=== PATIENT | female | born 1975 | race African-American/Black ===

== ENCOUNTER 2021-05-21 11:00 | Observation (INO) | payer MEDICARE ==
[~2021-05-21] VITALS: Ht 167.6 cm; Wt 88.6 kg
[~2021-05-21 11:00] MED LIST: ASPI-886 PO; ATOR40TA59 PO; CARV25TA2 PO; CLOP75TA PO; DIVA500T2 PO; LISI-130 PO; LISI10TA16 PO; LISI20TA18 PO; METF500T16 PO; NAPR-514 PO; RISP2TAB33 PO; ZIPR40CA2 PO
[2021-05-21] MEDS ORDERED: IV NORMAL SALINE 1000ML BAG 1,000 ML IV SCH (11:15)
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
[2021-05-21] MEDS ORDERED: ASPIRIN 325 MG TABLET PO ONE (11:30)
[2021-05-21] MEDS ORDERED: cloNIDine HCL 0.1 MG TABLET PO ONE (11:30)
[2021-05-21 11:44] LABS: CALCIUM 8.8 mg/dL (8.5-10.1); CREATININE 0.9 mg/dL (0.6-1.0); GFR 81.9; POTASSIUM 4.2 mmol/L (3.5-5.1)
[2021-05-21 11:50] LABS: ALBUMIN/GLOBULIN RATIO 0.8 (1.0-1.7); MAGNESIUM 1.9 mg/dL (1.8-2.4); TOTAL BILIRUBIN 0.3 mg/dL (0.2-1.0); TOTAL PROTEIN 6.6 g/dL (6.4-8.2)
--- NOTE | 2021-05-21 12:03 | RAD ---
EXAM: Chest, single view. HISTORY: Hypertension. COMPARISON: 09/10/2020 FINDINGS: A frontal view of the chest is obtained. There is no infiltrate, pleural fusion or pneumoth orax. The heart is normal in size. IMPRESSION: No acute pulmonary finding. Electronically signed by: Shivani Mina MD (05/21/2021 12:00 PM) [id number]
[2021-05-21 12:25] LABS: BASO # 0.1 x10^3/uL (0.0-0.2); BASO % 1 % (0-3); EOS # 0.1 x10^3/uL (0.0-0.7); EOS % 1 % (0-3); HEMATOCRIT 37.9 % (36.0-47.0); HEMOGLOBIN 12.3 g/dL (12.0-15.5); LYMPH # 2.8 x10^3/uL (1.0-4.8); LYMPH % 27 % (24-48); MEAN CORPUSCULAR HEMOGLOBIN 28 pg (25-35); MEAN CORPUSCULAR HGB CONC 33 g/dL (31-37); MEAN CORPUSCULAR VOLUME 87 fL (79-100); MONO # 0.9 x10^3/uL (0.0-1.1); MONO % 8 % (0-9); NEUT # 6.7 x10^3/uL (1.8-7.7); NEUT % 64 % (31-73); PLATELET COUNT 309 x10^3/uL (140-400); RED BLOOD COUNT 4.37 x10^6/uL (3.50-5.40); RED CELL DISTRIBUTION WIDTH 15.4 % (11.5-14.5); WHITE BLOOD COUNT 10.5 x10^3/uL (4.0-11.0)
--- NOTE | 2021-05-21 12:51 | RAD ---
EXAM: Head CT without contrast. HISTORY: Altered mental status. TECHNIQUE: Computed tomographic images of the head were obtained without contrast. *One or more of the following individualized dose reduction techniques were utilized for this examina tion: 1. Automated exposure control. 2. Adjustment of the mA and/or kV according to patient size. 3. Use of iterative reconstruction technique. COMPARISON: 09/13/2020. FINDINGS: There is no acute or subacute extra-axial or intraparenchymal hemorrhage. There is no mass effect or midline shift. There is no hydrocephalus. The key-white matter differentiation pattern is intact. The visualized portions of the orbits, paranasal sinuses and mastoid air cells are unremarkable. No s uspicious calvarial lesion is seen. IMPRESSION: No acute intracranial finding. Note is made that MRI is more sensitive for acute infarcti on. Electronically signed by: Shivani Mina MD (05/21/2021 12:49 PM) [id number]
[2021-05-21 13:12] LABS: BILIRUBIN,URINE NEGATIVE (NEG); CLARITY,URINE CLEAR; COLOR,URINE YELLOW; NITRITE,URINE NEGATIVE (NEG); PROTEIN,URINE 100 mg/dL (NEG-TRACE)
[2021-05-21 13:15] LABS: BARBITURATES NEG (NEG); BENZODIAZEPINES NEG (NEG); CANNABINOIDS POS (NEG); COCAINE NEG (NEG); METHADONE NEG (NEG); OPIATES NEG (NEG); PHENCYCLIDINE POS (NEG)
[2021-05-21] MEDS ORDERED: NITROGLYCERIN SUBLINGUAL 0.4 MG BOTTLE OF 25. SL PRN (13:15)
[2021-05-21 13:16] LABS: AMPHETAMINE/METHAMPHETAMINE NEG (NEG)
[2021-05-21 13:28] LABS: BACTERIA,URINE 0 /HPF (0-FEW); RBC,URINE 0 /HPF (0-2); WBC,URINE 0 /HPF (0-4)
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
--- NOTE | 2021-05-21 14:01 | EKG ---
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
[2021-05-21 14:17] LABS: PROTHROMBIN TIME PATIENT 13.3 SEC (11.7-14.0)
[2021-05-21] MEDS ORDERED: DOCUSATE SODIUM 100 MG CAPSULE. PO PRN (14:45)
[2021-05-21] MEDS ORDERED: ONDANSETRON PF 4 MG/2 ML VIAL. IVP PRN (14:45)
[2021-05-21] MEDS ORDERED: PROCHLORPERAZINE 10 MG/2 ML VIAL. IV PRN (14:45)
[2021-05-21] MEDS ORDERED: DEXTROSE 50% 25 GM / 50ML DISP.SYRIN. IV PRN (14:45)
[2021-05-21 17:15] VITALS: BP 191/114
[2021-05-21] MEDS: ACETAMINOPHEN 325 MG TABLET. PO PRN ×2 (17:44→21:39)
[2021-05-21] MEDS: IV NORMAL SALINE 1000ML BAG 1,000 ML IV SCH (17:47)
[2021-05-21] MEDS: INSULIN LISPRO 300 UNITS/3 ML VIAL. SQ SCH (17:47)
[2021-05-21 19:54] VITALS: BP 168/97
[2021-05-21] MEDS ORDERED: NICOTINE 7MG PATCH. TD PRN (20:30)
[2021-05-21] MEDS: ENOXAPARIN 40 MG/0.4 ML SYRINGE. SQ SCH (21:39)
[2021-05-21 23:39] VITALS: BP 146/82
[2021-05-22] MEDS: IV NORMAL SALINE 1000ML BAG 1,000 ML IV SCH ×3 (00:45→20:45)
[2021-05-22 03:11] VITALS: BP 156/87
[2021-05-22 04:36] LABS: BASO % 1 % (0-3); EOS # 0.1 x10^3/uL (0.0-0.7); EOS % 2 % (0-3); HEMATOCRIT 38.4 % (36.0-47.0); HEMOGLOBIN 12.7 g/dL (12.0-15.5); LYMPH # 2.8 x10^3/uL (1.0-4.8); LYMPH % 33 % (24-48); MEAN CORPUSCULAR HEMOGLOBIN 29 pg (25-35); MEAN CORPUSCULAR HGB CONC 33 g/dL (31-37); MEAN CORPUSCULAR VOLUME 87 fL (79-100); MONO # 0.6 x10^3/uL (0.0-1.1); MONO % 7 % (0-9); NEUT % 59 % (31-73); PLATELET COUNT 276 x10^3/uL (140-400); RED BLOOD COUNT 4.42 x10^6/uL (3.50-5.40); RED CELL DISTRIBUTION WIDTH 15.4 % (11.5-14.5); WHITE BLOOD COUNT 8.6 x10^3/uL (4.0-11.0)
[2021-05-22 04:51] LABS: CREATININE 0.7 mg/dL (0.6-1.0); GFR 109.5; MAGNESIUM 1.7 mg/dL (1.8-2.4); PHOSPHORUS 3.2 mg/dL (2.6-4.7); POTASSIUM 3.6 mmol/L (3.5-5.1)
[2021-05-22 07:00] VITALS: BP 153/102
[2021-05-22] MEDS: INSULIN LISPRO 300 UNITS/3 ML VIAL. SQ SCH ×3 (08:06→17:52)
[2021-05-22 11:12] VITALS: BP 184/117
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
[2021-05-22] MEDS: DIVALPROEX DELAYED RELEASE 500 MG TABLET.DR. PO SCH ×2 (13:00→21:00)
[2021-05-22] MEDS: CARVEDILOL 12.5 MG TABLET. PO SCH ×2 (13:38→17:49)
[2021-05-22] MEDS: CLOPIDOGREL BISULFATE 75 MG TABLET PO SCH (13:38)
[2021-05-22] MEDS: metFORMIN 500 MG TABLET PO SCH ×2 (13:38→17:49)
[2021-05-22] MEDS: ASPIRIN ENTERIC COATED 81 MG TABLET.DR. PO SCH (13:38)
[2021-05-22] MEDS: LISINOPRIL 20 MG TABLET PO SCH (13:39)
[2021-05-22] MEDS: HALOPERIDOL 2 MG TABLET. PO SCH (13:39)
[2021-05-22] MEDS: FLUTICASONE 50MCG/NASAL SPRAY 16GM BOTTLE. NS SCH (13:40)
[2021-05-22] MEDS: ALBUTEROL SULFATE 2.5 MG/3 ML NEBU. NEB SCH ×3 (14:23→21:13)
[2021-05-22 15:20] VITALS: BP 167/101
[2021-05-22] MEDS ORDERED: diphenhydrAMINE HCL 25 MG CAPSULE PO PRN (19:30)
[2021-05-22 19:33] VITALS: BP 189/108
[2021-05-22] MEDS ORDERED: ATORVASTATIN CALCIUM 40 MG TABLET. PO SCH (21:00)
[2021-05-22] MEDS ORDERED: risperiDONE 1 MG TABLET. PO SCH (21:00)
[2021-05-22] MEDS ORDERED: RISPERIDONE PO SCH (21:00)
[2021-05-22] MEDS: ENOXAPARIN 40 MG/0.4 ML SYRINGE. SQ SCH (21:06)
[2021-05-22 22:47] VITALS: BP 144/92
[2021-05-23 03:02] VITALS: BP 119/64
[2021-05-23] MEDS: IV NORMAL SALINE 1000ML BAG 1,000 ML IV SCH (06:05)
[2021-05-23] MEDS: ALBUTEROL SULFATE 2.5 MG/3 ML NEBU. NEB SCH ×2 (06:07→12:19)
[2021-05-23 07:22] LABS: BASO # 0.1 x10^3/uL (0.0-0.2); BASO % 1 % (0-3); EOS # 0.1 x10^3/uL (0.0-0.7); EOS % 1 % (0-3); HEMATOCRIT 42.5 % (36.0-47.0); HEMOGLOBIN 13.7 g/dL (12.0-15.5); LYMPH # 2.4 x10^3/uL (1.0-4.8); LYMPH % 23 % (24-48); MEAN CORPUSCULAR HEMOGLOBIN 28 pg (25-35); MEAN CORPUSCULAR HGB CONC 32 g/dL (31-37); MEAN CORPUSCULAR VOLUME 87 fL (79-100); MONO # 0.6 x10^3/uL (0.0-1.1); MONO % 6 % (0-9); NEUT # 7.3 x10^3/uL (1.8-7.7); NEUT % 70 % (31-73); PLATELET COUNT 255 x10^3/uL (140-400); RED BLOOD COUNT 4.85 x10^6/uL (3.50-5.40); WHITE BLOOD COUNT 10.5 x10^3/uL (4.0-11.0)
[2021-05-23 07:38] LABS: CALCIUM 8.7 mg/dL (8.5-10.1); CREATININE 0.7 mg/dL (0.6-1.0); GFR 109.5; MAGNESIUM 1.8 mg/dL (1.8-2.4); POTASSIUM 4.1 mmol/L (3.5-5.1)
[2021-05-23 08:00] VITALS: BP 141/78
[2021-05-23] MEDS: ASPIRIN ENTERIC COATED 81 MG TABLET.DR. PO SCH (08:43)
[2021-05-23] MEDS: CLOPIDOGREL BISULFATE 75 MG TABLET PO SCH (08:43)
[2021-05-23] MEDS: CARVEDILOL 12.5 MG TABLET. PO SCH (08:44)
[2021-05-23] MEDS: HALOPERIDOL 2 MG TABLET. PO SCH (08:44)
[2021-05-23] MEDS: LISINOPRIL 20 MG TABLET PO SCH (08:44)
[2021-05-23] MEDS: metFORMIN 500 MG TABLET PO SCH (08:44)
[2021-05-23] MEDS: FLUTICASONE 50MCG/NASAL SPRAY 16GM BOTTLE. NS SCH (08:45)
[2021-05-23] MEDS: INSULIN LISPRO 300 UNITS/3 ML VIAL. SQ SCH ×2 (08:49→12:09)
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
[2021-05-23] MEDS ORDERED: METF500T16 PO ×2 (10:20→10:23)
[2021-05-23] MEDS ORDERED: CLOP75TA PO ×2 (10:20→10:23)
[2021-05-23] MEDS ORDERED: ASPI-886 PO ×2 (10:20→10:23)
[2021-05-23] MEDS ORDERED: DIVA500T2 PO ×2 (10:20→10:23)
[2021-05-23] MEDS ORDERED: RISP2TAB33 PO ×2 (10:20→10:23)
[2021-05-23] MEDS ORDERED: LISI-130 PO ×2 (10:20→10:23)
[2021-05-23] MEDS ORDERED: ATOR40TA59 PO ×2 (10:20→10:23)
[2021-05-23] MEDS ORDERED: CARV25TA2 PO ×2 (10:20→10:23)
[2021-05-23] MEDS ORDERED: HALO2TAB PO ×2 (10:20→10:23)
[2021-05-23] MEDS ORDERED: EMPA10TA PO (10:23)
--- NOTE | 2021-05-23 10:29 | NUR ---
SS following for discharge planning. SS reviewed pt chart and discussed with pt RN. Pt is currently on room air. Pt positive for PCP and Marijuana. PAT team referral made for assessment and recommendations. Pt reporting that she is currently homeless but works and receives disability. Delvin from PAT team met with pt. Pt has open case with [facility] and has treatment team. Pt also has homeless program through [facility]. Pt reporting that she will stay in a hotel at discharge. Probable discharge today. SS will continue to follow for discharge planning.
[2021-05-23] MEDS ORDERED: MAGNESIUM SULFATE 1GM 100 ML IV ONE (10:30)
[2021-05-23 11:00] VITALS: BP 166/101
[2021-05-23] MEDS: MAGNESIUM OXIDE 400 MG TABLET PO SCH ×2 (12:40→12:42)
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
--- NOTE | 2021-05-23 15:42 | NUR ---
Discharge: Teaching verbal and written. Patient verbalized understanding. IV removed without complications, catheter tip in-tact. 2 prescriptions send to pharmacy by Dr. Moreno. Called for cab but them patient said she didnt want to wait and her friend was going to pick her up. Patient ambulated off of unit independently accompanied by nurse and patients friend.
--- NOTE | 2021-06-01 14:26 | NUR ---
Late entry - NaCl infusion started on 05/21/21 at 1747 stopped on 05/22/21 at 0044. NaCl infusion started on 05/22/21 at 0045 stopped on 05/22/21 at 1045.
== END 2021-05-23 14:56 | disposition home or self-care (01) ==
LOC: ER 11:00 → INTOOBSV 13:10 → ED HOLD 13:10 → 6 SOUTH 17:10
PROVIDERS: ADMIT Internal Medicine; ATTEND Internal Medicine
DX: G92 Toxic encephalopathy (principal); I24.8 Other forms of acute ischemic heart disease; E44.0 Moderate protein-calorie malnutrition; R11.2 Nausea with vomiting, unspecified; E11.65 Type 2 diabetes mellitus with hyperglycemia; F17.200 Nicotine dependence, unspecified, uncomplicated; R41.82 Altered mental status, unspecified; R77.8 Other specified abnormalities of plasma proteins; F19.10 Other psychoactive substance abuse, uncomplicated; I10 Essential (primary) hypertension; R79.89 Other specified abnormal findings of blood chemistry; I25.10 Atherosclerotic heart disease of native coronary artery without angina pectoris; F20.9 Schizophrenia, unspecified; M06.9 Rheumatoid arthritis, unspecified; F31.9 Bipolar disorder, unspecified; F16.90 Hallucinogen use, unspecified, uncomplicated; E78.5 Hyperlipidemia, unspecified; Z95.5 Presence of coronary angioplasty implant and graft; Z91.14 Patient's other noncompliance with medication regimen; Z59.0 Homelessness; Z91.19 Patient's noncompliance with other medical treatment and regimen
CPT/HCPCS: 36415; 70450; 71045; 80048; 80053; 80307; 81001; 82010; 82962; 83690; 83735; 83880; 84100; 84484; 85025; 85379; 85610; 85730; 93005; 94640; 96360; 96361; 96372; 99285; 99406; G0378; G0480; J1650; J1815; J7030; J7613; Q0163; G0379

== ENCOUNTER 2021-06-14 17:57 | Emergency (ER) | payer MEDICARE ==
[~2021-06-14] VITALS: Ht 162.6 cm; Wt 98.0 kg
[~2021-06-14 17:57] MED LIST changes: +EMPA10TA PO; +HALO2TAB PO
[2021-06-14] MEDS ORDERED: AMOXICILLIN/K CLAV 875/125MG TABLET. PO ONE (23:45)
[2021-06-14] MEDS ORDERED: RABIES IMMUNE GLOBULIN PF 300 UNIT/ML 5ML VIAL VAX IM ONE (23:45)
[2021-06-14] MEDS ORDERED: BACITRACIN TOPICAL OINT PACKET. TP ONE (23:45)
[2021-06-14] MEDS ORDERED: DIPH,PERTUSS(ACELL),TET VAC/PF 0.5 ML SYRINGE. VAX IM ONE (23:45)
[2021-06-14] MEDS ORDERED: LISINOPRIL 10 MG TABLET PO ONE (23:45)
[2021-06-15] MEDS ORDERED: RABIES VIRUS VACC PF 2.5 UNIT / 1 ML VIAL. VAX IM ONE
[2021-06-15] MEDS ORDERED: AMOX1TAB61 PO (00:42)
--- NOTE | 2021-06-15 00:43 | PHYS DOC ---
Past Medical History Past Medical History: Diabetes-Type II, Hypertension Past Surgical History: No Surgical History Smoking Status: Current Every Day Smoker Alcohol Use: Heavy Drug Use: None, Marijuana General Adult EDM: Chief Complaint: ANIMAL BITE HPI: HPI: Patient is a 46 year old female who presents to the emergency department complaining of being bit on the left lower leg by a stray dog at 530 this morning. Patient states she has never seen the dog before, states it came on and better and ran off. Patient is worried she might get rabies. Patient vannessa es numbness or tingling to the animal bite site or distal to the animal bite site wound. Patient states her last tetanus immunization was greater than 5 years ago. Patient states that she is supposed to take medication for high blood pressure but chooses not to. Patient denies any other physical complaints or physical concerns. Review of Systems: Review of Systems: 14 body systems of review of systems have been reviewed. See HPI for pertinent positives and negative responses, otherwise all other systems are negative, nonpertinent or noncontributory. Constitutional: Negative except as outlined in HPI above. Skin: Negative except as outlined in HPI above. Eyes: Negative except as outlined in HPI above. HENT: Negative except as outlined in HPI above. Respiratory: Negative except as outlined in HPI above. Cardiovascular: Negative except as outlined in HPI above. GI: Negative except as outlined in HPI above. : Negative except as outlined in HPI above. Musculoskeletal: Negative except as outlined in HPI above. Integument: Negative except as outlined in HPI above. Neurologic: Negative except as outlined in HPI above. Endocrine: Negative except as outlined in HPI above. Lymphatic: Negative except as outlined in HPI above. Psychiatric: Negative except as outlined in HPI above. Heart Score: C/O Chest Pain: No Risk Factors: Risk Factors: DM, Current or recent (<one month) smoker, HTN, HLP, family history of CAD, obesity. Risk Scores: Score 0 - 3: 2.5% MACE over next 6 weeks - Discharge Home Score 4 - 6: 20.3% MACE over next 6 weeks - Admit for Clinical Observation Score 7 - 10: 72.7% MACE over next 6 weeks - Early Invasive Strategies Current Medications: Current Medications Medications (Trade) Dose Ordered Sig/Johanna Start Time Stop Time Status Last Admin Dose Admin Amoxicillin/ Clavulanate Potassium (Augmentin 875/ 125mg) 1 tab 1X ONCE 06/14/21 23:45 06/14/21 23:50 DC 06/14/21 23:58 1 TAB Bacitracin (Bacitracin Zinc Oint Pkt) 1 pkt 1X ONCE 06/14/21 23:45 06/14/21 23:50 DC 06/15/21 00:03 1 PKT Diphtheria/ Tetanus/Acell Pertussis (ADACEL TDap SYRINGE) 0.5 ml ONCE ONCE 06/14/21 23:45 06/14/21 23:50 DC 06/15/21 00:04 0.5 ML Lisinopril (Prinivil) 40 mg 1X ONCE 06/14/21 23:45 06/14/21 23:50 DC 06/14/21 23:59 40 MG Rabies Immune Globulin (HyperRAB 300 UNIT/ML 5ML VIAL) 6.5 ml ONCE ONCE 06/14/21 23:45 06/15/21 00:01 DC 06/15/21 00:18 6.5 ML Rabies Vaccine Human Diploid Cell (Imovax Rabies 2.5 Unit / ml) 1 ml ONCE ONCE 06/15/21 00:00 06/15/21 00:01 DC 06/15/21 00:13 1 ML Allergies: Allergies: Allergies Coded Allergies Type Severity Reaction Last Updated Verified No Known Drug Allergies 03/22/14 No Physical Exam: PE: Constitutional: Well developed, well nourished, no acute distress, non-toxic appearance. 46-year-old female in no apparent distress. HENT: Normocephalic, atraumatic. Eyes: Conjunctiva normal, no discharge. Neck: Normal range of motion, no stridor. Cardiovascular: No cyanosis appreciated, distal cap refill less than 2 seconds. Lungs & Thorax: Patient is in no respiratory distress, no audible adventitious lung sounds appreciated. Abdomen: Nontender, no abnormalities noted. Skin: Warm, dry, no erythema, no rash. See extremity note for focused skin examination Back: No tenderness, no deformities. Extremities: No tenderness, no cyanosis, no clubbing, ROM intact, no edema. Patient has two 11 mm superficial skin abrasions to the left lower lateral leg just proximal to the ankle. No infectious process appreciated, no bleeding noted. The abrasions do not extend full-thickness skin, no purulent drainage, 2+ dorsalis pedis/posterior tibial pulses. Distal cap refills less than 2 seconds, no edema, no swelling appreciated. No loss of sensation. Neurologic: Alert and oriented X 3, normal motor function, normal sensory function, no focal deficits noted. Psychologic: Affect normal, judgement normal, mood normal. Current Patient Data: Vital Signs: Vital Signs Date Time Temp Pulse Resp B/P (MAP) Pulse Ox O2 Delivery O2 Flow Rate FiO2 06/14/21 23:59 80 170/104 06/14/21 23:30 20 94 Room Air 06/14/21 20:15 98.8 98.8 EKG: EKG: [] Radiology/Procedures: Radiology/Procedures: [] Course & Med Decision Making: Course & Med Decision Making Pertinent Labs and Imaging studies reviewed. (See chart for details) 46-year-old female, vital signs reviewed, presents to the emergency department with chief complaint of being bit by dog at 530 this morning. Physical examination consistent with abrasion from scratch, no bite sincere or bite pattern appreciated, most likely scratch from dog paw if in fact an animal did cause of the skin wound. Patient also presents with hypertension, states that she is supposed to take 40 mg of lisinopril daily however chooses not to. Discussed with patient will cleanse wound, contact animal control, will give 40 mg dose of lisinopril in the ED today for hypertensive blood pressure on presentation, will start on Augmentin in the ED today, will bring tetanus immunization up-to-date with Adacel Tdap patient is amendable to this planning. Patient states she does not want any labs drawn today Contacted security related to animal bite who will contact Donta GREWAL to contact animal control. Related to stray dog, however low probability of rabies, related to patient's story that animal was stray and happened at 530 this morning it is unlikely that the animal will be found by animal control for rabies observation, will treat prophylactically today, patient is amenable to this planning. Patient's rabies vaccine to be given on day 0 which is today, day 3, 7, and 14. Immunoglobulin was given by me by infiltrating wound site with feasible amount with approximately 3 cc remaining given to the left gluteal site deep IM. Discussed with patient planning to come back on day 3, 7, and day 14 which is Sunday, June 18, SundayJune 22, and June 29. Patient is to come to the emergency department for rabies vaccine on the aforementioned days. Patient is amenable to this planning. Will start patient on 875 Augmentin twice daily x7 days. Discussed with the patient all findings and diagnostic testing as well as the need to follow-up with their primary care provider for further evaluation and treatment or return to the ED if any new or worsening symptoms. Strict return precautions were also discussed at length, the patient voiced understanding and agreement with the discharge planning. The patient was nontoxic in appearance, in no apparent distress, and hemodynamically stable at the time of disposition. Dragon Disclaimer: DadShed Disclaimer: This electronic medical record was generated, in whole or in part, using a voice recognition dictation system. Departure Departure Impression: Primary Impression: Animal bite Additional Impressions: Need for prophylactic vaccination against rabies Need for DTaP vaccine Poorly-controlled hypertension Disposition: HOME / SELF CARE / HOMELESS Condition: GOOD Referrals: GINO LA MD (PCP) Patient Instructions: Animal Bite, Rabies, Rabies Immune Globulin, human RIG solution for injection, Rabies Vaccine suspension for injection, VIS, Rabies - CDC Additional Instructions: You were seen today in the emergency department for a dog bite to your left leg. Because of the unlikelihood the dog can be found and observe for rabies, you were treated today for a rabies infection. This was to prevent any rabies infection from starting. Your first dose seen today was started in the ER. You will need to come back to the emergency department for additional 1 time rabies vaccine dosing on days 3, 7, and 14 which equates to returning to the emergency department on Sunday, June 182020, June 222020, and June 29, 2021. You were given a dose of your first antibiotic here in the emergency department, please fill the prescription tomorrow and take as directed for the next 7 days. Please continue to take your high blood pressure medication at home as directed by your primary care physician. Please return to the emergency department for worsening symptoms or other concerns. Thank you for visiting our Emergency Department. It was a pleasure taking care of you today in the emergency department and we appreciate you trusting us with your care. If any additional problems come up don't hesitate to return to visit us. Please follow up with your primary care provider so they can plan additional care if needed and know about the problem that you had. If symptoms worsen come back to the Emergency Department. Any concerning symptoms that start such as chest pain, shortness of air, weakness or numbness on one side of the body, running high fevers or any other concerning symptoms return to the ER. Please cleanse the dog bite wound area daily with soap and water and apply antibiotic ointment and bandage until healed. Your tetanus immunization was brought up-to-date in the emergency room today with a medication called Adacel/Tdap please update your immunization records accordingly. EMERGENCY DEPARTMENT GENERAL DISCHARGE INSTRUCTIONS Thank you for coming to [facility] (ED) today and trusting us with you care. We trust that you had a positive experience in our Emergency Department. If you wish to speak to the department management, you may call the Director at [phone]. YOUR FOLLOW UP INSTRUCTIONS ARE FOLLOWS: 1. Do you have a private Doctor? If you do not have a private doctor, please ask for a resource list of physicians or clinics that may be able to assist you with follow up care. 2. The Emergency Physicain has interpreted your x-rays. The X-Ray specialist will also review them. If there is a change in the findings, you will be notified in 48 hours when at all possible. 3. A lab test or culture has been done, your results will be reviewed and you will be notified if you need a change in treatment. ADDITIONAL INSTRUCTIONS AND INFORMATION: 1. Your care today has been supervised by a physician who is specially trained in emergency care. Many problems require more than one evaluation for a complete diagnosis and treatment. We recommend that you schedule your follow up appointment as recommended to ensure complete treatment of you illness or injury. If you are unable to obtain follow up care and continue to have a problem, or if your condition worsens, we recommend that you return to the ED. 2. We are not able to safely determine your condition over the phone nor are we able to give sound medical advice over the phone. For these safety reasons, if you call for medical advice we will ask you to come to the ED for further evaluation. 3. If you have any questions regarding these discharge instructions please call the ED at [phone]. SAFETY INFORMATION: In the interest of safety, wellness, and injury prevention; we encourage you to wear your sealbelt, if you smoke; quite smoking, and we encourage family to use a protective helmet for bicycling and other sporting events that present an increased risk for head injury. IF YOUR SYMPTOMS WORSEN OR NEW SYMPTOMS DEVELOP, OR YOU HAVE CONCERNS ABOUT YOUR CONDITION; OR IF YOUR CONDITION WORSENS WHILE YOU ARE WAITING FOR YOUR FOLLOW UP APPOINTMENT; EITHER CONTACT YOUR PRIMARY CARE DOCTOR, THE PHYSICIAN WHOSE NAME AND NUMBER YOU WERE GIVEN, OR RETURN TO THE ED IMMEDIATELY. Scripts Amoxicillin/Potassium Clav (AUGMENTIN 875-125 TABLET) 1 Each Tablet 1 TAB PO BID for animal bite for 7 Days, #14 TAB 0 Refills Prov: OSVALDO HOUGH APRN 06/15/21 OSVALDO HOUGH APRN Jun 15, 2021 00:43
[2021-06-15 00:53] VITALS: BP 179/111
== END 2021-06-15 01:00 | disposition home or self-care (01) ==
LOC: ER 17:57
DX: S81.852A Open bite, left lower leg, initial encounter (principal); E11.9 Type 2 diabetes mellitus without complications; I10 Essential (primary) hypertension; F17.200 Nicotine dependence, unspecified, uncomplicated; F10.20 Alcohol dependence, uncomplicated; Y90.9 Presence of alcohol in blood, level not specified; W54.0XXA Bitten by dog, initial encounter; Y93.89 Activity, other specified; Y92.89 Other specified places as the place of occurrence of the external cause; Y99.8 Other external cause status
CPT/HCPCS: 90375; 90471; 90675; 90715; 96372; 99284-25; 99285-25

== ENCOUNTER 2021-09-21 05:41 | Observation (INO) | payer MEDICARE ==
[~2021-09-21] VITALS: Ht 165.1 cm; Wt 86.2 kg
[~2021-09-21 05:41] MED LIST changes: +AMOX1TAB61 PO
[2021-09-21] MEDS ORDERED: IV NORMAL SALINE 1000ML BAG 1,000 ML IV ONE ×2 (06:15→12:30)
[2021-09-21 06:31] LABS: BASO % 0 % (0-3); EOS % 0 % (0-3); HEMATOCRIT 45.4 % (36.0-47.0); HEMOGLOBIN 14.7 g/dL (12.0-15.5); LYMPH # 1.5 x10^3/uL (1.0-4.8); LYMPH % 10 % (24-48); MEAN CORPUSCULAR HEMOGLOBIN 28 pg (25-35); MEAN CORPUSCULAR HGB CONC 32 g/dL (31-37); MEAN CORPUSCULAR VOLUME 87 fL (79-100); MONO # 0.9 x10^3/uL (0.0-1.1); MONO % 6 % (0-9); NEUT # 12.4 x10^3/uL (1.8-7.7); NEUT % 84 % (31-73); PLATELET COUNT 286 x10^3/uL (140-400); RED BLOOD COUNT 5.21 x10^6/uL (3.50-5.40); RED CELL DISTRIBUTION WIDTH 14.4 % (11.5-14.5); WHITE BLOOD COUNT 14.8 x10^3/uL (4.0-11.0)
[2021-09-21 06:31] LABS: INFLUENZA A PATIENT NEGATIVE (NEGATIVE); INFLUENZA B PATIENT NEGATIVE (NEGATIVE)
--- NOTE | 2021-09-21 06:31 | RAD ---
EXAM: XR CHEST 1V 09/21/2021 5:56 AM CLINICAL INDICATION: Shortness of breath COMPARISON: Chest radiograph 05/21/2021 TECHNIQUE: AP upright view the chest FINDINGS: The heart is normal in size. There is a rounded masslike opacity in the right infrahilar r egion. There are new bandlike right perihilar opacities and mild left retrocardiac opacities. No pleu ral effusion or pneumothorax. No acute osseous abnormality. IMPRESSION: 1. New rounded masslike opacity in the right infrahilar region. Recommend CT chest to further evaluat e. 2. Additional mild right perihilar and left retrocardiac opacities. Electronically signed by: Lilian Gamble MD (09/21/2021 6:29 AM) [facility]
[2021-09-21 06:32] LABS: CALCIUM 8.9 mg/dL (8.5-10.1); CREATININE 1.2 mg/dL (0.6-1.0); GFR 58.8; POTASSIUM 4.2 mmol/L (3.5-5.1)
[2021-09-21 06:36] LABS: TOTAL BILIRUBIN 0.8 mg/dL (0.2-1.0); TOTAL PROTEIN 7.7 g/dL (6.4-8.2)
[2021-09-21 06:44] LABS: ALBUMIN 2.2 g/dL (3.4-5.0); ALBUMIN/GLOBULIN RATIO 0.4 (1.0-1.7)
[2021-09-21] MEDS ORDERED: IOHEXOL 350 MG/ML 100 ML VIAL. IV ONE (06:45)
[2021-09-21] MEDS ORDERED: CONTRAST GIVEN. MC PRN (06:45)
--- NOTE | 2021-09-21 06:49 | EKG ---
[facility] [address] [place] [address] Test Date: 2021-09-21 Test Time: 05:50:23 Pat Name: BELKYS VAUGHN Department: Room: Gender: F Emergency Veterinarian: : 1975 Requested By: ANA BETTS Order Number: [id number] Reading MD: Oral Schuler MD Measurements Intervals [place] Rate: 123 P: 96 MD: 120 QRS: 11 QRSD: 80 T: 66 QT: 312 QTc: 452 Interpretive Statements SINUS TACHYCARDIA NON-SPECIFIC ST/T CHANGES Electronically Signed On 09-26-2021 11:46:32 WATER SUPERVISOR by Oral Schuler MD
--- NOTE | 2021-09-21 06:50 | PHYS DOC ---
Past Medical History Past Medical History: Diabetes-Type II, Hypertension Additional Past Medical Histor: DRUG ABUSE Past Surgical History: No Surgical History Smoking Status: Current Every Day Smoker Alcohol Use: None Drug Use: Marijuana, Phencyclidine General Adult EDM: Chief Complaint: SHORTNESS OF BREATH HPI: HPI: 46-year-old female with history of asthma, diabetes, coronary artery disease presents to the ED with chest pain. Chest pain started 2 days ago while she was running to catch the bus. This is the first time patient has experienced this type of chest pain. Patient reports chest pain is 10 out of 10 in severity. Patient reports difficulty taking a deep breath. Laying down flat makes the pain feel better. Sitting up straight makes the chest pain worse. Chest pain does not radiate to the jaw or arm. Chest pain is primarily in the middle of her chest. Patient reports diarrhea, headache, and fevers. Patient denies nausea or vomiting. Patient states no recent known Covid exposures. Patient received the [employer] Covid vaccine 1 month ago. Review of Systems: Review of Systems: Constitutional: Denies fever or chills Eyes: Denies redness or eye pain HENT: Denies nasal congestion or sore throat Respiratory: Denies cough or shortness of breath Cardiovascular: Denies chest pain or palpitations GI: Denies abdominal pain, nausea, or vomiting : Denies dysuria or hematuria Musculoskeletal: Denies back pain or joint pain Integument: Denies rash or skin lesions Neurologic: Denies headache, focal weakness or sensory changes Complete systems were reviewed and found to be within normal limits, except as documented in this note. Heart Score: C/O Chest Pain: Yes HEART Score for Chest Pain: HEART Score for Chest Pain Response (Comments) Value History Moderately Suspicious 1 ECG Normal 0 Age >45 - < 65 1 Risk Factors >3 Risk Factors or Hx CAD 2 Troponin >3 x Normal Limit 2 Total 6 Risk Factors: Risk Factors: DM, Current or recent (<one month) smoker, HTN, HLP, family history of CAD, obesity. Risk Scores: Score 0 - 3: 2.5% MACE over next 6 weeks - Discharge Home Score 4 - 6: 20.3% MACE over next 6 weeks - Admit for Clinical Observation Score 7 - 10: 72.7% MACE over next 6 weeks - Early Invasive Strategies Current Medications: Current Medications Medications (Trade) Dose Ordered Sig/Johanna Start Time Stop Time Status Last Admin Dose Admin Info (CONTRAST GIVEN -- Rx MONITORING) 1 each PRN DAILY PRN 09/21/21 06:45 09/23/21 06:44 Iohexol (Omnipaque 350 Mg/ml) 75 ml 1X ONCE 09/21/21 06:45 09/21/21 06:46 Sodium Chloride 1,000 ml @ 1,000 mls/hr 1X ONCE 09/21/21 06:15 09/21/21 07:14 Allergies: Allergies: Allergies Coded Allergies Type Severity Reaction Last Updated Verified No Known Drug Allergies 03/22/14 No Physical Exam: PE: Constitutional: Well developed, well nourished, no acute distress, non-toxic appearance HENT: Normocephalic, atraumatic Eyes: PERRL, EOMI, conjunctiva normal, no discharge Neck: Normal range of motion, no tenderness, supple Lungs & Thorax: No respiratory distress, equal chest rise and fall Abdomen: Soft, no tenderness Skin: Warm, dry, no erythema, no rash Back: No tenderness, no CVA tenderness Extremities: No tenderness, ROM intact, no edema Neurologic: Alert and oriented X 3, normal motor function, normal sensory funct ion, no focal deficits noted Psychologic: Affect normal, judgment normal Current Patient Data: Labs: Laboratory Tests Test 09/21/21 05:54 09/21/21 05:57 09/21/21 05:58 SARS-CoV-2 Antigen (Rapid) Negative (NEGATIVE) Influenza Type A Antigen Negative (NEGATIVE) Influenza Type B Antigen Negative (NEGATIVE) White Blood Count 14.8 x10^3/uL (4.0-11.0) H Red Blood Count 5.21 x10^6/uL (3.50-5.40) Hemoglobin 14.7 g/dL (12.0-15.5) Hematocrit 45.4 % (36.0-47.0) Mean Corpuscular Volume 87 fL (79-100) Mean Corpuscular Hemoglobin 28 pg (25-35) Mean Corpuscular Hemoglobin Concent 32 g/dL (31-37) Red Cell Distribution Width 14.4 % (11.5-14.5) Platelet Count 286 x10^3/uL (140-400) Neutrophils (%) (Auto) 84 % (31-73) H Lymphocytes (%) (Auto) 10 % (24-48) L Monocytes (%) (Auto) 6 % (0-9) Eosinophils (%) (Auto) 0 % (0-3) Basophils (%) (Auto) 0 % (0-3) Neutrophils # (Auto) 12.4 x10^3/uL (1.8-7.7) H Lymphocytes # (Auto) 1.5 x10^3/uL (1.0-4.8) Monocytes # (Auto) 0.9 x10^3/uL (0.0-1.1) Eosinophils # (Auto) 0.0 x10^3/uL (0.0-0.7) Basophils # (Auto) 0.0 x10^3/uL (0.0-0.2) Sodium Level 129 mmol/L (136-145) L Potassium Level 4.2 mmol/L (3.5-5.1) Chloride Level 94 mmol/L (98-107) L Carbon Dioxide Level 23 mmol/L (21-32) Anion Gap 12 (6-14) Blood Urea Nitrogen 19 mg/dL (7-20) Creatinine 1.2 mg/dL (0.6-1.0) H Estimated GFR (Cockcroft-Gault) 58.8 BUN/Creatinine Ratio 16 (6-20) Glucose Level 390 mg/dL (70-99) H Calcium Level 8.9 mg/dL (8.5-10.1) Magnesium Level 1.7 mg/dL (1.8-2.4) L Total Bilirubin Pending Aspartate Amino Transferase (AST) Pending Alanine Aminotransferase (ALT) Pending Alkaline Phosphatase Pending Total Protein Pending Albumin Pending Albumin/Globulin Ratio Pending Laboratory Tests 09/21/21 05:58 Laboratory Tests 09/21/21 05:58 Vital Signs: Vital Signs Date Time Temp Pulse Resp B/P (MAP) Pulse Ox O2 Delivery O2 Flow Rate FiO2 09/21/21 06:06 98.1 124 20 122/73 (89) 92 Room Air 98.1 EKG: EKG: @0550 Sinus tachycardia at 123bpm, NO ST elevation, prominent p waves in II-III and aVF, nonspecific t wave inversion I and aVL, QRS 80ms, QT/QTc 312/452, compared to prior EKG per [facility] from 09/10/20- t wave inversion no noted in I, otherwise without significant change Radiology/Procedures: Radiology/Procedures: PROCEDURE: CHEST AP ONLY EXAM: XR CHEST 1V 09/21/2021 5:56 AM CLINICAL INDICATION: Shortness of breath COMPARISON: Chest radiograph 05/21/2021 TECHNIQUE: AP upright view the chest FINDINGS: The heart is normal in size. There is a rounded masslike opacity in the right infrahilar region. There are new bandlike right perihilar opacities and mild left retrocardiac opacities. No pleural effusion or pneumothorax. No acute osseous abnormality. IMPRESSION: 1. New rounded masslike opacity in the right infrahilar region. Recommend CT chest to further evaluate. 2. Additional mild right perihilar and left retrocardiac opacities. Electronically signed by: Lilian Gamble MD (09/21/2021 6:29 AM) [facility] PROCEDURE: CT ANGIO CHEST W ABD PEL W/ CT chest abdomen pelvis with contrast dated 09/21/2021. COMPARISON: 04/11/2015. CLINICAL INDICATION: Chest pain and hypoxia. History of trauma. TECHNIQUE: Contiguous axial imaging the chest performed following the bolus administration of 75 cc Omnipaque 350. Study was performed as dedicated CTA with thin cut coronal and sagittal MIPS reconstruction. In addition, imaging through the abdomen pelvis acquired in the venous phase. One or more of the following individualized dose reduction techniques were utilized for this examination: 1. Automated exposure control 2. Adjustment of the mA and/or kV according to patient size 3. Use of iterative reconstruction technique. FINDINGS: Contrast bolus is adequate. No evidence of central, lobar or segmental pulmonary embolus. Subsegmental branches are not well evaluated. Thoracic aorta is normal in caliber. No intimal flap or periaortic fluid collection. Heart size within normal limits. No pericardial effusion. Coronary artery calcifications. There are mildly enlarged bilateral hilar, left paratracheal and subcarinal lymph nodes measuring up to 1.2 cm short axis. There is also some increased density in the anterior superior mediastinum. Central airways are patent. There is consolidation of the left lower lobe with air bronchograms. There are also patchy areas of consolidation in the anterior right upper lobe and right perihilar region extending into the right middle lobe. Prominent reticular nodular tree-in-bud opacities throughout both lungs. No pleural effusion. No pneumothorax. Images of the abdomen show homogeneous attenuation of the liver and spleen. Pancreas, adrenal glands, kidneys unremarkable. No hydronephrosis. The gallbladder is collapsed. Unopacified GI tract normal in caliber and contour. No bowel wall thickening. No inflammatory stranding in the mesentery. Appendix normal in caliber. No ascites or lymphadenopathy. Images of pelvis show nondistended urinary bladder. The uterus is unremarkable. There is a 4.3 cm left ovarian cyst. 1.7 cm right ovarian cyst versus dominant follicle. No free fluid. No pelvic adenopathy. Bone windows show no acute finding. IMPRESSION: 1. No acute abnormality of chest abdomen pelvis. No evidence of central, lobar or segmental pulmonary embolus. 2. Patchy consolidation of the left lower lobe, right upper lobe and right middle lobe, consistent with pneumonia. There are also superimposed diffuse reticular nodular tree-in-bud opacities which could be related to underlying atypical infection. Follow-up imaging recommended to ensure resolution. 3. Mediastinal and bilateral hilar lymphadenopathy, likely reactive. 4. No acute abnormality of abdomen or pelvis. 5. Bilateral ovarian cysts versus dominant follicles. Electronically signed by: Rick Bob MD (09/21/2021 7:24 AM) [facility] [place] Course & Med Decision Making: Course & Med Decision Making 46-year-old female with history of asthma, diabetes, coronary artery disease presents to the ED with chest pain. Patient reports with signs and symptoms concerning for myocardial infarction, pulmonary embolism, COVID-19. Laboratory: Initial troponin value elevated at 180. ProBNP 4127. EKG @0550 sinus tachycardia at 123bpm, NO ST elevation, prominent p waves in II-III and aVF, nonspecific t wave inversion I and aVL, QRS 80ms, QT/QTc 312/452, compared to prior EKG per [facility] from 09/10/20- t wave inversion no noted in I, otherwise without significant change. Pertinent Labs and Imaging studies reviewed. (See chart for details) Imaging: Chest AP Xray results as follows: 1. New rounded masslike opacity in the right infrahilar region. Recommend CT chest to further evaluate. 2. Additional mild right perihilar and left retrocardiac opacities. CT angio chest results as follows: 1. No acute abnormality of chest abdomen pelvis. No evidence of central, lobar or segmental pulmonary embolus. 2. Patchy consolidation of the left lower lobe, right upper lobe and right middle lobe, consistent with pneumonia. There are also superimposed diffuse reticular nodular tree-in-bud opacities which could be related to underlying a typical infection. Follow-up imaging recommended to ensure resolution. 3. Mediastinal and bilateral hilar lymphadenopathy, likely reactive. 4. No acute abnormality of abdomen or pelvis. 5. Bilateral ovarian cysts versus dominant follicles. Medications: Given in ED - Heparin sodium/dextrose - Contrast given for CT scan Due to elevated troponin, presence of pneumonia and presentation of symptoms, patient requires admission for further evaluation and treatment. Shared decision making utilized. Pt agrees to hospital admission and understands why she needs further evaluation. Discussed wit (hospitalist) who is in agreement with admission. Discussed findings and plan with patient, who acknowledges understanding and agreement. Patient requiring admission for further evaluation and treatment. Discussed with Dr. Eddy (hospitalist) who is in agreement with admission. Discussed findings and plan with patient, who acknowledges understanding and agreement. COVID-19 CRITERIA: The patient was evaluated during the global COVID-19 pandemic, and that diagnosis was suspected/considered upon their initial presentation. Their evaluation, treatment and testing was consistent with current guidelines for patients who present with complaints or symptoms that may be related to COVID-19. Dragon Disclaimer: Dragon Disclaimer: This electronic medical record was generated, in whole or in part, using a voice recognition dictation system. Departure Departure Impression: Primary Impression: Severe sepsis Additional Impressions: NSTEMI (non-ST elevated myocardial infarction) PCP abuse Pneumonia due to COVID-19 virus Disposition: 09 ADMITTED INPATIENT Admitting Physician: DAE (Surjit) Condition: GUARDED Referrals: GINO LA MD (PCP) COVID-19 Assessment: COVID-19 Patient Risks: Age 65 or older: No Sign of co-morbidity: Yes Exp to person + for COVID: No Exp to PUI: No Travel from affected area: No Lower respiratory symptoms: Yes Fever: Yes Other: Yes PPE Use: Full PPE with N95 mask or PAPR: Yes Date and Time of Reassessment Date: Sep 21, 2021 Time: 11:00 Fluid Challenge Is the fluid challenge complet: No IBW Target Volume Used: No BMI > 30: No Vital Signs Vital Signs: Vital Signs Date Time Temp Pulse Resp B/P (MAP) Pulse Ox O2 Delivery O2 Flow Rate FiO2 09/21/21 10:53 115 28 100/58 (72) 96 Room Air 09/21/21 06:06 98.1 98.1 Temperature Source: Oral Respirations Respiratory Effort: Normal, Non-Labored Respiratory Pattern: Normal Cardiovascular Pulse Rhythm: Irregular (Tachycardia) Heart: S1 and S2 normal Lung Sounds Breath Sounds: Clear Capillary Refil Capillary Refill: Rt Hand < 3 seconds Peripheral Pulse Pulse Location: Radial Pulse Strength: Normal (2+) Pulse Assessment Method: Palpation Integumentary Skin: Warm, Dry, No Rashes Skin Moisture: Dry Skin Turgor: Normal Skin Color: warm, dry Fingernail Color: WNL Critical Care Time Critical care time was 30 minutes which includes time at bedside, spent in discussion of patient's care with specialists and/or family members, with interpretation of laboratory and/or radiological studies and is exclusive of procedures. RICK SÁNCHEZ DO Sep 21, 2021 06:50
--- NOTE | 2021-09-21 07:26 | RAD ---
CT chest abdomen pelvis with contrast dated 09/21/2021. COMPARISON: 04/11/2015. CLINICAL INDICATION: Chest pain and hypoxia. History of trauma. TECHNIQUE: Contiguous axial imaging the chest performed following the bolus administration of 75 cc Omnipaque 35 0. Study was performed as dedicated CTA with thin cut coronal and sagittal MIPS reconstruction. In ad dition, imaging through the abdomen pelvis acquired in the venous phase. One or more of the following individualized dose reduction techniques were utilized for this examinat ion: 1. Automated exposure control 2. Adjustment of the mA and/or kV according to patient size 3. Use of iterative reconstruction technique. FINDINGS: Contrast bolus is adequate. No evidence of central, lobar or segmental pulmonary embolus. Subsegmenta l branches are not well evaluated. Thoracic aorta is normal in caliber. No intimal flap or periaortic fluid collection. Heart size within normal limits. No pericardial effusion. Coronary artery calcific ations. There are mildly enlarged bilateral hilar, left paratracheal and subcarinal lymph nodes measu ring up to 1.2 cm short axis. There is also some increased density in the anterior superior mediastin um. Central airways are patent. There is consolidation of the left lower lobe with air bronchograms. Ther e are also patchy areas of consolidation in the anterior right upper lobe and right perihilar region extending into the right middle lobe. Prominent reticular nodular tree-in-bud opacities throughout micaela th lungs. No pleural effusion. No pneumothorax. Images of the abdomen show homogeneous attenuation of the liver and spleen. Pancreas, adrenal glands, kidneys unremarkable. No hydronephrosis. The gallbladder is collapsed. Unopacified GI tract normal in caliber and contour. No bowel wall thickening. No inflammatory strandi ng in the mesentery. Appendix normal in caliber. No ascites or lymphadenopathy. Images of pelvis show nondistended urinary bladder. The uterus is unremarkable. There is a 4.3 cm lef t ovarian cyst. 1.7 cm right ovarian cyst versus dominant follicle. No free fluid. No pelvic adenopat hy. Bone windows show no acute finding. IMPRESSION: 1. No acute abnormality of chest abdomen pelvis. No evidence of central, lobar or segmental pulmonary embolus. 2. Patchy consolidation of the left lower lobe, right upper lobe and right middle lobe, consistent wi th pneumonia. There are also superimposed diffuse reticular nodular tree-in-bud opacities which could be related to underlying atypical infection. Follow-up imaging recommended to ensure resolution. 3. Mediastinal and bilateral hilar lymphadenopathy, likely reactive. 4. No acute abnormality of abdomen or pelvis. 5. Bilateral ovarian cysts versus dominant follicles. Electronically signed by: Rick Bob MD (09/21/2021 7:24 AM) [facility]
[2021-09-21] MEDS ORDERED: HEPARIN for IV BOLUS 10,000 UNIT/10 ML VIAL. IV ONE (07:30)
[2021-09-21] MEDS ORDERED: ASPIRIN ENTERIC COATED 325 MG TABLET.DR. PO ONE (07:30)
[2021-09-21] MEDS: HEPARIN 25,000UTS/250ML PREMIX 250 ML IV PRN (07:50)
[2021-09-21 08:10] LABS: % BANDS 22 % (0-9); % LYMPHS 15 % (24-48); % MONOS 2 % (0-10); % SEGS 61 % (35-66); PLT ESTIMATE ADEQUATE (ADEQUATE)
[2021-09-21 09:54] LABS: BILIRUBIN,URINE NEGATIVE (NEG); CLARITY,URINE CLEAR; COLOR,URINE YELLOW; NITRITE,URINE NEGATIVE (NEG); PROTEIN,URINE 100 mg/dL (NEG-TRACE); UROBILINOGEN,URINE 0.2 mg/dL (0.2 mg/dL)
[2021-09-21] MEDS ORDERED: AZITHRMYCN 500MG IVPB FOR OMNI 250 ML IV ONE (10:00)
[2021-09-21] MEDS ORDERED: cefTRIAXone IV Push 1 GM VIAL. IVP ONE (10:00)
[2021-09-21 10:01] LABS: BARBITURATES NEG (NEG); BENZODIAZEPINES NEG (NEG); CANNABINOIDS POS (NEG); COCAINE NEG (NEG); METHADONE NEG (NEG); OPIATES NEG (NEG); PHENCYCLIDINE POS (NEG)
[2021-09-21 10:02] LABS: AMPHETAMINE/METHAMPHETAMINE NEG (NEG)
[2021-09-21 10:23] LABS: BACTERIA,URINE 0 /HPF (0-FEW); RBC,URINE 0 /HPF (0-2)
[2021-09-21 10:48] LABS: PROTHROMBIN TIME PATIENT 14.7 SEC (11.7-14.0)
[2021-09-21] MEDS ORDERED: ONDANSETRON PF 4 MG/2 ML VIAL. IVP PRN (11:30)
[2021-09-21] MEDS ORDERED: IV NORMAL SALINE 1000ML BAG 1,000 ML IV SCH (11:30)
[2021-09-21] MEDS ORDERED: DEXTROSE 50% 25 GM / 50ML DISP.SYRIN. IV PRN ×2 (11:30→16:45)
[2021-09-21] MEDS ORDERED: MAGNESIUM SULFATE 2GM 50 ML IV ONE ×2 (11:30→16:30)
[2021-09-21] MEDS ORDERED: ACETAMINOPHEN 325 MG TABLET. PO PRN (11:30)
[2021-09-21] MEDS: INSULIN LISPRO 300 UNITS/3 ML VIAL. SQ SCH ×3 (12:00→21:31)
[2021-09-21] MEDS ORDERED: IV NORMAL SALINE 500ML BAG 500 ML IV ONE (12:30)
--- NOTE | 2021-09-21 17:12 | PDOC1 ---
History and Physical Date of Admission Date of Admission DATE: 09/21/21 TIME: 17:06 Source Source: Chart review, Patient History of Present Illness History of Present Illness \Ms. Pagan is a 46-year-old female with history of asthma, diabetes, coronary artery disease admit with cough with new sputum and chest pain. Chest pain started 2 days ago while she was running to catch the bus. She has been coughing in [facility] and has multiple splotches of sputum in the emesis basin, with light park color, very minor blood streak. Patient reported chest pain at 10 out of 10 in severity, btter now, pain meds have been given, with pleuritic pain. Sitting up straight makes the chest pain worse. Chest pain does not radiate to the jaw or arm. Chest pain is primarily in the middle of her chest. Patient reports diarrhea, headache, and fevers. Patient denies nausea or vomiting. Patient states no recent known Covid exposures. Patient received the [employer] Covid vaccine 1 month ago. Past Medical History Cardiovascular: CAD, HTN Pulmonary: No pertinent hx CENTRAL NERVOUS SYSTEM: Other GI: No pertinent hx Heme/Onc: No pertinent hx Psych: Anxiety, Bipolar Musculoskeletal: Osteoarthritis Rheumatologic: Rheumatoid arthritis Infectious disease: No pertinent hx Renal/: No pertinent hx Endocrine: Diabetes Past Surgical History Past Surgical History: Tubal Ligation Social History Smoke: <1 pack per day ALCOHOL: none Drugs: Marijuana Current Problem List Problem List Problems Medical Problems: (1) NSTEMI (non-ST elevated myocardial infarction) Status: Acute (2) PCP abuse Status: Acute (3) Pneumonia due to COVID-19 virus Status: Acute (4) Severe sepsis Status: Acute Current Medications Current Medications Current Medications Sodium Chloride 1,000 ml @ 1,000 mls/hr 1X ONCE IV Last administered on 09/21/21at 06:15; Start 09/21/21 at 06:15; Stop 09/21/21 at 07:14; Status DC Iohexol (Omnipaque 350 Mg/ml) 75 ml 1X ONCE IV Last administered on 09/21/21at 07:00; Start 09/21/21 at 06:45; Stop 09/21/21 at 06:46; Status DC Info (CONTRAST GIVEN -- Rx MONITORING) 1 each PRN DAILY PRN MC SEE COMMENTS; Start 09/21/21 at 06:45; Stop 09/23/21 at 06:44 Aspirin (Ecotrin) 325 mg 1X ONCE PO Last administered on 09/21/21at 07:48; Start 09/21/21 at 07:30; Stop 09/21/21 at 07:38; Status DC Heparin Sodium (Porcine) (Heparin Sodium) 4,000 unit 1X ONCE IV Last administered on 09/21/21at 07:49; Start 09/21/21 at 07:30; Stop 09/21/21 at 07:38; Status DC Heparin Sodium/ Dextrose 250 ml @ 9.72 mls/hr CONT PRN IV PER PROTOCOL Last administered on 09/21/21at 07:50; Start 09/21/21 at 07:30 Ceftriaxone Sodium (Rocephin) 1 gm 1X ONCE IVP Last administered on 09/21/21at 10:32; Start 09/21/21 at 10:00; Stop 09/21/21 at 10:02; Status DC Azithromycin 250 ml @ 250 mls/hr 1X ONCE IV Last administered on 09/21/21at 10:32; Start 09/21/21 at 10:00; Stop 09/21/21 at 10:59; Status DC Magnesium Sulfate 50 ml @ 25 mls/hr 1X ONCE IV Last administered on 09/21/21at 15:44; Start 09/21/21 at 11:30; Stop 09/21/21 at 13:29; Status DC Ondansetron HCl (Zofran) 4 mg PRN Q8HRS PRN IVP NAUSEA/VOMITING; Start 09/21/21 at 11:30; Stop 09/22/21 at 11:29 Sodium Chloride 1,000 ml @ 100 mls/hr Q10H IV ; Start 09/21/21 at 11:30; Stop 09/21/21 at 21:29 Acetaminophen (Tylenol) 650 mg PRN Q4HRS PRN PO FEVER > 100.3'F; Start 09/21/21 at 11:30; Stop 09/22/21 at 11:29 Insulin Human Lispro (HumaLOG) 0-5 UNITS TIDWMEALS SQ ; Start 09/21/21 at 12:00 Dextrose (Dextrose 50%-Water Syringe) 12.5 gm PRN Q15MIN PRN IV SEE COMMENTS; Start 09/21/21 at 11:30 Sodium Chloride 1,000 ml @ 1,000 mls/hr 1X ONCE IV Last administered on 09/21/21at 15:44; Start 09/21/21 at 12:30; Stop 09/21/21 at 13:29; Status DC Sodium Chloride 500 ml @ 500 mls/hr 1X ONCE IV ; Start 09/21/21 at 12:30; Stop 09/21/21 at 13:29; Status DC Magnesium Sulfate 50 ml @ 25 mls/hr 1X ONCE IV ; Start 09/21/21 at 16:30; Stop 09/21/21 at 18:29 Azithromycin (Zithromax) 250 mg DAILY PO ; Start 09/22/21 at 09:00 Insulin Human Lispro (HumaLOG) 0-9 UNITS QIDACHS SQ ; Start 09/21/21 at 21:00 Dextrose (Dextrose 50%-Water Syringe) 12.5 gm PRN Q15MIN PRN IV SEE COMMENTS; Start 09/21/21 at 16:45 Active Scripts Active Augmentin 875-125 Tablet (Amoxicillin/Potassium Clav) 1 Each Tablet 1 Tab PO BID 7 Days Jardiance (Empagliflozin) 10 Mg Tablet 10 Mg PO DAILY 30 Days Haloperidol 2 Mg Tablet 2 Mg PO DAILY 30 Days Aspirin Ec (Aspirin) 81 Mg Tablet.dr 81 Mg PO DAILYWBKFT 30 Days Carvedilol 25 Mg Tablet 25 Mg PO BIDWMEALS 30 Days Clopidogrel (Clopidogrel Bisulfate) 75 Mg Tablet 75 Mg PO DAILY 30 Days Atorvastatin Calcium 40 Mg Tablet 1 Tab PO QHS 90 Days Lisinopril 40 Mg Tablet 40 Mg PO DAILY 30 Days Risperdal (Risperidone) 2 Mg Tablet 1 Tab PO QHS 30 Days Metformin Hcl 500 Mg Tablet 500 Mg PO BIDWMEALS 30 Days Allergies Allergies: Coded Allergies: No Known Drug Allergies (Unverified , 03/22/14) ROS General: YES: Fatigue, Malaise; No: Chills, Night Sweats, Appetite, Other PSYCHOLOGICAL ROS: YES: Sleep disturbances; No: Anxiety, Behavioral Disorder, Concentration difficultie, Decreased libido, Depression, Disorientation, Hallucinations, Hostility, Irritablity, Memory difficulties, Mood Swings, Obsessive thoughts, Physical abuse, Sexual abuse, Suicidal ideation, Other Eyes: No Blurry vision, No Decreased vision, No Double vision, No Dry eyes, No Excessive tearing, No Eye Pain, No Itchy Eyes, No Loss of vision, No Photophobia, No Scotomata, No Uses contacts, No Uses glasses, No Other HEENT: YES: Heacaches; No: Visual Changes, Hearing change, Nasal congestion, Nasal discharge, Oral lesions, Sinus pain, Sore Throat, Epistaxis, Sneezing, Snoring, Tinnitus, Vertigo, Vocal changes, Other Respiratory: YES: Cough, SOB with excertion, Sputum Changes; No: Hemoptysis, Orthopnea, Pleuritic Pain, Shortness of breath, Stridor, Tachypnea, Wheezing, Other Cardiovascular: No Chest Pain, No Palpitations, No Orthopnea, No Paroxysmal Noc. Dyspnea, No Edema, No Lt Headedness, No Other Genitourinary: No Dysuria, No Frequency, No Incontinence, No Hematuria, No Retention, No Discharge, No Urgency, No Pain, No Flank Pain, No Other, No , No , No , No , No , No , No Musculoskeletal: No Gait Disturbance, No Joint Pain, No Joint Stiffness, No Joint Swelling, No Muscle Pain, No Muscular Weakness, No Pain In:, No Swelling In:, No Other Neurological: No Behavorial Changes, No Bowel/Bladder ControlChng, No Confusion, No Dizziness, No Gait Disturbance, No Headaches, No Impaired Coord/ balance, No Memory Loss, No Numbness/Tingling, No Seizures, No Speech Problems, No Tremors, No Visual Changes, No Weakness, No Other Skin: Yes Dry Skin; No Eczema, No Hair Changes, No Lumps, No Mole Changes, No Mottling, No Nail Changes, No Pruritus, No Rash, No Skin Lesion Changes, No Other, No Acne Physical Exam General: Alert, Oriented X3, mild distress HEENT: Atraumatic, PERRLA, EOMI Lungs: Other (rales, rhonchi) Heart: RRR Abdomen: Normal bowel sounds, Soft Rectal Exam: not examined Extremities: No clubbing, No edema Skin: No breakdown, No significant lesion Neuro: Normal speech, Sensation intact Psych/Mental Status: Mood NL Vitals Vitals Vital Signs Date Time Temp Pulse Resp B/P (MAP) Pulse Ox O2 Delivery O2 Flow Rate FiO2 09/21/21 15:15 102 16 125/82 (96) 97 Room Air 09/21/21 06:06 98.1 98.1 Labs Labs Laboratory Tests Test 09/21/21 05:54 09/21/21 05:56 09/21/21 05:57 09/21/21 05:58 SARS-CoV-2 Antigen (Rapid) Negative (NEGATIVE) SARS-CoV-2 RNA (DENA) Negative (Negative) Influenza Type A Antigen Negative (NEGATIVE) Influenza Type B Antigen Negative (NEGATIVE) White Blood Count 14.8 x10^3/uL (4.0-11.0) Red Blood Count 5.21 x10^6/uL (3.50-5.40) Hemoglobin 14.7 g/dL (12.0-15.5) Hematocrit 45.4 % (36.0-47.0) Mean Corpuscular Volume 87 fL (79-100) Mean Corpuscular Hemoglobin 28 pg (25-35) Mean Corpuscular Hemoglobin Concent 32 g/dL (31-37) Red Cell Distribution Width 14.4 % (11.5-14.5) Platelet Count 286 x10^3/uL (140-400) Neutrophils (%) (Auto) 84 % (31-73) Lymphocytes (%) (Auto) 10 % (24-48) Monocytes (%) (Auto) 6 % (0-9) Eosinophils (%) (Auto) 0 % (0-3) Basophils (%) (Auto) 0 % (0-3) Neutrophils # (Auto) 12.4 x10^3/uL (1.8-7.7) Lymphocytes # (Auto) 1.5 x10^3/uL (1.0-4.8) Monocytes # (Auto) 0.9 x10^3/uL (0.0-1.1) Eosinophils # (Auto) 0.0 x10^3/uL (0.0-0.7) Basophils # (Auto) 0.0 x10^3/uL (0.0-0.2) Segmented Neutrophils % 61 % (35-66) Band Neutrophils % 22 % (0-9) Lymphocytes % 15 % (24-48) Monocytes % 2 % (0-10) Platelet Estimate Adequate (ADEQUATE) Sodium Level 129 mmol/L (136-145) Potassium Level 4.2 mmol/L (3.5-5.1) Chloride Level 94 mmol/L (98-107) Carbon Dioxide Level 23 mmol/L (21-32) Anion Gap 12 (6-14) Blood Urea Nitrogen 19 mg/dL (7-20) Creatinine 1.2 mg/dL (0.6-1.0) Estimated GFR (Cockcroft-Gault) 58.8 BUN/Creatinine Ratio 16 (6-20) Glucose Level 390 mg/dL (70-99) Lactic Acid Level 3.3 mmol/L (0.4-2.0) Calcium Level 8.9 mg/dL (8.5-10.1) Magnesium Level 1.7 mg/dL (1.8-2.4) Total Bilirubin 0.8 mg/dL (0.2-1.0) Aspartate Amino Transf (AST/SGOT) 14 U/L (15-37) Alanine Aminotransferase (ALT/SGPT) 18 U/L (14-59) Alkaline Phosphatase 105 U/L (46-116) Troponin I High Sensitivity 180 ng/L (4-50) MN-Ieg-M-Type Natriuretic Peptide 4127 pg/mL (0-124) Total Protein 7.7 g/dL (6.4-8.2) Albumin 2.2 g/dL (3.4-5.0) Albumin/Globulin Ratio 0.4 (1.0-1.7) Test 09/21/21 09:37 09/21/21 09:41 09/21/21 10:25 09/21/21 11:55 Urine Collection Type Unknown Urine Color Yellow Urine Clarity Clear Urine pH 6.0 (<5.0-8.0) Urine Specific [place] >=1.030 (1.000-1.030) Urine Protein 100 mg/dL (NEG-TRACE) Urine Glucose (UA) >=1000 mg/dL (NEG) Urine Ketones (Stick) 15 mg/dL (NEG) Urine Blood Negative (NEG) Urine Nitrite Negative (NEG) Urine Bilirubin Negative (NEG) Urine Urobilinogen Dipstick 0.2 mg/dL (0.2 mg/dL) Urine Leukocyte Esterase Negative (NEG) Urine RBC 0 /HPF (0-2) Urine WBC 5-10 /HPF (0-4) Urine Squamous Epithelial Cells Few /LPF Urine Bacteria 0 /HPF (0-FEW) Urine Opiates Screen Neg (NEG) Urine Methadone Screen Neg (NEG) Urine Barbiturates Neg (NEG) Urine Phencyclidine Screen Pos (NEG) Urine Amphetamine/Methamphetamine Neg (NEG) Urine Benzodiazepines Screen Neg (NEG) Urine Cocaine Screen Neg (NEG) Urine Cannabinoids Screen Pos (NEG) Urine Ethyl Alcohol Neg (NEG) Bedside Urine HCG, Qualitative Hcg negative (Negative) Prothrombin Time 14.7 SEC (11.7-14.0) Prothromb Time International Ratio 1.2 (0.8-1.1) Activated Partial Thromboplast Time 61 SEC (24-38) Troponin I High Sensitivity 142 ng/L (4-50) Test 09/21/21 14:15 Troponin I High Sensitivity 150 ng/L (4-50) Laboratory Tests Test 09/21/21 05:54 09/21/21 05:56 09/21/21 05:57 09/21/21 05:58 SARS-CoV-2 Antigen (Rapid) Negative (NEGATIVE) SARS-CoV-2 RNA (DENA) Negative (Negative) Influenza Type A Antigen Negative (NEGATIVE) Influenza Type B Antigen Negative (NEGATIVE) White Blood Count 14.8 x10^3/uL (4.0-11.0) Red Blood Count 5.21 x10^6/uL (3.50-5.40) Hemoglobin 14.7 g/dL (12.0-15.5) Hematocrit 45.4 % (36.0-47.0) Mean Corpuscular Volume 87 fL (79-100) Mean Corpuscular Hemoglobin 28 pg (25-35) Mean Corpuscular Hemoglobin Concent 32 g/dL (31-37) Red Cell Distribution Width 14.4 % (11.5-14.5) Platelet Count 286 x10^3/uL (140-400) Neutrophils (%) (Auto) 84 % (31-73) Lymphocytes (%) (Auto) 10 % (24-48) Monocytes (%) (Auto) 6 % (0-9) Eosinophils (%) (Auto) 0 % (0-3) Basophils (%) (Auto) 0 % (0-3) Neutrophils # (Auto) 12.4 x10^3/uL (1.8-7.7) Lymphocytes # (Auto) 1.5 x10^3/uL (1.0-4.8) Monocytes # (Auto) 0.9 x10^3/uL (0.0-1.1) Eosinophils # (Auto) 0.0 x10^3/uL (0.0-0.7) Basophils # (Auto) 0.0 x10^3/uL (0.0-0.2) Segmented Neutrophils % 61 % (35-66) Band Neutrophils % 22 % (0-9) Lymphocytes % 15 % (24-48) Monocytes % 2 % (0-10) Platelet Estimate Adequate (ADEQUATE) Sodium Level 129 mmol/L (136-145) Potassium Level 4.2 mmol/L (3.5-5.1) Chloride Level 94 mmol/L (98-107) Carbon Dioxide Level 23 mmol/L (21-32) Anion Gap 12 (6-14) Blood Urea Nitrogen 19 mg/dL (7-20) Creatinine 1.2 mg/dL (0.6-1.0) Estimated GFR (Cockcroft-Gault) 58.8 BUN/Creatinine Ratio 16 (6-20) Glucose Level 390 mg/dL (70-99) Lactic Acid Level 3.3 mmol/L (0.4-2.0) Calcium Level 8.9 mg/dL (8.5-10.1) Magnesium Level 1.7 mg/dL (1.8-2.4) Total Bilirubin 0.8 mg/dL (0.2-1.0) Aspartate Amino Transf (AST/SGOT) 14 U/L (15-37) Alanine Aminotransferase (ALT/SGPT) 18 U/L (14-59) Alkaline Phosphatase 105 U/L (46-116) Troponin I High Sensitivity 180 ng/L (4-50) ZS-Vko-M-Type Natriuretic Peptide 4127 pg/mL (0-124) Total Protein 7.7 g/dL (6.4-8.2) Albumin 2.2 g/dL (3.4-5.0) Albumin/Globulin Ratio 0.4 (1.0-1.7) Test 09/21/21 09:37 09/21/21 09:41 09/21/21 10:25 09/21/21 11:55 Urine Collection Type Unknown Urine Color Yellow Urine Clarity Clear Urine pH 6.0 (<5.0-8.0) Urine Specific [place] >=1.030 (1.000-1.030) Urine Protein 100 mg/dL (NEG-TRACE) Urine Glucose (UA) >=1000 mg/dL (NEG) Urine Ketones (Stick) 15 mg/dL (NEG) Urine Blood Negative (NEG) Urine Nitrite Negative (NEG) Urine Bilirubin Negative (NEG) Urine Urobilinogen Dipstick 0.2 mg/dL (0.2 mg/dL) Urine Leukocyte Esterase Negative (NEG) Urine RBC 0 /HPF (0-2) Urine WBC 5-10 /HPF (0-4) Urine Squamous Epithelial Cells Few /LPF Urine Bacteria 0 /HPF (0-FEW) Urine Opiates Screen Neg (NEG) Urine Methadone Screen Neg (NEG) Urine Barbiturates Neg (NEG) Urine Phencyclidine Screen Pos (NEG) Urine Amphetamine/Methamphetamine Neg (NEG) Urine Benzodiazepines Screen Neg (NEG) Urine Cocaine Screen Neg (NEG) Urine Cannabinoids Screen Pos (NEG) Urine Ethyl Alcohol Neg (NEG) Bedside Urine HCG, Qualitative Hcg negative (Negative) Prothrombin Time 14.7 SEC (11.7-14.0) Prothromb Time International Ratio 1.2 (0.8-1.1) Activated Partial Thromboplast Time 61 SEC (24-38) Troponin I High Sensitivity 142 ng/L (4-50) Test 09/21/21 14:15 Troponin I High Sensitivity 150 ng/L (4-50) VTE Prophylaxis Ordered VTE Prophylaxis Devices: Yes VTE Pharmacological Prophylaxi: Yes Assessment/Plan Assessment/Plan chest pain, angina, r/o ACS SIRS, sepsis pneumonia, rocephin and azithro given hyponatremia, IV fluid, dry DM2, poor control, hyperglycemia, hyperosm asthma, nebs, tobacco use disorder PCP, THC use admit Justifications for Admission Other Justification Altered mental status and elevated troponins BISHNU SANDERS MD Sep 21, 2021 17:12
--- NOTE | 2021-09-21 17:26 | NUR ---
IP: Attempted to contact pt concerning covid test. Phone number provided is not in service.
[2021-09-21] MEDS: cefTRIAXone IV Push 1 GM VIAL. IVP SCH (17:36)
[2021-09-21 19:17] VITALS: BP 135/84
[2021-09-21] MEDS ORDERED: NITR0.4T22 SL (20:05)
[2021-09-21] MEDS ORDERED: ALBU2.5V8 INH (20:05)
[2021-09-21] MEDS ORDERED: FLUT9.9S NS (20:05)
[2021-09-21] MEDS ORDERED: CLON0.1T PO (20:05)
[2021-09-21] MEDS ORDERED: CARV12.511 PO (20:05)
[2021-09-21] MEDS ORDERED: ATOR20TA58 PO (20:05)
[2021-09-21] MEDS ORDERED: ALBUTEROL SULFATE 2.5 MG/3 ML NEBU. INH PRN (20:45)
[2021-09-21] MEDS ORDERED: NITROGLYCERIN SUBLINGUAL 0.4 MG BOTTLE OF 25. SL PRN (20:45)
[2021-09-21] MEDS: IPRATRPIUM/ALBUTEROL 0.5/2.5MG 3 ML NEBU. NEB SCH (20:59)
[2021-09-21] MEDS ORDERED: INSULIN GLARGINE SYRINGE. SQ SCH (21:00)
[2021-09-21] MEDS: risperiDONE 1 MG TABLET. PO SCH (21:30)
[2021-09-21] MEDS: ATORVASTATIN CALCIUM 20 MG TABLET PO SCH (21:30)
[2021-09-21] MEDS: INSULIN GLARGINE SYRINGE. SQ SCH (21:32)
[2021-09-21 22:08] VITALS: BP 152/88
[2021-09-22 03:00] VITALS: BP 102/62
[2021-09-22] MEDS: HEPARIN 25,000UTS/250ML PREMIX 250 ML IV PRN (06:11)
[2021-09-22 06:25] LABS: BASO % 0 % (0-3); EOS % 1 % (0-3); HEMATOCRIT 39.5 % (36.0-47.0); HEMOGLOBIN 12.6 g/dL (12.0-15.5); LYMPH # 2.2 x10^3/uL (1.0-4.8); LYMPH % 22 % (24-48); MEAN CORPUSCULAR HEMOGLOBIN 28 pg (25-35); MEAN CORPUSCULAR HGB CONC 32 g/dL (31-37); MEAN CORPUSCULAR VOLUME 87 fL (79-100); MONO # 0.7 x10^3/uL (0.0-1.1); MONO % 6 % (0-9); NEUT # 7.3 x10^3/uL (1.8-7.7); NEUT % 71 % (31-73); PLATELET COUNT 246 x10^3/uL (140-400); RED BLOOD COUNT 4.52 x10^6/uL (3.50-5.40); RED CELL DISTRIBUTION WIDTH 14.2 % (11.5-14.5); WHITE BLOOD COUNT 10.3 x10^3/uL (4.0-11.0)
[2021-09-22 06:38] LABS: ALBUMIN 1.8 g/dL (3.4-5.0); ALBUMIN/GLOBULIN RATIO 0.4 (1.0-1.7); CREATININE 0.8 mg/dL (0.6-1.0); GFR 93.9; POTASSIUM 3.7 mmol/L (3.5-5.1); TOTAL BILIRUBIN 0.4 mg/dL (0.2-1.0); TOTAL PROTEIN 6.4 g/dL (6.4-8.2)
[2021-09-22 07:00] VITALS: BP 118/74
[2021-09-22] MEDS: IPRATRPIUM/ALBUTEROL 0.5/2.5MG 3 ML NEBU. NEB SCH ×4 (07:26→19:48)
[2021-09-22] MEDS: INSULIN LISPRO 300 UNITS/3 ML VIAL. SQ SCH ×10 (08:00→21:34)
--- NOTE | 2021-09-22 08:24 | PDOC ---
PULMONARY PROGRESS NOTES DATE: 09/22/21 TIME: 08:24 Vitals Vital Signs Date Time Temp Pulse Resp B/P (MAP) Pulse Ox O2 Delivery O2 Flow Rate FiO2 09/22/21 07:26 99 Room Air 09/22/21 03:00 98.2 82 17 102/62 (75) 98.2 Lungs: Clear Skin: Warm, Dry, No Rashes Labs Laboratory Tests Test 09/21/21 05:54 09/21/21 05:56 09/21/21 05:57 09/21/21 05:58 SARS-CoV-2 Antigen (Rapid) Negative (NEGATIVE) SARS-CoV-2 RNA (DENA) Negative (Negative) Influenza Type A Antigen Negative (NEGATIVE) Influenza Type B Antigen Negative (NEGATIVE) White Blood Count 14.8 x10^3/uL (4.0-11.0) Red Blood Count 5.21 x10^6/uL (3.50-5.40) Hemoglobin 14.7 g/dL (12.0-15.5) Hematocrit 45.4 % (36.0-47.0) Mean Corpuscular Volume 87 fL (79-100) Mean Corpuscular Hemoglobin 28 pg (25-35) Mean Corpuscular Hemoglobin Concent 32 g/dL (31-37) Red Cell Distribution Width 14.4 % (11.5-14.5) Platelet Count 286 x10^3/uL (140-400) Neutrophils (%) (Auto) 84 % (31-73) Lymphocytes (%) (Auto) 10 % (24-48) Monocytes (%) (Auto) 6 % (0-9) Eosinophils (%) (Auto) 0 % (0-3) Basophils (%) (Auto) 0 % (0-3) Neutrophils # (Auto) 12.4 x10^3/uL (1.8-7.7) Lymphocytes # (Auto) 1.5 x10^3/uL (1.0-4.8) Monocytes # (Auto) 0.9 x10^3/uL (0.0-1.1) Eosinophils # (Auto) 0.0 x10^3/uL (0.0-0.7) Basophils # (Auto) 0.0 x10^3/uL (0.0-0.2) Segmented Neutrophils % 61 % (35-66) Band Neutrophils % 22 % (0-9) Lymphocytes % 15 % (24-48) Monocytes % 2 % (0-10) Platelet Estimate Adequate (ADEQUATE) Sodium Level 129 mmol/L (136-145) Potassium Level 4.2 mmol/L (3.5-5.1) Chloride Level 94 mmol/L (98-107) Carbon Dioxide Level 23 mmol/L (21-32) Anion Gap 12 (6-14) Blood Urea Nitrogen 19 mg/dL (7-20) Creatinine 1.2 mg/dL (0.6-1.0) Estimated GFR (Cockcroft-Gault) 58.8 BUN/Creatinine Ratio 16 (6-20) Glucose Level 390 mg/dL (70-99) Lactic Acid Level 3.3 mmol/L (0.4-2.0) Calcium Level 8.9 mg/dL (8.5-10.1) Magnesium Level 1.7 mg/dL (1.8-2.4) Total Bilirubin 0.8 mg/dL (0.2-1.0) Aspartate Amino Transf (AST/SGOT) 14 U/L (15-37) Alanine Aminotransferase (ALT/SGPT) 18 U/L (14-59) Alkaline Phosphatase 105 U/L (46-116) Troponin I High Sensitivity 180 ng/L (4-50) GF-Nun-U-Type Natriuretic Peptide 4127 pg/mL (0-124) Total Protein 7.7 g/dL (6.4-8.2) Albumin 2.2 g/dL (3.4-5.0) Albumin/Globulin Ratio 0.4 (1.0-1.7) Test 09/21/21 09:37 09/21/21 09:41 09/21/21 10:25 09/21/21 11:55 Urine Collection Type Unknown Urine Color Yellow Urine Clarity Clear Urine pH 6.0 (<5.0-8.0) Urine Specific [place] >=1.030 (1.000-1.030) Urine Protein 100 mg/dL (NEG-TRACE) Urine Glucose (UA) >=1000 mg/dL (NEG) Urine Ketones (Stick) 15 mg/dL (NEG) Urine Blood Negative (NEG) Urine Nitrite Negative (NEG) Urine Bilirubin Negative (NEG) Urine Urobilinogen Dipstick 0.2 mg/dL (0.2 mg/dL) Urine Leukocyte Esterase Negative (NEG) Urine RBC 0 /HPF (0-2) Urine WBC 5-10 /HPF (0-4) Urine Squamous Epithelial Cells Few /LPF Urine Bacteria 0 /HPF (0-FEW) Urine Opiates Screen Neg (NEG) Urine Methadone Screen Neg (NEG) Urine Barbiturates Neg (NEG) Urine Phencyclidine Screen Pos (NEG) Urine Amphetamine/Methamphetamine Neg (NEG) Urine Benzodiazepines Screen Neg (NEG) Urine Cocaine Screen Neg (NEG) Urine Cannabinoids Screen Pos (NEG) Urine Ethyl Alcohol Neg (NEG) Bedside Urine HCG, Qualitative Hcg negative (Negative) Prothrombin Time 14.7 SEC (11.7-14.0) Prothromb Time International Ratio 1.2 (0.8-1.1) Activated Partial Thromboplast Time 61 SEC (24-38) Troponin I High Sensitivity 142 ng/L (4-50) Test 09/21/21 14:15 09/21/21 16:55 09/21/21 19:58 09/21/21 20:41 Troponin I High Sensitivity 150 ng/L (4-50) Heparin Anti-Xa Act, Unfractionated < 0.10 IU/mL (0.30-0.70) Lactic Acid Level 1.3 mmol/L (0.4-2.0) Glucose (Fingerstick) 291 mg/dL (70-99) Test 09/21/21 22:45 09/22/21 04:45 09/22/21 07:47 Heparin Anti-Xa Act, Unfractionated < 0.10 IU/mL (0.30-0.70) < 0.10 IU/mL (0.30-0.70) White Blood Count 10.3 x10^3/uL (4.0-11.0) Red Blood Count 4.52 x10^6/uL (3.50-5.40) Hemoglobin 12.6 g/dL (12.0-15.5) Hematocrit 39.5 % (36.0-47.0) Mean Corpuscular Volume 87 fL (79-100) Mean Corpuscular Hemoglobin 28 pg (25-35) Mean Corpuscular Hemoglobin Concent 32 g/dL (31-37) Red Cell Distribution Width 14.2 % (11.5-14.5) Platelet Count 246 x10^3/uL (140-400) Neutrophils (%) (Auto) 71 % (31-73) Lymphocytes (%) (Auto) 22 % (24-48) Monocytes (%) (Auto) 6 % (0-9) Eosinophils (%) (Auto) 1 % (0-3) Basophils (%) (Auto) 0 % (0-3) Neutrophils # (Auto) 7.3 x10^3/uL (1.8-7.7) Lymphocytes # (Auto) 2.2 x10^3/uL (1.0-4.8) Monocytes # (Auto) 0.7 x10^3/uL (0.0-1.1) Eosinophils # (Auto) 0.0 x10^3/uL (0.0-0.7) Basophils # (Auto) 0.0 x10^3/uL (0.0-0.2) Sodium Level 134 mmol/L (136-145) Potassium Level 3.7 mmol/L (3.5-5.1) Chloride Level 101 mmol/L (98-107) Carbon Dioxide Level 26 mmol/L (21-32) Anion Gap 7 (6-14) Blood Urea Nitrogen 10 mg/dL (7-20) Creatinine 0.8 mg/dL (0.6-1.0) Estimated GFR (Cockcroft-Gault) 93.9 BUN/Creatinine Ratio 13 (6-20) Glucose Level 195 mg/dL (70-99) Calcium Level 8.0 mg/dL (8.5-10.1) Total Bilirubin 0.4 mg/dL (0.2-1.0) Aspartate Amino Transf (AST/SGOT) 15 U/L (15-37) Alanine Aminotransferase (ALT/SGPT) 16 U/L (14-59) Alkaline Phosphatase 86 U/L (46-116) Total Protein 6.4 g/dL (6.4-8.2) Albumin 1.8 g/dL (3.4-5.0) Albumin/Globulin Ratio 0.4 (1.0-1.7) Glucose (Fingerstick) 248 mg/dL (70-99) Laboratory Tests Test 09/21/21 09:37 09/21/21 09:41 09/21/21 10:25 09/21/21 11:55 Urine Collection Type Unknown Urine Color Yellow Urine Clarity Clear Urine pH 6.0 (<5.0-8.0) Urine Specific [place] >=1.030 (1.000-1.030) Urine Protein 100 mg/dL (NEG-TRACE) Urine Glucose (UA) >=1000 mg/dL (NEG) Urine Ketones (Stick) 15 mg/dL (NEG) Urine Blood Negative (NEG) Urine Nitrite Negative (NEG) Urine Bilirubin Negative (NEG) Urine Urobilinogen Dipstick 0.2 mg/dL (0.2 mg/dL) Urine Leukocyte Esterase Negative (NEG) Urine RBC 0 /HPF (0-2) Urine WBC 5-10 /HPF (0-4) Urine Squamous Epithelial Cells Few /LPF Urine Bacteria 0 /HPF (0-FEW) Urine Opiates Screen Neg (NEG) Urine Methadone Screen Neg (NEG) Urine Barbiturates Neg (NEG) Urine Phencyclidine Screen Pos (NEG) Urine Amphetamine/Methamphetamine Neg (NEG) Urine Benzodiazepines Screen Neg (NEG) Urine Cocaine Screen Neg (NEG) Urine Cannabinoids Screen Pos (NEG) Urine Ethyl Alcohol Neg (NEG) Bedside Urine HCG, Qualitative Hcg negative (Negative) Prothrombin Time 14.7 SEC (11.7-14.0) Prothromb Time International Ratio 1.2 (0.8-1.1) Activated Partial Thromboplast Time 61 SEC (24-38) Troponin I High Sensitivity 142 ng/L (4-50) Test 09/21/21 14:15 09/21/21 16:55 09/21/21 19:58 09/21/21 20:41 Troponin I High Sensitivity 150 ng/L (4-50) Heparin Anti-Xa Act, Unfractionated < 0.10 IU/mL (0.30-0.70) Lactic Acid Level 1.3 mmol/L (0.4-2.0) Glucose (Fingerstick) 291 mg/dL (70-99) Test 09/21/21 22:45 09/22/21 04:45 09/22/21 07:47 Heparin Anti-Xa Act, Unfractionated < 0.10 IU/mL (0.30-0.70) < 0.10 IU/mL (0.30-0.70) White Blood Count 10.3 x10^3/uL (4.0-11.0) Red Blood Count 4.52 x10^6/uL (3.50-5.40) Hemoglobin 12.6 g/dL (12.0-15.5) Hematocrit 39.5 % (36.0-47.0) Mean Corpuscular Volume 87 fL (79-100) Mean Corpuscular Hemoglobin 28 pg (25-35) Mean Corpuscular Hemoglobin Concent 32 g/dL (31-37) Red Cell Distribution Width 14.2 % (11.5-14.5) Platelet Count 246 x10^3/uL (140-400) Neutrophils (%) (Auto) 71 % (31-73) Lymphocytes (%) (Auto) 22 % (24-48) Monocytes (%) (Auto) 6 % (0-9) Eosinophils (%) (Auto) 1 % (0-3) Basophils (%) (Auto) 0 % (0-3) Neutrophils # (Auto) 7.3 x10^3/uL (1.8-7.7) Lymphocytes # (Auto) 2.2 x10^3/uL (1.0-4.8) Monocytes # (Auto) 0.7 x10^3/uL (0.0-1.1) Eosinophils # (Auto) 0.0 x10^3/uL (0.0-0.7) Basophils # (Auto) 0.0 x10^3/uL (0.0-0.2) Sodium Level 134 mmol/L (136-145) Potassium Level 3.7 mmol/L (3.5-5.1) Chloride Level 101 mmol/L (98-107) Carbon Dioxide Level 26 mmol/L (21-32) Anion Gap 7 (6-14) Blood Urea Nitrogen 10 mg/dL (7-20) Creatinine 0.8 mg/dL (0.6-1.0) Estimated GFR (Cockcroft-Gault) 93.9 BUN/Creatinine Ratio 13 (6-20) Glucose Level 195 mg/dL (70-99) Calcium Level 8.0 mg/dL (8.5-10.1) Total Bilirubin 0.4 mg/dL (0.2-1.0) Aspartate Amino Transf (AST/SGOT) 15 U/L (15-37) Alanine Aminotransferase (ALT/SGPT) 16 U/L (14-59) Alkaline Phosphatase 86 U/L (46-116) Total Protein 6.4 g/dL (6.4-8.2) Albumin 1.8 g/dL (3.4-5.0) Albumin/Globulin Ratio 0.4 (1.0-1.7) Glucose (Fingerstick) 248 mg/dL (70-99) Medications Active Scripts Medications Dose Route/Sig Max Daily Dose Days Date Category Proair Hfa Inhaler (Albuterol Sulfate) 8.5 Gm Hfa.aer.ad 1 Puff INH PRN Q6HRS PRN 09/21/21 Reported NITROGLYCERIN SubLingual (Nitroglycerin) 0.4 Mg Tab.subl 0.4 Mg SL PRN Q5MIN PRN 09/21/21 Reported Flonase Allergy Relief (Fluticasone Propionate) 9.9 Ml [place].susp 2 Sprays NS DAILY 09/21/21 Reported Clonidine Hcl 0.1 Mg Tablet 0.1 Mg PO DAILY 09/21/21 Reported Atorvastatin Calcium 20 Mg Tablet 20 Mg PO HS 09/21/21 Reported Carvedilol (Carvedilol) 12.5 Mg Tablet 12.5 Mg PO BIDWMEALS 09/21/21 Reported Haloperidol 2 Mg Tablet 2 Mg PO DAILY 30 05/23/21 Rx Aspirin Ec (Aspirin) 81 Mg Tablet.dr 81 Mg PO DAILYWBKFT 05/23/21 Rx Clopidogrel (Clopidogrel Bisulfate) 75 Mg Tablet 75 Mg PO DAILY 05/23/21 Rx Lisinopril 40 Mg Tablet 40 Mg PO DAILY 30 05/23/21 Rx Risperdal (Risperidone) 2 Mg Tablet 1 Tab PO QHS 05/23/21 Rx Metformin Hcl 500 Mg Tablet 500 Mg PO BIDWMEALS 05/23/21 Rx Impression . Full consult dictated Treat pneumonia Follow cardiology input Repeat CT chest in 2/3 months TERRNACE ESTRELLA MD Sep 22, 2021 08:24
[2021-09-22] MEDS: cefTRIAXone IV Push 1 GM VIAL. IVP SCH (08:58)
[2021-09-22] MEDS ORDERED: AZITHROMYCIN 250 MG TABLET. PO SCH (09:00)
[2021-09-22] MEDS: FLUTICASONE 50MCG/NASAL SPRAY 16GM BOTTLE. NS SCH (09:01)
[2021-09-22] MEDS: CLOPIDOGREL BISULFATE 75 MG TABLET PO SCH (09:02)
[2021-09-22] MEDS: CARVEDILOL 12.5 MG TABLET. PO SCH ×2 (09:02→17:00)
[2021-09-22] MEDS: LISINOPRIL 20 MG TABLET PO SCH (09:02)
[2021-09-22 09:03] LABS: CHOLESTEROL/HDL RATIO 8.2
[2021-09-22] MEDS: HALOPERIDOL 2 MG TABLET. PO SCH (09:03)
[2021-09-22] MEDS: cloNIDine HCL 0.1 MG TABLET PO SCH (09:03)
[2021-09-22] MEDS: ASPIRIN ENTERIC COATED 81 MG TABLET.DR. PO SCH (09:03)
--- NOTE | 2021-09-22 10:05 | PDOC2 ---
[facility]ANNY [facility]ID [facility] [employer] 09/22/21 1005: CARDIAC CONSULT DATE OF CONSULT Date of Consult DATE: 09/22/21 TIME: 09:48 REASON FOR CONSULT Reason for Consult: NSTEMI REFERRING PHYSICIAN Referring Physician: Shantal SOURCE Source: Chart review, Patient HISTORY OF PRESENT ILLNESS HISTORY OF PRESENT ILLNESS This is a pleasant 46 yo female admitted for complains of SOA. Denies chest pain for me but has been coughing and has been having yellow sputum. SOA increased in the last 2 days. No known exposure to covid-19 but has been vaccinated with [employer]. Denies any falls or injury. No naausea or vomiting. She is due to follow up with her [facility] relief pharmacist. PAST MEDICAL HISTORY Past Medical History Cardiovascular: CAD, HTN, HLP Pulmonary: No pertinent hx CENTRAL NERVOUS SYSTEM: Other GI: No pertinent hx Heme/Onc: No pertinent hx Psych: Anxiety, Bipolar Musculoskeletal: Osteoarthritis Rheumatologic: Rheumatoid arthritis Infectious disease: No pertinent hx Renal/: No pertinent hx Endocrine: Diabetes PAST SURGICAL HISTORY Past Surgical History: , Tubal Ligation FAMILY HISTORY Family History noncontributory to CV SOCIAL HISTORY Smoke: <1 pack per day ALCOHOL: none Drugs: Marijuana, Other (PCP) Lives: with Family CURRENT MEDICATIONS CURRENT MEDICATIONS Current Medications Medications (Trade) Dose Ordered Sig/Johanna Route PRN Reason Start Time Stop Time Status Last Admin Dose Admin Ceftriaxone Sodium (Rocephin) 1 gm 1X ONCE IVP 09/21/21 10:00 09/21/21 10:02 DC 09/21/21 10:32 Azithromycin 250 ml @ 250 mls/hr 1X ONCE IV 09/21/21 10:00 09/21/21 10:59 DC 09/21/21 10:32 Magnesium Sulfate 50 ml @ 25 mls/hr 1X ONCE IV 09/21/21 11:30 09/21/21 13:29 DC 09/21/21 15:44 Sodium Chloride 1,000 ml @ 100 mls/hr Q10H IV 09/21/21 11:30 09/21/21 21:29 DC 09/21/21 11:30 Sodium Chloride 1,000 ml @ 1,000 mls/hr 1X ONCE IV 09/21/21 12:30 09/21/21 13:29 DC 09/21/21 15:44 Sodium Chloride 500 ml @ 500 mls/hr 1X ONCE IV 09/21/21 12:30 09/21/21 13:29 DC 09/21/21 12:30 Azithromycin (Zithromax) 250 mg DAILY PO 09/22/21 09:00 09/22/21 09:03 Insulin Human Lispro (HumaLOG) 0-9 UNITS QIDACHS SQ 09/21/21 21:00 09/22/21 08:54 Ceftriaxone Sodium (Rocephin) 1 gm DAILY IVP 09/21/21 18:00 09/22/21 08:58 Albuterol/ Ipratropium (Duoneb) 3 ml RTQID NEB 09/21/21 20:00 09/22/21 07:26 Insulin Human Lispro (HumaLOG) 10 units TIDWMEALS SQ 09/22/21 08:00 09/22/21 08:57 Insulin Glargine (Lantus Syringe) 15 unit QHS SQ 09/21/21 21:00 09/21/21 21:32 Aspirin (Ecotrin) 81 mg DAILYWBKFT PO 09/22/21 08:00 09/22/21 09:03 Atorvastatin Calcium (Lipitor) 20 mg HS PO 09/21/21 21:00 09/21/21 21:30 Carvedilol (Coreg) 12.5 mg BIDWMEALS PO 09/22/21 08:00 09/22/21 09:02 Clonidine HCl (Catapres) 0.1 mg DAILY PO 09/22/21 09:00 09/22/21 09:03 Clopidogrel Bisulfate (Plavix) 75 mg DAILY PO 09/22/21 09:00 09/22/21 09:02 Haloperidol (Haldol) 2 mg DAILY PO 09/22/21 09:00 09/22/21 09:03 Lisinopril (Prinivil) 40 mg DAILY PO 09/22/21 09:00 09/22/21 09:02 Fluticasone Propionate (Flonase) 2 spray DAILY NS 09/22/21 09:00 09/22/21 09:01 Risperidone (RisperDAL) 2 mg QHS PO 09/21/21 21:00 09/21/21 21:30 ALLERGIES ALLERGIES: Coded Allergies: No Known Drug Allergies (Unverified , 03/22/14) ROS Review of System 14 point ROS evaluated with pertinent positives noted per HPI PHYSICAL EXAM General: Alert, Oriented X3, Cooperative, No acute distress HEENT: Atraumatic, Mucous membr. moist/pink Lungs: Other (basilar crackles) Heart: Regular rate (SR/ST), Normal S1, Normal S2, No murmurs Abdomen: Soft, No tenderness Extremities: No cyanosis, No edema Skin: No breakdown, No significant lesion Neuro: Normal speech, Sensation intact Psych/Mental Status: Mental status NL, Mood NL MUSCULOSKELETAL: Full range of motion without pain VITALS/I&O VITALS/I&O: Vital Signs Date Time Temp Pulse Resp B/P (MAP) Pulse Ox O2 Delivery O2 Flow Rate FiO2 09/22/21 09:03 91 118/74 09/22/21 07:26 99 Room Air 09/22/21 07:00 97.9 20 97.9 I & O 09/21/21 09/21/21 09/22/21 15:00 23:00 07:00 Intake Total 400 ml Balance 400 ml LABS Lab: Laboratory Tests Test 09/21/21 10:25 09/21/21 11:55 09/21/21 14:15 09/21/21 16:55 Prothrombin Time 14.7 SEC (11.7-14.0) H Prothrombin Time INR 1.2 (0.8-1.1) H Activated Partial Thromboplast Time 61 SEC (24-38) H Troponin I High Sensitivity 142 ng/L (4-50) H 150 ng/L (4-50) H Heparin Anti-Xa Act, Unfractionated < 0.10 IU/mL (0.30-0.70) L Test 09/21/21 19:58 09/21/21 20:41 09/21/21 22:45 09/22/21 04:45 Lactic Acid Level 1.3 mmol/L (0.4-2.0) Glucose (Fingerstick) 291 mg/dL (70-99) H Heparin Anti-Xa Act, Unfractionated < 0.10 IU/mL (0.30-0.70) L < 0.10 IU/mL (0.30-0.70) L White Blood Count 10.3 x10^3/uL (4.0-11.0) Red Blood Count 4.52 x10^6/uL (3.50-5.40) Hemoglobin 12.6 g/dL (12.0-15.5) Hematocrit 39.5 % (36.0-47.0) Mean Corpuscular Volume 87 fL (79-100) Mean Corpuscular Hemoglobin 28 pg (25-35) Mean Corpuscular Hemoglobin Concent 32 g/dL (31-37) Red Cell Distribution Width 14.2 % (11.5-14.5) Platelet Count 246 x10^3/uL (140-400) Neutrophils (%) (Auto) 71 % (31-73) Lymphocytes (%) (Auto) 22 % (24-48) L Monocytes (%) (Auto) 6 % (0-9) Eosinophils (%) (Auto) 1 % (0-3) Basophils (%) (Auto) 0 % (0-3) Neutrophils # (Auto) 7.3 x10^3/uL (1.8-7.7) Lymphocytes # (Auto) 2.2 x10^3/uL (1.0-4.8) Monocytes # (Auto) 0.7 x10^3/uL (0.0-1.1) Eosinophils # (Auto) 0.0 x10^3/uL (0.0-0.7) Basophils # (Auto) 0.0 x10^3/uL (0.0-0.2) Sodium Level 134 mmol/L (136-145) L Potassium Level 3.7 mmol/L (3.5-5.1) Chloride Level 101 mmol/L (98-107) Carbon Dioxide Level 26 mmol/L (21-32) Anion Gap 7 (6-14) Blood Urea Nitrogen 10 mg/dL (7-20) Creatinine 0.8 mg/dL (0.6-1.0) Estimated GFR (Cockcroft-Gault) 93.9 BUN/Creatinine Ratio 13 (6-20) Glucose Level 195 mg/dL (70-99) H Calcium Level 8.0 mg/dL (8.5-10.1) L Total Bilirubin 0.4 mg/dL (0.2-1.0) Aspartate Amino Transferase (AST) 15 U/L (15-37) Alanine Aminotransferase (ALT) 16 U/L (14-59) Alkaline Phosphatase 86 U/L (46-116) Total Protein 6.4 g/dL (6.4-8.2) Albumin 1.8 g/dL (3.4-5.0) L Albumin/Globulin Ratio 0.4 (1.0-1.7) L Triglycerides Level 195 mg/dL (0-150) H Cholesterol Level 140 mg/dL (0-200) LDL Cholesterol, Calculated 84 mg/dL (0-100) VLDL Cholesterol, Calculated 39 mg/dL (0-40) Non-HDL Cholesterol Calculated 123 mg/dL (0-129) HDL Cholesterol 17 mg/dL (40-60) L Cholesterol/HDL Ratio 8.2 Test 09/22/21 07:47 Glucose (Fingerstick) 248 mg/dL (70-99) H Laboratory Tests 09/22/21 04:45 Laboratory Tests 09/22/21 04:45 ASSESSMENT/PLAN ASSESSMENT/PLAN 1. Community acquired pneumonia 2. NSTEMI: Type 2 with chronic troponin elevation 3. CAD: PCI/stents [facility] at [facility] in October 2019. Clinically stable 4. HTN: controlled 5. HLP 6. DM2 7. Substance abuse: +for PCP and Marijuana. Due to check in for detox on 10/05 8. Tobaccoism Recommendations 1. Antibiotics per PCP 2. Continue plavix and secondary prevention measures. 3. Will obtain TTE 4. Follow up with [facility] cardiology and recommend outpt MPI 5. Abstinence to recreational drugs JOANA JUAN MD 09/22/212039: CARDIAC CONSULT ASSESSMENT/PLAN ASSESSMENT/PLAN Patient seen and examined. Agree with BEAUTY PARLOR CLEANER's assessment and plan. NSTEMI probably type 2/demand ischemia CAD clinically stable overall Check 2D echo for further evaluation Continue current treatment for pneumonia Consider ischemic evaluation as outpatient Thank you for your consultation YOVANNY REID APRN Sep 22, 2021 10:05 JOANA JUAN MD Sep 22, 2021 20:40
--- NOTE | 2021-09-22 10:22 | NUR ---
SS following for discharge planning. SS reviewed pt chart and discussed with pt RN. Pt is from home and is currently on room air. COVID19 negative. Pulmonology and Cardiology consulted. Pt positive for PCP and THC. Pt stating some concerns with her housing and safety. [facility] team referral made for assessment and recommendations. Pt has had open services with the [facility] and [email or web address]. Pt is on disability. SS will continue to follow for discharge planning. Addendum: 09/22/21 at 1235 by CATHY KAUFMAN SS Delvin from [facility] team met with pt and confirmed services through the [facility] and [employer] [facility]. Pt has med appointment scheduled and [facility] on 09/26/2021. Resources provided. Physician notified.
--- NOTE | 2021-09-22 10:39 | EKG ---
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
[2021-09-22 11:00] VITALS: BP 121/72
[2021-09-22] MEDS: HEPARIN for SUB-Q USE 5,000 UNIT/ML VIAL. SQ SCH ×2 (14:00→21:37)
[2021-09-22 15:00] VITALS: BP 109/62
[2021-09-22 19:28] VITALS: BP 99/57
[2021-09-22] MEDS: ATORVASTATIN CALCIUM 20 MG TABLET PO SCH (21:31)
[2021-09-22] MEDS: risperiDONE 1 MG TABLET. PO SCH (21:31)
[2021-09-22] MEDS: LACTOBACILLUS RHAMNOSUS GG 1 CAPSULE. PO SCH (21:31)
[2021-09-22] MEDS: INSULIN GLARGINE SYRINGE. SQ SCH (21:32)
--- NOTE | 2021-09-22 21:54 | CONS ---
DATE OF CONSULTATION: 09/22/2021 REASON FOR CONSULTATION: The patient is seen in pulmonary consultation at the request of Dr. Eddy for increasing shortness of air. HISTORY OF PRESENT ILLNESS: The patient is a 46-year-old -[place] Citizen female with a history of asthma as a teenager. She had asthma, was utilizing nebulized treatments. She then started smoking. She continues to smoke on and off and in addition, she smokes marijuana. She presented with shortness of breath for approximately 1 week's duration along with some chest discomfort. She is currently being seen by Cardiology. She is scheduled to undergo an ultrasound, echocardiogram. She has a cough productive of yellow sputum, normally uses MDIs at home, but ran out. She denies any fever, chills, night sweats. She has been vaccinated for COVID-19. She tested negative for COVID-19. She had a CT chest, which revealed some evidence of tree-in-bud formation and some ill-defined infiltrates. She had patchy consolidation on the left lower lobe, right upper lobe and right middle lobe. She has some mediastinal adenopathy. PAST MEDICAL HISTORY: Remarkable for COPD with an asthma component. She had asthma as a teenager, coronary artery disease, previous ND, hypertension, bipolar disorder, osteoarthritis, rheumatoid arthritis, diabetes. PAST SURGICAL HISTORY: Tubal ligation. ALLERGIES: No known drug allergies. CURRENT MEDICATIONS: List was reviewed. Home medication list was reviewed. SOCIAL HISTORY: She smokes marijuana, tobacco. FAMILY HISTORY: Noncontributory. No family history of early lung disorders. REVIEW OF SYSTEMS: CONSTITUTIONAL: No fever or chills. EYES: No change in visual acuity. HENT: No nasal congestion or sore throat. PULMONARY: As indicated above. CARDIOVASCULAR: As indicated above. GASTROINTESTINAL: No nausea, vomiting, diarrhea. GENITOURINARY: No dysuria or frequency. MUSCULOSKELETAL: No localized muscle aches or joint pains. SKIN: No new skin rashes. NEUROLOGIC: No headaches, diplopia or blurred vision. PHYSICAL EXAMINATION: VITAL SIGNS: Stable. O2 saturation was greater than 92%, currently on room air. Since admission, she has been afebrile. EYES: The sclerae were nonicteric. NECK: Jugular venous distention was not elevated. No lymphadenopathy. CHEST: Full expansion. LUNGS: Adequate flow with no wheezes. CARDIOVASCULAR: Regular rate and rhythm with S1, S2, no S3. ABDOMEN: Soft. EXTREMITIES: No clubbing, cyanosis or edema. NEUROLOGIC: The patient was awake, alert, following commands. A detailed neuro exam was not performed. LABORATORY DATA: SARS-CoV-2 testing was negative. Toxicology screen was positive for cannabinoid. UA was negative. Electrolytes were noted. BUN and creatinine were normal. Albumin was quite low. Procalcitonin was high. White count was high. IMPRESSION: 1. Abnormal CT chest, compatible with pneumonia. 2. Gram-negative, possibly gram-positive pneumonia. 3. Non-ST segment elevation myocardial infarction. 4. Coronary artery disease with previous percutaneous coronary intervention and stent [facility]. 5. Hypertension. 6. Hyperlipidemia. 7. Type 2 diabetes. 8. Substance abuse. 9. Chronic obstructive pulmonary disease exacerbation. 10. Tobacco dependent. PLAN: 1. Continue antibiotics. 2. Follow Cardiology input. 3. Repeat CT chest in 2 months. The patient is instructed on the importance of discontinued tobacco and drugs. I do appreciate the privilege in sharing in the patient's care. MILA/DAILY/BERT DR: Ml TID: [id number]
[2021-09-22 22:12] VITALS: BP 108/62
--- NOTE | 2021-09-22 22:42 | PDOC ---
[employer] PROGRESS NOTE Date of Service DOS: DATE: 09/22/21 TIME: 22:40 Chief Complaint Chief Complaint chest pain History of Present Illness History of Present Illness \Ms. Pagan is a 46-year-old female with history of asthma, diabetes, coronary artery disease admit with cough with new sputum and chest pain. Chest pain started 2 days ago while she was running to catch the bus. She has been co ughing in [facility] ER and has multiple splotches of sputum in the emesis basin, with light park color, very minor blood streak. Patient reported chest pain at 10 out of 10 in severity, btter now, pain meds have been given, with pleuritic pain. Sitting up straight makes the chest pain worse. Chest pain does not radiate to the jaw or arm. Chest pain is primarily in the middle of her chest. Patient reports diarrhea, headache, and fevers. Patient denies nausea or vomiting. Patient states no recent known Covid exposures. Patient received the [employer] Covid vaccine 1 month ago. 09/22 Patient evaluated examined at bedside. Resting in bed. Lethargic. Checking echo today if okay suspect can likely discharge tomorrow. Continue antibiotics. Palm cards following Vitals/I&O Vitals/I&O: Vital Signs Date Time Temp Pulse Resp B/P (MAP) Pulse Ox O2 Delivery O2 Flow Rate FiO2 09/22/21 22:12 98.0 78 20 108/62 (77) 96 Room Air 98.0 I & O 09/21/21 09/21/21 09/22/21 15:00 23:00 07:00 Intake Total 400 ml Balance 400 ml Physical Exam General: Alert, Oriented X3, Cooperative, No acute distress Heart: Regular rate (SR/ST), Normal S1, Normal S2, No murmurs Lungs: Clear Abdomen: Soft, No tenderness Extremities: No cyanosis, No edema Skin: No breakdown, No significant lesion Labs Labs: Laboratory Tests Test 09/21/21 22:45 09/22/21 04:45 09/22/21 07:47 09/22/21 11:47 Heparin Anti-Xa Act, Unfractionated < 0.10 IU/mL (0.30-0.70) < 0.10 IU/mL (0.30-0.70) White Blood Count 10.3 x10^3/uL (4.0-11.0) Red Blood Count 4.52 x10^6/uL (3.50-5.40) Hemoglobin 12.6 g/dL (12.0-15.5) Hematocrit 39.5 % (36.0-47.0) Mean Corpuscular Volume 87 fL (79-100) Mean Corpuscular Hemoglobin 28 pg (25-35) Mean Corpuscular Hemoglobin Concent 32 g/dL (31-37) Red Cell Distribution Width 14.2 % (11.5-14.5) Platelet Count 246 x10^3/uL (140-400) Neutrophils (%) (Auto) 71 % (31-73) Lymphocytes (%) (Auto) 22 % (24-48) Monocytes (%) (Auto) 6 % (0-9) Eosinophils (%) (Auto) 1 % (0-3) Basophils (%) (Auto) 0 % (0-3) Neutrophils # (Auto) 7.3 x10^3/uL (1.8-7.7) Lymphocytes # (Auto) 2.2 x10^3/uL (1.0-4.8) Monocytes # (Auto) 0.7 x10^3/uL (0.0-1.1) Eosinophils # (Auto) 0.0 x10^3/uL (0.0-0.7) Basophils # (Auto) 0.0 x10^3/uL (0.0-0.2) Sodium Level 134 mmol/L (136-145) Potassium Level 3.7 mmol/L (3.5-5.1) Chloride Level 101 mmol/L (98-107) Carbon Dioxide Level 26 mmol/L (21-32) Anion Gap 7 (6-14) Blood Urea Nitrogen 10 mg/dL (7-20) Creatinine 0.8 mg/dL (0.6-1.0) Estimated GFR (Cockcroft-Gault) 93.9 BUN/Creatinine Ratio 13 (6-20) Glucose Level 195 mg/dL (70-99) Calcium Level 8.0 mg/dL (8.5-10.1) Total Bilirubin 0.4 mg/dL (0.2-1.0) Aspartate Amino Transf (AST/SGOT) 15 U/L (15-37) Alanine Aminotransferase (ALT/SGPT) 16 U/L (14-59) Alkaline Phosphatase 86 U/L (46-116) Total Protein 6.4 g/dL (6.4-8.2) Albumin 1.8 g/dL (3.4-5.0) Albumin/Globulin Ratio 0.4 (1.0-1.7) Triglycerides Level 195 mg/dL (0-150) Cholesterol Level 140 mg/dL (0-200) LDL Cholesterol, Calculated 84 mg/dL (0-100) VLDL Cholesterol, Calculated 39 mg/dL (0-40) Non-HDL Cholesterol Calculated 123 mg/dL (0-129) HDL Cholesterol 17 mg/dL (40-60) Cholesterol/HDL Ratio 8.2 Procalcitonin 15.71 ng/mL (0.00-0.10) Glucose (Fingerstick) 248 mg/dL (70-99) 199 mg/dL (70-99) Test 09/22/21 17:01 09/22/21 20:49 Glucose (Fingerstick) 207 mg/dL (70-99) 311 mg/dL (70-99) Assessment and Plan Assessmemt and Plan Problems Medical Problems: (1) NSTEMI (non-ST elevated myocardial infarction) Status: Acute (2) PCP abuse Status: Acute (3) Pneumonia due to COVID-19 virus Status: Acute (4) Severe sepsis Status: Acute Comment Review of Relevant I have reviewed the following items sincere (where applicable) has been applied. Medications: Current Medications Medications (Trade) Dose Ordered Sig/Johanna Route PRN Reason Start Time Stop Time Status Last Admin Dose Admin Azithromycin (Zithromax) 250 mg DAILY PO 09/22/21 09:00 09/22/21 13:58 DC 09/22/21 09:03 Insulin Human Lispro (HumaLOG) 10 units TIDWMEALS SQ 09/22/21 08:00 09/22/21 17:00 Aspirin (Ecotrin) 81 mg DAILYWBKFT PO 09/22/21 08:00 09/22/21 09:03 Carvedilol (Coreg) 12.5 mg BIDWMEALS PO 09/22/21 08:00 09/22/21 17:00 Clonidine HCl (Catapres) 0.1 mg DAILY PO 09/22/21 09:00 09/22/21 09:03 Clopidogrel Bisulfate (Plavix) 75 mg DAILY PO 09/22/21 09:00 09/22/21 09:02 Haloperidol (Haldol) 2 mg DAILY PO 09/22/21 09:00 09/22/21 09:03 Lisinopril (Prinivil) 40 mg DAILY PO 09/22/21 09:00 09/22/21 09:02 Fluticasone Propionate (Flonase) 2 spray DAILY NS 09/22/21 09:00 09/22/21 09:01 Lactobacillus Rhamnosus (Culturelle) 1 cap BID PO 09/22/21 21:00 09/22/21 21:31 Heparin Sodium (Porcine) (Heparin Sodium) 5,000 unit Q8HRS SQ 09/22/21 14:00 09/22/21 21:37 Justifications for Admission Other Justification Altered mental status and elevated troponins KEELEY VELA MD Sep 22, 2021 22:42
[2021-09-23 02:31] VITALS: BP 121/59
[2021-09-23] MEDS: HEPARIN for SUB-Q USE 5,000 UNIT/ML VIAL. SQ SCH (05:52)
[2021-09-23 07:00] VITALS: BP 153/89
[2021-09-23] MEDS: INSULIN LISPRO 300 UNITS/3 ML VIAL. SQ SCH ×5 (07:18→11:54)
[2021-09-23] MEDS: IPRATRPIUM/ALBUTEROL 0.5/2.5MG 3 ML NEBU. NEB SCH ×2 (07:52→11:49)
[2021-09-23] MEDS: CARVEDILOL 12.5 MG TABLET. PO SCH (08:24)
[2021-09-23] MEDS: FLUTICASONE 50MCG/NASAL SPRAY 16GM BOTTLE. NS SCH (08:24)
[2021-09-23] MEDS: LACTOBACILLUS RHAMNOSUS GG 1 CAPSULE. PO SCH (08:24)
[2021-09-23] MEDS: cloNIDine HCL 0.1 MG TABLET PO SCH (08:25)
[2021-09-23] MEDS: HALOPERIDOL 2 MG TABLET. PO SCH (08:25)
[2021-09-23] MEDS: CLOPIDOGREL BISULFATE 75 MG TABLET PO SCH (08:25)
[2021-09-23] MEDS: LISINOPRIL 20 MG TABLET PO SCH (08:26)
[2021-09-23] MEDS: ASPIRIN ENTERIC COATED 81 MG TABLET.DR. PO SCH (08:26)
--- NOTE | 2021-09-23 08:56 | PDOC ---
PULMONARY PROGRESS NOTES DATE: 09/23/21 TIME: 08:56 Vitals Vital Signs Date Time Temp Pulse Resp B/P (MAP) Pulse Ox O2 Delivery O2 Flow Rate FiO2 09/23/21 08:26 82 153/89 09/23/21 07:53 97 Room Air 09/23/21 07:00 96.3 20 96.3 Lungs: Clear Skin: Warm, Dry, No Rashes Labs Laboratory Tests Test 09/21/21 09:37 09/21/21 09:41 09/21/21 10:25 09/21/21 11:55 Urine Collection Type Unknown Urine Color Yellow Urine Clarity Clear Urine pH 6.0 (<5.0-8.0) Urine Specific Kathleen >=1.030 (1.000-1.030) Urine Protein 100 mg/dL (NEG-TRACE) Urine Glucose (UA) >=1000 mg/dL (NEG) Urine Ketones (Stick) 15 mg/dL (NEG) Urine Blood Negative (NEG) Urine Nitrite Negative (NEG) Urine Bilirubin Negative (NEG) Urine Urobilinogen Dipstick 0.2 mg/dL (0.2 mg/dL) Urine Leukocyte Esterase Negative (NEG) Urine RBC 0 /HPF (0-2) Urine WBC 5-10 /HPF (0-4) Urine Squamous Epithelial Cells Few /LPF Urine Bacteria 0 /HPF (0-FEW) Urine Opiates Screen Neg (NEG) Urine Methadone Screen Neg (NEG) Urine Barbiturates Neg (NEG) Urine Phencyclidine Screen Pos (NEG) Urine Amphetamine/Methamphetamine Neg (NEG) Urine Benzodiazepines Screen Neg (NEG) Urine Cocaine Screen Neg (NEG) Urine Cannabinoids Screen Pos (NEG) Urine Ethyl Alcohol Neg (NEG) Bedside Urine HCG, Qualitative Hcg negative (Negative) Prothrombin Time 14.7 SEC (11.7-14.0) Prothromb Time International Ratio 1.2 (0.8-1.1) Activated Partial Thromboplast Time 61 SEC (24-38) Troponin I High Sensitivity 142 ng/L (4-50) Test 09/21/21 14:15 09/21/21 16:55 09/21/21 19:58 09/21/21 20:41 Troponin I High Sensitivity 150 ng/L (4-50) Heparin Anti-Xa Act, Unfractionated < 0.10 IU/mL (0.30-0.70) Lactic Acid Level 1.3 mmol/L (0.4-2.0) Glucose (Fingerstick) 291 mg/dL (70-99) Test 09/21/21 22:45 09/22/21 04:45 09/22/21 07:47 09/22/21 11:47 Heparin Anti-Xa Act, Unfractionated < 0.10 IU/mL (0.30-0.70) < 0.10 IU/mL (0.30-0.70) White Blood Count 10.3 x10^3/uL (4.0-11.0) Red Blood Count 4.52 x10^6/uL (3.50-5.40) Hemoglobin 12.6 g/dL (12.0-15.5) Hematocrit 39.5 % (36.0-47.0) Mean Corpuscular Volume 87 fL (79-100) Mean Corpuscular Hemoglobin 28 pg (25-35) Mean Corpuscular Hemoglobin Concent 32 g/dL (31-37) Red Cell Distribution Width 14.2 % (11.5-14.5) Platelet Count 246 x10^3/uL (140-400) Neutrophils (%) (Auto) 71 % (31-73) Lymphocytes (%) (Auto) 22 % (24-48) Monocytes (%) (Auto) 6 % (0-9) Eosinophils (%) (Auto) 1 % (0-3) Basophils (%) (Auto) 0 % (0-3) Neutrophils # (Auto) 7.3 x10^3/uL (1.8-7.7) Lymphocytes # (Auto) 2.2 x10^3/uL (1.0-4.8) Monocytes # (Auto) 0.7 x10^3/uL (0.0-1.1) Eosinophils # (Auto) 0.0 x10^3/uL (0.0-0.7) Basophils # (Auto) 0.0 x10^3/uL (0.0-0.2) Sodium Level 134 mmol/L (136-145) Potassium Level 3.7 mmol/L (3.5-5.1) Chloride Level 101 mmol/L (98-107) Carbon Dioxide Level 26 mmol/L (21-32) Anion Gap 7 (6-14) Blood Urea Nitrogen 10 mg/dL (7-20) Creatinine 0.8 mg/dL (0.6-1.0) Estimated GFR (Cockcroft-Gault) 93.9 BUN/Creatinine Ratio 13 (6-20) Glucose Level 195 mg/dL (70-99) Calcium Level 8.0 mg/dL (8.5-10.1) Total Bilirubin 0.4 mg/dL (0.2-1.0) Aspartate Amino Transf (AST/SGOT) 15 U/L (15-37) Alanine Aminotransferase (ALT/SGPT) 16 U/L (14-59) Alkaline Phosphatase 86 U/L (46-116) Total Protein 6.4 g/dL (6.4-8.2) Albumin 1.8 g/dL (3.4-5.0) Albumin/Globulin Ratio 0.4 (1.0-1.7) Triglycerides Level 195 mg/dL (0-150) Cholesterol Level 140 mg/dL (0-200) LDL Cholesterol, Calculated 84 mg/dL (0-100) VLDL Cholesterol, Calculated 39 mg/dL (0-40) Non-HDL Cholesterol Calculated 123 mg/dL (0-129) HDL Cholesterol 17 mg/dL (40-60) Cholesterol/HDL Ratio 8.2 Procalcitonin 15.71 ng/mL (0.00-0.10) Glucose (Fingerstick) 248 mg/dL (70-99) 199 mg/dL (70-99) Test 09/22/21 17:01 09/22/21 20:49 09/23/21 07:38 Glucose (Fingerstick) 207 mg/dL (70-99) 311 mg/dL (70-99) 276 mg/dL (70-99) Laboratory Tests Test 09/22/21 11:47 09/22/21 17:01 09/22/21 20:49 09/23/21 07:38 Glucose (Fingerstick) 199 mg/dL (70-99) 207 mg/dL (70-99) 311 mg/dL (70-99) 276 mg/dL (70-99) Medications Active Scripts Medications Dose Route/Sig Max Daily Dose Days Date Category Proair Hfa Inhaler (Albuterol Sulfate) 8.5 Gm Hfa.aer.ad 1 Puff INH PRN Q6HRS PRN 09/21/21 Reported NITROGLYCERIN SubLingual (Nitroglycerin) 0.4 Mg Tab.subl 0.4 Mg SL PRN Q5MIN PRN 09/21/21 Reported Flonase Allergy Relief (Fluticasone Propionate) 9.9 Ml [place] Patent.susp 2 Sprays NS DAILY 09/21/21 Reported Clonidine Hcl 0.1 Mg Tablet 0.1 Mg PO DAILY 09/21/21 Reported Atorvastatin Calcium 20 Mg Tablet 20 Mg PO HS 09/21/21 Reported Carvedilol (Carvedilol) 12.5 Mg Tablet 12.5 Mg PO BIDWMEALS 09/21/21 Reported Haloperidol 2 Mg Tablet 2 Mg PO DAILY 30 05/23/21 Rx Aspirin Ec (Aspirin) 81 Mg Tablet.dr 81 Mg PO DAILYWBKFT 05/23/21 Rx Clopidogrel (Clopidogrel Bisulfate) 75 Mg Tablet 75 Mg PO DAILY 30 05/23/21 Rx Lisinopril 40 Mg Tablet 40 Mg PO DAILY 30 05/23/21 Rx Risperdal (Risperidone) 2 Mg Tablet 1 Tab PO QHS 30 05/23/21 Rx Metformin Hcl 500 Mg Tablet 500 Mg PO BIDWMEALS 30 05/23/21 Rx Impression . Full consult dictated Treat pneumonia Follow cardiology input Repeat CT chest in 2/3 months Plan . Patient not seen, discharge home prior to my visit Discussed with RN Patient is to follow-up with me in the office TERRANCE ESTRELLA MD Sep 23, 2021 08:56
[2021-09-23] MEDS ORDERED: AMOXICILLIN/K CLAV 875/125MG TABLET. PO SCH (09:15)
[2021-09-23] MEDS ORDERED: AMOX1TAB11 PO (09:19)
[2021-09-23 10:18] VITALS: BP 135/80
--- NOTE | 2021-09-23 10:29 | NUR ---
SS following up with discharge planning. SS reviewed pt chart and discussed with pt RN. Pt is currently on room air. COVID19 negative. Discharge order on the chart for home with self care.
[2021-09-23] MEDS ORDERED: ALBU2.5V14 NEB (11:16)
[2021-09-23] MEDS ORDERED: NEBU-145 MC (11:18)
--- NOTE | 2021-09-23 11:21 | PDOC3 ---
[facility]-Dis[facility] Summary Date of Admission: Date of Admission: Sep 21, 2021 Date of Discharge: Date of Discharge: Sep 23, 2021 Admission Diagnosis: Problems: (1) Shortness of breath (2) Substance abuse Discharge Diagnosis: Discharge Diagnosis: CAP Consults: Consults: [facility] Hospital Course: Hospital Course: \Ms. Pagan is a 46-year-old female with history of asthma, diabetes, coronary artery disease admit with cough with new sputum and chest pain. Chest pain started 2 days ago while she was running to catch the bus. She has been coughing in [facility] ER and has multiple splotches of sputum in the emesis basin, with light park color, very minor blood streak. Patient reported chest pain at 10 out of 10 in severity, btter now, pain meds have been given, with pleuritic pain. Sitting up straight makes the chest pain worse. Chest pain does not radiate to the jaw or arm. Chest pain is primarily in the middle of her chest. Patient reports diarrhea, headache, and fevers. Patient denies nausea or vomiting. Patient states no recent known Covid exposures. Patient received the [employer] Covid vaccine 1 month ago. 09/22 Patient evaluated examined at bedside. Resting in bed. Lethargic. Checking echo today if okay suspect can likely discharge tomorrow. Continue antibiotics. Palm cards following 09/23 Patient evaluate examined at bedside. Resting in bed doing well. Eager for discharge. Sinhala antibiotics p.o. Augmentin complete outpatient. Pulmonary and cardiology following. Greater than 30 minutes on this discharge. Disposition: Disposition/Orders: D/C to Home Activity: Activity: Resume previous activity Diet: Diet: Cardiac Medications: Home Meds Active Scripts Nebulizer and Compressor (Compressor Nebulizer System) 1 Each Each, EACH MC 1- 2XD PRN for COUGH, #1 2 Refills Use with albuterol nebulizer solution. Prov:KEELEY VELA MD 09/23/21 Albuterol Sulfate (ALBUTEROL SULFATE CONC NEB SOLN) 2.5 Mg/0.5 Ml Vial.neb, 1 VIAL NEB PRN Q4-6HRS PRN for SHORTNESS OF BREATH for 30 Days, #60 VIAL 1 Refill Prov:KEELEY VELA MD 09/23/21 Amoxicillin/Potassium Clav (AMOX TR-K CLV 875-125 MG TAB) 1 Each Tablet, 1 TAB PO BID for pneumonia for 7 Days, #14 TAB Prov:KEELEY VELA MD 09/23/21 Haloperidol (HALOPERIDOL) 2 Mg Tablet, 2 MG PO DAILY for Mood disorder for 30 Days, #30 TAB 2 Refills Prov:KEELEY GREWAL MD 05/23/21 Aspirin (ASPIRIN EC) 81 Mg Tablet.dr, 81 MG PO DAILYWBKFT for antiplatelet for 30 Days, #30 TAB.SR 11 Refills Prov:KEELEY GREWAL MD 05/23/21 Clopidogrel Bisulfate (CLOPIDOGREL) 75 Mg Tablet, 75 MG PO DAILY for TO PREVENT BLOOD CLOTS for 30 Days, #30 TAB 5 Refills Prov:KEELEY GREWAL MD 05/23/21 Lisinopril (LISINOPRIL) 40 Mg Tablet, 40 MG PO DAILY for FOR HYPERTENSION for 30 Days, #30 TAB 2 Refills Prov:KEELEY GREWAL MD 05/23/21 Risperidone (RISPERDAL) 2 Mg Tablet, 1 TAB PO QHS for Mood Disorder for 30 Days, #30 TAB 2 Refills Prov:KEELEY GREWAL MD 05/23/21 Metformin Hcl (METFORMIN HCL) 500 Mg Tablet, 500 MG PO BIDWMEALS for DM2 for 30 Days, #60 TAB 2 Refills Prov:KEELEY GREWAL MD 05/23/21 Reported Medications Albuterol Sulfate (PROAIR HFA INHALER) 8.5 Gm Hfa.aer.ad, 1 PUFF INH PRN Q6HRS PRN for SHORTNESS OF BREATH, EACH 0 Refills 09/21/21 Nitroglycerin (NITROGLYCERIN SubLingual) 0.4 Mg Tab.subl, 0.4 MG SL PRN Q5MIN PRN for CHEST PAIN, ML 09/21/21 Fluticasone Propionate (Flonase Allergy Relief) 9.9 Ml [place].susp, 2 SPRAYS NS DAILY for ALLERGIES, ML 09/21/21 Clonidine Hcl (CLONIDINE HCL) 0.1 Mg Tablet, 0.1 MG PO DAILY for HTN, TAB 09/21/21 Atorvastatin Calcium (ATORVASTATIN CALCIUM) 20 Mg Tablet, 20 MG PO HS for FOR CHOLESTEROL, #30 TAB 0 Refills 09/21/21 Carvedilol (CARVEDILOL ) 12.5 Mg Tablet, 12.5 MG PO BIDWMEALS for CARDIAC, TAB 09/21/21 Scheduled Amoxicillin/Potassium Clav (Amox Tr-K Clv 875-125 Mg Tab), 1 TAB PO BID Aspirin (Aspirin Ec), 81 MG PO DAILYWBKFT Atorvastatin Calcium (Atorvastatin Calcium), 20 MG PO HS, (Reported) Carvedilol (Carvedilol ), 12.5 MG PO BIDWMEALS, (Reported) Clonidine Hcl (Clonidine Hcl), 0.1 MG PO DAILY, (Reported) Clopidogrel Bisulfate (Clopidogrel), 75 MG PO DAILY Fluticasone Propionate (Flonase Allergy Relief), 2 SPRAYS NS DAILY, (Reported) Haloperidol (Haloperidol), 2 MG PO DAILY Lisinopril (Lisinopril), 40 MG PO DAILY Metformin Hcl (Metformin Hcl), 500 MG PO BIDWMEALS Risperidone (Risperdal), 1 TAB PO QHS Scheduled PRN Albuterol Sulfate (Proair Hfa Inhaler), 1 PUFF INH PRN Q6HRS PRN for SHORTNESS OF BREATH, (Reported) Albuterol Sulfate (Albuterol Sulfate Conc Neb Soln), 1 VIAL NEB PRN Q4-6HRS PRN for SHORTNESS OF BREATH Nitroglycerin (NITROGLYCERIN SubLingual), 0.4 MG SL PRN Q5MIN PRN for CHEST PAIN, (Reported) Durable Medical Equipment Nebulizer and Compressor (Compressor Nebulizer System), EACH MC 1-2XD PRN for CO UGH, (DME) Justicifation of Admission Dx: Justifications for Admission: Justification of Admission Dx: Yes Hypertension: Cresendo Worsening of Sym KEELEY VELA MD Sep 23, 2021 11:21
--- NOTE | 2021-09-23 12:29 | PDOC ---
CARDIO Progress Notes Date and Time Date of Service 09/23/2021 Time of Evaluation 1215 Subjective Subjective: No Chest Pain, No shortness of breath, No Palpitations Vitals Vitals Vital Signs Date Time Temp Pulse Resp B/P (MAP) Pulse Ox O2 Delivery O2 Flow Rate FiO2 09/23/21 11:49 96 Room Air 09/23/21 10:18 98.9 84 16 135/80 (98) 98.9 Weight Weight [ ] Input and Output Intake and Output Intake and Output 09/23/21 07:00 Intake Total 1360 ml Balance 1360 ml Intake Oral 1360 ml # Voids 2 Laboratory Labs Laboratory Tests Test 09/22/21 17:01 09/22/21 20:49 09/23/21 07:38 09/23/21 11:41 Glucose (Fingerstick) 207 mg/dL (70-99) 311 mg/dL (70-99) 276 mg/dL (70-99) 235 mg/dL (70-99) Microbiology Micro Microbiology 09/21/21 Blood Culture - Preliminary, Resulted 09/21/21 Urine Culture - Final, Complete Physical Exam HEENT: Neck Supple W Full Motion Chest: Symmetric LUNGS: Other (diminished baes) Heart: RRR (SR) Abdomen: Soft N/T Extremities: No Calf Tenderness Neurology: alert, oriented, follow commands Assessment Assessment 1. Community acquired pneumonia 2. NSTEMI: Type 2 with chronic troponin elevation 3. CAD: PCI/stents placement at [facility] in October 2019. Clinically stable 4. HTN: controlled 5. HLP 6. DM2 7. Substance abuse: +for PCP and Marijuana. Due to check in for detox on 10/05 8. Tobaccoism Recommendations 1. Antibiotics per PCP 2. Continue plavix and secondary prevention measures. 3. Follow up with [facility] cardiology and recommend outpt MPI and outpt TTE 4. Abstinence to recreational drugs Justicifation of Admission Dx: Justifications for Admission: Justification of Admission Dx: Yes Hypertension: Cresendo Worsening of Sym YOVANNY REID TRAVEL AGENCY MANAGER Sep 23, 2021 12:29
[2021-10-06] MEDS ORDERED: AMOX1TAB61 PO (12:51)
== END 2021-09-23 14:05 | disposition home or self-care (01) ==
LOC: ER 05:41 → INTOOBSV 10:58 → ED HOLD 10:58 → 6 SOUTH 18:28
PROVIDERS: ADMIT Internal Medicine; ATTEND Internal Medicine
DX: R07.89 Other chest pain (principal); Z20.822 Contact with and (suspected) exposure to COVID-19; R65.20 Severe sepsis without septic shock; A41.89 Other specified sepsis; I25.119 Atherosclerotic heart disease of native coronary artery with unspecified angina pectoris; E87.1 Hypo-osmolality and hyponatremia; E11.65 Type 2 diabetes mellitus with hyperglycemia; J45.909 Unspecified asthma, uncomplicated; R41.82 Altered mental status, unspecified; R77.8 Other specified abnormalities of plasma proteins; F16.10 Hallucinogen abuse, uncomplicated; F17.210 Nicotine dependence, cigarettes, uncomplicated; E78.5 Hyperlipidemia, unspecified; F12.90 Cannabis use, unspecified, uncomplicated; F31.9 Bipolar disorder, unspecified; I10 Essential (primary) hypertension; I21.A1 Myocardial infarction type 2; I25.2 Old myocardial infarction; J12.82 Pneumonia due to coronavirus disease 2019; J44.0 Chronic obstructive pulmonary disease with (acute) lower respiratory infection; J44.1 Chronic obstructive pulmonary disease with (acute) exacerbation; M06.9 Rheumatoid arthritis, unspecified; Z98.61 Coronary angioplasty status; Z79.899 Other long term (current) drug therapy; Z98.890 Other specified postprocedural states
CPT/HCPCS: 36415; 71045; 71275; 74177; 80053; 80061; 80307; 81001; 81025; 82962; 83605; 83735; 83880; 84145; 84484; 85007; 85025; 85520; 85610; 85730; 87040; 87077; 87086; 87186; 87205; 87426; 87804; 93005; 94640; 94760; 96361; 96365; 96366; 96367; 96368; 96372; 96375; 96376; 99291; G0378; J0456; J0696; J1644; J1815; J3475; J7030; J7040; Q9967; U0003; U0005; G0379

== ENCOUNTER 2021-10-04 16:14 | Observation (INO) | payer MEDICARE ==
[~2021-10-04] VITALS: Ht 165.1 cm; Wt 79.3 kg
[~2021-10-04 16:14] MED LIST changes: +ALBU2.5V14 NEB; +ALBU2.5V8 INH; +AMOX1TAB11 PO; +ATOR20TA58 PO; +CARV12.511 PO; +CLON0.1T PO; +FLUT9.9S NS; +NEBU-145 MC; +NITR0.4T22 SL
[2021-10-04] MEDS ORDERED: ASPIRIN CHEWABLE 81 MG TABLET. PO ONE (18:15)
--- NOTE | 2021-10-04 18:17 | PHYS DOC ---
Past Medical History Past Medical History: Diabetes-Type II, Hypertension Additional Past Medical Histor: DRUG ABUSE Past Surgical History: No Surgical History Smoking Status: Current Every Day Smoker Alcohol Use: None Drug Use: Marijuana, Phencyclidine General Adult EDM: Chief Complaint: HYPERTENSION HPI: HPI: Patient is a 46-year-old female who presents to the emergency department today for hypertension. Patient reports that she went to a mental health appointment and they checked her blood pressure and they told her it was high so they sent her to the emergency department. Patient reports that she takes clonidine and carvedilol and lisinopril and she took all of her medications as directed today. Patient reports midsternal chest pain that started 2 weeks ago and is intermittent. Worse with deep inspiration and palpation. She is also reporting a productive cough and intermittent shortness of breath. She states that she was just seen in this emergency department and diagnosed with pneumonia. Patient denies any dizziness currently or nausea or vomiting. Review of Systems: Review of Systems: Respiratory: See HPI Cardiovascular: See HPI GI: See HPI Neurologic: See HPI Heart Score: C/O Chest Pain: Yes HEART Score for Chest Pain: HEART Score for Chest Pain Response (Comments) Value History Slighlty/Non-Suspicious 0 ECG Nonspecific Repolarizatio 1 Age < 45 0 Risk Factors >3 Risk Factors or Hx CAD 2 Troponin >1-<3x Normal Limit 1 Total 4 Risk Factors: Risk Factors: DM, Current or recent (<one month) smoker, HTN, HLP, family history of CAD, obesity. Risk Scores: Score 0 - 3: 2.5% MACE over next 6 weeks - Discharge Home Score 4 - 6: 20.3% MACE over next 6 weeks - Admit for Clinical Observation Score 7 - 10: 72.7% MACE over next 6 weeks - Early Invasive Strategies Allergies: Allergies: Allergies Coded Allergies Type Severity Reaction Last Updated Verified cod liver oil Adverse Reaction Unknown "STREP THROAT" 10/04/21 Yes Physical Exam: PE: Constitutional: Well developed, well nourished, no acute distress, non-toxic appearance. [] HENT: Normocephalic, atraumatic, bilateral external ears normal, oropharynx moist, no oral exudates, nose normal. [] Eyes: PERRL, EOMI, conjunctiva normal, no discharge. [] Neck: Normal range of motion, no tenderness, supple, no stridor. [] Cardiovascular:Heart rate regular rhythm, no murmur [] Lungs & Thorax: Bilateral breath sounds clear to auscultation, midsternal chest pain with palpation of chest[] Abdomen: Bowel sounds normal, soft, no tenderness, no masses, no pulsatile masses. [] Skin: Warm, dry, no erythema, no rash. [] Back: Normal range of motion Extremities: No tenderness, no cyanosis, no clubbing, ROM intact, no edema. [] Neurologic: Alert and oriented X 3, normal motor function, normal sensory function, no focal deficits noted. [] Psychologic: Affect normal, judgement normal, mood normal. [] Current Patient Data: Labs: Laboratory Tests Test 10/04/21 18:08 POC Urine HCG, Qualitative Hcg negative (Negative) Laboratory Tests Test 10/04/21 18:08 10/04/21 18:25 Bedside Urine HCG, Qualitative Hcg negative White Blood Count 9.3 x10^3/uL Red Blood Count 3.85 x10^6/uL Hemoglobin 11.0 g/dL Hematocrit 33.4 % Mean Corpuscular Volume 87 fL Mean Corpuscular Hemoglobin 29 pg Mean Corpuscular Hemoglobin Concent 33 g/dL Red Cell Distribution Width 14.0 % Platelet Count 558 x10^3/uL Neutrophils (%) (Auto) 64 % Lymphocytes (%) (Auto) 28 % Monocytes (%) (Auto) 6 % Eosinophils (%) (Auto) 1 % Basophils (%) (Auto) 1 % Neutrophils # (Auto) 6.0 x10^3/uL Lymphocytes # (Auto) 2.6 x10^3/uL Monocytes # (Auto) 0.6 x10^3/uL Eosinophils # (Auto) 0.1 x10^3/uL Basophils # (Auto) 0.1 x10^3/uL Sodium Level 133 mmol/L Potassium Level 4.5 mmol/L Chloride Level 98 mmol/L Carbon Dioxide Level 28 mmol/L Anion Gap 7 Blood Urea Nitrogen 8 mg/dL Creatinine 0.7 mg/dL Estimated GFR (Cockcroft-Gault) 109.5 BUN/Creatinine Ratio 11 Glucose Level 384 mg/dL Calcium Level 8.6 mg/dL Total Bilirubin 0.2 mg/dL Aspartate Amino Transf (AST/SGOT) 8 U/L Alanine Aminotransferase (ALT/SGPT) 13 U/L Alkaline Phosphatase 118 U/L Troponin I High Sensitivity 200 ng/L Total Protein 7.1 g/dL Albumin 2.3 g/dL Albumin/Globulin Ratio 0.5 Current Medications Medications (Trade) Dose Ordered Sig/Johanna Route PRN Reason Start Time Stop Time Status Last Admin Dose Admin Aspirin (Aspirin Chewable) 324 mg 1X ONCE PO 10/04/21 18:15 10/04/21 18:17 DC 10/04/21 18:54 Nitroglycerin (Nitrostat) 0.4 mg PRN Q5MIN PRN SL CHEST PAIN 10/04/21 19:15 EKG: EKG: EKG performed by ER staff at 1855 shows sinus rhythm with a rate of 85, QTC of 467, Q waves in lead III and aVF, no STEMI read by Dr. Boyer at 1857 [] Radiology/Procedures: Radiology/Procedures: []PROCEDURE: PORTABLE CHEST 1V EXAM: AP View of the chest DATE: 10/04/2021 7:18 PM INDICATION: Chest pain COMPARISON: 09/21/2021 FINDINGS: Heart is mildly enlarged. Bilateral parenchymal opacities are slightly less conspicuous. No pleural effusion or pneumothorax. IMPRESSION: Bilateral parenchymal opacities are slightly less conspicuous. Imaging follow-up to resolution is recommended. Electronically signed by: Erasto Chance MD (10/04/2021 7:21 PM) [facility] DICTATED and SIGNED BY: ERASTO CHANCE MD DATE: 10/04/21 [id number] Course & Med Decision Making: Course & Med Decision Making Pertinent Labs and Imaging studies reviewed. (See chart for details) [] Patient presents to the emergency department today for hypertension. She states that they checked her blood pressure at her mental health appointment and it was elevated so they sent her to the ER. Patient is reporting intermittent midsternal chest pain that started 2 weeks ago. She states that she was recently seen in this emergency department diagnosed with pneumonia and c ontinues to have a productive cough and shortness of breath. She states that she took all of her blood pressure medication as directed today. Her blood pressure in the ER today is 157/89. Work-up in the ER consisted of blood work, EKG and chest x-ray. There are some nonspecific changes in patient's EKG, no STEMI. Her troponin was elevated at 200. Patient's heart score is four. Patient CBC is unremarkable. D-dimer is pending at this time. Chest x-ray shows bilateral parenchymal opacities which are improved from previous imaging, patient treated with antibiotic. Patient was treated with aspirin and nitro. As needed pain medication ordered as well. Discussed patient's case with Dr. Dominique the orthotics prosthetics assistant to [facility] and he advised to start patient on heparin protocol and he will consult on patient. I discussed these findings with Dr. Johnston who agreed to admit the patient under his services for chest pain and elevated troponin. ER bridge orders placed. 1931 Sandhya Disclaimer: Sandhya Disclaimer: This electronic medical record was generated, in whole or in part, using a voice recognition dictation system. Departure Departure Impression: Primary Impression: Chest pain Qualified Codes: R07.1 - Chest pain on breathing Additional Impression: Elevated troponin Disposition: ADMITTED INPATIENT Admitting Physician: DAE Condition: STABLE Referrals: GINO LA MD (PCP) ESA MORRIS TANK FURNACE OPERATOR Oct 04, 2021 18:17
[2021-10-04 18:49] LABS: BASO # 0.1 x10^3/uL (0.0-0.2); BASO % 1 % (0-3); EOS # 0.1 x10^3/uL (0.0-0.7); EOS % 1 % (0-3); HEMATOCRIT 33.4 % (36.0-47.0); LYMPH # 2.6 x10^3/uL (1.0-4.8); LYMPH % 28 % (24-48); MEAN CORPUSCULAR HEMOGLOBIN 29 pg (25-35); MEAN CORPUSCULAR HGB CONC 33 g/dL (31-37); MEAN CORPUSCULAR VOLUME 87 fL (79-100); MONO # 0.6 x10^3/uL (0.0-1.1); MONO % 6 % (0-9); NEUT % 64 % (31-73); PLATELET COUNT 558 x10^3/uL (140-400); RED BLOOD COUNT 3.85 x10^6/uL (3.50-5.40); WHITE BLOOD COUNT 9.3 x10^3/uL (4.0-11.0)
[2021-10-04 18:58] LABS: CALCIUM 8.6 mg/dL (8.5-10.1); CREATININE 0.7 mg/dL (0.6-1.0); GFR 109.5; POTASSIUM 4.5 mmol/L (3.5-5.1)
[2021-10-04 19:04] LABS: ALBUMIN 2.3 g/dL (3.4-5.0); ALBUMIN/GLOBULIN RATIO 0.5 (1.0-1.7); TOTAL BILIRUBIN 0.2 mg/dL (0.2-1.0); TOTAL PROTEIN 7.1 g/dL (6.4-8.2)
--- NOTE | 2021-10-04 19:07 | EKG ---
[facility] [address] [place] [address] Test Date: 2021-10-04 Test Time: 18:55:07 Pat Name: BELKYS VAUGHN Department: Room: Gender: F Correspondence Transcriber: 0 : 1975 Requested By: ESA MORRIS Order Number: [id number] Reading MD: Lukas Araiza Measurements Intervals [place] Rate: 85 P: 53 TN: 154 QRS: -6 QRSD: 84 T: 69 QT: 388 QTc: 467 Interpretive Statements SINUS RHYTHM ANTERIOR ST CHANGES POSSIBLE ISCHEMIA INFERIOR Q WAVE Electronically Signed On 10-07-2021 16:26:56 WAREHOUSE SELECTOR by Luksa Araiza
[2021-10-04] MEDS ORDERED: NITROGLYCERIN SUBLINGUAL 0.4 MG BOTTLE OF 25. SL PRN (19:15)
--- NOTE | 2021-10-04 19:24 | RAD ---
EXAM: AP View of the chest DATE: 10/04/2021 7:18 PM INDICATION: Chest pain COMPARISON: 09/21/2021 FINDINGS: Heart is mildly enlarged. Bilateral parenchymal opacities are slightly less conspicuous. No pleural effusion or pneumothorax. IMPRESSION: Bilateral parenchymal opacities are slightly less conspicuous. Imaging follow-up to resolution is rec ommended. Electronically signed by: Erasto Plascencia MD (10/04/2021 7:21 PM) MANUELA
[2021-10-04] MEDS ORDERED: MORPHINE SULFATE 2 MG/ML INJ. IVP PRN (19:45)
[2021-10-04] MEDS: IV NORMAL SALINE 1000ML BAG 1,000 ML IV SCH (20:00)
[2021-10-04] MEDS ORDERED: cefTRIAXone IV Push 1 GM VIAL. IVP ONE (20:00)
[2021-10-04] MEDS ORDERED: AZITHRMYCN 500MG IVPB FOR OMNI 250 ML IV ONE (20:00)
[2021-10-04] MEDS ORDERED: HEPARIN for IV BOLUS 10,000 UNIT/10 ML VIAL. IV ONE (20:00)
[2021-10-04] MEDS ORDERED: HEPARIN for IV BOLUS 10,000 UNIT/10 ML VIAL. IV PRN (20:00)
[2021-10-04] MEDS ORDERED: HEPARIN 25,000UTS/250ML PREMIX 250 ML IV PRN (20:00)
--- NOTE | 2021-10-04 20:35 | HP ---
DATE OF SERVICE: 10/04/2021 ADMIT DATE: 10/04/2021 CHIEF COMPLAINT: Elevated blood pressure, shortness of breath and cough. HISTORY OF PRESENT ILLNESS: The patient is a pleasant 46-year-old female who went to a psychiatric appointment today, but her blood pressure was too high. They told to go to the ER. When she got here, we noticed her troponin is also high at 200. Her blood pressure is a little high at 157/89. We are going to admit the patient. We consulted Cardiology. They would like us her on a heparin drip. She complains of shortness of breath and cough. PAST MEDICAL HISTORY: Diabetes, hypertension, drug abuse, depression, anxiety, tobacco abuse, marijuana use. PCP use. ALLERGIES: COD LIVER OIL. FAMILY HISTORY: Hypertension. SOCIAL HISTORY: She drink smokes and takes drugs. MEDICATIONS: Reviewed, please refer to the MRAD. REVIEW OF SYSTEMS: GENERAL: No history of weight change, weakness or fevers. SKIN: No bruising, hair changes or rashes. EYES: No blurred, double or loss of vision. NOSE AND THROAT: No history of nosebleeds, hoarseness or sore throat. CARDIAC: She complains of chest pain. LUNGS: Denies cough, hemoptysis, wheezing or shortness of breath. GASTROINTESTINAL: Denies changes in appetite, nausea, vomiting, diarrhea or constipation. GENITOURINARY: No history of frequency, urgency, hesitancy or nocturia. NEUROLOGIC: Denies history of numbness, tingling, tremor or weakness. PSYCHIATRIC: No history of panic, anxiety or depression. ENDOCRINE: No history of heat or cold intolerance, polyuria or polydipsia. EXTREMITIES: Denies muscle weakness, joint pain, pain on walking or stiffness. PHYSICAL EXAMINATION: VITALS: Within normal limits and are stable. GENERAL: No apparent distress. Alert and oriented. HEENT: Normal cephalic atraumatic, external auditory canals are patent EYES: Extraocular muscles are intact, pupils are equally round and reactive to light and accommodation MUSCULOSKELETAL: Well developed, well nourished, good range of motion ENDOCRINE: No thyromegaly was palpated LYMPHATICS: No cervical chain or axillary nodes were noted HEMATOPOIETIC: No bruising NECK: Supple, no JVD, no thyromegaly was noted. LUNGS: Clear to auscultation in all lung inman without rhonchi or wheezing. HEART: RRR, S1, S2 present. Peripheral pulses intact, no obvious murmurs were noted. ABDOMEN: Soft, nontender. Positive bowel sounds no organomegaly, normal bowel sounds. EXTREMITIES: Without any cyanosis, clubbing, or edema. Pedal pulses intact, Homans sign is negative. NEUROLOGIC: Normal speech, normal tone. A and O x3, moves all extremities, no obvious focal deficits. PSYCHIATRIC: Normal affect, normal mood. Stable. SKIN: No ulcerations or rashes, good skin turgor, no jaundice. VASCULAR: Good capillary refill, neurovascular bundle appears to be intact. LABORATORY DATA: White count 9, hemoglobin 11. Sodium is 133, glucose 384. Troponin 200. ASSESSMENT AND PLAN: Chest pain, hypertension, hyponatremia, elevated troponin and pneumonia. The patient has been admitted. We started a heparin drip. We have consulted Cardiology. Cardiac monitoring, serial enzymes, serial EKGs, home meds. Deep vein thrombosis prophylaxis. IV antibiotics, oxygen, breathing treatments. Full code. TASHA/ANDRE/TWILA DR: Karime TID: [id number]
[2021-10-04 21:10] VITALS: BP 159/89
[2021-10-04] MEDS ORDERED: HYDR25TA PO (22:12)
[2021-10-04] MEDS ORDERED: ACET500T68 PO (22:12)
[2021-10-04 22:40] VITALS: BP 153/94
[2021-10-05 02:04] LABS: BASO # 0.1 x10^3/uL (0.0-0.2); BASO % 1 % (0-3); EOS # 0.1 x10^3/uL (0.0-0.7); EOS % 1 % (0-3); HEMATOCRIT 39.1 % (36.0-47.0); HEMOGLOBIN 12.8 g/dL (12.0-15.5); LYMPH # 3.1 x10^3/uL (1.0-4.8); LYMPH % 34 % (24-48); MEAN CORPUSCULAR HEMOGLOBIN 28 pg (25-35); MEAN CORPUSCULAR HGB CONC 33 g/dL (31-37); MEAN CORPUSCULAR VOLUME 86 fL (79-100); MONO # 0.6 x10^3/uL (0.0-1.1); MONO % 7 % (0-9); NEUT # 5.3 x10^3/uL (1.8-7.7); NEUT % 58 % (31-73); PLATELET COUNT 609 x10^3/uL (140-400); RED BLOOD COUNT 4.52 x10^6/uL (3.50-5.40); RED CELL DISTRIBUTION WIDTH 14.1 % (11.5-14.5); WHITE BLOOD COUNT 9.2 x10^3/uL (4.0-11.0)
[2021-10-05 02:38] LABS: ALBUMIN 2.3 g/dL (3.4-5.0); ALBUMIN/GLOBULIN RATIO 0.4 (1.0-1.7); CALCIUM 8.8 mg/dL (8.5-10.1); CREATININE 0.7 mg/dL (0.6-1.0); GFR 109.5; TOTAL BILIRUBIN 0.2 mg/dL (0.2-1.0); TOTAL PROTEIN 8.1 g/dL (6.4-8.2)
[2021-10-05 02:40] VITALS: BP 172/96
[2021-10-05] MEDS: IV NORMAL SALINE 1000ML BAG 1,000 ML IV SCH ×2 (06:00→16:00)
[2021-10-05 07:00] VITALS: BP 165/94
--- NOTE | 2021-10-05 07:19 | PDOC ---
[facility] PROGRESS NOTE Date of Service DOS: DATE: 10/05/21 TIME: 07:17 Chief Complaint Chief Complaint Chest pain Hypertension Elevated troponin Hyponatremia Pneumonia History of the following: Diabetes, hypertension, drug abuse, depression, anxiety, tobacco abuse, marijuana use. PCP use. History of Present Illness History of Present Illness 10/05/2021 Patient seen and examined She is resting with no apparent distress Has a heparin drip pain Discussed with RN Chart reviewed Vitals/I&O Vitals/I&O: Vital Signs Date Time Temp Pulse Resp B/P (MAP) Pulse Ox O2 Delivery O2 Flow Rate FiO2 10/05/21 02:40 97.9 80 18 172/96 (121) 98 Room Air 97.9 I & O 10/04/21 10/04/21 10/05/21 15:00 23:00 07:00 Intake Total 0 ml 200 ml Output Total 700 ml Balance 0 ml -500 ml Physical Exam General: No acute distress Heart: Regular rate Lungs: Clear Abdomen: Normal bowel sounds Extremities: No clubbing Skin: No rashes Labs Labs: Laboratory Tests Test 10/04/21 18:08 10/04/21 18:25 10/04/21 21:15 10/05/21 01:52 Bedside Urine HCG, Qualitative Hcg negative (Negative) White Blood Count 9.3 x10^3/uL (4.0-11.0) 9.2 x10^3/uL (4.0-11.0) Red Blood Count 3.85 x10^6/uL (3.50-5.40) 4.52 x10^6/uL (3.50-5.40) Hemoglobin 11.0 g/dL (12.0-15.5) 12.8 g/dL (12.0-15.5) Hematocrit 33.4 % (36.0-47.0) 39.1 % (36.0-47.0) Mean Corpuscular Volume 87 fL (79-100) 86 fL (79-100) Mean Corpuscular Hemoglobin 29 pg (25-35) 28 pg (25-35) Mean Corpuscular Hemoglobin Concent 33 g/dL (31-37) 33 g/dL (31-37) Red Cell Distribution Width 14.0 % (11.5-14.5) 14.1 % (11.5-14.5) Platelet Count 558 x10^3/uL (140-400) 609 x10^3/uL (140-400) Neutrophils (%) (Auto) 64 % (31-73) 58 % (31-73) Lymphocytes (%) (Auto) 28 % (24-48) 34 % (24-48) Monocytes (%) (Auto) 6 % (0-9) 7 % (0-9) Eosinophils (%) (Auto) 1 % (0-3) 1 % (0-3) Basophils (%) (Auto) 1 % (0-3) 1 % (0-3) Neutrophils # (Auto) 6.0 x10^3/uL (1.8-7.7) 5.3 x10^3/uL (1.8-7.7) Lymphocytes # (Auto) 2.6 x10^3/uL (1.0-4.8) 3.1 x10^3/uL (1.0-4.8) Monocytes # (Auto) 0.6 x10^3/uL (0.0-1.1) 0.6 x10^3/uL (0.0-1.1) Eosinophils # (Auto) 0.1 x10^3/uL (0.0-0.7) 0.1 x10^3/uL (0.0-0.7) Basophils # (Auto) 0.1 x10^3/uL (0.0-0.2) 0.1 x10^3/uL (0.0-0.2) Sodium Level 133 mmol/L (136-145) 139 mmol/L (136-145) Potassium Level 4.5 mmol/L (3.5-5.1) 4.0 mmol/L (3.5-5.1) Chloride Level 98 mmol/L (98-107) 102 mmol/L (98-107) Carbon Dioxide Level 28 mmol/L (21-32) 30 mmol/L (21-32) Anion Gap 7 (6-14) 7 (6-14) Blood Urea Nitrogen 8 mg/dL (7-20) 6 mg/dL (7-20) Creatinine 0.7 mg/dL (0.6-1.0) 0.7 mg/dL (0.6-1.0) Estimated GFR (Cockcroft-Gault) 109.5 109.5 BUN/Creatinine Ratio 11 (6-20) 9 (6-20) Glucose Level 384 mg/dL (70-99) 170 mg/dL (70-99) Calcium Level 8.6 mg/dL (8.5-10.1) 8.8 mg/dL (8.5-10.1) Total Bilirubin 0.2 mg/dL (0.2-1.0) 0.2 mg/dL (0.2-1.0) Aspartate Amino Transf (AST/SGOT) 8 U/L (15-37) 15 U/L (15-37) Alanine Aminotransferase (ALT/SGPT) 13 U/L (14-59) 16 U/L (14-59) Alkaline Phosphatase 118 U/L (46-116) 115 U/L (46-116) Troponin I High Sensitivity 200 ng/L (4-50) 221 ng/L (4-50) 217 ng/L (4-50) Total Protein 7.1 g/dL (6.4-8.2) 8.1 g/dL (6.4-8.2) Albumin 2.3 g/dL (3.4-5.0) 2.3 g/dL (3.4-5.0) Albumin/Globulin Ratio 0.5 (1.0-1.7) 0.4 (1.0-1.7) D-Dimer (Pearl) 3.26 ug/mlFEU (0.00-0.50) Heparin Anti-Xa Act, Unfractionated 0.27 IU/mL (0.30-0.70) Assessment and Plan Assessmemt and Plan Problems Medical Problems: (1) Chest pain Status: Acute (2) Elevated troponin Status: Acute Chest pain Hypertension Elevated troponin Hyponatremia Pneumonia History of the following: Diabetes, hypertension, drug abuse, depression, anxiety, tobacco abuse, marijuana use. PCP use. Plan Continue heparin drip Cardiac monitoring Serial enzymes Serial EKGs Cardiology is consulted Home meds DVT prophylaxis Full code Antibiotics Oxygen Beta agonist Comment Review of Relevant I have reviewed the following items sincere (where applicable) has been applied. Medications: Current Medications Medications (Trade) Dose Ordered Sig/Johanna Route PRN Reason Start Time Stop Time Status Last Admin Dose Admin Aspirin (Aspirin Chewable) 324 mg 1X ONCE PO 10/04/21 18:15 10/04/21 18:17 DC 10/04/21 18:54 Heparin Sodium (Porcine) (Heparin Sodium) 4,000 unit 1X ONCE IV 10/04/21 20:00 10/04/21 20:01 DC 10/04/21 20:33 Heparin Sodium/ Dextrose 250 ml @ 9.192 mls/ hr CONT PRN IV PER PROTOCOL 10/04/21 20:00 10/04/21 20:36 Sodium Chloride 1,000 ml @ 100 mls/hr Q10H IV 10/04/21 20:00 10/05/21 19:59 10/04/21 20:00 Ceftriaxone Sodium (Rocephin) 1 gm 1X ONCE IVP 10/04/21 20:00 10/04/21 20:01 DC 10/04/21 20:24 Azithromycin 250 ml @ 250 mls/hr 1X ONCE IV 10/04/21 20:00 10/04/21 20:59 DC 10/05/21 00:52 Justifications for Admission Other Justification Altered mental status and elevated troponins TRINO HAIRSTON III DO Oct 05, 2021 07:19
[2021-10-05] MEDS ORDERED: ANTI-COAG MONITOR BY PHARMACY. MC PRN (08:00)
--- NOTE | 2021-10-05 09:22 | PDOC2 ---
EMEKA GREEN APRN 10/05/21 0922: CARDIAC CONSULT DATE OF CONSULT Date of Consult DATE: 10/05/21 TIME: 08:45 REASON FOR CONSULT Reason for Consult: NSTEMI, CP REFERRING PHYSICIAN Referring Physician: Preeti Roa APRN SOURCE Source: Chart review, Patient HISTORY OF PRESENT ILLNESS HISTORY OF PRESENT ILLNESS This is a 46 yo female who presented secondary to hypertension. Patient reports she was at doctors appointment yesterday and had her blood pressure check routinely. Was noted to be significantly elevated and patient was referred to the ED for further evaluation and treatment. Patient reports intermittent central/left chest pain. Worse with coughing, deep breathing. Patient was recently diagnosed with PNA. Has had cough productive of yellow sputum since. Persistent coughing has lead to chest pain. PAST MEDICAL HISTORY Past Medical History Cardiovascular: CAD, HTN, HLP Pulmonary: No pertinent hx CENTRAL NERVOUS SYSTEM: Other GI: No pertinent hx Heme/Onc: No pertinent hx Psych: Anxiety, Bipolar Musculoskeletal: Osteoarthritis Rheumatologic: Rheumatoid arthritis Infectious disease: No pertinent hx Renal/: No pertinent hx Endocrine: Diabetes PAST SURGICAL HISTORY Past Surgical History , Tubal Ligation FAMILY HISTORY Family History: Hypertension SOCIAL HISTORY Social History Smoke: <1 pack per day ALCOHOL: none Drugs: Marijuana, Other (PCP + 09/21/21) Lives: with Family CURRENT MEDICATIONS CURRENT MEDICATIONS Current Medications Medications (Trade) Dose Ordered Sig/Johanna Route PRN Reason Start Time Stop Time Status Last Admin Dose Admin Aspirin (Aspirin Chewable) 324 mg 1X ONCE PO 10/04/21 18:15 10/04/21 18:17 DC 10/04/21 18:54 Heparin Sodium (Porcine) (Heparin Sodium) 4,000 unit 1X ONCE IV 10/04/21 20:00 10/04/21 20:01 DC 10/04/21 20:33 Heparin Sodium/ Dextrose 250 ml @ 9.192 mls/ hr CONT PRN IV PER PROTOCOL 10/04/21 20:00 10/04/21 20:36 Sodium Chloride 1,000 ml @ 100 mls/hr Q10H IV 10/04/21 20:00 10/05/21 19:59 10/04/21 20:00 Ceftriaxone Sodium (Rocephin) 1 gm 1X ONCE IVP 10/04/21 20:00 10/04/21 20:01 DC 10/04/21 20:24 Azithromycin 250 ml @ 250 mls/hr 1X ONCE IV 10/04/21 20:00 10/04/21 20:59 DC 10/05/21 00:52 Info (Anti-Coagulation Monitoring By Pharmacy) 1 each PRN DAILY PRN MC PER PROTOCOL 10/05/21 08:00 10/05/21 07:47 ALLERGIES ALLERGIES: Coded Allergies: cod liver oil (Verified Adverse Reaction, Unknown, "STREP THROAT", 10/04/21) ROS Review of System 14 point ROS conducted with pertinent positives noted above in hPI PHYSICAL EXAM PHYSICAL EXAM General: Alert, Oriented X3, Cooperative, No acute distress HEENT: Atraumatic, Mucous membr. moist/pink Lungs: Other (coarse) Heart: Regular rate (SR), Normal S1, Normal S2, No murmurs Abdomen: Soft, No tenderness Extremities: No cyanosis, No edema Skin: No breakdown, No significant lesion Neuro: Normal speech, Sensation intact Psych/Mental Status: Mental status NL, Mood NL MUSCULOSKELETAL: Full range of motion without pain VITALS/I&O VITALS/I&O: Vital Signs Date Time Temp Pulse Resp B/P (MAP) Pulse Ox O2 Delivery O2 Flow Rate FiO2 10/05/21 02:40 97.9 80 18 172/96 (121) 98 Room Air 97.9 I & O 10/04/21 10/04/21 10/05/21 15:00 23:00 07:00 Intake Total 0 ml 200 ml Output Total 700 ml Balance 0 ml -500 ml LABS Lab: Laboratory Tests Test 10/04/21 18:08 10/04/21 18:25 10/04/21 21:15 10/05/21 01:52 POC Urine HCG, Qualitative Hcg negative (Negative) White Blood Count 9.3 x10^3/uL (4.0-11.0) 9.2 x10^3/uL (4.0-11.0) Red Blood Count 3.85 x10^6/uL (3.50-5.40) 4.52 x10^6/uL (3.50-5.40) Hemoglobin 11.0 g/dL (12.0-15.5) L 12.8 g/dL (12.0-15.5) Hematocrit 33.4 % (36.0-47.0) L 39.1 % (36.0-47.0) Mean Corpuscular Volume 87 fL (79-100) 86 fL (79-100) Mean Corpuscular Hemoglobin 29 pg (25-35) 28 pg (25-35) Mean Corpuscular Hemoglobin Concent 33 g/dL (31-37) 33 g/dL (31-37) Red Cell Distribution Width 14.0 % (11.5-14.5) 14.1 % (11.5-14.5) Platelet Count 558 x10^3/uL (140-400) H 609 x10^3/uL (140-400) H Neutrophils (%) (Auto) 64 % (31-73) 58 % (31-73) Lymphocytes (%) (Auto) 28 % (24-48) 34 % (24-48) Monocytes (%) (Auto) 6 % (0-9) 7 % (0-9) Eosinophils (%) (Auto) 1 % (0-3) 1 % (0-3) Basophils (%) (Auto) 1 % (0-3) 1 % (0-3) Neutrophils # (Auto) 6.0 x10^3/uL (1.8-7.7) 5.3 x10^3/uL (1.8-7.7) Lymphocytes # (Auto) 2.6 x10^3/uL (1.0-4.8) 3.1 x10^3/uL (1.0-4.8) Monocytes # (Auto) 0.6 x10^3/uL (0.0-1.1) 0.6 x10^3/uL (0.0-1.1) Eosinophils # (Auto) 0.1 x10^3/uL (0.0-0.7) 0.1 x10^3/uL (0.0-0.7) Basophils # (Auto) 0.1 x10^3/uL (0.0-0.2) 0.1 x10^3/uL (0.0-0.2) Sodium Level 133 mmol/L (136-145) L 139 mmol/L (136-145) Potassium Level 4.5 mmol/L (3.5-5.1) 4.0 mmol/L (3.5-5.1) Chloride Level 98 mmol/L (98-107) 102 mmol/L (98-107) Carbon Dioxide Level 28 mmol/L (21-32) 30 mmol/L (21-32) Anion Gap 7 (6-14) 7 (6-14) Blood Urea Nitrogen 8 mg/dL (7-20) 6 mg/dL (7-20) L Creatinine 0.7 mg/dL (0.6-1.0) 0.7 mg/dL (0.6-1.0) Estimated GFR (Cockcroft-Gault) 109.5 109.5 BUN/Creatinine Ratio 11 (6-20) 9 (6-20) Glucose Level 384 mg/dL (70-99) H 170 mg/dL (70-99) H Calcium Level 8.6 mg/dL (8.5-10.1) 8.8 mg/dL (8.5-10.1) Total Bilirubin 0.2 mg/dL (0.2-1.0) 0.2 mg/dL (0.2-1.0) Aspartate Amino Transferase (AST) 8 U/L (15-37) L 15 U/L (15-37) Alanine Aminotransferase (ALT) 13 U/L (14-59) L 16 U/L (14-59) Alkaline Phosphatase 118 U/L (46-116) H 115 U/L (46-116) Troponin I High Sensitivity 200 ng/L (4-50) H 221 ng/L (4-50) H 217 ng/L (4-50) H Total Protein 7.1 g/dL (6.4-8.2) 8.1 g/dL (6.4-8.2) Albumin 2.3 g/dL (3.4-5.0) L 2.3 g/dL (3.4-5.0) L Albumin/Globulin Ratio 0.5 (1.0-1.7) L 0.4 (1.0-1.7) L D-Dimer (Pearl) 3.26 ug/mlFEU (0.00-0.50) H Heparin Anti-Xa Act, Unfractionated 0.27 IU/mL (0.30-0.70) L Test 10/05/21 08:03 Glucose (Fingerstick) 193 mg/dL (70-99) H Laboratory Tests 10/04/21 18:25 10/05/21 01:52 Laboratory Tests 10/04/21 18:25 10/05/21 01:52 ECHOCARDIOGRAM ECHOCARDIOGRAM <Conclusion> The left ventricle is normal size. The left ventricular systolic function is normal and the ejection fraction is within normal range. The Ejection Fraction is 55-60%. There is normal LV segmental wall motion. There is mild concentric left ventricular hypertrophy. Doppler and Color Flow revealed no significant aortic regurgitation. There is no significant aortic valvular stenosis. Doppler and Color-flow revealed trace mitral regurgitation. Doppler and Color Flow revealed trace tricuspid regurgitation with an estimated PAP of 26 mmHg. DATE: 09/13/20 [id number] ASSESSMENT/PLAN ASSESSMENT/PLAN 1. Accelerated HTN; remains elevated 2. Chest pain, atypical. Most probably pleuritic secondary to persistent coug veronica 3. Mild troponin elevation; high sensitivity peak 221 with history of chronic troponin elevation. Most probably type II, demand ischemia. 4. CAD: PCI/stents placement at [facility] in October 2019. Clinically stable 5. Hyperlipidemia; statin 6. Diabetes, II 7. Substance abuse: UDS + for PCP and marijuana 09/21/21 8. Tobaccoism 9. Recent HCAP Recommendations Resume home antiHTN therapy. Titrate therapy upon discharge Discontinue heparin gtt Continue Plavix and secondary prevention measures. Outpatient ischemic evaluation as arranged Abstinence from tobacco and recreational drugs. Was scheduled to enter treatment facility this morning. Plan to go upon discharge Follow up with Dr. Rios as scheduled JOANA RIOS MD 10/05/217: CARDIAC CONSULT ASSESSMENT/PLAN ASSESSMENT/PLAN Patient seen and examined. Agree with FARM BUTCHER's assessment and plan. CP with atypical features. Slight trop elevation prob demand ischemia CAD status appears clinically stable - will consider outpatient ischemic evaluation Agree with stopping hep gtt Resume home antihypertensives and titrate for better control Importance of abstinence from substance abuse reemphasized Thank you for your consultation EMEKA GREEN APRN Oct 05, 2021 09:22 JOANA RIOS MD Oct 05, 2021 21:37
[2021-10-05 11:00] VITALS: BP 170/96
--- NOTE | 2021-10-05 11:32 | NUR ---
SS following for discharge planning. SS reviewed pt chart and discussed with pt RN. Pt is from home and is currently on room air. Pt on IV Rocephin. Cardiology consulted. Pt has history of PCP and THC use. Pt has Medicare and disability and active services through the [facility] and [facility]. PAT team referral made for assessment and recommendations. SS will continue to follow for discharge planning. Addendum: 10/05/21 at 1515 by CATHY KAUFMAN SS Pippa from PAT team met with pt and completed safety plan. Additional crisis information was provided for [facility]. Pt planning to go to [facility] for outpatient treatment upon discharge. Pt's RN notified.
[2021-10-05] MEDS: CARVEDILOL 12.5 MG TABLET. PO SCH ×2 (13:01→17:00)
[2021-10-05] MEDS: CLOPIDOGREL BISULFATE 75 MG TABLET PO SCH (13:01)
[2021-10-05] MEDS: ASPIRIN ENTERIC COATED 81 MG TABLET.DR. PO SCH (13:01)
[2021-10-05] MEDS: LISINOPRIL 20 MG TABLET PO SCH (13:02)
[2021-10-05] MEDS: cloNIDine HCL 0.1 MG TABLET PO SCH (13:02)
[2021-10-05 15:00] VITALS: BP 135/78
--- NOTE | 2021-10-05 16:00 | NUR ---
Assumed care of patient from PRESTON Baugh. Agreed with previous nurse assessment. will continue to monitor.
[2021-10-05 19:22] VITALS: BP 127/73
[2021-10-05] MEDS ORDERED: cefTRIAXone IV Push 1 GM VIAL. IVP SCH (20:00)
[2021-10-05] MEDS ORDERED: ATORVASTATIN CALCIUM 20 MG TABLET PO SCH (21:00)
[2021-10-05 22:16] VITALS: BP 126/66
[2021-10-06 02:24] VITALS: BP 144/87
[2021-10-06 06:23] VITALS: BP 132/74
[2021-10-06] MEDS: CARVEDILOL 12.5 MG TABLET. PO SCH (09:33)
[2021-10-06] MEDS: cloNIDine HCL 0.1 MG TABLET PO SCH (09:34)
[2021-10-06] MEDS: ASPIRIN ENTERIC COATED 81 MG TABLET.DR. PO SCH (09:34)
[2021-10-06] MEDS: CLOPIDOGREL BISULFATE 75 MG TABLET PO SCH (09:34)
[2021-10-06] MEDS: LISINOPRIL 20 MG TABLET PO SCH (09:34)
[2021-10-06 10:56] VITALS: BP 126/75
--- NOTE | 2021-10-06 12:00 | PDOC ---
EMEKA GREEN CAR FERRIER 10/06/21 1200: CARDIO Progress Notes Date and Time Date of Service 10/06/21 Time of Evaluation 1200 Subjective Subjective: No Chest Pain, No shortness of breath, No Palpitations Vitals Vitals Vital Signs Date Time Temp Pulse Resp B/P (MAP) Pulse Ox O2 Delivery O2 Flow Rate FiO2 10/06/21 10:56 98.0 76 18 126/75 (92) 98 Room Air 98.0 Weight Weight [ ] Input and Output Intake and Output Intake and Output 10/06/21 07:00 Intake Total 637 ml Output Total 450 ml Balance 187 ml Intake Oral 637 ml Output Urine Total 450 ml # Voids 2 Laboratory Labs Laboratory Tests Test 10/05/21 16:59 10/05/21 20:36 10/06/21 08:15 10/06/21 11:50 Glucose (Fingerstick) 321 mg/dL (70-99) 344 mg/dL (70-99) 270 mg/dL (70-99) 313 mg/dL (70-99) Physical Exam HEENT: Neck Supple W Full Motion Chest: Symmetric LUNGS: Clear to Auscultation Heart: RRR Abdomen: Soft N/T Extremities: No Edema Neurology: alert, oriented, follow commands Assessment Assessment 1. Accelerated HTN; now controlled 2. Chest pain, atypical. Most probably pleuritic secondary to persistent coughing 3. Mild troponin elevation; high sensitivity peak 221 with history of chronic troponin elevation. Most probably type II, demand ischemia. 4. CAD: PCI/stents placement at [facility] in October 2019. Clinically stable 5. Hyperlipidemia; statin 6. Diabetes, II 7. Substance abuse: UDS + for PCP and marijuana 09/21/21 8. Tobaccoism 9. Recent HCAP Recommendations Continue Plavix and secondary prevention measures. Outpatient ischemic evaluation as arranged Abstinence from tobacco and recreational drugs. Plans for treatment upon discharge Follow up with Dr. Rios as scheduled Justicifation of Admission Dx: Justifications for Admission: Justification of Admission Dx: Yes Hypertension: Cresendo Worsening of Sym JOANA RIOS MD 10/07/21 1009: CARDIO Progress Notes Assessment Assessment Patient seen and examined 10/06/2021. Agree with ADJUNCT FACULTY INSTRUCTOR's assessment and plan. CP with atypical features. Slight trop elevation prob demand ischemia CAD status appears clinically stable - will consider outpatient ischemic evaluation Blood pressure better controlled. Importance of abstinence from substance abuse reemphasized EMEKA GREEN APRN Oct 06, 2021 12:00 JOANA RIOS MD Oct 07, 2021 10:09
[2021-10-06] MEDS ORDERED: AMOX1TAB61 PO (12:51)
--- NOTE | 2021-10-06 12:53 | PDOC ---
[employer] PROGRESS NOTE Date of Service DOS: DATE: 10/06/21 TIME: 12:52 Chief Complaint Chief Complaint Chest pain Hypertension Elevated troponin Hyponatremia Pneumonia History of the following: Diabetes, hypertension, drug abuse, depression, anxiety, tobacco abuse, marijuana use. PCP use. History of Present Illness History of Present Illness 10/06/2021 Patient seen and examined She appears to be at baseline We will discharge Follow-up PCP in 1 week Discussed with case management Discussed with RN 10/05/2021 Patient seen and examined She is resting with no apparent distress Has a heparin drip pain Discussed with RN Chart reviewed Vitals/I&O Vitals/I&O: Vital Signs Date Time Temp Pulse Resp B/P (MAP) Pulse Ox O2 Delivery O2 Flow Rate FiO2 10/06/21 10:56 98.0 76 18 126/75 (92) 98 Room Air 98.0 I & O 10/05/21 10/05/21 10/06/21 15:00 23:00 07:00 Intake Total 237 ml 0 ml 400 ml Output Total 150 ml 300 ml Balance 87 ml 0 ml 100 ml Physical Exam General: No acute distress Heart: Regular rate Lungs: Clear Abdomen: Normal bowel sounds Extremities: No clubbing Skin: No rashes Labs Labs: Laboratory Tests Test 10/05/21 16:59 10/05/21 20:36 10/06/21 08:15 10/06/21 11:50 Glucose (Fingerstick) 321 mg/dL (70-99) 344 mg/dL (70-99) 270 mg/dL (70-99) 313 mg/dL (70-99) Assessment and Plan Assessmemt and Plan Problems Medical Problems: (1) Chest pain Status: Acute (2) Elevated troponin Status: Acute Discharge see dictation Comment Review of Relevant I have reviewed the following items sincere (where applicable) has been applied. Medications: Current Medications Medications (Trade) Dose Ordered Sig/Johanna Route PRN Reason Start Time Stop Time Status Last Admin Dose Admin Ceftriaxone Sodium (Rocephin) 1 gm Q24H IVP 10/05/21 20:00 10/05/21 19:49 Atorvastatin Calcium (Lipitor) 20 mg HS PO 10/05/21 21:00 10/05/21 19:49 Justifications for Admission Other Justification Altered mental status and elevated troponins TRINO HAIRSTON III DO Oct 06, 2021 12:53
--- NOTE | 2021-10-06 13:48 | NUR ---
SS following up with discharge planning. SS reviewed pt chart and discussed with pt RN. Pt is currently on room air. Discharge order on the chart for home with self care. Pt provided with Good RX card.
--- NOTE | 2021-10-06 14:24 | DS ---
DATE OF DISCHARGE: 10/06/2021 ADMISSION DIAGNOSES: Chest pain and elevated troponin. DISCHARGE DIAGNOSES: Resolving atypical chest pain, resolving elevated troponin secondary to demand ischemia, psychiatric issues, diabetes, hypertension, drug abuse, depression, anxiety, tobacco abuse, marijuana use, PCP use, resolving hyponatremia, resolving pneumonia. HOSPITAL COURSE: The patient is a pleasant, middle-aged female who has multiple medical issues. She also uses drugs, PCP, marijuana and smokes, presented with chest pain, was noted to have a slight pneumonia. We admitted the patient. We corrected her electrolytes. We consulted Cardiology, they felt like this is most likely demand ischemia, adjusted her medications and basically, the patient has returned to her baseline. Today, I saw and examined her. She is doing well. We plan to discharge. DISPOSITION: Home. ACTIVITY: As tolerated. DIET: Low sodium. DISCHARGE MEDICATIONS: Please see the MRAD. P.r.n. Tylenol, Augmentin 875 p.o. b.i.d. for 1 more week, albuterol, aspirin 81 a day, atorvastatin 20 a day, carvedilol 12.5 b.i.d., clonidine 0.1 daily, Plavix 75 a day, Flonase, Haldol 2 mg daily, hydroxyzine 50 q.6 p.r.n., lisinopril 40 a day, metformin 500 b.i.d., p.r.n. nitro and Risperdal 1 at bedtime. TOTAL TIME: [address]: Karime TID: [id number]
--- NOTE | 2021-10-06 16:04 | NUR ---
Discharge Note: [facility] Discharge instructions and discharge home medications reviewed with Patient and a copy given. All questions have been answered and understanding verbalized. Pt given paper script per request. Dc'd in stable condition via wheelchair to pt mental health counselor. Pt to go to outpatient rehab after DC.
--- NOTE | 2021-10-06 16:41 | CARD ---
MR#: [id number] Date of Study: 10/06/2021 Ordering Physician: EMEKA GREEN, Referring Physician: EMEKA GREEN, Tech: Lashell Dallindsaybeka, [facility] APPROVED REPORT EXAM: Two-dimensional and M-mode echocardiogram with Doppler and color Doppler. Other Information Quality : GoodHR: 67bpm INDICATION Cardiac Disease: CAD Chest Pain Elevated Troponin RISK FACTORS Hypertension Diabetes Smoking 2D DIMENSIONS Left Atrium(2D)3.3 (1.6-4.0cm)IVSd1.1 (0.7-1.1cm) Aortic Root(2D)3.1 (2.0-3.7cm)LVDd4.8 (3.9-5.9cm) LVOT Diameter2.0 (1.8-2.4cm)PWd1.2 (0.7-1.1cm) LVDs3.6 (2.5-4.0cm)FS (%) 24.0 % SV51.3 mlLVEF(%)47.8 (>50%) Aortic Valve AoV Peak Feliciano.112.8cm/sAoV VTI26.4cm AO Peak GR.5.1mmHgLVOT VTI 18.31cm AO Mean GR.3mmHg Mitral Valve MV E Rafcqypc847.7cm/sMV E Peak Gr.5mmHg MV DECEL [id number] A Pcxgsipt293.7cm/s MV E Mean Gr.2mmHgE/A Ratio1.0 TDI Lateral E' P. V6.37cm/sMedial E' P. V5.73cm/s E/Lateral E'16.0E/Medial E'17.7 Tricuspid Valve TR P. Ajxktvhh543hd/sRAP [id number] TR Peak Gr.57cxRbMRKP25liUx Pulmonary Vein S1 Mnxspqpe83.5cm/sS2 Wxayjmon88.51cm/s D2 Ikquzzgv74.5cm/s LEFT VENTRICLE The left ventricle is normal size. There is mild concentric left ventricular hypertrophy. The left ve ntricular systolic function is normal. The Ejection Fraction is 55%. There is normal LV segmental wal l motion. Transmitral Doppler flow pattern is Grade II-pseudonormal filling dynamics. RIGHT VENTRICLE The right ventricle is normal size. There is normal right ventricular wall thickness. The right ventr icular systolic function is normal. ATRIA The left atrium size is normal. The right atrium size is normal. The interatrial septum is intact wit h no evidence for an atrial septal defect or patent foramen ovale as noted on 2-D or Doppler imaging. AORTIC VALVE The aortic valve is normal in structure and function. Doppler and Color Flow revealed no significant aortic regurgitation. There is no significant aortic valvular stenosis. Calculated aortic valve area is 2.18 cm2 with maximum pressure gradient of 6 mmHg and mean pressure gradient of 3 mmHg. MITRAL VALVE The mitral valve is normal in structure and function. There is no evidence of mitral valve prolapse. There is no mitral valve stenosis. Doppler and Color-flow revealed trace mitral regurgitation. TRICUSPID VALVE The tricuspid valve is normal in structure and function. Doppler and Color Flow revealed trace tricus pid regurgitation with an estimated PAP of 29 mmHg. There is no tricuspid valve stenosis. PULMONIC VALVE The pulmonary valve is normal in structure and function. Doppler and Color Flow revealed no pulmonic valvular regurgitation. GREAT VESSELS The aortic root is normal in size. The ascending aorta is normal in size. The IVC is normal in size a nd collapses >50% with inspiration. PERICARDIAL EFFUSION There is no evidence of significant pericardial effusion. Critical Notification Critical Value: No <Conclusion> The left ventricular systolic function is normal. The Ejection Fraction is 55%. There is normal LV segmental wall motion. Trace mitral regurgitation. Trace tricuspid regurgitation with an estimated PAP of 29 mmHg. There is no evidence of significant pericardial effusion. Signed by : Jc Rios, Electronically Approved : 10/06/2021 16:40:34
== END 2021-10-06 15:26 | disposition home or self-care (01) ==
LOC: ER 16:14 → INTOOBSV 20:08 → 6 SOUTH 20:08
PROVIDERS: ADMIT Internal Medicine; ATTEND Internal Medicine
DX: R07.89 Other chest pain (principal); I10 Essential (primary) hypertension; E87.1 Hypo-osmolality and hyponatremia; J18.9 Pneumonia, unspecified organism; I21.4 Non-ST elevation (NSTEMI) myocardial infarction; I25.10 Atherosclerotic heart disease of native coronary artery without angina pectoris; E11.9 Type 2 diabetes mellitus without complications; M19.90 Unspecified osteoarthritis, unspecified site; M06.9 Rheumatoid arthritis, unspecified; E78.5 Hyperlipidemia, unspecified; R77.8 Other specified abnormalities of plasma proteins; F41.9 Anxiety disorder, unspecified; F31.9 Bipolar disorder, unspecified; F16.90 Hallucinogen use, unspecified, uncomplicated; F12.90 Cannabis use, unspecified, uncomplicated; F17.210 Nicotine dependence, cigarettes, uncomplicated; Z79.899 Other long term (current) drug therapy; Z98.890 Other specified postprocedural states; Z90.710 Acquired absence of both cervix and uterus; Z98.51 Tubal ligation status
CPT/HCPCS: 36415; 71045; 80053; 81025; 82962; 84484; 85025; 85027; 85379; 85520; 93005; 93306; 96361; 96365; 96366; 96368; 96375; 96376; 99285; G0378; J0456; J0696; J1644; J7030; 96360; G0379

== ENCOUNTER 2021-11-06 21:32 | Emergency (ER) | payer MEDICARE ==
[~2021-11-06] VITALS: Ht 165.1 cm; Wt 77.2 kg
[~2021-11-06 21:32] MED LIST changes: +ACET500T68 PO; +HYDR25TA PO
[2021-11-06 22:42] LABS: BASO % 1 % (0-3); EOS % 0 % (0-3); HEMATOCRIT 41.5 % (36.0-47.0); HEMOGLOBIN 13.5 g/dL (12.0-15.5); LYMPH # 2.2 x10^3/uL (1.0-4.8); LYMPH % 28 % (24-48); MEAN CORPUSCULAR HEMOGLOBIN 28 pg (25-35); MEAN CORPUSCULAR HGB CONC 33 g/dL (31-37); MEAN CORPUSCULAR VOLUME 87 fL (79-100); MONO # 0.7 x10^3/uL (0.0-1.1); MONO % 8 % (0-9); NEUT # 4.9 x10^3/uL (1.8-7.7); NEUT % 62 % (31-73); PLATELET COUNT 238 x10^3/uL (140-400); RED BLOOD COUNT 4.75 x10^6/uL (3.50-5.40); RED CELL DISTRIBUTION WIDTH 14.3 % (11.5-14.5); WHITE BLOOD COUNT 7.9 x10^3/uL (4.0-11.0)
[2021-11-06 22:52] LABS: CALCIUM 8.3 mg/dL (8.5-10.1); CREATININE 0.8 mg/dL (0.6-1.0); GFR 93.9; POTASSIUM 3.5 mmol/L (3.5-5.1)
[2021-11-06] MEDS ORDERED: IV NORMAL SALINE 1000ML BAG 1,000 ML IV ONE (23:00)
[2021-11-07] MEDS ORDERED: IBUPROFEN 400 MG TABLET. PO ONE (01:00)
[2021-11-07] MEDS ORDERED: ACETAMINOPHEN 500 MG TABLET PO ONE (01:00)
--- NOTE | 2021-11-07 06:56 | PHYS DOC ---
Past Medical History Past Medical History: Diabetes-Type II, Hypertension Additional Past Medical Histor: DRUG ABUSE (THAD MOSQUERA MD) Past Surgical History: , Other Additional Past Surgical Histo: cardiac cath with stents (THAD MOSQUERA MD) Smoking Status: Current Every Day Smoker Alcohol Use: None Drug Use: Marijuana, Phencyclidine (THAD MOSQUERA MD) General Adult EDM: Chief Complaint: DRUG ABUSE HPI: HPI: Patient is a 46 year old female with history of polysubstance abuse who presents with EMS. Per EMS that she initially contacted them requesting help with detox from PCP. Patient denies any need for help with detoxification or even drug or alcohol use General. Patient denies any acute needs except for stating that she does not know why her "body looks the way it does." States that the way her body looks makes her sad. Does complain of being depressed about her body's appearance, but denies any SI/HI. Denies any hallucinations. She denies any substance abuse today, but however seems to be slurring her speech and slow to respond. (THAD MOSQUERA MD) Review of Systems: Review of Systems: See HPI for further history. Otherwise 10 point review of systems was negative. (THAD MOSQUERA MD) Heart Score: C/O Chest Pain: No (THAD MOSQUERA MD) Current Medications: Current Medications Medications (Trade) Dose Ordered Sig/Johanna Start Time Stop Time Status Last Admin Dose Admin Acetaminophen (Tylenol) 1,000 mg 1X ONCE 11/07/21 01:00 11/07/21 01:01 DC 11/07/21 00:42 1,000 MG Ibuprofen (Motrin) 400 mg 1X ONCE 11/07/21 01:00 11/07/21 01:01 DC 11/07/21 00:43 400 MG Sodium Chloride 1,000 ml @ 1,000 mls/hr 1X ONCE 11/06/21 23:00 11/06/21 23:59 DC 11/07/21 00:04 1,000 MLS/HR (THAD MOSQUERA MD) Allergies: Allergies: Allergies Coded Allergies Type Severity Reaction Last Updated Verified cod liver oil Adverse Reaction Intermediate "STREP THROAT" 11/07/21 Yes (THAD MOSQUERA MD) Physical Exam: PE: Constitutional: Well developed, well nourished Neck: Normal range of motion, no tenderness, supple, no stridor. [] Cardiovascular:Heart rate regular rhythm, no murmur [] Lungs & Thorax: Bilateral breath sounds clear to auscultation [] Abdomen: Bowel sounds normal, soft, no tenderness, no masses, no pulsatile masses. [] Extremities: No tenderness, no cyanosis, no clubbing, ROM intact, no edema. [] Neurologic: Alert, slow speech, slightly slurred, but moving all extremities with purpose. Asymmetric. Psychologic: Slow speech pattern, does not seem to comprehend many common phrases or sentences, blankly stares back rather than responding. (THAD MOSQUERA MD) Current Patient Data: Labs: Laboratory Tests Test 11/06/21 22:25 11/07/21 00:46 White Blood Count 7.9 x10^3/uL (4.0-11.0) Red Blood Count 4.75 x10^6/uL (3.50-5.40) Hemoglobin 13.5 g/dL (12.0-15.5) Hematocrit 41.5 % (36.0-47.0) Mean Corpuscular Volume 87 fL (79-100) Mean Corpuscular Hemoglobin 28 pg (25-35) Mean Corpuscular Hemoglobin Concent 33 g/dL (31-37) Red Cell Distribution Width 14.3 % (11.5-14.5) Platelet Count 238 x10^3/uL (140-400) Neutrophils (%) (Auto) 62 % (31-73) Lymphocytes (%) (Auto) 28 % (24-48) Monocytes (%) (Auto) 8 % (0-9) Eosinophils (%) (Auto) 0 % (0-3) Basophils (%) (Auto) 1 % (0-3) Neutrophils # (Auto) 4.9 x10^3/uL (1.8-7.7) Lymphocytes # (Auto) 2.2 x10^3/uL (1.0-4.8) Monocytes # (Auto) 0.7 x10^3/uL (0.0-1.1) Eosinophils # (Auto) 0.0 x10^3/uL (0.0-0.7) Basophils # (Auto) 0.0 x10^3/uL (0.0-0.2) Sodium Level 135 mmol/L (136-145) L Potassium Level 3.5 mmol/L (3.5-5.1) Chloride Level 100 mmol/L (98-107) Carbon Dioxide Level 28 mmol/L (21-32) Anion Gap 7 (6-14) Blood Urea Nitrogen 15 mg/dL (7-20) Creatinine 0.8 mg/dL (0.6-1.0) Estimated GFR (Cockcroft-Gault) 93.9 Glucose Level 324 mg/dL (70-99) H Glucose (Fingerstick) 304 mg/dL (70-99) H Calcium Level 8.3 mg/dL (8.5-10.1) L Ethyl Alcohol Level < 10 mg/dL (0-10) SARS-CoV-2 Antigen (Rapid) Negative (NEGATIVE) Laboratory Tests 11/06/21 22:25 Laboratory Tests 11/06/21 22:25 Vital Signs: Vital Signs Date Time Temp Pulse Resp B/P (MAP) Pulse Ox O2 Delivery O2 Flow Rate FiO2 11/07/21 01:30 72 16 160/96 (117) 100 Room Air 11/06/21 21:32 98.7 98.7 (THAD MOSQUERA MD) EKG: EKG: Sinus rhythm. Rate 96. Normal axis. Normal intervals. Left atrial enlargement. Otherwise normal EKG. [] (THAD MOSQUERA MD) Radiology/Procedures: Radiology/Procedures: [] (THAD MOSQUERA MD) Course & Med Decision Making: Course & Med Decision Making Pertinent Labs and Imaging studies reviewed. (See chart for details) Patient 46-year-old female who initially presented with EMS. EMS reported that she was requesting drug detoxification, patient denies this. She expressed feelings of body dysmorphia, but denied any SI/HI, or psychiatric needs at this time. Patient does appear to be intoxicated, and I have not been able to identify a safe discharge plan. Psychiatric assessment team has been consulted to help with safe discharge planning. Patient is signed out to oncoming attending at shift change. (THAD MOSQUERA MD) Course & Med Decision Making The patient did have PAT team evaluation and despite the PAT team's best efforts, the patient was not cooperative nor responsive to the evaluation. Patient continues to deny any problems with drug use and abuse. She has become more responsive since her time in the emergency department and is no longer slurring her words. I do not believe she is under the influence of any illicit substances currently. She is continuously reaffirmed that she is not suicidal nor she homicidal. Attempts were made to secure transportation home for the patient and the patient eloped without discharge paperwork or having secured a ride. At her elopement she was able to walk with a normal gait however she did not acknowledge myself or any other personnel in the emergency department. She left without incident. (PALMA RASHID DO) Dragon Disclaimer: Dragon Disclaimer: This electronic medical record was generated, in whole or in part, using a voice recognition dictation system. (THAD MOSQUERA MD) Departure Departure Impression: Primary Impression: Substance abuse Referrals: UNKNOWN PCP NAME (PCP) THAD MOSQUERA MD Nov 07, 2021 06:56 PALMA RASHID DO Nov 07, 2021 09:34
[2021-11-07 07:29] VITALS: BP 178/109
--- NOTE | 2021-11-07 10:19 | EKG ---
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
== END 2021-11-07 09:27 | disposition left against medical advice (07) ==
LOC: ER 21:32
DX: U07.1 COVID-19 (principal); F19.10 Other psychoactive substance abuse, uncomplicated; E11.9 Type 2 diabetes mellitus without complications; I10 Essential (primary) hypertension; F17.200 Nicotine dependence, unspecified, uncomplicated; F16.10 Hallucinogen abuse, uncomplicated; F12.10 Cannabis abuse, uncomplicated; Z88.8 Allergy status to other drugs, medicaments and biological substances
CPT/HCPCS: 36415; 80048; 82962; 85025; 87426; 93005; 96360; 99283; G0480; J7030; U0003; U0005

== ENCOUNTER 2021-11-24 18:36 | Inpatient (IN) | payer MEDICARE ==
[~2021-11-24] VITALS: Ht 165.1 cm; Wt 76.1 kg
--- NOTE | 2021-11-24 19:59 | PHYS DOC ---
Past Medical History Past Medical History: Diabetes-Type II, Hypertension Additional Past Medical Histor: DRUG ABUSE (KRISH BOWMAN APRN) Past Surgical History: , Other Additional Past Surgical Histo: cardiac cath with stents (KRISH BOWMAN APRN) Smoking Status: Current Every Day Smoker Alcohol Use: Occasionally Drug Use: Cocaine, Marijuana, Phencyclidine Social History Narrative: "WHATEVER I USE THEM ALL THE TIME" REFUSES TO SAW WHEN LAST USE (KRISH BOWMAN APRN) General Adult EDM: Chief Complaint: COLD EXPOSURE HPI: HPI: Patient is a 46-year-old female that presents today with multiple complaints. When I first went in to talk with the patient patient was found to be eating candy, she then answered and said that she is here for high blood sugar, she said that she checked it yesterday and it was 239, she states she takes Metformin on a regular basis and is managed by a community clinic, she also states that she has chest pain, irregular heartbeat, and shortness of air. Patient states the symptoms been going on for 2 days. Patient does have a history of polysubstance abuse and does admit to taking marijuana and cocaine recently. Patient states she does smoke. Patient denies cough or fever or chills. When asked about her last normal menstrual period she told the nurse that she her menstrual period started yesterday and then asked if she could be she said yes she is . (KRISH BOWMAN APRN) Review of Systems: Review of Systems: Constitutional: Denies fever or chills. [] Eyes: Denies change in visual acuity. [] HENT: Denies nasal congestion or sore throat. [] Respiratory: Shortness of air denies cough Cardiovascular: chest pain palpitations denies edema. [] GI: Denies abdominal pain, nausea, vomiting, bloody stools or diarrhea. [] : Denies dysuria. [] Musculoskeletal: Denies back pain or joint pain. [] Integument: Denies rash. [] Neurologic: Denies headache, focal weakness or sensory changes. [] Endocrine: High blood sugars denies polyuria or polydipsia. [] Lymphatic: Denies swollen glands. [] Psychiatric: Denies depression or anxiety. [] (KRISH BOWMAN APRN) Heart Score: C/O Chest Pain: N/A Risk Factors: Risk Factors: DM, Current or recent (<one month) smoker, HTN, HLP, family history of CAD, obesity. Risk Scores: Score 0 - 3: 2.5% MACE over next 6 weeks - Discharge Home Score 4 - 6: 20.3% MACE over next 6 weeks - Admit for Clinical Observation Score 7 - 10: 72.7% MACE over next 6 weeks - Early Invasive Strategies (KRISH BOWMAN APRN) Current Medications: Home medications per patient report Metformin 500 mg Carvedilol (KRISH BOWMAN APRN) Allergies: Allergies: Allergies Coded Allergies Type Severity Reaction Last Updated Verified cod liver oil Adverse Reaction Intermediate "STREP THROAT" 11/07/21 Yes (KRISH BOWMAN APRN) Physical Exam: PE: Constitutional: Well developed, well nourished, no acute distress, non-toxic appearance. [] HENT: Normocephalic, atraumatic, bilateral external ears normal, oropharynx moist, no oral exudates, nose normal. [] Eyes: PERRLA, EOMI, conjunctiva normal, no discharge. [] Neck: Normal range of motion, no tenderness, supple, no stridor. [] Cardiovascular:Heart rate regular rhythm, no murmur [] Lungs & Thorax: Bilateral breath sounds clear to auscultation [] Abdomen: Bowel sounds normal, soft, no tenderness, no masses, no pulsatile masses. [] Skin: Warm, dry, no erythema, no rash. [] Back: No tenderness, no CVA tenderness. [] Extremities: No tenderness, no cyanosis, no clubbing, ROM intact, no edema. [] Neurologic: Alert and oriented X 3, normal motor function, normal sensory function, no focal deficits noted. [] Psychologic: Affect normal, judgement normal, mood normal. [] (KRISH BOWMAN APRN) Current Patient Data: Labs: Laboratory Tests Test 11/24/21 20:22 11/24/21 21:00 White Blood Count 8.9 x10^3/uL Red Blood Count 4.28 x10^6/uL Hemoglobin 12.5 g/dL Hematocrit 38.4 % Mean Corpuscular Volume 90 fL Mean Corpuscular Hemoglobin 29 pg Mean Corpuscular Hemoglobin Concent 33 g/dL Red Cell Distribution Width 15.3 % Platelet Count 310 x10^3/uL Neutrophils (%) (Auto) 72 % Lymphocytes (%) (Auto) 21 % Monocytes (%) (Auto) 5 % Eosinophils (%) (Auto) 2 % Basophils (%) (Auto) 0 % Neutrophils # (Auto) 6.4 x10^3/uL Lymphocytes # (Auto) 1.9 x10^3/uL Monocytes # (Auto) 0.5 x10^3/uL Eosinophils # (Auto) 0.1 x10^3/uL Basophils # (Auto) 0.0 x10^3/uL Sodium Level 139 mmol/L Potassium Level 4.0 mmol/L Chloride Level 104 mmol/L Carbon Dioxide Level 27 mmol/L Anion Gap 8 Blood Urea Nitrogen 11 mg/dL Creatinine 0.9 mg/dL Estimated GFR (Cockcroft-Gault) 81.9 BUN/Creatinine Ratio 12 Glucose Level 450 mg/dL Calcium Level 8.3 mg/dL Total Bilirubin 0.2 mg/dL Aspartate Amino Transf (AST/SGOT) 7 U/L Alanine Aminotransferase (ALT/SGPT) 22 U/L Alkaline Phosphatase 166 U/L Troponin I High Sensitivity 461 ng/L Total Protein 6.9 g/dL Albumin 2.9 g/dL Albumin/Globulin Ratio 0.7 Serum Test, Qualitative Negative Urine Collection Type Unknown Urine Color Yellow Urine Clarity Clear Urine pH 6.5 Urine Specific [place] 1.025 Urine Protein 30 mg/dL Urine Glucose (UA) >=1000 mg/dL Urine Ketones (Stick) Negative mg/dL Urine Blood Small Urine Nitrite Negative Urine Bilirubin Negative Urine Urobilinogen Dipstick 0.2 mg/dL Urine Leukocyte Esterase Negative Urine RBC Occ /HPF Urine WBC 5-10 /HPF Urine Squamous Epithelial Cells Mod /LPF Urine Bacteria 0 /HPF Urine Opiates Screen Neg Urine Methadone Screen Neg Urine Barbiturates Neg Urine Phencyclidine Screen Pos Urine Amphetamine/Methamphetamine Neg Urine Benzodiazepines Screen Neg Urine Cocaine Screen Neg Urine Cannabinoids Screen Pos Urine Ethyl Alcohol Neg Current Medications Medications (Trade) Dose Ordered Sig/Johanna Route PRN Reason Start Time Stop Time Status Last Admin Dose Admin Sodium Chloride 1,000 ml @ 999 mls/hr 1X ONCE IV 11/24/21 21:15 11/24/21 22:15 11/24/21 21:25 Insulin Human Regular (HumuLIN R VIAL) 10 unit 1X ONCE IV 11/24/21 21:15 11/24/21 21:16 DC 11/24/21 21:28 Aspirin (Aspirin Chewable) 324 mg 1X ONCE PO 11/24/21 21:15 11/24/21 21:16 DC 11/24/21 21:24 Nitroglycerin (Nitrostat) 0.4 mg PRN Q5MIN PRN SL CHEST PAIN 11/24/21 21:15 Acetaminophen (Tylenol) 650 mg PRN Q6HRS PRN PO MILD PAIN / TEMP > 100.3'F 11/24/21 21:15 Ondansetron HCl (Zofran) 4 mg PRN Q4HRS PRN IVP NAUSEA/VOMITING 11/24/21 21:15 Olanzapine (ZyPREXA ZYDIS) 5 mg PRN BID PRN PO ANXIETY / AGITATION 11/24/21 21:15 Insulin Glargine (Lantus Syringe) 10 unit QHS SQ 11/24/21 21:30 Dextrose (Dextrose 50%-Water Syringe) 12.5 gm PRN Q15MIN PRN IV SEE COMMENTS 11/24/21 21:15 Dextrose (Iv Dextrose 5%) 250 ml PRN Q15MIN PRN IV SEE COMMENTS 11/24/21 21:15 Vital Signs: Vital Signs Date Time Temp Pulse Resp B/P (MAP) Pulse Ox O2 Delivery O2 Flow Rate FiO2 11/24/21 21:49 82 16 188/92 (124) 100 Room Air 11/24/21 20:49 82 16 189/101 (130) 100 Room Air 11/24/21 19:03 97.9 86 16 184/114 (137) 99 Room Air 97.9 Vital Signs Date Time Temp Pulse Resp B/P (MAP) Pulse Ox O2 Delivery O2 Flow Rate FiO2 11/24/21 19:03 97.9 86 16 184/114 (137) 99 Room Air 97.9 (KRISH BOWMAN HAND STRAIGHTENER) EKG: EKG: EKG done at [address] Aguayo at 2014 no STEMI shows sinus rhythm with no ectopy at a rate of 83 with a [place] interval of 150 ms with a QTC of 476 ms [] (KRISH BOWMAN HAND STRAIGHTENER) Radiology/Procedures: Radiology/Procedures: [REASON: chest pain PROCEDURE: CHEST AP ONLY AP chest x-ray HISTORY: Chest pain. FINDINGS: Borderline cardiomegaly that is stable. Tortuous aortic arch stable. No pneumothorax. No pleural effusions. No pulmonary opacities. Bones are unremarkable. IMPRESSION: No acute process. Electronically signed by: Adams Tracy MD (11/24/2021 8:19 PM) [facility] (KRISH BOWMAN APRN) Course & Med Decision Making: Course & Med Decision Making Pertinent Labs and Imaging studies reviewed. (See chart for details) 2044 was notified that patient's troponin was elevated, did talk with patient regarding elevated troponin and blood sugar, recommend that patient be admitted for further evaluation of elevated troponin. I did speak to patient regarding this and she is agreeable to admitting, will page Dr. Grewal (KRISH BOWMAN APRN) Course & Med Decision Making I was the Attending physician on the above date of service of this patient. This patient was evaluated, examined, treated, and dispositioned from the emergency department by the mid-level practitioner. Although I was working at the time , no assistance was requested. Electronically signed, Elsie Nuñez DO (ELSIE NUÑEZ DO) Sandhya Disclaimer: Sandhya Disclaimer: This electronic medical record was generated, in whole or in part, using a voice recognition dictation system. (KRISH BOWMAN APRN) Departure Departure Impression: Primary Impression: Chest pain Qualified Codes: R07.9 - Chest pain, unspecified Additional Impressions: Elevated troponin Elevated glucose Disposition: ADMITTED INPATIENT Admitting Physician: DAE (KRISH BOWMAN APRN) Condition: STABLE Referrals: UNKNOWN PCP NAME (PCP) Scripts Metformin Hcl (METFORMIN HCL) 1,000 Mg Tablet 1000 MG PO BIDWMEALS for DM2 for 30 Days, #60 TAB 5 Refills Prov: KELEEY GREWAL MD 11/27/21 Atorvastatin Calcium (ATORVASTATIN CALCIUM) 20 Mg Tablet 20 MG PO HS for FOR CHOLESTEROL for 30 Days, #30 TAB 5 Refills Prov: KEELEY GREWAL MD 11/27/21 Carvedilol (CARVEDILOL ) 12.5 Mg Tablet 12.5 MG PO BIDWMEALS for CARDIAC for 30 Days, #60 TAB 5 Refills Prov: KEELEY GREWAL MD 11/27/21 Haloperidol (HALOPERIDOL) 2 Mg Tablet 2 MG PO DAILY for Mood disorder for 30 Days, #30 TAB 5 Refills Prov: KEELEY GREWAL MD 11/27/21 Clopidogrel Bisulfate (CLOPIDOGREL) 75 Mg Tablet 75 MG PO DAILY for TO PREVENT BLOOD CLOTS for 30 Days, #30 TAB 5 Refills Prov: KEELEY GREWAL MD 11/27/21 Lisinopril (LISINOPRIL) 40 Mg Tablet 40 MG PO DAILY for FOR HYPERTENSION for 30 Days, #30 TAB 5 Refills Prov: KEELEY GREAWL MD 11/27/21 KRISH BOWMAN APRN Nov 24, 2021 19:59 ELSIE NUÑEZ DO Nov 29, 2021 07:31
--- NOTE | 2021-11-24 20:21 | RAD ---
AP chest x-ray HISTORY: Chest pain. FINDINGS: Borderline cardiomegaly that is stable. Tortuous aortic arch stable. No pneumothorax. No pl eural effusions. No pulmonary opacities. Bones are unremarkable. IMPRESSION: No acute process. Electronically signed by: Adams Tracy MD (11/24/2021 8:19 PM) [facility]
[2021-11-24 20:27] LABS: BASO % 0 % (0-3); EOS # 0.1 x10^3/uL (0.0-0.7); EOS % 2 % (0-3); HEMATOCRIT 38.4 % (36.0-47.0); HEMOGLOBIN 12.5 g/dL (12.0-15.5); LYMPH # 1.9 x10^3/uL (1.0-4.8); LYMPH % 21 % (24-48); MEAN CORPUSCULAR HEMOGLOBIN 29 pg (25-35); MEAN CORPUSCULAR HGB CONC 33 g/dL (31-37); MEAN CORPUSCULAR VOLUME 90 fL (79-100); MONO # 0.5 x10^3/uL (0.0-1.1); MONO % 5 % (0-9); NEUT # 6.4 x10^3/uL (1.8-7.7); NEUT % 72 % (31-73); PLATELET COUNT 310 x10^3/uL (140-400); RED BLOOD COUNT 4.28 x10^6/uL (3.50-5.40); RED CELL DISTRIBUTION WIDTH 15.3 % (11.5-14.5); WHITE BLOOD COUNT 8.9 x10^3/uL (4.0-11.0)
[2021-11-24 20:36] LABS: CALCIUM 8.3 mg/dL (8.5-10.1); CREATININE 0.9 mg/dL (0.6-1.0); GFR 81.9
[2021-11-24 20:38] LABS: PREG TEST PT QUAL NEGATIVE (NEG)
[2021-11-24 20:42] LABS: ALBUMIN 2.9 g/dL (3.4-5.0); ALBUMIN/GLOBULIN RATIO 0.7 (1.0-1.7); TOTAL BILIRUBIN 0.2 mg/dL (0.2-1.0); TOTAL PROTEIN 6.9 g/dL (6.4-8.2)
[2021-11-24 21:10] LABS: BILIRUBIN,URINE NEGATIVE (NEG); CLARITY,URINE CLEAR; COLOR,URINE YELLOW; NITRITE,URINE NEGATIVE (NEG); PH,URINE 6.5 (<5.0-8.0); PROTEIN,URINE 30 mg/dL (NEG-TRACE); UROBILINOGEN,URINE 0.2 mg/dL (0.2 mg/dL)
[2021-11-24] MEDS ORDERED: ONDANSETRON PF 4 MG/2 ML VIAL. IVP PRN (21:15)
[2021-11-24] MEDS ORDERED: DEXTROSE 50% 25 GM / 50ML DISP.SYRIN. IV PRN (21:15)
[2021-11-24] MEDS ORDERED: IV DEXTROSE 5% 250 ML BAG. IV PRN (21:15)
[2021-11-24] MEDS ORDERED: IV NORMAL SALINE 1000ML BAG 1,000 ML IV ONE (21:15)
[2021-11-24] MEDS ORDERED: ACETAMINOPHEN 325 MG TABLET. PO PRN (21:15)
[2021-11-24] MEDS ORDERED: ASPIRIN CHEWABLE 81 MG TABLET. PO ONE (21:15)
[2021-11-24] MEDS ORDERED: INSULIN REGULAR 100 UNIT/ML 3ML VIAL. IV ONE (21:15)
[2021-11-24] MEDS ORDERED: NITROGLYCERIN SUBLINGUAL 0.4 MG BOTTLE OF 25. SL PRN (21:15)
[2021-11-24 21:16] LABS: AMPHETAMINE/METHAMPHETAMINE NEG (NEG); BARBITURATES NEG (NEG); BENZODIAZEPINES NEG (NEG); CANNABINOIDS POS (NEG); COCAINE NEG (NEG); METHADONE NEG (NEG); OPIATES NEG (NEG); PHENCYCLIDINE POS (NEG)
[2021-11-24 21:18] LABS: BACTERIA,URINE 0 /HPF (0-FEW)
[2021-11-24 21:19] LABS: RBC,URINE OCC /HPF (0-2)
[2021-11-24] MEDS ORDERED: INSULIN GLARGINE SYRINGE. SQ SCH (21:30)
[2021-11-24 22:54] VITALS: BP 168/101
[2021-11-25 03:03] VITALS: BP 147/82
[2021-11-25 07:55] VITALS: BP 154/94
[2021-11-25] MEDS ORDERED: hydrOXYzine 25 MG TABLET PO PRN (08:00)
[2021-11-25] MEDS ORDERED: NITROGLYCERIN SUBLINGUAL 0.4 MG BOTTLE OF 25. SL PRN (08:00)
[2021-11-25] MEDS ORDERED: ALBUTEROL SULFATE 2.5 MG/3 ML NEBU. INH PRN (08:00)
--- NOTE | 2021-11-25 08:13 | PDOC1 ---
History and Physical Date of Admission Date of Admission DATE: 11/25/21 TIME: 07:47 Identification/Chief Complaint Chief Complaint Multiple complaints, cold exposure, chest pain Source Source: Patient History of Present Illness History of Present Illness Ms Pagan is a 46-year-old female w/ PMHx DM2, HTN, CAD with prior stenting, smoker, polysubstance use disorder who presents to ED c/o cold exposure. She has chest pain, irregular heartbeat, and shortness of breath for the past several days prior to arrival. She insisted to ED staff that she was . DIfficult to redirect. Hallucinating Labs with negative serum HCG, WBC 8.9, Hb 12.5, platelets 310, NA 139, K4, BUN 11, CR 0.9, glucose 450, calcium 8.3, bilirubin 0.2, AST 7, ALT 22, alk phos 166, albumin 2.9, urine drug screen positive for phencyclidine and cannabinoids, urinalysis with large glucosuria. EKG sinus rhythm rate of 83 bpm, normal axis and intervals T flattening in the lateral leads and Q waves in inferior leads indicating possible prior inferior infarct. No acute ST segment elevations. QTc 476 Chest radiograph with cardiomegaly otherwise no acute findings Past Medical History Cardiovascular: CAD, HTN Pulmonary: No pertinent hx CENTRAL NERVOUS SYSTEM: Other GI: No pertinent hx Heme/Onc: No pertinent hx Psych: Anxiety, Bipolar Musculoskeletal: Osteoarthritis Rheumatologic: Rheumatoid arthritis Infectious disease: No pertinent hx Renal/: No pertinent hx Endocrine: Diabetes Past Surgical History Past Surgical History: , Tubal Ligation Family History Family History: Hypertension Social History Smoke: 1 pack per day ALCOHOL: none Drugs: Cocaine, Marijuana, Other (PCP) Current Problem List Problem List Problems Medical Problems: (1) Chest pain Status: Acute (2) Elevated glucose Status: Acute (3) Elevated troponin Status: Acute Current Medications Current Medications Current Medications Sodium Chloride 1,000 ml @ 999 mls/hr 1X ONCE IV Last administered on 11/24/21at 21:25; Start 11/24/21 at 21:15; Stop 11/24/21 at 22:15; Status DC Insulin Human Regular (HumuLIN R VIAL) 10 unit 1X ONCE IV Last administered on 11/24/21at 21:28; Start 11/24/21 at 21:15; Stop 11/24/21 at 21:16; Status DC Aspirin (Aspirin Chewable) 324 mg 1X ONCE PO Last administered on 11/24/21at 21:24; Start 11/24/21 at 21:15; Stop 11/24/21 at 21:16; Status DC Nitroglycerin (Nitrostat) 0.4 mg PRN Q5MIN PRN SL CHEST PAIN; Start 11/24/21 at 21:15 Acetaminophen (Tylenol) 650 mg PRN Q6HRS PRN PO MILD PAIN / TEMP > 100.3'F; Start 11/24/21 at 21:15 Ondansetron HCl (Zofran) 4 mg PRN Q4HRS PRN IVP NAUSEA/VOMITING; Start 11/24/21 at 21:15 Olanzapine (ZyPREXA ZYDIS) 5 mg PRN BID PRN PO ANXIETY / AGITATION; Start 11/24/21 at 21:15 Insulin Glargine (Lantus Syringe) 10 unit QHS SQ ; Start 11/24/21 at 21:30 Dextrose (Dextrose 50%-Water Syringe) 12.5 gm PRN Q15MIN PRN IV SEE COMMENTS; Start 11/24/21 at 21:15 Dextrose (Iv Dextrose 5%) 250 ml PRN Q15MIN PRN IV SEE COMMENTS; Start 11/24/21 at 21:15 Active Scripts Active Compressor Nebulizer System (Nebulizer and Compressor) 1 Each Each Each MC 1-2XD PRN Use with albuterol nebulizer solution. Albuterol Sulfate Conc Neb Soln (Albuterol Sulfate) 2.5 Mg/0.5 Ml Vial.neb 1 Vial NEB PRN Q4-6HRS PRN 30 Days Haloperidol 2 Mg Tablet 2 Mg PO DAILY 30 Days Aspirin Ec (Aspirin) 81 Mg Tablet.dr 81 Mg PO DAILYWBKFT 30 Days Clopidogrel (Clopidogrel Bisulfate) 75 Mg Tablet 75 Mg PO DAILY 30 Days Lisinopril 40 Mg Tablet 40 Mg PO DAILY 30 Days Risperdal (Risperidone) 2 Mg Tablet 1 Tab PO QHS 30 Days Metformin Hcl 500 Mg Tablet 500 Mg PO BIDWMEALS 30 Days Reported Acetaminophen 500 Mg Tablet 500 Mg PO PRN Q6HRS PRN Hydroxyzine Hcl 25 Mg Tablet 50 Mg PO PRN DAILY PRN Proair Hfa Inhaler (Albuterol Sulfate) 8.5 Gm Hfa.aer.ad 1 Puff INH PRN Q6HRS PRN NITROGLYCERIN SubLingual (Nitroglycerin) 0.4 Mg Tab.subl 0.4 Mg SL PRN Q5MIN PRN Flonase Allergy Relief (Fluticasone Propionate) 9.9 Ml [place].susp 2 Sprays NS DAILY Clonidine Hcl 0.1 Mg Tablet 0.1 Mg PO DAILY Atorvastatin Calcium 20 Mg Tablet 20 Mg PO HS Carvedilol (Carvedilol) 12.5 Mg Tablet 12.5 Mg PO BIDWMEALS Allergies Allergies: Coded Allergies: cod liver oil (Verified Adverse Reaction, Intermediate, "STREP THROAT", 11/07/21) ROS General: YES: Fatigue, Malaise; No: Chills, Night Sweats, Appetite, Other PSYCHOLOGICAL ROS: YES: Behavioral Disorder, Concentration difficultie, Depression, Disorientation, Hallucinations, Irritablity, Memory difficulties, Mood Swings, Obsessive thoughts, Sleep disturbances; No: Anxiety, Decreased libido, Hostility, Physical abuse, Sexual abuse, S uicidal ideation, Other Eyes: No Blurry vision, No Decreased vision, No Double vision, No Dry eyes, No Excessive tearing, No Eye Pain, No Itchy Eyes, No Loss of vision, No Photophobia, No Scotomata, No Uses contacts, No Uses glasses, No Other HEENT: No: Heacaches, Visual Changes, Hearing change, Nasal congestion, Nasal discharge, Oral lesions, Sinus pain, Sore Throat, Epistaxis, Sneezing, Snoring, Tinnitus, Vertigo, Vocal changes, Other ALLERGY AND IMMUNOLOGY: No: Hives, Insect Bite Sensitivity, Itchy/Watery Eyes, Nasal Congestion, Post Nasal Drip, Seasonal Allergies, Other Hematological and Lymphatic: No: Bleeding Problems, Blood Clots, Blood Transfusions, Brusing, Night Sweats, Pallor, Swollen Lymph Nodes, Other ENDOCRINE: No: Breast Changes, Galactorrhea, Hair Pattern Changes, Hot Flashes, Malaise/lethargy, Mood Swings, Palpitations, Polydipsia/polyuria, Skin Changes, Temperature Intolerance, Unexpected Weight Changes, Other Breast: No New/Changing Breast Lumps, No Nipple changes, No Nipple discharge, No Other Respiratory: No: Cough, Hemoptysis, Orthopnea, Pleuritic Pain, Shortness of breath, SOB with excertion, Sputum Changes, Stridor, Tachypnea, Wheezing, Other Cardiovascular: yes Chest Pain; No Palpitations, No Orthopnea, No Paroxysmal Noc. Dyspnea, No Edema, No Lt Headedness, No Other Gastrointestinal: No Nausea, No Vomiting, No Abdominal Pain, No Diarrhea, No Constipation, No Melena, No Hematochezia, No Other Genitourinary: No Dysuria, No Frequency, No Incontinence, No Hematuria, No Retention, No Discharge, No Urgency, No Pain, No Flank Pain, No Other, No , No , No , No , No , No , No Musculoskeletal: No Gait Disturbance, No Joint Pain, No Joint Stiffness, No Joint Swelling, No Muscle Pain, No Muscular Weakness, No Pain In:, No Swelling In:, No Other Neurological: No Behavorial Changes, No Bowel/Bladder ControlChng, No Confusion, No Dizziness, No Gait Disturbance, No Headaches, No Impaired Coord/balance, No Memory Loss, No Numbness/Tingling, No Seizures, No Speech Problems, No Tremors, No Visual Changes, No Weakness, No Other Skin: No Dry Skin, No Eczema, No Hair Changes, No Lumps, No Mole Changes, No Mottling, No Nail Changes, No Pruritus, No Rash, No Skin Lesion Changes, No Other, No Acne Physical Exam General: Alert, Cooperative, mild distress HEENT: Atraumatic, PERRLA, EOMI, Mucous membr. moist/pink Lungs: Clear to auscultation, Normal air movement Heart: S1S2, RRR, no thrills, no rubs, no gallops, no murmurs Abdomen: Normal bowel sounds, Soft, No tenderness, No hepatosplenomegaly, No masses Rectal Exam: not examined Extremities: No clubbing, No cyanosis, No edema, Normal pulses, No tenderness/swelling Skin: No rashes, No breakdown, No significant lesion Neuro: Normal gait, Normal speech, Strength at 5/5 X4 ext, Normal tone, Sensation intact, Cranial nerves 3-12 NL, Reflexes 2+ Psych/Mental Status: Mental status NL, Mood NL Vitals Vitals Vital Signs Date Time Temp Pulse Resp B/P (MAP) Pulse Ox O2 Delivery O2 Flow Rate FiO2 11/25/21 03:03 98.3 80 19 147/82 (103) 100 Room Air 98.3 Labs Labs Laboratory Tests Test 11/24/21 20:22 11/24/21 21:00 11/24/21 22:11 11/24/21 22:46 White Blood Count 8.9 x10^3/uL (4.0-11.0) Red Blood Count 4.28 x10^6/uL (3.50-5.40) Hemoglobin 12.5 g/dL (12.0-15.5) Hematocrit 38.4 % (36.0-47.0) Mean Corpuscular Volume 90 fL (79-100) Mean Corpuscular Hemoglobin 29 pg (25-35) Mean Corpuscular Hemoglobin Concent 33 g/dL (31-37) Red Cell Distribution Width 15.3 % (11.5-14.5) Platelet Count 310 x10^3/uL (140-400) Neutrophils (%) (Auto) 72 % (31-73) Lymphocytes (%) (Auto) 21 % (24-48) Monocytes (%) (Auto) 5 % (0-9) Eosinophils (%) (Auto) 2 % (0-3) Basophils (%) (Auto) 0 % (0-3) Neutrophils # (Auto) 6.4 x10^3/uL (1.8-7.7) Lymphocytes # (Auto) 1.9 x10^3/uL (1.0-4.8) Monocytes # (Auto) 0.5 x10^3/uL (0.0-1.1) Eosinophils # (Auto) 0.1 x10^3/uL (0.0-0.7) Basophils # (Auto) 0.0 x10^3/uL (0.0-0.2) Sodium Level 139 mmol/L (136-145) Potassium Level 4.0 mmol/L (3.5-5.1) Chloride Level 104 mmol/L (98-107) Carbon Dioxide Level 27 mmol/L (21-32) Anion Gap 8 (6-14) Blood Urea Nitrogen 11 mg/dL (7-20) Creatinine 0.9 mg/dL (0.6-1.0) Estimated GFR (Cockcroft-Gault) 81.9 BUN/Creatinine Ratio 12 (6-20) Glucose Level 450 mg/dL (70-99) Calcium Level 8.3 mg/dL (8.5-10.1) Total Bilirubin 0.2 mg/dL (0.2-1.0) Aspartate Amino Transf (AST/SGOT) 7 U/L (15-37) Alanine Aminotransferase (ALT/SGPT) 22 U/L (14-59) Alkaline Phosphatase 166 U/L (46-116) Creatine Kinase 175 U/L (26-192) Troponin I High Sensitivity 461 ng/L (4-50) Total Protein 6.9 g/dL (6.4-8.2) Albumin 2.9 g/dL (3.4-5.0) Albumin/Globulin Ratio 0.7 (1.0-1.7) Serum Test, Qualitative Negative (NEG) Urine Collection Type Unknown Urine Color Yellow Urine Clarity Clear Urine pH 6.5 (<5.0-8.0) Urine Specific [place] 1.025 (1.000-1.030) Urine Protein 30 mg/dL (NEG-TRACE) Urine Glucose (UA) >=1000 mg/dL (NEG) Urine Ketones (Stick) Negative mg/dL (NEG) Urine Blood Small (NEG) Urine Nitrite Negative (NEG) Urine Bilirubin Negative (NEG) Urine Urobilinogen Dipstick 0.2 mg/dL (0.2 mg/dL) Urine Leukocyte Esterase Negative (NEG) Urine RBC Occ /HPF (0-2) Urine WBC 5-10 /HPF (0-4) Urine Squamous Epithelial Cells Mod /LPF Urine Bacteria 0 /HPF (0-FEW) Urine Opiates Screen Neg (NEG) Urine Methadone Screen Neg (NEG) Urine Barbiturates Neg (NEG) Urine Phencyclidine Screen Pos (NEG) Urine Amphetamine/Methamphetamine Neg (NEG) Urine Benzodiazepines Screen Neg (NEG) Urine Cocaine Screen Neg (NEG) Urine Cannabinoids Screen Pos (NEG) Urine Ethyl Alcohol Neg (NEG) Glucose (Fingerstick) 179 mg/dL (70-99) 81 mg/dL (70-99) Test 11/25/21 05:15 Troponin I High Sensitivity 809 ng/L (4-50) Laboratory Tests Test 11/24/21 20:22 11/24/21 21:00 11/24/21 22:11 11/24/21 22:46 White Blood Count 8.9 x10^3/uL (4.0-11.0) Red Blood Count 4.28 x10^6/uL (3.50-5.40) Hemoglobin 12.5 g/dL (12.0-15.5) Hematocrit 38.4 % (36.0-47.0) Mean Corpuscular Volume 90 fL (79-100) Mean Corpuscular Hemoglobin 29 pg (25-35) Mean Corpuscular Hemoglobin Concent 33 g/dL (31-37) Red Cell Distribution Width 15.3 % (11.5-14.5) Platelet Count 310 x10^3/uL (140-400) Neutrophils (%) (Auto) 72 % (31-73) Lymphocytes (%) (Auto) 21 % (24-48) Monocytes (%) (Auto) 5 % (0-9) Eosinophils (%) (Auto) 2 % (0-3) Basophils (%) (Auto) 0 % (0-3) Neutrophils # (Auto) 6.4 x10^3/uL (1.8-7.7) Lymphocytes # (Auto) 1.9 x10^3/uL (1.0-4.8) Monocytes # (Auto) 0.5 x10^3/uL (0.0-1.1) Eosinophils # (Auto) 0.1 x10^3/uL (0.0-0.7) Basophils # (Auto) 0.0 x10^3/uL (0.0-0.2) Sodium Level 139 mmol/L (136-145) Potassium Level 4.0 mmol/L (3.5-5.1) Chloride Level 104 mmol/L (98-107) Carbon Dioxide Level 27 mmol/L (21-32) Anion Gap 8 (6-14) Blood Urea Nitrogen 11 mg/dL (7-20) Creatinine 0.9 mg/dL (0.6-1.0) Estimated GFR (Cockcroft-Gault) 81.9 BUN/Creatinine Ratio 12 (6-20) Glucose Level 450 mg/dL (70-99) Calcium Level 8.3 mg/dL (8.5-10.1) Total Bilirubin 0.2 mg/dL (0.2-1.0) Aspartate Amino Transf (AST/SGOT) 7 U/L (15-37) Alanine Aminotransferase (ALT/SGPT) 22 U/L (14-59) Alkaline Phosphatase 166 U/L (46-116) Creatine Kinase 175 U/L (26-192) Troponin I High Sensitivity 461 ng/L (4-50) Total Protein 6.9 g/dL (6.4-8.2) Albumin 2.9 g/dL (3.4-5.0) Albumin/Globulin Ratio 0.7 (1.0-1.7) Serum Test, Qualitative Negative (NEG) Urine Collection Type Unknown Urine Color Yellow Urine Clarity Clear Urine pH 6.5 (<5.0-8.0) Urine Specific [place] 1.025 (1.000-1.030) Urine Protein 30 mg/dL (NEG-TRACE) Urine Glucose (UA) >=1000 mg/dL (NEG) Urine Ketones (Stick) Negative mg/dL (NEG) Urine Blood Small (NEG) Urine Nitrite Negative (NEG) Urine Bilirubin Negative (NEG) Urine Urobilinogen Dipstick 0.2 mg/dL (0.2 mg/dL) Urine Leukocyte Esterase Negative (NEG) Urine RBC Occ /HPF (0-2) Urine WBC 5-10 /HPF (0-4) Urine Squamous Epithelial Cells Mod /LPF Urine Bacteria 0 /HPF (0-FEW) Urine Opiates Screen Neg (NEG) Urine Methadone Screen Neg (NEG) Urine Barbiturates Neg (NEG) Urine Phencyclidine Screen Pos (NEG) Urine Amphetamine/Methamphetamine Neg (NEG) Urine Benzodiazepines Screen Neg (NEG) Urine Cocaine Screen Neg (NEG) Urine Cannabinoids Screen Pos (NEG) Urine Ethyl Alcohol Neg (NEG) Glucose (Fingerstick) 179 mg/dL (70-99) 81 mg/dL (70-99) Test 11/25/21 05:15 Troponin I High Sensitivity 809 ng/L (4-50) Images Images Chest radiograph: Borderline cardiomegaly that is stable. Tortuous aortic arch stable. No pneumothorax. No pleural effusions. No pulmonary opacities. Bones are unremarkable. IMPRESSION: No acute process. VTE Prophylaxis Ordered VTE Prophylaxis Devices: No VTE Pharmacological Prophylaxi: Yes Assessment/Plan Assessment/Plan A/P: Chest pain - with elevated trop is NSTEMI. Has chronically elevated troponin. possibly demand mediate due to phencyclidine intoxication Cold exposure - has peripheral circulation. avoid overwarming Hypertensive urgency - prn labetalol, hydralazine. 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 prior cocaine use as well ?Bipolar disorder - on risperidal, haloperidol with reasonably good effect. Follows at the [facility] H/o CAD s/p PCI/stents placement at [facility] in October 2019, stable H/o recent Covid-19 - recovered, was diagnosed on 11/07/2021 Diabetes type 2 - hold metformin for possibly angiography. Sliding scale plus lantus HLD - goal LDL < 80mg/dL given CAD history Tobacco use disorder - counseled on cessation Anxiety with Depression - on antipsychotics, not on any SSRI or SNRI or SNDRI FEN - ADA cardiac diet PPX - lovenox FULL CODE DIspo - inpatient for NSTEMI Justifications for Admission Other Justification Altered mental status and elevated troponins KEELEY GREWAL MD Nov 25, 2021 08:13
[2021-11-25] MEDS: FLUTICASONE 50MCG/NASAL SPRAY 16GM BOTTLE. NS SCH (09:00)
[2021-11-25] MEDS: ASPIRIN ENTERIC COATED 81 MG TABLET.DR. PO SCH (09:00)
[2021-11-25] MEDS: LISINOPRIL 20 MG TABLET PO SCH (09:00)
[2021-11-25] MEDS: CARVEDILOL 12.5 MG TABLET. PO SCH ×2 (09:00→18:24)
[2021-11-25] MEDS: CLOPIDOGREL BISULFATE 75 MG TABLET PO SCH (09:00)
[2021-11-25] MEDS: HALOPERIDOL 2 MG TABLET. PO SCH (09:01)
--- NOTE | 2021-11-25 09:09 | EKG ---
[facility] [address] [place] [address] Test Date: 2021-11-24 Test Time: 20:11:43 Pat Name: BELKYS VAUGHN Department: Room: [facility] Gender: F Animal Stunner: : 1975 Requested By: KRISH BOWMAN Order Number: [id number] Reading MD: Lukas Araiza Measurements Intervals [place] Rate: 83 P: 59 ID: [id number] QRS: 14 QRSD: 80 T: 87 QT: 400 QTc: 476 Interpretive Statements SINUS RHYTHM LEFT ATRIAL ABNORMALITY NON SPECIFIC ST-T WAVE CHANGES Electronically Signed On 11-25-2021 14:51:53 GELATIN DYNAMITE PACKING OPERATOR by Lukas Araiza
--- NOTE | 2021-11-25 11:15 | PDOC2 ---
YOVANNY REID HEAD BUYER TOBACCO 11/25/21 1115: CARDIAC CONSULT DATE OF CONSULT Date of Consult DATE: 11/25/21 TIME: 10:44 REASON FOR CONSULT Reason for Consult: Chest pain, chronic troponin elevation REFERRING PHYSICIAN Referring Physician: Josh SOURCE Source: Chart review, Patient HISTORY OF PRESENT ILLNESS HISTORY OF PRESENT ILLNESS This is a 46 yo female admitted for complains of BG being high. Reports that she has not been taking her medications for a while now. She is depressed and does not care anymore. No suicidal ideation. Denies chest pain but this is reproducible to left sternal region with palpation. No SOA or palpitations. She continues to use recreational drugs and used PCP yesterday. She not been compliant with her treatment and failed to follow up in our office. PAST MEDICAL HISTORY Past Medical History Cardiovascular: CAD, HTN, HLP Pulmonary: Pneumonia CENTRAL NERVOUS SYSTEM: Other GI: No pertinent hx Heme/Onc: No pertinent hx Psych: Anxiety, Bipolar Musculoskeletal: Osteoarthritis Rheumatologic: Rheumatoid arthritis Infectious disease: No pertinent hx Renal/: No pertinent hx Endocrine: Diabetes PAST SURGICAL HISTORY Past Surgical History , Tubal Ligation, PCI FAMILY HISTORY Family History: Hypertension SOCIAL HISTORY Smoke: <1 pack per day ALCOHOL: none Drugs: Cocaine, Marijuana, Other (PCP) Lives: with Family CURRENT MEDICATIONS CURRENT MEDICATIONS Current Medications Medications (Trade) Dose Ordered Sig/Johanna Route PRN Reason Start Time Stop Time Status Last Admin Dose Admin Sodium Chloride 1,000 ml @ 999 mls/hr 1X ONCE IV 11/24/21 21:15 11/24/21 22:15 DC 11/24/21 21:25 Insulin Human Regular (HumuLIN R VIAL) 10 unit 1X ONCE IV 11/24/21 21:15 11/24/21 21:16 DC 11/24/21 21:28 Aspirin (Aspirin Chewable) 324 mg 1X ONCE PO 11/24/21 21:15 11/24/21 21:16 DC 11/24/21 21:24 Aspirin (Ecotrin) 81 mg DAILYWBKFT PO 11/25/21 08:00 11/25/21 09:00 Carvedilol (Coreg) 12.5 mg BIDWMEALS PO 11/25/21 08:00 11/25/21 09:00 Clopidogrel Bisulfate (Plavix) 75 mg DAILY PO 11/25/21 09:00 11/25/21 09:00 Haloperidol (Haldol) 2 mg DAILY PO 11/25/21 09:00 11/25/21 09:01 Lisinopril (Prinivil) 40 mg DAILY PO 11/25/21 09:00 11/25/21 09:00 ALLERGIES ALLERGIES: Coded Allergies: cod liver oil (Verified Adverse Reaction, Intermediate, "STREP THROAT", 11/07/21) ROS Review of System 14 point ROS evaluated with pertinent positives noted per HPI PHYSICAL EXAM General: Alert, Oriented X3, Cooperative, No acute distress HEENT: Atraumatic, Mucous membr. moist/pink Lungs: Clear to auscultation, Normal air movement Heart: Regular rate (SR), Normal S1, Normal S2, No murmurs Abdomen: Soft, No tenderness Extremities: No cyanosis, No edema Skin: No breakdown, No significant lesion Neuro: Normal speech, Sensation intact Psych/Mental Status: Other (depressed, flat affect) MUSCULOSKELETAL: Osteoarthritic changes both hands VITALS/I&O VITALS/I&O: Vital Signs Date Time Temp Pulse Resp B/P (MAP) Pulse Ox O2 Delivery O2 Flow Rate FiO2 11/25/21 09:00 79 154/94 11/25/21 07:55 98.5 20 99 Room Air 98.5 I & O 11/24/21 11/24/21 11/25/21 15:00 23:00 07:00 Intake Total 1260 ml Balance 1260 ml LABS Lab: Laboratory Tests Test 11/24/21 20:22 11/24/21 21:00 11/24/21 22:11 11/24/21 22:46 White Blood Count 8.9 x10^3/uL (4.0-11.0) Red Blood Count 4.28 x10^6/uL (3.50-5.40) Hemoglobin 12.5 g/dL (12.0-15.5) Hematocrit 38.4 % (36.0-47.0) Mean Corpuscular Volume 90 fL (79-100) Mean Corpuscular Hemoglobin 29 pg (25-35) Mean Corpuscular Hemoglobin Concent 33 g/dL (31-37) Red Cell Distribution Width 15.3 % (11.5-14.5) H Platelet Count 310 x10^3/uL (140-400) Neutrophils (%) (Auto) 72 % (31-73) Lymphocytes (%) (Auto) 21 % (24-48) L Monocytes (%) (Auto) 5 % (0-9) Eosinophils (%) (Auto) 2 % (0-3) Basophils (%) (Auto) 0 % (0-3) Neutrophils # (Auto) 6.4 x10^3/uL (1.8-7.7) Lymphocytes # (Auto) 1.9 x10^3/uL (1.0-4.8) Monocytes # (Auto) 0.5 x10^3/uL (0.0-1.1) Eosinophils # (Auto) 0.1 x10^3/uL (0.0-0.7) Basophils # (Auto) 0.0 x10^3/uL (0.0-0.2) Sodium Level 139 mmol/L (136-145) Potassium Level 4.0 mmol/L (3.5-5.1) Chloride Level 104 mmol/L (98-107) Carbon Dioxide Level 27 mmol/L (21-32) Anion Gap 8 (6-14) Blood Urea Nitrogen 11 mg/dL (7-20) Creatinine 0.9 mg/dL (0.6-1.0) Estimated GFR (Cockcroft-Gault) 81.9 BUN/Creatinine Ratio 12 (6-20) Glucose Level 450 mg/dL (70-99) H Calcium Level 8.3 mg/dL (8.5-10.1) L Total Bilirubin 0.2 mg/dL (0.2-1.0) Aspartate Amino Transferase (AST) 7 U/L (15-37) L Alanine Aminotransferase (ALT) 22 U/L (14-59) Alkaline Phosphatase 166 U/L (46-116) H Creatine Kinase 175 U/L (26-192) Troponin I High Sensitivity 461 ng/L (4-50) H Total Protein 6.9 g/dL (6.4-8.2) Albumin 2.9 g/dL (3.4-5.0) L Albumin/Globulin Ratio 0.7 (1.0-1.7) L Serum Test, Qualitative Negative (NEG) Urine Collection Type Unknown Urine Color Yellow Urine Clarity Clear Urine pH 6.5 (<5.0-8.0) Urine Specific [place] 1.025 (1.000-1.030) Urine Protein 30 mg/dL (NEG-TRACE) Urine Glucose (UA) >=1000 mg/dL (NEG) Urine Ketones (Stick) Negative mg/dL (NEG) Urine Blood Small (NEG) Urine Nitrite Negative (NEG) Urine Bilirubin Negative (NEG) Urine Urobilinogen Dipstick 0.2 mg/dL (0.2 mg/dL) Urine Leukocyte Esterase Negative (NEG) Urine RBC Occ /HPF (0-2) Urine WBC 5-10 /HPF (0-4) Urine Squamous Epithelial Cells Mod /LPF Urine Bacteria 0 /HPF (0-FEW) Urine Opiates Screen Neg (NEG) Urine Methadone Screen Neg (NEG) Urine Barbiturates Neg (NEG) Urine Phencyclidine Screen Pos (NEG) Urine Amphetamine/Methamphetamine Neg (NEG) Urine Benzodiazepines Screen Neg (NEG) Urine Cocaine Screen Neg (NEG) Urine Cannabinoids Screen Pos (NEG) Urine Ethyl Alcohol Neg (NEG) Glucose (Fingerstick) 179 mg/dL (70-99) H 81 mg/dL (70-99) Test 11/25/21 05:15 11/25/21 08:15 11/25/21 08:45 Troponin I High Sensitivity 809 ng/L (4-50) H 1085 ng/L (4-50) H Glucose (Fingerstick) 233 mg/dL (70-99) H Laboratory Tests 11/24/21 20:22 Laboratory Tests 11/24/21 20:22 ECHOCARDIOGRAM ECHOCARDIOGRAM <Conclusion> The left ventricular systolic function is normal. The Ejection Fraction is 55%. There is normal LV segmental wall motion. Trace mitral regurgitation. Trace tricuspid regurgitation with an estimated PAP of 29 mmHg. There is no evidence of significant pericardial effusion. DATE: 10/06/21 [id number] ASSESSMENT/PLAN ASSESSMENT/PLAN 1. NSTEMI: no acute EKG changes peaked troponin 1085 HS with associated polysubstance abuse and uncontrolled HTN. suspect demand mediated 2. HTN urgency 3. Polysubstance abuse: UDS+ for marijuana and PCP. Reports prior cocaine use as well 4. Covid-19: 11/07/2021 5. CAD: PCI/stents placement at [facility] in October 2019, stable 6. Diabetes, II 7. HLP 8. Tobaccoism 9. Atypical CP: reproducible with palpation 10. Depression: no suicidal ideation. defer to PCP Recommendations Restart ASA and plavix. secondary prevention measures. Significnat for treatment noncompliance. She has failed to show up in our office and outpt MPI. Discuss follow up and abstinence from tobacco and recreational drugs. Continue to optimize if pt is willing to be compliant JOANA JUAN MD 11/25/211815: CARDIAC CONSULT ASSESSMENT/PLAN ASSESSMENT/PLAN Patient seen and examined. Agree with MIRROR FINISHING MACHINE OPERATOR's assessment and plan. CP atypical, reproducible and most prob musculoskeletal NSTEMI most prob demand ischemia CAD clinically stable Resume anti-hypertensives and titrate for better control Importance of compliance with meds and abstinence from substance abuse reemphasized Thank you for your consultation YOVANNY REID APRN Nov 25, 2021 11:15 JOANA JUAN MD Nov 25, 2021 18:16
[2021-11-25 11:17] VITALS: BP 138/87
[2021-11-25] MEDS ORDERED: IV DEXTROSE 5% 250 ML BAG. IV PRN (11:45)
[2021-11-25] MEDS ORDERED: DEXTROSE 50% 25 GM / 50ML DISP.SYRIN. IV PRN (11:45)
[2021-11-25] MEDS: INSULIN LISPRO 300 UNITS/3 ML VIAL. SQ SCH ×2 (12:12→18:27)
--- NOTE | 2021-11-25 13:47 | EKG ---
[facility] [address] [place] [address] Test Date: 2021-11-25 Test Time: 13:39:05 Pat Name: BELKYS VAUGHN Department: Room: [facility] Gender: F Peanut Butter Maker: DUARTE : 1975 Requested By: YOVANNY REID Order Number: [id number] Reading MD: Lukas Araiza Measurements Intervals [place] Rate: 71 P: 59 [place]: 156 QRS: 24 QRSD: 86 T: 84 QT: 374 QTc: 407 Interpretive Statements SINUS RHYTHM LEFT ATRIAL ABNORMALITY QRS(T) CONTOUR ABNORMALITY CONSISTENT WITH POSSIBLE OLD INFERIOR INFARCT ANTEROSEPTAL NONSPECIFIC ST WAVE CHANGES Electronically Signed On 11-25-2021 14:41:15 SENIOR SOFTWARE QUALITY ANALYST by Lukas Araiza
--- NOTE | 2021-11-25 14:19 | NUR ---
SS following for discharge planning. SS reviewed pt chart and discussed with pt RN. Pt is from home and is currently on room air. Cardiology consulted. Pt positive for PCP and THC. COVID19 positive. Pt has Medicare and disability and active services through the [facility]. Pt has had referrals to [facility] and [facility] outpatient services. Pt has a history of non-compliance. SS will continue to follow for discharge planning.
[2021-11-25 14:56] VITALS: BP 131/80
[2021-11-25 20:04] VITALS: BP 128/74
[2021-11-25] MEDS: ATORVASTATIN CALCIUM 20 MG TABLET PO SCH (21:00)
[2021-11-25] MEDS: INSULIN GLARGINE SYRINGE. SQ SCH (21:00)
[2021-11-25] MEDS: risperiDONE 1 MG TABLET. PO SCH (21:00)
--- NOTE | 2021-11-25 23:34 | NUR ---
Patient has been drowsy, not eating her supper, which is untouched on her table, blood glucose 90's, holding her lantus for now, until she is more awake and eating, when this proposal writer entered the room for assessment, patient asked me "How many kids did I have at one time?" Since I didn't know what she was talking about, asked her what she said, she repeated her question, So not sure she is awake and alert enough to finish her pills and lantus, monitoring..
[2021-11-25 23:48] VITALS: BP 124/85
[2021-11-26 02:57] LABS: CALCIUM 7.9 mg/dL (8.5-10.1); CREATININE 0.7 mg/dL (0.6-1.0); GFR 109.5; POTASSIUM 4.3 mmol/L (3.5-5.1)
[2021-11-26 03:24] VITALS: BP 130/77
[2021-11-26 07:00] VITALS: BP 128/82
[2021-11-26] MEDS: FLUTICASONE 50MCG/NASAL SPRAY 16GM BOTTLE. NS SCH (09:23)
[2021-11-26] MEDS: CLOPIDOGREL BISULFATE 75 MG TABLET PO SCH (09:25)
[2021-11-26] MEDS: ASPIRIN ENTERIC COATED 81 MG TABLET.DR. PO SCH (09:25)
[2021-11-26] MEDS: LISINOPRIL 20 MG TABLET PO SCH (09:25)
[2021-11-26] MEDS: CARVEDILOL 12.5 MG TABLET. PO SCH ×2 (09:25→17:45)
[2021-11-26] MEDS: HALOPERIDOL 2 MG TABLET. PO SCH (09:25)
[2021-11-26] MEDS: INSULIN LISPRO 300 UNITS/3 ML VIAL. SQ SCH ×3 (09:36→17:56)
--- NOTE | 2021-11-26 09:44 | PDOC ---
[employer] PROGRESS NOTE Date of Service DOS: DATE: 11/26/21 TIME: 09:44 Chief Complaint Chief Complaint A/P: Chest pain - with elevated trop is NSTEMI. Has chronically elevated troponin. possibly demand mediate due to phencyclidine intoxication Cold exposure - has peripheral circulation. avoid overwarming Hypertensive urgency - prn labetalol, hydralazine. 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 prior cocaine use as well ?Bipolar disorder - on risperidal, haloperidol with reasonably good effect. Follows at the [facility] H/o CAD s/p PCI/stents placement at [facility] in October 2019, stable H/o recent Covid-19 - recovered, was diagnosed on 11/07/2021 Diabetes type 2 - hold metformin for possibly angiography. Sliding scale plus lantus HLD - goal LDL < 80mg/dL given CAD history Tobacco use disorder - counseled on cessation Anxiety with Depression - on antipsychotics, not on any SSRI or SNRI or SNDRI FEN - ADA cardiac diet PPX - lovenox FULL CODE DIspo - inpatient for NSTEMI History of Present Illness History of Present Illness Ms Pagan is a 46-year-old female w/ PMHx DM2, HTN, CAD with prior stenting, smoker, polysubstance use disorder who presents to ED c/o cold exposure. She has chest pain, irregular heartbeat, and shortness of breath for the past several days prior to arrival. She insisted to ED staff that she was . DIfficult to redirect. Hallucinating Labs with negative serum HCG, WBC 8.9, Hb 12.5, platelets 310, NA 139, K4, BUN 11, CR 0.9, glucose 450, calcium 8.3, bilirubin 0.2, AST 7, ALT 22, alk phos 166, albumin 2.9, urine drug screen positive for phencyclidine and cannabinoids, urinalysis with large glucosuria. EKG sinus rhythm rate of 83 bpm, normal axis and intervals T flattening in the lateral leads and Q waves in inferior leads indicating possible prior inferior infarct. No acute ST segment elevations. QTc 476 Chest radiograph with cardiomegaly otherwise no acute findings 11/26: Chest pain-free today. Her high-sensitivity troponin came up over 1000 awaiting final lab draw. She stable on her meds glucose in the 100s. Her only question is can she have more food. Counseled on cessation of phencyclidine and smoking cessation. All questions answered to the best my abilities. Vitals/I&O Vitals/I&O: Vital Signs Date Time Temp Pulse Resp B/P (MAP) Pulse Ox O2 Delivery O2 Flow Rate FiO2 11/26/21 09:25 75 128/82 11/26/21 07:00 98.0 22 95 Room Air 98.0 I & O 11/25/21 11/25/21 11/26/21 15:00 23:00 07:00 Intake Total 1300 ml 1100 ml 0 ml Output Total 0 ml Balance 1300 ml 1100 ml 0 ml Physical Exam General: Alert, Cooperative, mild distress Heart: Regular rate (SR), Normal S1, Normal S2, No murmurs Lungs: Clear Abdomen: Normal bowel sounds, Soft, No tenderness, No hepatosplenomegaly, No masses Extremities: No clubbing, No cyanosis, No edema, Normal pulses, No tenderness/swelling Skin: No rashes, No breakdown, No significant lesion Labs Labs: Laboratory Tests Test 11/25/21 11:15 11/25/21 17:04 11/25/21 20:47 11/26/21 01:55 Glucose (Fingerstick) 352 mg/dL (70-99) 176 mg/dL (70-99) 91 mg/dL (70-99) Sodium Level 140 mmol/L (136-145) Potassium Level 4.3 mmol/L (3.5-5.1) Chloride Level 107 mmol/L (98-107) Carbon Dioxide Level 25 mmol/L (21-32) Anion Gap 8 (6-14) Blood Urea Nitrogen 14 mg/dL (7-20) Creatinine 0.7 mg/dL (0.6-1.0) Estimated GFR (Cockcroft-Gault) 109.5 Glucose Level 137 mg/dL (70-99) Calcium Level 7.9 mg/dL (8.5-10.1) Test 11/26/21 07:23 Glucose (Fingerstick) 186 mg/dL (70-99) Assessment and Plan Assessmemt and Plan Problems Medical Problems: (1) Chest pain Status: Acute (2) Elevated glucose Status: Acute (3) Elevated troponin Status: Acute Comment Review of Relevant I have reviewed the following items sincere (where applicable) has been applied. Medications: Current Medications Medications (Trade) Dose Ordered Sig/Johanna Route PRN Reason Start Time Stop Time Status Last Admin Dose Admin Insulin Human Lispro (HumaLOG) 0-9 UNITS TIDWMEALS SQ 11/25/21 12:00 11/26/21 09:36 Justifications for Admission Other Justification Altered mental status and elevated troponins KEELEY GREWAL MD Nov 26, 2021 09:44
[2021-11-26 11:00] VITALS: BP 141/85
[2021-11-26 15:00] VITALS: BP 161/83
--- NOTE | 2021-11-26 17:13 | PDOC ---
PROGRESS NOTES Date of Service DATE: 11/26/21 TIME: 17:09 Subjective Subjective Patient seen and examined Objective Objective Vital Signs Date Time Temp Pulse Resp B/P (MAP) Pulse Ox O2 Delivery O2 Flow Rate FiO2 11/26/21 15:00 96.2 65 22 161/83 (109) 99 Room Air 96.2 Intake and Output 11/26/21 07:00 Intake Total 2400 ml Output Total 0 ml Balance 2400 ml Intake Oral 2400 ml Output Urine Total 0 ml # Voids 6 Physical Exam Abdomen: Normal bowel sounds Heart: Regular rate General: mild distress Lungs: Other (Mildly decreased breath sounds) Assessment Assessment Problems Medical Problems: (1) Chest pain Status: Acute (2) Elevated glucose Status: Acute (3) Elevated troponin Status: Acute NSTEMI: no acute EKG changes. The patient's pain has been reproducible. Continued polysubstance abuse and uncontrolled hypertension. Troponins of 1085, 809 and 461. Consistent with demand mediated ischemia. Pain-free today. Continuing present treatment. HTN urgency. Improved on present medications. Including aspirin and Plavix. Polysubstance abuse: UDS+ for marijuana and PCP. Reports prior cocaine use as well Covid-19: 11/07/2021 CAD: PCI/stents placement at [facility] in October 2019, stable. Continue medical treatment. Diabetes, II HLP. Continue present treatment. Tobaccoism CARDIAC CONSULT Comment Review of Relevant I have reviewed the following items sincere (where applicable) has been applied. Labs Laboratory Tests Test 11/24/21 20:22 11/24/21 21:00 11/24/21 22:11 11/24/21 22:46 White Blood Count 8.9 x10^3/uL (4.0-11.0) Red Blood Count 4.28 x10^6/uL (3.50-5.40) Hemoglobin 12.5 g/dL (12.0-15.5) Hematocrit 38.4 % (36.0-47.0) Mean Corpuscular Volume 90 fL (79-100) Mean Corpuscular Hemoglobin 29 pg (25-35) Mean Corpuscular Hemoglobin Concent 33 g/dL (31-37) Red Cell Distribution Width 15.3 % (11.5-14.5) Platelet Count 310 x10^3/uL (140-400) Neutrophils (%) (Auto) 72 % (31-73) Lymphocytes (%) (Auto) 21 % (24-48) Monocytes (%) (Auto) 5 % (0-9) Eosinophils (%) (Auto) 2 % (0-3) Basophils (%) (Auto) 0 % (0-3) Neutrophils # (Auto) 6.4 x10^3/uL (1.8-7.7) Lymphocytes # (Auto) 1.9 x10^3/uL (1.0-4.8) Monocytes # (Auto) 0.5 x10^3/uL (0.0-1.1) Eosinophils # (Auto) 0.1 x10^3/uL (0.0-0.7) Basophils # (Auto) 0.0 x10^3/uL (0.0-0.2) Sodium Level 139 mmol/L (136-145) Potassium Level 4.0 mmol/L (3.5-5.1) Chloride Level 104 mmol/L (98-107) Carbon Dioxide Level 27 mmol/L (21-32) Anion Gap 8 (6-14) Blood Urea Nitrogen 11 mg/dL (7-20) Creatinine 0.9 mg/dL (0.6-1.0) Estimated GFR (Cockcroft-Gault) 81.9 BUN/Creatinine Ratio 12 (6-20) Glucose Level 450 mg/dL (70-99) Calcium Level 8.3 mg/dL (8.5-10.1) Total Bilirubin 0.2 mg/dL (0.2-1.0) Aspartate Amino Transf (AST/SGOT) 7 U/L (15-37) Alanine Aminotransferase (ALT/SGPT) 22 U/L (14-59) Alkaline Phosphatase 166 U/L (46-116) Creatine Kinase 175 U/L (26-192) Troponin I High Sensitivity 461 ng/L (4-50) Total Protein 6.9 g/dL (6.4-8.2) Albumin 2.9 g/dL (3.4-5.0) Albumin/Globulin Ratio 0.7 (1.0-1.7) Serum Test, Qualitative Negative (NEG) Urine Collection Type Unknown Urine Color Yellow Urine Clarity Clear Urine pH 6.5 (<5.0-8.0) Urine Specific [place] 1.025 (1.000-1.030) Urine Protein 30 mg/dL (NEG-TRACE) Urine Glucose (UA) >=1000 mg/dL (NEG) Urine Ketones (Stick) Negative mg/dL (NEG) Urine Blood Small (NEG) Urine Nitrite Negative (NEG) Urine Bilirubin Negative (NEG) Urine Urobilinogen Dipstick 0.2 mg/dL (0.2 mg/dL) Urine Leukocyte Esterase Negative (NEG) Urine RBC Occ /HPF (0-2) Urine WBC 5-10 /HPF (0-4) Urine Squamous Epithelial Cells Mod /LPF Urine Bacteria 0 /HPF (0-FEW) Urine Opiates Screen Neg (NEG) Urine Methadone Screen Neg (NEG) Urine Barbiturates Neg (NEG) Urine Phencyclidine Screen Pos (NEG) Urine Amphetamine/Methamphetamine Neg (NEG) Urine Benzodiazepines Screen Neg (NEG) Urine Cocaine Screen Neg (NEG) Urine Cannabinoids Screen Pos (NEG) Urine Ethyl Alcohol Neg (NEG) Glucose (Fingerstick) 179 mg/dL (70-99) 81 mg/dL (70-99) Test 11/25/21 05:15 11/25/21 08:15 11/25/21 08:45 11/25/21 11:15 Troponin I High Sensitivity 809 ng/L (4-50) 1085 ng/L (4-50) Glucose (Fingerstick) 233 mg/dL (70-99) 352 mg/dL (70-99) Test 11/25/21 17:04 11/25/21 20:47 11/26/21 01:55 11/26/21 07:23 Glucose (Fingerstick) 176 mg/dL (70-99) 91 mg/dL (70-99) 186 mg/dL (70-99) Sodium Level 140 mmol/L (136-145) Potassium Level 4.3 mmol/L (3.5-5.1) Chloride Level 107 mmol/L (98-107) Carbon Dioxide Level 25 mmol/L (21-32) Anion Gap 8 (6-14) Blood Urea Nitrogen 14 mg/dL (7-20) Creatinine 0.7 mg/dL (0.6-1.0) Estimated GFR (Cockcroft-Gault) 109.5 Glucose Level 137 mg/dL (70-99) Calcium Level 7.9 mg/dL (8.5-10.1) Test 11/26/21 11:16 11/26/21 11:40 11/26/21 16:22 Glucose (Fingerstick) 199 mg/dL (70-99) 241 mg/dL (70-99) Troponin I High Sensitivity 998 ng/L (4-50) Laboratory Tests Test 11/25/21 20:47 11/26/21 01:55 11/26/21 07:23 11/26/21 11:16 Glucose (Fingerstick) 91 mg/dL (70-99) 186 mg/dL (70-99) 199 mg/dL (70-99) Sodium Level 140 mmol/L (136-145) Potassium Level 4.3 mmol/L (3.5-5.1) Chloride Level 107 mmol/L (98-107) Carbon Dioxide Level 25 mmol/L (21-32) Anion Gap 8 (6-14) Blood Urea Nitrogen 14 mg/dL (7-20) Creatinine 0.7 mg/dL (0.6-1.0) Estimated GFR (Cockcroft-Gault) 109.5 Glucose Level 137 mg/dL (70-99) Calcium Level 7.9 mg/dL (8.5-10.1) Test 11/26/21 11:40 11/26/21 16:22 Troponin I High Sensitivity 998 ng/L (4-50) Glucose (Fingerstick) 241 mg/dL (70-99) Microbiology 11/24/21 Urine Culture - Final, Complete Medications Current Medications Sodium Chloride 1,000 ml @ 999 mls/hr 1X ONCE IV Last administered on 11/24/21at 21:25; Start 11/24/21 at 21:15; Stop 11/24/21 at 22:15; Status DC Insulin Human Regular (HumuLIN R VIAL) 10 unit 1X ONCE IV Last administered on 11/24/21at 21:28; Start 11/24/21 at 21:15; Stop 11/24/21 at 21:16; Status DC Aspirin (Aspirin Chewable) 324 mg 1X ONCE PO Last administered on 11/24/21at 21:24; Start 11/24/21 at 21:15; Stop 11/24/21 at 21:16; Status DC Nitroglycerin (Nitrostat) 0.4 mg PRN Q5MIN PRN SL CHEST PAIN; Start 11/24/21 at 21:15 Acetaminophen (Tylenol) 650 mg PRN Q6HRS PRN PO MILD PAIN / TEMP > 100.3'F; Start 11/24/21 at 21:15 Ondansetron HCl (Zofran) 4 mg PRN Q4HRS PRN IVP NAUSEA/VOMITING; Start 11/24/21 at 21:15 Olanzapine (ZyPREXA ZYDIS) 5 mg PRN BID PRN PO ANXIETY / AGITATION; Start 11/24/21 at 21:15 Insulin Glargine (Lantus Syringe) 10 unit QHS SQ ; Start 11/24/21 at 21:30; Stop 11/25/21 at 08:00; Status DC Dextrose (Dextrose 50%-Water Syringe) 12.5 gm PRN Q15MIN PRN IV SEE COMMENTS; Start 11/24/21 at 21:15; Status Cancel Dextrose (Iv Dextrose 5%) 250 ml PRN Q15MIN PRN IV SEE COMMENTS; Start 11/24/21 at 21:15; Status Cancel Insulin Glargine (Lantus Syringe) 8 unit QHS SQ ; Start 11/25/21 at 21:00 Albuterol Sulfate (Ventolin Neb Soln) 2.5 mg PRN Q6HRS PRN INH SHORTNESS OF B REATH; Start 11/25/21 at 08:00 Aspirin (Ecotrin) 81 mg DAILYWBKFT PO Last administered on 11/26/21at 09:25; Start 11/25/21 at 08:00 Atorvastatin Calcium (Lipitor) 20 mg HS PO ; Start 11/25/21 at 21:00 Carvedilol (Coreg) 12.5 mg BIDWMEALS PO Last administered on 11/26/21at 09:25; Start 11/25/21 at 08:00 Clopidogrel Bisulfate (Plavix) 75 mg DAILY PO Last administered on 11/26/21at 09:25; Start 11/25/21 at 09:00 Haloperidol (Haldol) 2 mg DAILY PO Last administered on 11/26/21at 09:25; Start 11/25/21 at 09:00 Hydroxyzine HCl (Atarax) 50 mg PRN DAILY PRN PO ANXIETY / AGITATION (1ST); Start 11/25/21 at 08:00 Lisinopril (Prinivil) 40 mg DAILY PO Last administered on 11/26/21at 09:25; Start 11/25/21 at 09:00 Nitroglycerin (Nitrostat) 0.4 mg PRN Q5MIN PRN SL CHEST PAIN; Start 11/25/21 at 08:00 Fluticasone Propionate (Flonase) 2 spray DAILY NS Last administered on 11/26/21at 09:23; Start 11/25/21 at 09:00 Risperidone (RisperDAL) 2 mg QHS PO ; Start 11/25/21 at 21:00 Insulin Human Lispro (HumaLOG) 0-9 UNITS TIDWMEALS SQ Last administered on 11/26/21at 11:49; Start 11/25/21 at 12:00 Dextrose (Dextrose 50%-Water Syringe) 12.5 gm PRN Q15MIN PRN IV SEE COMMENTS; Start 11/25/21 at 11:45 Dextrose (Iv Dextrose 5%) 250 ml PRN Q15MIN PRN IV SEE COMMENTS; Start 11/25/21 at 11:45 Active Scripts Active Compressor Nebulizer System (Nebulizer and Compressor) 1 Each Each Each MC 1-2XD PRN Use with albuterol nebulizer solution. Albuterol Sulfate Conc Neb Soln (Albuterol Sulfate) 2.5 Mg/0.5 Ml Vial.neb 1 Vial NEB PRN Q4-6HRS PRN 30 Days Haloperidol 2 Mg Tablet 2 Mg PO DAILY 30 Days Aspirin Ec (Aspirin) 81 Mg Tablet.dr 81 Mg PO DAILYWBKFT 30 Days Clopidogrel (Clopidogrel Bisulfate) 75 Mg Tablet 75 Mg PO DAILY 30 Days Lisinopril 40 Mg Tablet 40 Mg PO DAILY 30 Days Risperdal (Risperidone) 2 Mg Tablet 1 Tab PO QHS 30 Days Metformin Hcl 500 Mg Tablet 500 Mg PO BIDWMEALS 30 Days Reported Acetaminophen 500 Mg Tablet 500 Mg PO PRN Q6HRS PRN Hydroxyzine Hcl 25 Mg Tablet 50 Mg PO PRN DAILY PRN Proair Hfa Inhaler (Albuterol Sulfate) 8.5 Gm Hfa.aer.ad 1 Puff INH PRN Q6HRS PRN NITROGLYCERIN SubLingual (Nitroglycerin) 0.4 Mg Tab.subl 0.4 Mg SL PRN Q5MIN PRN Flonase Allergy Relief (Fluticasone Propionate) 9.9 Ml [place].susp 2 Sprays NS DAILY Clonidine Hcl 0.1 Mg Tablet 0.1 Mg PO DAILY Atorvastatin Calcium 20 Mg Tablet 20 Mg PO HS Carvedilol (Carvedilol) 12.5 Mg Tablet 12.5 Mg PO BIDWMEALS Vitals/I & O Vital Sign - Last 24 Hours 11/25/21 11/25/21 11/25/21 11/25/21 18:24 19:00 20:04 20:30 Temp 96.8 96.8 Pulse 75 68 Resp 17 B/P (MAP) 131/80 128/74 (92) Pulse Ox 97 O2 Delivery Room Air Room Air Room Air 11/25/21 11/26/21 11/26/21 11/26/21 23:48 03:24 07:00 08:00 Temp 97.7 97.7 98.0 97.7 97.7 98.0 Pulse 68 70 75 Resp 20 22 B/P (MAP) 124/85 (98) 130/77 (94) 128/82 (97) Pulse Ox 98 99 95 O2 Delivery Room Air Room Air Room Air Room Air 11/26/21 11/26/21 11/26/21 11/26/21 09:25 09:25 11:00 15:00 Temp 97.0 96.2 97.0 96.2 Pulse 75 75 76 65 Resp B/P (MAP) 128/82 128/82 141/85 (103) 161/83 (109) Pulse Ox 98 99 O2 Delivery Room Air Room Air Intake and Output 11/25/21 11/25/21 11/26/21 15:00 23:00 07:00 Intake Total 1300 ml 1100 ml 0 ml Output Total 0 ml Balance 1300 ml 1100 ml 0 ml Justifications for Admission Other Justification Altered mental status and elevated troponins ELIZABET GILLIS MD Nov 26, 2021 17:13
[2021-11-26 20:34] VITALS: BP 116/66
[2021-11-26] MEDS: ATORVASTATIN CALCIUM 20 MG TABLET PO SCH (21:22)
[2021-11-26] MEDS: risperiDONE 1 MG TABLET. PO SCH (21:22)
[2021-11-26] MEDS: INSULIN GLARGINE SYRINGE. SQ SCH (21:23)
[2021-11-26 23:27] VITALS: BP 112/68
[2021-11-27 03:25] VITALS: BP 108/67
[2021-11-27 05:00] LABS: CREATININE 0.7 mg/dL (0.6-1.0); GFR 109.5; POTASSIUM 3.9 mmol/L (3.5-5.1)
[2021-11-27 07:00] VITALS: BP 140/80
--- NOTE | 2021-11-27 07:07 | PDOC ---
[employer] PROGRESS NOTE Date of Service DOS: DATE: 11/27/21 TIME: 07:05 Chief Complaint Chief Complaint A/P: Chest pain - with elevated trop is NSTEMI. Has chronically elevated troponin. possibly demand mediate due to phencyclidine intoxication Cold exposure - has peripheral circulation. avoid overwarming Hypertensive urgency - prn labetalol, hydralazine. 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 prior cocaine use as well ?Bipolar disorder - on risperidal, haloperidol with reasonably good effect. Follows at the [facility] H/o CAD s/p PCI/stents placement at [facility] in October 2019, stable H/o recent Covid-19 - recovered, was diagnosed on 11/07/2021 Diabetes type 2 - hold metformin for possibly angiography. Sliding scale plus lantus HLD - goal LDL < 80mg/dL given CAD history Tobacco use disorder - counseled on cessation Anxiety with Depression - on antipsychotics, not on any SSRI or SNRI or SNDRI FEN - ADA cardiac diet PPX - lovenox FULL CODE DIspo - inpatient for NSTEMI History of Present Illness History of Present Illness Ms Pagan is a 46-year-old female w/ PMHx DM2, HTN, CAD with prior stenting, smoker, polysubstance use disorder who presents to ED c/o cold exposure. She has chest pain, irregular heartbeat, and shortness of breath for the past several days prior to arrival. She insisted to ED staff that she was . DIfficult to redirect. Hallucinating Labs with negative serum HCG, WBC 8.9, Hb 12.5, platelets 310, NA 139, K4, BUN 11, CR 0.9, glucose 450, calcium 8.3, bilirubin 0.2, AST 7, ALT 22, alk phos 166, albumin 2.9, urine drug screen positive for phencyclidine and cannabinoids, urinalysis with large glucosuria. EKG sinus rhythm rate of 83 bpm, normal axis and intervals T flattening in the lateral leads and Q waves in inferior leads indicating possible prior inferior infarct. No acute ST segment elevations. QTc 476 Chest radiograph with cardiomegaly otherwise no acute findings 11/26: Chest pain-free today. Her high-sensitivity troponin came up over 1000 awaiting final lab draw. She stable on her meds glucose in the 100s. Her only question is can she have more food. Counseled on cessation of phencyclidine and smoking cessation. All questions answered to the best my abilities. 11/27: No chest pain. Still some increased appetite. HS troponin down to 710. States she needs all her meds refilled on discharge. Vitals/I&O Vitals/I&O: Vital Signs Date Time Temp Pulse Resp B/P (MAP) Pulse Ox O2 Delivery O2 Flow Rate FiO2 11/27/21 03:25 97.4 68 18 108/67 (81) 97 Room Air 97.4 I & O 11/26/21 11/26/21 11/27/21 15:00 23:00 07:00 Intake Total 300 ml 0 ml Output Total 0 ml 0 ml Balance 300 ml 0 ml Physical Exam General: mild distress Heart: Regular rate Lungs: Clear Abdomen: Normal bowel sounds Extremities: No clubbing, No cyanosis, No edema, Normal pulses, No tenderness/swelling Skin: No rashes, No breakdown, No significant lesion Labs Labs: Laboratory Tests Test 11/26/21 07:23 11/26/21 11:16 11/26/21 11:40 11/26/21 16:22 Glucose (Fingerstick) 186 mg/dL (70-99) 199 mg/dL (70-99) 241 mg/dL (70-99) Troponin I High Sensitivity 998 ng/L (4-50) Test 11/26/21 20:30 11/27/21 03:15 Glucose (Fingerstick) 241 mg/dL (70-99) Sodium Level 140 mmol/L (136-145) Potassium Level 3.9 mmol/L (3.5-5.1) Chloride Level 105 mmol/L (98-107) Carbon Dioxide Level 28 mmol/L (21-32) Anion Gap 7 (6-14) Blood Urea Nitrogen 11 mg/dL (7-20) Creatinine 0.7 mg/dL (0.6-1.0) Estimated GFR (Cockcroft-Gault) 109.5 Glucose Level 205 mg/dL (70-99) Calcium Level 8.0 mg/dL (8.5-10.1) Troponin I High Sensitivity 710 ng/L (4-50) Assessment and Plan Assessmemt and Plan Problems Medical Problems: (1) Chest pain Status: Acute (2) Elevated glucose Status: Acute (3) Elevated troponin Status: Acute Comment Review of Relevant I have reviewed the following items sincere (where applicable) has been applied. Justifications for Admission Other Justification Altered mental status and elevated troponins KEELEY GREWAL MD Nov 27, 2021 07:07
[2021-11-27] MEDS: CLOPIDOGREL BISULFATE 75 MG TABLET PO SCH (09:11)
[2021-11-27] MEDS: HALOPERIDOL 2 MG TABLET. PO SCH (09:11)
[2021-11-27] MEDS: ASPIRIN ENTERIC COATED 81 MG TABLET.DR. PO SCH (09:11)
[2021-11-27] MEDS: LISINOPRIL 20 MG TABLET PO SCH (09:11)
[2021-11-27] MEDS: CARVEDILOL 12.5 MG TABLET. PO SCH (09:11)
[2021-11-27] MEDS: FLUTICASONE 50MCG/NASAL SPRAY 16GM BOTTLE. NS SCH (09:12)
[2021-11-27] MEDS: INSULIN LISPRO 300 UNITS/3 ML VIAL. SQ SCH ×2 (09:15→12:03)
[2021-11-27] MEDS ORDERED: HALO2TAB PO (10:44)
[2021-11-27] MEDS ORDERED: ATOR20TA58 PO (10:44)
[2021-11-27] MEDS ORDERED: CLOP75TA PO (10:44)
[2021-11-27] MEDS ORDERED: METF10007 PO (10:44)
[2021-11-27] MEDS ORDERED: LISI-130 PO (10:44)
[2021-11-27] MEDS ORDERED: CARV12.511 PO (10:44)
--- NOTE | 2021-11-27 10:46 | PDOC3 ---
Discharge Summary Visit Information Date of Admission: Nov 24, 2021 Date of Discharge: Nov 27, 2021 Admitting Diagnosis: Chest pain, PCP intoxication Final Diagnosis Problems Medical Problems: (1) Chest pain Status: Acute (2) Elevated glucose Status: Acute (3) Elevated troponin Status: Acute Brief Hospital Course Allergies Allergies Coded Allergies Type Severity Reaction Last Updated Verified cod liver oil Adverse Reaction Intermediate "STREP THROAT" 11/07/21 Yes Vital Signs Vital Signs Date Time Temp Pulse Resp B/P (MAP) Pulse Ox O2 Delivery O2 Flow Rate FiO2 11/27/21 09:11 65 140/80 11/27/21 07:00 97.0 20 97 Room Air 97.0 Lab Results Laboratory Tests Test 11/25/21 11:15 11/25/21 17:04 11/25/21 20:47 11/26/21 01:55 Glucose (Fingerstick) 352 mg/dL (70-99) 176 mg/dL (70-99) 91 mg/dL (70-99) Sodium Level 140 mmol/L (136-145) Potassium Level 4.3 mmol/L (3.5-5.1) Chloride Level 107 mmol/L (98-107) Carbon Dioxide Level 25 mmol/L (21-32) Anion Gap 8 (6-14) Blood Urea Nitrogen 14 mg/dL (7-20) Creatinine 0.7 mg/dL (0.6-1.0) Estimated GFR (Cockcroft-Gault) 109.5 Glucose Level 137 mg/dL (70-99) Calcium Level 7.9 mg/dL (8.5-10.1) Test 11/26/21 07:23 11/26/21 11:16 11/26/21 11:40 11/26/21 16:22 Glucose (Fingerstick) 186 mg/dL (70-99) 199 mg/dL (70-99) 241 mg/dL (70-99) Troponin I High Sensitivity 998 ng/L (4-50) Test 11/26/21 20:30 11/27/21 03:15 11/27/21 08:08 Glucose (Fingerstick) 241 mg/dL (70-99) 201 mg/dL (70-99) Sodium Level 140 mmol/L (136-145) Potassium Level 3.9 mmol/L (3.5-5.1) Chloride Level 105 mmol/L (98-107) Carbon Dioxide Level 28 mmol/L (21-32) Anion Gap 7 (6-14) Blood Urea Nitrogen 11 mg/dL (7-20) Creatinine 0.7 mg/dL (0.6-1.0) Estimated GFR (Cockcroft-Gault) 109.5 Glucose Level 205 mg/dL (70-99) Calcium Level 8.0 mg/dL (8.5-10.1) Troponin I High Sensitivity 710 ng/L (4-50) Laboratory Tests Test 11/26/21 11:16 11/26/21 11:40 11/26/21 16:22 11/26/21 20:30 Glucose (Fingerstick) 199 mg/dL (70-99) 241 mg/dL (70-99) 241 mg/dL (70-99) Troponin I High Sensitivity 998 ng/L (4-50) Test 11/27/21 03:15 11/27/21 08:08 Sodium Level 140 mmol/L (136-145) Potassium Level 3.9 mmol/L (3.5-5.1) Chloride Level 105 mmol/L (98-107) Carbon Dioxide Level 28 mmol/L (21-32) Anion Gap 7 (6-14) Blood Urea Nitrogen 11 mg/dL (7-20) Creatinine 0.7 mg/dL (0.6-1.0) Estimated GFR (Cockcroft-Gault) 109.5 Glucose Level 205 mg/dL (70-99) Calcium Level 8.0 mg/dL (8.5-10.1) Troponin I High Sensitivity 710 ng/L (4-50) Glucose (Fingerstick) 201 mg/dL (70-99) Brief Hospital Course Ms Pagan is a 46-year-old female w/ PMHx DM2, HTN, CAD with prior stenting, smoker, polysubstance use disorder who presents to ED c/o cold exposure. She has chest pain, irregular heartbeat, and shortness of breath for the past several days prior to arrival. She insisted to ED staff that she was . DIfficult to redirect. Hallucinating Labs with negative serum HCG, WBC 8.9, Hb 12.5, platelets 310, NA 139, K4, BUN 11, CR 0.9, glucose 450, calcium 8.3, bilirubin 0.2, AST 7, ALT 22, alk phos 166, albumin 2.9, urine drug screen positive for phencyclidine and cannabinoids, urinalysis with large glucosuria. EKG sinus rhythm rate of 83 bpm, normal axis and intervals T flattening in the lateral leads and Q waves in inferior leads indicating possible prior inferior infarct. No acute ST segment elevations. QTc 476 Chest radiograph with cardiomegaly otherwise no acute findings 11/26: Chest pain-free today. Her high-sensitivity troponin came up over 1000 awaiting final lab draw. She stable on her meds glucose in the 100s. Her only question is can she have more food. Counseled on cessation of phencyclidine and smoking cessation. All questions answered to the best my abilities. 11/27: No chest pain. Still some increased appetite. HS troponin down to 710. States she needs all her meds refilled on discharge. Consults cardiology. Problem list: Chest pain - with elevated trop is NSTEMI. Has chronically elevated troponin. likely demand mediate due to phencyclidine intoxication Cold exposure - has peripheral circulation. avoid overwarming Hypertensive urgency - prn labetalol, hydralazine. 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 prior cocaine use as well ?Bipolar disorder - on risperidal, haloperidol with reasonably good effect. Follows at the [facility] H/o CAD s/p PCI/stents placement at [facility] in October 2019, stable H/o recent Covid-19 - recovered, was diagnosed on 11/07/2021 Diabetes type 2 - hold metformin for possibly angiography. Sliding scale plus lantus HLD - goal LDL < 80mg/dL given CAD history Tobacco use disorder - counseled on cessation Anxiety with Depression - on antipsychotics, not on any SSRI or SNRI or SNDRI Greater than 30 min spent on d/c Discharge Information Condition at Discharge: Improved Follow Up: Weeks (1) Disposition/Orders: D/C to Home Scheduled Aspirin (Aspirin Ec) 81 Mg Tablet., 81 MG PO [id number] for antiplatelet for 30 Days, #30 Ref 11 Prescribed by: KEELEY GREWAL MD on 05/23/21 1023 Last Action: Continued on 11/25/21 0800 by KEELEY GREWAL MD Atorvastatin Calcium (Atorvastatin Calcium) 20 Mg Tablet, 20 MG PO HS for FOR CHOLESTEROL for 30 Days, #30 Ref 5 Prescribed by: KEELEY GREWAL MD on 11/27/21 1044 Carvedilol (Carvedilol ) 12.5 Mg Tablet, 12.5 MG PO BIDWMEALS for CARDIAC for 30 Days, #60 Ref 5 Prescribed by: KEELEY GREWAL MD on 11/27/21 1044 Clonidine Hcl (Clonidine Hcl) 0.1 Mg Tablet, 0.1 MG PO DAILY for HTN, (Reported) Entered as Reported by: AMY HORTON on 09/21/212004 Clopidogrel Bisulfate (Clopidogrel) 75 Mg Tablet, 75 MG PO DAILY for TO PREVENT BLOOD CLOTS for 30 Days, #30 Ref 5 Prescribed by: KEELEY GREWAL MD on 11/27/21 1044 Fluticasone Propionate (Flonase Allergy Relief) 9.9 Ml [place].susp, 2 SPRAYS NS DAILY for ALLERGIES, (Reported) Entered as Reported by: AMY HORTON on 09/21/212004 Last Action: Converted on 11/25/21 0800 by KEELEY GREWAL MD Haloperidol (Haloperidol) 2 Mg Tablet, 2 MG PO DAILY for Mood disorder for 30 Days, #30 Ref 5 Prescribed by: KEELEY GREWAL MD on 11/27/21 1044 Lisinopril (Lisinopril) 40 Mg Tablet, 40 MG PO DAILY for FOR HYPERTENSION for 30 Days, #30 Ref 5 Prescribed by: KEELEY GREWAL MD on 11/27/21 1044 Metformin Hcl (Metformin Hcl) 500 Mg Tablet, 500 MG PO BIDWMEALS for DM2 for 30 Days, #60 Ref 2 Prescribed by: KEELEY GREWAL MD on 05/23/21 1023 Metformin Hcl (Metformin Hcl) 1,000 Mg Tablet, 1,000 MG PO BIDWMEALS for DM2 for 30 Days, #60 Ref 5 Prescribed by: KEELEY GREWAL MD on 11/27/21 1044 Risperidone (Risperdal) 2 Mg Tablet, 1 TAB PO QHS for Mood Disorder for 30 Days, #30 Ref 2 Prescribed by: KEELEY GREWAL MD on 05/23/21 1023 Last Action: Converted on 11/25/21 0800 by KEELEY GREWAL MD Scheduled PRN Acetaminophen (Acetaminophen) 500 Mg Tablet, 500 MG PO PRN Q6HRS PRN for PAIN, (Reported) Entered as Reported by: Salbador Moise on 10/04/212211 Albuterol Sulfate (Proair Hfa Inhaler) 8.5 Gm Hfa.aer.ad, 1 PUFF INH PRN Q6HRS PRN for SHORTNESS OF BREATH, Ref 0 (Reported) Entered as Reported by: AMY HORTON on 09/21/212004 Last Action: Continued on 11/25/21 08 by KEELEY GREWAL MD Albuterol Sulfate (Albuterol Sulfate Conc Neb Soln) 2.5 Mg/0.5 Ml Vial.neb, 1 VIAL NEB PRN Q4-6HRS PRN for SHORTNESS OF BREATH for 30 Days, #60 Ref 1 Prescribed by: KEELEY VELA MD on 09/23/21 1116 Hydroxyzine Hcl (Hydroxyzine Hcl) 25 Mg Tablet, 50 MG PO PRN DAILY PRN for ANXIETY / AGITATION, (Reported) Entered as Reported by: Salbador Moise on 10/04/212211 Last Action: Continued on 11/25/21 08 by KEELEY GREWAL MD Nitroglycerin (NITROGLYCERIN SubLingual) 0.4 Mg Tab.subl, 0.4 MG SL PRN Q5MIN PRN for CHEST PAIN, (Reported) Entered as Reported by: AMY HORTON on 09/21/212004 Last Action: Continued on 11/25/21 0800 by KEELEY GREWAL MD Durable Medical Equipment Nebulizer and Compressor (Compressor Nebulizer System) 1 Each Each, EACH MC 1- 2XD PRN for COUGH, #1 Ref 2, (DME) Use with albuterol nebulizer solution. Prescribed by: KEELEY VELA MD on 09/23/21 1118 Justicifation of Admission Dx: Justifications for Admission: Justification of Admission Dx: Yes Hypertension: Cresendo Worsening of Sym KEELEY GREWAL MD Nov 27, 2021 10:46
[2021-11-27 11:00] VITALS: BP 136/80
--- NOTE | 2021-11-27 14:16 | NUR ---
Discharge Note: BELKYS VAUGHN [address] [place] [address] Discharge instructions and discharge home medications reviewed with and a copy given. All questions have been answered and understanding verbalized. The following instructions and handouts were given: Diet, activity, medication list and follow up instructions provided to patient. 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 Discontinued lines and drains: Peripheral IV discontinued and catheter intact. Patient discharged to Home or Self Care with Self via Wheelchair with cab pass.
== END 2021-11-27 14:00 | disposition home or self-care (01) | DRG 917 ==
LOC: ER 18:36 → 6 SOUTH 21:57 → ER 22:27
PROVIDERS: ADMIT Internal Medicine; ATTEND Internal Medicine
DX: T40.991A Poisoning by other psychodysleptics [hallucinogens], accidental (unintentional), initial encounter (principal); I21.A1 Myocardial infarction type 2; G92.8 Other toxic encephalopathy; E11.65 Type 2 diabetes mellitus with hyperglycemia; E78.5 Hyperlipidemia, unspecified; F16.129 Hallucinogen abuse with intoxication, unspecified; F17.210 Nicotine dependence, cigarettes, uncomplicated; F29 Unspecified psychosis not due to a substance or known physiological condition; F31.9 Bipolar disorder, unspecified; F41.8 Other specified anxiety disorders; I11.9 Hypertensive heart disease without heart failure; I16.0 Hypertensive urgency; I25.10 Atherosclerotic heart disease of native coronary artery without angina pectoris; I49.9 Cardiac arrhythmia, unspecified; M06.9 Rheumatoid arthritis, unspecified; T69.9XXA Effect of reduced temperature, unspecified, initial encounter; X31.XXXA Exposure to excessive natural cold, initial encounter; Z82.49 Family history of ischemic heart disease and other diseases of the circulatory system; Z86.16 Personal history of COVID-19; Z91.14 Patient's other noncompliance with medication regimen; Z95.5 Presence of coronary angioplasty implant and graft; Z98.891 History of uterine scar from previous surgery; F12.10 Cannabis abuse, uncomplicated; F14.10 Cocaine abuse, uncomplicated; F41.9 Anxiety disorder, unspecified; M19.90 Unspecified osteoarthritis, unspecified site; T40.995A Adverse effect of other psychodysleptics [hallucinogens], initial encounter; Y92.89 Other specified places as the place of occurrence of the external cause; Z71.6 Tobacco abuse counseling
CPT/HCPCS: 36415; 71045; 80048; 80053; 80307; 81001; 82550; 82962; 84484; 84703; 85025; 87086; 93005; 96361; 96374; J1815; J7030; 99285-25; G0378

== ENCOUNTER 2021-12-01 15:00 | Inpatient (IN) | payer MEDICARE ==
[~2021-12-01] VITALS: Ht 165.1 cm; Wt 75.1 kg
[~2021-12-01 15:00] MED LIST changes: +METF10007 PO
--- NOTE | 2021-12-01 15:49 | PHYS DOC ---
Past Medical History Past Medical History: Diabetes-Type II, Hypertension Additional Past Medical Histor: Stent placement Past Surgical History: No Surgical History Additional Past Surgical Histo: Stent placement Smoking Status: Current Every Day Smoker Alcohol Use: Occasionally Drug Use: Cocaine, Marijuana, Phencyclidine General Adult EDM: Chief Complaint: HYPERTENSION HPI: HPI: Patient is a 46-year-old female who presents to the emergency department for hypertension. Patient was at a mental health follow-up appointment when they checked her blood pressure and reported that was 186/123 and sent her to the emergency department. Patient reports that she does take medications but is unsure of what they are called. She reports that she has been taking them as directed and has not missed any doses. Patient does have a history of hypertension and an SD. Patient denies chest pain, shortness of breath, dizziness, nausea, vomiting, suicidal or homicidal ideation. Review of Systems: Review of Systems: Constitutional: negative unless reported in HPI Eyes: negative unless reported in HPI HENT: negative unless reported in HPI Respiratory: negative unless reported in HPI Cardiovascular: negative unless reported in HPI GI: negative unless reported in HPI : negative unless reported in HPI Musculoskeletal: negative unless reported in HPI Integument: negative unless reported in HPI Neurologic: negative unless reported in HPI Endocrine: negative unless reported in HPI Lymphatic: negative unless reported in HPI Psychiatric: negative unless reported in HPI Heart Score: C/O Chest Pain: No Risk Factors: Risk Factors: DM, Current or recent (<one month) smoker, HTN, HLP, family history of CAD, obesity. Risk Scores: Score 0 - 3: 2.5% MACE over next 6 weeks - Discharge Home Score 4 - 6: 20.3% MACE over next 6 weeks - Admit for Clinical Observation Score 7 - 10: 72.7% MACE over next 6 weeks - Early Invasive Strategies Allergies: Allergies: Allergies Coded Allergies Type Severity Reaction Last Updated Verified cod liver oil Adverse Reaction Intermediate "STREP THROAT" 12/01/21 Yes Physical Exam: PE: Constitutional: Well developed, well nourished, no acute distress, non-toxic appearance. [] HENT: Normocephalic, atraumatic, bilateral external ears normal, oropharynx moist, no oral exudates, nose normal. [] Eyes: PERRL, EOMI, conjunctiva normal, no discharge. [] Neck: Normal range of motion, no stridor Cardiovascular:Heart rate tachycardic rhythm, no murmur [] Lungs & Thorax: Bilateral breath sounds clear to auscultation [] Abdomen: Bowel sounds normal, soft, no tenderness, no masses, no pulsatile masses. [] Skin: Warm, dry, no erythema, no rash. [] Back: Normal range of motion Extremities: No tenderness, no cyanosis, no clubbing, ROM intact, no edema. [] Neurologic: Alert and oriented X 3, normal motor function, normal sensory function, no focal deficits noted. [] Psychologic: Affect normal, judgement normal, mood normal. [] Current Patient Data: Labs: Laboratory Tests Test 12/01/21 16:05 12/01/21 16:45 12/01/21 16:48 White Blood Count 10.6 x10^3/uL Red Blood Count 4.53 x10^6/uL Hemoglobin 13.0 g/dL Hematocrit 40.3 % Mean Corpuscular Volume 89 fL Mean Corpuscular Hemoglobin 29 pg Mean Corpuscular Hemoglobin Concent 32 g/dL Red Cell Distribution Width 15.2 % Platelet Count 363 x10^3/uL Neutrophils (%) (Auto) 65 % Lymphocytes (%) (Auto) 26 % Monocytes (%) (Auto) 7 % Eosinophils (%) (Auto) 1 % Basophils (%) (Auto) 1 % Neutrophils # (Auto) 6.9 x10^3/uL Lymphocytes # (Auto) 2.8 x10^3/uL Monocytes # (Auto) 0.7 x10^3/uL Eosinophils # (Auto) 0.1 x10^3/uL Basophils # (Auto) 0.1 x10^3/uL Sodium Level 137 mmol/L Potassium Level 4.3 mmol/L Chloride Level 100 mmol/L Carbon Dioxide Level 29 mmol/L Anion Gap 8 Blood Urea Nitrogen 11 mg/dL Creatinine 0.8 mg/dL Estimated GFR (Cockcroft-Gault) 93.9 BUN/Creatinine Ratio 14 Glucose Level 348 mg/dL Calcium Level 8.7 mg/dL Total Bilirubin 0.2 mg/dL Aspartate Amino Transf (AST/SGOT) 5 U/L Alanine Aminotransferase (ALT/SGPT) 20 U/L Alkaline Phosphatase 167 U/L Troponin I High Sensitivity 5737 ng/L Total Protein 8.1 g/dL Albumin 3.2 g/dL Albumin/Globulin Ratio 0.7 Urine Collection Type Unknown Urine Color Yellow Urine Clarity Clear Urine pH 7.0 Urine Specific [place] >=1.030 Urine Protein 100 mg/dL Urine Glucose (UA) >=1000 mg/dL Urine Ketones (Stick) Negative mg/dL Urine Blood Negative Urine Nitrite Negative Urine Bilirubin Negative Urine Urobilinogen Dipstick 0.2 mg/dL Urine Leukocyte Esterase Negative Urine RBC 0 /HPF Urine WBC >40 /HPF Urine Squamous Epithelial Cells Mod /LPF Urine Bacteria 0 /HPF Urine Trichomonas Present Bedside Urine HCG, Qualitative Hcg negative Current Medications Medications (Trade) Dose Ordered Sig/Johanna Route PRN Reason Start Time Stop Time Status Last Admin Dose Admin Sodium Chloride 1,000 ml @ 1,000 mls/hr 1X ONCE IV 12/01/21 16:15 12/01/21 17:14 DC 12/01/21 16:32 Heparin Sodium (Porcine) (Heparin Sodium) 4,000 unit 1X ONCE IV 12/01/21 17:15 12/01/21 17:16 Heparin Sodium/ Dextrose 250 ml @ 9.6 mls/hr CONT PRN IV PER PROTOCOL 12/01/21 17:15 Heparin Sodium (Porcine) (Heparin Sodium) 2,000 unit PRN Q6HRS PRN IV FOR UFH LEVEL LESS THAN 0.2 12/01/21 17:15 Vital Signs: Vital Signs Date Time Temp Pulse Resp B/P (MAP) Pulse Ox O2 Delivery O2 Flow Rate FiO2 12/01/21 15:23 98.8 104 16 193/108 (136) 98 Room Air 98.8 EKG: EKG: EKG performed by ER staff at 1556 shows sinus tach with a rate of 100, QTc 452, no STEMI read by Dr. Morataya [] Radiology/Procedures: Radiology/Procedures: []PROCEDURE: PORTABLE CHEST 1V EXAM: CHEST 1 VIEW History: Hypertension COMPARISON: 11/24/21 01/09/2020 TECHNIQUE: 11/24/2019 FINDINGS: The cardiac silhouette is unremarkable. Minimal scattered airspace opacities bilateral lungs likely atelectasis or infiltrates.. The costophrenic sulci are clear and well demarcated. IMPRESSION: Minimal scattered airspace opacities bilateral lungs likely atelectasis or infiltrates. Electronically signed by: Chris Iraheta MD (12/01/2021 4:02 PM) [id number] DICTATED and SIGNED BY: CHRIS IRAHETA MD DATE: 12/01/21 [id number] 0 Course & Med Decision Making: Course & Med Decision Making Patient reports a history of hypertension and takes medications at home but is unsure of what they are called but states that she has not missed dose.Pertinent Labs and Imaging studies reviewed. (See chart for details) [] Patient presents to the emergency department for hypertension. Patient was sent to the emergency department from a mental health clinic after they checked her blood pressure and it was 186/123. Patient is asymptomatic at this time. She denies any chest pain, shortness of breath. Work-up in the ER consisted of blood work, EKG and chest x-ray. Patient's blood pressure has improved while in the emergency department. When she arrived she was 172/93. Patient's CBC is unremarkable. Troponin was elevated at 5737. Blood glucose was 348. EKG shows nonspecific changes. Discussed these findings with Dr. Rios cardiology and he advised to start patient heparin drip and keep her n.p.o. at midnight for catheterization in the morning. I discussed these findings with Dr. Fuentes who agreed to the patient under his services for non-STEMI. ER bridge orders placed at this time 1716. I notified patient of her results and her care plan she is agreeable at this time. Sandhya Disclaimer: Sandhya Disclaimer: This electronic medical record was generated, in whole or in part, using a voice recognition dictation system. Departure Departure Impression: Primary Impression: NSTEMI (non-ST elevated myocardial infarction) Disposition: ADMITTED INPATIENT Admitting Physician: DAE Condition: STABLE Referrals: UNKNOWN PCP NAME (PCP) ESA MORRIS APRN Dec 01, 2021 15:49
--- NOTE | 2021-12-01 16:05 | RAD ---
EXAM: CHEST 1 VIEW History: Hypertension COMPARISON: 11/24/21 01/09/2020 TECHNIQUE: 11/24/2019 FINDINGS: The cardiac silhouette is unremarkable. Minimal scattered airspace opacities bilateral christine gs likely atelectasis or infiltrates.. The costophrenic sulci are clear and well demarcated. IMPRESSION: Minimal scattered airspace opacities bilateral lungs likely atelectasis or infiltrates. Electronically signed by: Chris Ribera MD (12/01/2021 4:02 PM) [id number]
[2021-12-01 16:13] LABS: BASO # 0.1 x10^3/uL (0.0-0.2); BASO % 1 % (0-3); EOS # 0.1 x10^3/uL (0.0-0.7); EOS % 1 % (0-3); HEMATOCRIT 40.3 % (36.0-47.0); LYMPH # 2.8 x10^3/uL (1.0-4.8); LYMPH % 26 % (24-48); MEAN CORPUSCULAR HEMOGLOBIN 29 pg (25-35); MEAN CORPUSCULAR HGB CONC 32 g/dL (31-37); MEAN CORPUSCULAR VOLUME 89 fL (79-100); MONO # 0.7 x10^3/uL (0.0-1.1); MONO % 7 % (0-9); NEUT # 6.9 x10^3/uL (1.8-7.7); NEUT % 65 % (31-73); PLATELET COUNT 363 x10^3/uL (140-400); RED BLOOD COUNT 4.53 x10^6/uL (3.50-5.40); RED CELL DISTRIBUTION WIDTH 15.2 % (11.5-14.5); WHITE BLOOD COUNT 10.6 x10^3/uL (4.0-11.0)
[2021-12-01] MEDS ORDERED: IV NORMAL SALINE 1000ML BAG 1,000 ML IV ONE (16:15)
[2021-12-01 16:34] LABS: CALCIUM 8.7 mg/dL (8.5-10.1); CREATININE 0.8 mg/dL (0.6-1.0); GFR 93.9; POTASSIUM 4.3 mmol/L (3.5-5.1)
[2021-12-01 16:39] LABS: ALBUMIN 3.2 g/dL (3.4-5.0); ALBUMIN/GLOBULIN RATIO 0.7 (1.0-1.7); TOTAL BILIRUBIN 0.2 mg/dL (0.2-1.0); TOTAL PROTEIN 8.1 g/dL (6.4-8.2)
[2021-12-01 16:53] LABS: BILIRUBIN,URINE NEGATIVE (NEG); CLARITY,URINE CLEAR; COLOR,URINE YELLOW; NITRITE,URINE NEGATIVE (NEG); PROTEIN,URINE 100 mg/dL (NEG-TRACE); UROBILINOGEN,URINE 0.2 mg/dL (0.2 mg/dL)
[2021-12-01 17:00] LABS: BACTERIA,URINE 0 /HPF (0-FEW); RBC,URINE 0 /HPF (0-2); TRICHOMONAS,URINE PRESENT; WBC,URINE >40 /HPF (0-4)
[2021-12-01] MEDS ORDERED: HEPARIN for IV BOLUS 10,000 UNIT/10 ML VIAL. IV PRN ×2 (17:15→17:21)
[2021-12-01] MEDS ORDERED: HEPARIN for IV BOLUS 10,000 UNIT/10 ML VIAL. IV ONE (17:15)
[2021-12-01] MEDS ORDERED: HEPARIN 25,000UTS/250ML PREMIX 250 ML IV PRN (17:15)
[2021-12-01 17:22] LABS: BARBITURATES NEG (NEG); BENZODIAZEPINES NEG (NEG); CANNABINOIDS POS (NEG); COCAINE POS (NEG); METHADONE NEG (NEG); OPIATES NEG (NEG); PHENCYCLIDINE POS (NEG)
--- NOTE | 2021-12-01 17:23 | PDOC1 ---
History and Physical Date of Service: DOS: DATE: 12/01/21 TIME: 17:17 Chief Complaint: Chief Complain: Hypertension History of Present Illness: HPI: History obtained from discussion with the ED physician and chart review 46-year-old female who presents to the emergency department for hypertension. Patient was at a mental health follow-up appointment when they checked her blood pressure and reported that was 186/123 and sent her to the emergency department. Patient reports that she does take medications but is unsure of what they are called. She reports that she has been taking them as directed and has not missed any doses. Patient does have a history of hypertension and an TX. Patient denies chest pain, shortness of breath, dizziness, nausea, vomiting, suicidal or homicidal ideation. Past Medical/Surgical History: PMH/PSH: Past Medical History: Diabetes-Type II, Hypertension, Stent placement Past Surgical History: Stent placement Allergies: Allergies: Coded Allergies: cod liver oil (Verified Adverse Reaction, Intermediate, "STREP THROAT", 12/01/21) Family History: Family History: Reviewed with relevant findings in the chart Social History: Social History: Smoking Status: Current Every Day Smoker Alcohol Use: Occasionally Drug Use: Cocaine, Marijuana, Phencyclidine Current Medications: Current Medications Current Medications Sodium Chloride 1,000 ml @ 1,000 mls/hr 1X ONCE IV Last administered on 12/01/21at 16:32; Start 12/01/21 at 16:15; Stop 12/01/21 at 17:14; Status DC Heparin Sodium (Porcine) (Heparin Sodium) 4,000 unit 1X ONCE IV ; Start 12/01/21 at 17:15; Stop 12/01/21 at 17:16; Status DC Heparin Sodium/ Dextrose 250 ml @ 9.6 mls/hr CONT PRN IV PER PROTOCOL; Start 12/01/21 at 17:15 Heparin Sodium (Porcine) (Heparin Sodium) 2,000 unit PRN Q6HRS PRN IV FOR UFH LEVEL LESS THAN 0.2; Start 12/01/21 at 17:15 Active Scripts Active Metformin Hcl 1,000 Mg Tablet 1,000 Mg PO BIDWMEALS 30 Days Atorvastatin Calcium 20 Mg Tablet 20 Mg PO HS 30 Days Carvedilol (Carvedilol) 12.5 Mg Tablet 12.5 Mg PO BIDWMEALS 30 Days Haloperidol 2 Mg Tablet 2 Mg PO DAILY 30 Days Clopidogrel (Clopidogrel Bisulfate) 75 Mg Tablet 75 Mg PO DAILY 30 Days Lisinopril 40 Mg Tablet 40 Mg PO DAILY 30 Days Compressor Nebulizer System (Nebulizer and Compressor) 1 Each Each Each MC 1-2XD PRN Use with albuterol nebulizer solution. Albuterol Sulfate Conc Neb Soln (Albuterol Sulfate) 2.5 Mg/0.5 Ml Vial.neb 1 Vial NEB PRN Q4-6HRS PRN 30 Days Aspirin Ec (Aspirin) 81 Mg Tablet.dr 81 Mg PO DAILYWBKFT 30 Days Risperdal (Risperidone) 2 Mg Tablet 1 Tab PO QHS 30 Days Metformin Hcl 500 Mg Tablet 500 Mg PO BIDWMEALS 30 Days Reported Acetaminophen 500 Mg Tablet 500 Mg PO PRN Q6HRS PRN Hydroxyzine Hcl 25 Mg Tablet 50 Mg PO PRN DAILY PRN Proair Hfa Inhaler (Albuterol Sulfate) 8.5 Gm Hfa.aer.ad 1 Puff INH PRN Q6HRS PRN NITROGLYCERIN SubLingual (Nitroglycerin) 0.4 Mg Tab.subl 0.4 Mg SL PRN Q5MIN PRN Flonase Allergy Relief (Fluticasone Propionate) 9.9 Ml [place].susp 2 Sprays NS DAILY Clonidine Hcl 0.1 Mg Tablet 0.1 Mg PO DAILY ROS: Review of Systems Review of System REVIEW OF SYSTEMS: GENERAL: Denies weakness SKIN: No bruising, hair changes or rashes. EYES: No blurred, double or loss of vision. NOSE AND THROAT: No history of nosebleeds, hoarseness or sore throat. HEART: No history of palpitations, chest pain or shortness of breath on exertion. LUNGS: Denies cough, hemoptysis, wheezing or shortness of breath. GASTROINTESTINAL: Denies changes in appetite, nausea, vomiting, diarrhea or constipation. GENITOURINARY: No history of frequency, urgency, hesitancy or nocturia. NEUROLOGIC: Denies history of numbness, tingling, or tremor. PSYCHIATRIC: No history of panic, anxiety or depression. ENDOCRINE: No history of heat or cold intolerance, polyuria or polydipsia. EXTREMITIES: Denies joint pain, pain on walking or stiffness. Physical Exam: Vital Signs: Vital Signs Date Time Temp Pulse Resp B/P (MAP) Pulse Ox O2 Delivery O2 Flow Rate FiO2 12/01/21 15:23 98.8 104 16 193/108 (136) 98 Room Air 98.8 Physcial Exam: General: Well developed, well nourished, no acute distress, well appearing HEENT: Pupils equally round and reactive to light, EOMI, no discharge, normal conjunctiva Neck: Supple, no nuchal rigidity, no JVD, trachea midline, no tenderness Cardiac: RRR, no murmurs, no gallops, no rubs Chest/Lungs: CTAB, no wheeze, no rhonchi, no crackles Abdomen: soft, non-distended, no guarding, no peritoneal signs, non-tender Back: No tenderness Extremities: no edema, pulses intact, non-tender,capillary refill <3 sec bilateral upper and lower extremities, Neuro: Alert and oriented x 4, no focal deficits, normal speech Labs: Labs: Laboratory Tests Test 12/01/21 16:05 12/01/21 16:45 12/01/21 16:48 White Blood Count 10.6 x10^3/uL (4.0-11.0) Red Blood Count 4.53 x10^6/uL (3.50-5.40) Hemoglobin 13.0 g/dL (12.0-15.5) Hematocrit 40.3 % (36.0-47.0) Mean Corpuscular Volume 89 fL (79-100) Mean Corpuscular Hemoglobin 29 pg (25-35) Mean Corpuscular Hemoglobin Concent 32 g/dL (31-37) Red Cell Distribution Width 15.2 % (11.5-14.5) Platelet Count 363 x10^3/uL (140-400) Neutrophils (%) (Auto) 65 % (31-73) Lymphocytes (%) (Auto) 26 % (24-48) Monocytes (%) (Auto) 7 % (0-9) Eosinophils (%) (Auto) 1 % (0-3) Basophils (%) (Auto) 1 % (0-3) Neutrophils # (Auto) 6.9 x10^3/uL (1.8-7.7) Lymphocytes # (Auto) 2.8 x10^3/uL (1.0-4.8) Monocytes # (Auto) 0.7 x10^3/uL (0.0-1.1) Eosinophils # (Auto) 0.1 x10^3/uL (0.0-0.7) Basophils # (Auto) 0.1 x10^3/uL (0.0-0.2) Sodium Level 137 mmol/L (136-145) Potassium Level 4.3 mmol/L (3.5-5.1) Chloride Level 100 mmol/L (98-107) Carbon Dioxide Level 29 mmol/L (21-32) Anion Gap 8 (6-14) Blood Urea Nitrogen 11 mg/dL (7-20) Creatinine 0.8 mg/dL (0.6-1.0) Estimated GFR (Cockcroft-Gault) 93.9 BUN/Creatinine Ratio 14 (6-20) Glucose Level 348 mg/dL (70-99) Calcium Level 8.7 mg/dL (8.5-10.1) Total Bilirubin 0.2 mg/dL (0.2-1.0) Aspartate Amino Transf (AST/SGOT) 5 U/L (15-37) Alanine Aminotransferase (ALT/SGPT) 20 U/L (14-59) Alkaline Phosphatase 167 U/L (46-116) Troponin I High Sensitivity 5737 ng/L (4-50) Total Protein 8.1 g/dL (6.4-8.2) Albumin 3.2 g/dL (3.4-5.0) Albumin/Globulin Ratio 0.7 (1.0-1.7) Urine Collection Type Unknown Urine Color Yellow Urine Clarity Clear Urine pH 7.0 (<5.0-8.0) Urine Specific [place] >=1.030 (1.000-1.030) Urine Protein 100 mg/dL (NEG-TRACE) Urine Glucose (UA) >=1000 mg/dL (NEG) Urine Ketones (Stick) Negative mg/dL (NEG) Urine Blood Negative (NEG) Urine Nitrite Negative (NEG) Urine Bilirubin Negative (NEG) Urine Urobilinogen Dipstick 0.2 mg/dL (0.2 mg/dL) Urine Leukocyte Esterase Negative (NEG) Urine RBC 0 /HPF (0-2) Urine WBC >40 /HPF (0-4) Urine Squamous Epithelial Cells Mod /LPF Urine Bacteria 0 /HPF (0-FEW) Urine Trichomonas Present Bedside Urine HCG, Qualitative Hcg negative (Negative) Laboratory Tests Test 12/01/21 16:05 12/01/21 16:45 12/01/21 16:48 White Blood Count 10.6 x10^3/uL (4.0-11.0) Red Blood Count 4.53 x10^6/uL (3.50-5.40) Hemoglobin 13.0 g/dL (12.0-15.5) Hematocrit 40.3 % (36.0-47.0) Mean Corpuscular Volume 89 fL (79-100) Mean Corpuscular Hemoglobin 29 pg (25-35) Mean Corpuscular Hemoglobin Concent 32 g/dL (31-37) Red Cell Distribution Width 15.2 % (11.5-14.5) Platelet Count 363 x10^3/uL (140-400) Neutrophils (%) (Auto) 65 % (31-73) Lymphocytes (%) (Auto) 26 % (24-48) Monocytes (%) (Auto) 7 % (0-9) Eosinophils (%) (Auto) 1 % (0-3) Basophils (%) (Auto) 1 % (0-3) Neutrophils # (Auto) 6.9 x10^3/uL (1.8-7.7) Lymphocytes # (Auto) 2.8 x10^3/uL (1.0-4.8) Monocytes # (Auto) 0.7 x10^3/uL (0.0-1.1) Eosinophils # (Auto) 0.1 x10^3/uL (0.0-0.7) Basophils # (Auto) 0.1 x10^3/uL (0.0-0.2) Sodium Level 137 mmol/L (136-145) Potassium Level 4.3 mmol/L (3.5-5.1) Chloride Level 100 mmol/L (98-107) Carbon Dioxide Level 29 mmol/L (21-32) Anion Gap 8 (6-14) Blood Urea Nitrogen 11 mg/dL (7-20) Creatinine 0.8 mg/dL (0.6-1.0) Estimated GFR (Cockcroft-Gault) 93.9 BUN/Creatinine Ratio 14 (6-20) Glucose Level 348 mg/dL (70-99) Calcium Level 8.7 mg/dL (8.5-10.1) Total Bilirubin 0.2 mg/dL (0.2-1.0) Aspartate Amino Transf (AST/SGOT) 5 U/L (15-37) Alanine Aminotransferase (ALT/SGPT) 20 U/L (14-59) Alkaline Phosphatase 167 U/L (46-116) Troponin I High Sensitivity 5737 ng/L (4-50) Total Protein 8.1 g/dL (6.4-8.2) Albumin 3.2 g/dL (3.4-5.0) Albumin/Globulin Ratio 0.7 (1.0-1.7) Urine Collection Type Unknown Urine Color Yellow Urine Clarity Clear Urine pH 7.0 (<5.0-8.0) Urine Specific [place] >=1.030 (1.000-1.030) Urine Protein 100 mg/dL (NEG-TRACE) Urine Glucose (UA) >=1000 mg/dL (NEG) Urine Ketones (Stick) Negative mg/dL (NEG) Urine Blood Negative (NEG) Urine Nitrite Negative (NEG) Urine Bilirubin Negative (NEG) Urine Urobilinogen Dipstick 0.2 mg/dL (0.2 mg/dL) Urine Leukocyte Esterase Negative (NEG) Urine RBC 0 /HPF (0-2) Urine WBC >40 /HPF (0-4) Urine Squamous Epithelial Cells Mod /LPF Urine Bacteria 0 /HPF (0-FEW) Urine Trichomonas Present Bedside Urine HCG, Qualitative Hcg negative (Negative) Images: Images PROCEDURE: PORTABLE CHEST 1V EXAM: CHEST 1 VIEW History: Hypertension COMPARISON: 11/24/21 01/09/2020 TECHNIQUE: 11/24/2019 FINDINGS: The cardiac silhouette is unremarkable. Minimal scattered airspace opacities bilateral lungs likely atelectasis or infiltrates.. The costophrenic sulci are clear and well demarcated. IMPRESSION: Minimal scattered airspace opacities bilateral lungs likely atelectasis or infiltrates. Assessment/Plan Assessment/Plan Hypertensive urgency Acute NSTEMI Polysubstance abuse Hyperglycemia uncontrolled History of hypertension History of TX History of diabetes Admit to hospitalist for further evaluation PAT evaluation EKG showing no acute ST elevations Troponin 5737 Continue aspirin, consider Plavix if intermediate risk will defer this to card iology Cardiology consulted for predischarge stress testing or left heart cath Continue nitroglycerin as needed for pain Continue beta-ammon if blood pressures allow Continue high intensity statins IV morphine as needed Continue heparin drip Maintain O2 sats between 88 to 95% Trend troponins Repeat EKG in the a.m. Continue telemetry monitoring Monitor for electrolyte abnormalities Avoid NSAIDs Justifications for Admission Other Justification Altered mental status and elevated troponins CARLEE MACIAS MD Dec 01, 2021 17:23
[2021-12-01 17:25] LABS: AMPHETAMINE/METHAMPHETAMINE NEG (NEG)
[2021-12-01 19:55] VITALS: BP 190/120
--- NOTE | 2021-12-01 19:55 | PDOC2 ---
CONSULT Date of Consult Date of Consult DATE: 12/01/21 TIME: 19:55 Reason for Consult Reason for Consult: Non-STEMI Referring Physician Referring Physician: Dr. Fuentes Identification/Chief Complaint Chief Complaint Chest pain Source Source: Chart review, Patient History of Present Illness Reason for Visit: 46-year-old female with history of coronary artery disease and polysubstance abuse apparently was at a follow-up appointment at mental health clinic when she was noted to have significantly elevated blood pressure. She was also complaining of chest pain and hence was sent to our ED. She continues to complain of left-sided retrosternal chest pressure but denied any shortness of breath, palpitations or syncope. She has history of severe depression but denied any suicidal ideations. Her troponin level was significantly elevated prompting cardiology consultation. She has history of drug abuse and has had several admissions in the recent past for chest pain when her troponin level was slightly elevated but this time it is significantly elevated. She stated that she last used PCP 2 weeks ago and denied any cocaine use. Past Medical History Cardiovascular: CAD, HTN Pulmonary: No pertinent hx CENTRAL NERVOUS SYSTEM: Other GI: No pertinent hx Heme/Onc: No pertinent hx Psych: Anxiety, Bipolar Musculoskeletal: Osteoarthritis Rheumatologic: Rheumatoid arthritis Infectious disease: No pertinent hx Renal/: No pertinent hx Endocrine: Diabetes Past Surgical History Past Surgical History: , Tubal Ligation Family History Family History: Hypertension Social History ALCOHOL: none Drugs: Cocaine, Marijuana, Other Lives: with Family Domestic Violence: Neg Current Problem List Problem List Problems Medical Problems: (1) NSTEMI (non-ST elevated myocardial infarction) Status: Acute Current Medications Current Medications Current Medications Sodium Chloride 1,000 ml @ 1,000 mls/hr 1X ONCE IV Last administered on 12/01/21at 16:32; Start 12/01/21 at 16:15; Stop 12/01/21 at 17:14; Status DC Heparin Sodium (Porcine) (Heparin Sodium) 4,000 unit 1X ONCE IV Last administered on 12/01/21at 17:51; Start 12/01/21 at 17:15; Stop 12/01/21 at 17:16; Status DC Heparin Sodium/ Dextrose 250 ml @ 8.976 mls/ hr CONT PRN IV PER PROTOCOL Last administered on 12/01/21at 17:56; Start 12/01/21 at 17:15 Heparin Sodium (Porcine) (Heparin Sodium) 2,000 unit PRN Q6HRS PRN IV FOR UFH LEVEL LESS THAN 0.2; Start 12/01/21 at 17:15; Stop 12/01/21 at 17:21; Status DC Heparin Sodium (Porcine) (Heparin Sodium) 1,900 unit PRN Q6HRS PRN IV FOR UFH LEVEL LESS THAN 0.2; Start 12/01/21 at 17:21 Active Scripts Active Metformin Hcl 1,000 Mg Tablet 1,000 Mg PO BIDWMEALS 30 Days Atorvastatin Calcium 20 Mg Tablet 20 Mg PO HS 30 Days Carvedilol (Carvedilol) 12.5 Mg Tablet 12.5 Mg PO BIDWMEALS 30 Days Haloperidol 2 Mg Tablet 2 Mg PO DAILY 30 Days Clopidogrel (Clopidogrel Bisulfate) 75 Mg Tablet 75 Mg PO DAILY 30 Days Lisinopril 40 Mg Tablet 40 Mg PO DAILY 30 Days Compressor Nebulizer System (Nebulizer and Compressor) 1 Each Each Each MC 1-2XD PRN Use with albuterol nebulizer solution. Albuterol Sulfate Conc Neb Soln (Albuterol Sulfate) 2.5 Mg/0.5 Ml Vial.neb 1 Vial NEB PRN Q4-6HRS PRN 30 Days Aspirin Ec (Aspirin) 81 Mg Tablet.dr 81 Mg PO DAILYWBKFT 30 Days Risperdal (Risperidone) 2 Mg Tablet 1 Tab PO QHS 30 Days Metformin Hcl 500 Mg Tablet 500 Mg PO BIDWMEALS 30 Days Reported Acetaminophen 500 Mg Tablet 500 Mg PO PRN Q6HRS PRN Hydroxyzine Hcl 25 Mg Tablet 50 Mg PO PRN DAILY PRN Proair Hfa Inhaler (Albuterol Sulfate) 8.5 Gm Hfa.aer.ad 1 Puff INH PRN Q6HRS PRN NITROGLYCERIN SubLingual (Nitroglycerin) 0.4 Mg Tab.subl 0.4 Mg SL PRN Q5MIN PRN Flonase Allergy Relief (Fluticasone Propionate) 9.9 Ml [place].susp 2 Sprays NS DAILY Clonidine Hcl 0.1 Mg Tablet 0.1 Mg PO DAILY Allergies Allergies: Coded Allergies: cod liver oil (Verified Adverse Reaction, Intermediate, "STREP THROAT", 12/01/21) ROS PSYCHOLOGICAL ROS: No: Hallucinations Eyes: No Loss of vision HEENT: No: Epistaxis Respiratory: No: Hemoptysis Cardiovascular: yes Chest Pain Gastrointestinal: No Vomiting, No Diarrhea Genitourinary: No Hematuria Neurological: No Seizures Skin: No Rash Physical Exam General: No acute distress HEENT: Atraumatic Lungs: Clear to auscultation Heart: Regular rate Abdomen: Soft Extremities: No edema Neuro: Normal speech Vitals VITALS Vital Signs Date Time Temp Pulse Resp B/P (MAP) Pulse Ox O2 Delivery O2 Flow Rate FiO2 12/01/21 18:03 97 18 206/104 (138) 99 Room Air 12/01/21 15:23 98.8 98.8 Labs Labs Laboratory Tests Test 12/01/21 16:05 12/01/21 16:45 12/01/21 16:48 White Blood Count 10.6 x10^3/uL (4.0-11.0) Red Blood Count 4.53 x10^6/uL (3.50-5.40) Hemoglobin 13.0 g/dL (12.0-15.5) Hematocrit 40.3 % (36.0-47.0) Mean Corpuscular Volume 89 fL (79-100) Mean Corpuscular Hemoglobin 29 pg (25-35) Mean Corpuscular Hemoglobin Concent 32 g/dL (31-37) Red Cell Distribution Width 15.2 % (11.5-14.5) Platelet Count 363 x10^3/uL (140-400) Neutrophils (%) (Auto) 65 % (31-73) Lymphocytes (%) (Auto) 26 % (24-48) Monocytes (%) (Auto) 7 % (0-9) Eosinophils (%) (Auto) 1 % (0-3) Basophils (%) (Auto) 1 % (0-3) Neutrophils # (Auto) 6.9 x10^3/uL (1.8-7.7) Lymphocytes # (Auto) 2.8 x10^3/uL (1.0-4.8) Monocytes # (Auto) 0.7 x10^3/uL (0.0-1.1) Eosinophils # (Auto) 0.1 x10^3/uL (0.0-0.7) Basophils # (Auto) 0.1 x10^3/uL (0.0-0.2) Sodium Level 137 mmol/L (136-145) Potassium Level 4.3 mmol/L (3.5-5.1) Chloride Level 100 mmol/L (98-107) Carbon Dioxide Level 29 mmol/L (21-32) Anion Gap 8 (6-14) Blood Urea Nitrogen 11 mg/dL (7-20) Creatinine 0.8 mg/dL (0.6-1.0) Estimated GFR (Cockcroft-Gault) 93.9 BUN/Creatinine Ratio 14 (6-20) Glucose Level 348 mg/dL (70-99) Calcium Level 8.7 mg/dL (8.5-10.1) Total Bilirubin 0.2 mg/dL (0.2-1.0) Aspartate Amino Transf (AST/SGOT) 5 U/L (15-37) Alanine Aminotransferase (ALT/SGPT) 20 U/L (14-59) Alkaline Phosphatase 167 U/L (46-116) Troponin I High Sensitivity 5737 ng/L (4-50) Total Protein 8.1 g/dL (6.4-8.2) Albumin 3.2 g/dL (3.4-5.0) Albumin/Globulin Ratio 0.7 (1.0-1.7) Urine Collection Type Unknown Urine Color Yellow Urine Clarity Clear Urine pH 7.0 (<5.0-8.0) Urine Specific [place] >=1.030 (1.000-1.030) Urine Protein 100 mg/dL (NEG-TRACE) Urine Glucose (UA) >=1000 mg/dL (NEG) Urine Ketones (Stick) Negative mg/dL (NEG) Urine Blood Negative (NEG) Urine Nitrite Negative (NEG) Urine Bilirubin Negative (NEG) Urine Urobilinogen Dipstick 0.2 mg/dL (0.2 mg/dL) Urine Leukocyte Esterase Negative (NEG) Urine RBC 0 /HPF (0-2) Urine WBC >40 /HPF (0-4) Urine Squamous Epithelial Cells Mod /LPF Urine Bacteria 0 /HPF (0-FEW) Urine Trichomonas Present Urine Opiates Screen Neg (NEG) Urine Methadone Screen Neg (NEG) Urine Barbiturates Neg (NEG) Urine Phencyclidine Screen Pos (NEG) Urine Amphetamine/Methamphetamine Neg (NEG) Urine Benzodiazepines Screen Neg (NEG) Urine Cocaine Screen Pos (NEG) Urine Cannabinoids Screen Pos (NEG) Urine Ethyl Alcohol Neg (NEG) Bedside Urine HCG, Qualitative Hcg negative (Negative) Laboratory Tests Test 12/01/21 16:05 12/01/21 16:45 12/01/21 16:48 White Blood Count 10.6 x10^3/uL (4.0-11.0) Red Blood Count 4.53 x10^6/uL (3.50-5.40) Hemoglobin 13.0 g/dL (12.0-15.5) Hematocrit 40.3 % (36.0-47.0) Mean Corpuscular Volume 89 fL (79-100) Mean Corpuscular Hemoglobin 29 pg (25-35) Mean Corpuscular Hemoglobin Concent 32 g/dL (31-37) Red Cell Distribution Width 15.2 % (11.5-14.5) Platelet Count 363 x10^3/uL (140-400) Neutrophils (%) (Auto) 65 % (31-73) Lymphocytes (%) (Auto) 26 % (24-48) Monocytes (%) (Auto) 7 % (0-9) Eosinophils (%) (Auto) 1 % (0-3) Basophils (%) (Auto) 1 % (0-3) Neutrophils # (Auto) 6.9 x10^3/uL (1.8-7.7) Lymphocytes # (Auto) 2.8 x10^3/uL (1.0-4.8) Monocytes # (Auto) 0.7 x10^3/uL (0.0-1.1) Eosinophils # (Auto) 0.1 x10^3/uL (0.0-0.7) Basophils # (Auto) 0.1 x10^3/uL (0.0-0.2) Sodium Level 137 mmol/L (136-145) Potassium Level 4.3 mmol/L (3.5-5.1) Chloride Level 100 mmol/L (98-107) Carbon Dioxide Level 29 mmol/L (21-32) Anion Gap 8 (6-14) Blood Urea Nitrogen 11 mg/dL (7-20) Creatinine 0.8 mg/dL (0.6-1.0) Estimated GFR (Cockcroft-Gault) 93.9 BUN/Creatinine Ratio 14 (6-20) Glucose Level 348 mg/dL (70-99) Calcium Level 8.7 mg/dL (8.5-10.1) Total Bilirubin 0.2 mg/dL (0.2-1.0) Aspartate Amino Transf (AST/SGOT) 5 U/L (15-37) Alanine Aminotransferase (ALT/SGPT) 20 U/L (14-59) Alkaline Phosphatase 167 U/L (46-116) Troponin I High Sensitivity 5737 ng/L (4-50) Total Protein 8.1 g/dL (6.4-8.2) Albumin 3.2 g/dL (3.4-5.0) Albumin/Globulin Ratio 0.7 (1.0-1.7) Urine Collection Type Unknown Urine Color Yellow Urine Clarity Clear Urine pH 7.0 (<5.0-8.0) Urine Specific [place] >=1.030 (1.000-1.030) Urine Protein 100 mg/dL (NEG-TRACE) Urine Glucose (UA) >=1000 mg/dL (NEG) Urine Ketones (Stick) Negative mg/dL (NEG) Urine Blood Negative (NEG) Urine Nitrite Negative (NEG) Urine Bilirubin Negative (NEG) Urine Urobilinogen Dipstick 0.2 mg/dL (0.2 mg/dL) Urine Leukocyte Esterase Negative (NEG) Urine RBC 0 /HPF (0-2) Urine WBC >40 /HPF (0-4) Urine Squamous Epithelial Cells Mod /LPF Urine Bacteria 0 /HPF (0-FEW) Urine Trichomonas Present Urine Opiates Screen Neg (NEG) Urine Methadone Screen Neg (NEG) Urine Barbiturates Neg (NEG) Urine Phencyclidine Screen Pos (NEG) Urine Amphetamine/Methamphetamine Neg (NEG) Urine Benzodiazepines Screen Neg (NEG) Urine Cocaine Screen Pos (NEG) Urine Cannabinoids Screen Pos (NEG) Urine Ethyl Alcohol Neg (NEG) Bedside Urine HCG, Qualitative Hcg negative (Negative) Images Images ECHOCARDIOGRAM <Conclusion> The left ventricular systolic function is normal. The Ejection Fraction is 55%. There is normal LV segmental wall motion. Trace mitral regurgitation. Trace tricuspid regurgitation with an estimated PAP of 29 mmHg. There is no evidence of significant pericardial effusion. DATE: 10/06/21 Assessment/Plan Assessment/Plan 1. Acute NSTEMI: no acute EKG changes. Patient continues to complain of chest pain. Her troponin level is significantly elevated at 5737. This could be secondary to demand ischemia from uncontrolled hypertension but considering her previous history of coronary artery disease, she would benefit from cardiac catheterization. Risks and benefits were explained and she is agreeable. Start heparin infusion per protocol. 2. HTN urgency: Resume home medications and titrate for better blood pressure control. 3. Polysubstance abuse: Patient stated that her last use of PCP was 2 weeks ago and denied any cocaine use. We will check tox screen. 4. CAD: PCI/stents placement at [facility] in October 2019 5. Diabetes, II: Treat per IM 6. HLP: Continue statin therapy 7. Depression without any suicidal ideations Thank you for your consultation JOANA JUAN MD Dec 01, 2021 19:55
[2021-12-01] MEDS ORDERED: hydrOXYzine 25 MG TABLET PO PRN (20:15)
[2021-12-01] MEDS ORDERED: NON FORMULARY ITEM (Albuterol Sulfate (Albuterol Sulfate Conc Neb Soln) 1 VIAL) NEB PRN (20:15)
[2021-12-01] MEDS ORDERED: ALBUTEROL SULFATE 2.5 MG/3 ML NEBU. INH PRN ×2 (20:15→20:30)
[2021-12-01] MEDS ORDERED: ACETAMINOPHEN 500 MG TABLET PO PRN (20:15)
[2021-12-01] MEDS ORDERED: LORA0.5T96 PO (20:18)
[2021-12-01] MEDS: LISINOPRIL 20 MG TABLET PO SCH (21:31)
[2021-12-01] MEDS: risperiDONE 1 MG TABLET. PO SCH (21:31)
[2021-12-01] MEDS: cloNIDine HCL 0.1 MG TABLET PO SCH (21:31)
[2021-12-01 22:27] VITALS: BP 172/95
[2021-12-02] VITALS (16 sets, daily range): BP systolic 82–194; BP diastolic 50–110
--- NOTE | 2021-12-02 00:04 | EKG ---
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
[2021-12-02 05:36] LABS: BASO % 0 % (0-3); EOS # 0.1 x10^3/uL (0.0-0.7); EOS % 1 % (0-3); HEMATOCRIT 39.5 % (36.0-47.0); HEMOGLOBIN 12.7 g/dL (12.0-15.5); LYMPH % 32 % (24-48); MEAN CORPUSCULAR HEMOGLOBIN 29 pg (25-35); MEAN CORPUSCULAR HGB CONC 32 g/dL (31-37); MEAN CORPUSCULAR VOLUME 90 fL (79-100); MONO # 0.7 x10^3/uL (0.0-1.1); MONO % 7 % (0-9); NEUT # 5.4 x10^3/uL (1.8-7.7); NEUT % 59 % (31-73); PLATELET COUNT 290 x10^3/uL (140-400); RED BLOOD COUNT 4.39 x10^6/uL (3.50-5.40); RED CELL DISTRIBUTION WIDTH 14.9 % (11.5-14.5); WHITE BLOOD COUNT 9.2 x10^3/uL (4.0-11.0)
[2021-12-02 05:45] LABS: ALBUMIN 2.6 g/dL (3.4-5.0); ALBUMIN/GLOBULIN RATIO 0.6 (1.0-1.7); CREATININE 0.7 mg/dL (0.6-1.0); GFR 109.5; POTASSIUM 3.9 mmol/L (3.5-5.1); TOTAL BILIRUBIN 0.3 mg/dL (0.2-1.0); TOTAL PROTEIN 6.8 g/dL (6.4-8.2)
[2021-12-02] MEDS ORDERED: hydrALAZINE 20 MG/ML VIAL. IVP PRN (08:15)
[2021-12-02] MEDS ORDERED: LORazepam 0.5 MG TABLET PO PRN (08:30)
[2021-12-02] MEDS ORDERED: DEXTROSE 50% 25 GM / 50ML DISP.SYRIN. IV PRN (08:30)
[2021-12-02] MEDS ORDERED: hydrALAZINE 20 MG/ML VIAL. IVP ONE (08:30)
[2021-12-02] MEDS: cloNIDine HCL 0.1 MG TABLET PO SCH (08:33)
[2021-12-02] MEDS: HALOPERIDOL 2 MG TABLET. PO SCH (08:33)
[2021-12-02] MEDS: LISINOPRIL 20 MG TABLET PO SCH (08:33)
[2021-12-02] MEDS: FLUTICASONE 50MCG/NASAL SPRAY 16GM BOTTLE. NS SCH (08:34)
[2021-12-02] MEDS: INSULIN GLARGINE SYRINGE. SQ SCH ×2 (09:18→21:00)
[2021-12-02] MEDS ORDERED: IODIXANOL 320 MG/ML 100 ML VIAL. ONE ×2 (09:25→10:32)
[2021-12-02] MEDS ORDERED: LIDOCAINE 1% PF 2 ML VIAL. ONE (09:30)
[2021-12-02] MEDS ORDERED: VERAPAMIL 5 MG/2 ML VIAL. ONE ×2 (09:33→10:00)
[2021-12-02] MEDS ORDERED: NITROGLYCERIN 200 MCG/2 ML SYRINGE FOR CATH/VASC LAB. ONE ×2 (09:33→10:33)
[2021-12-02] MEDS ORDERED: MIDAZOLAM HCL/PF 2 MG/2 ML VIAL. ONE (09:33)
[2021-12-02] MEDS ORDERED: fentaNYL PF VIAL 100 MCG/2 ML VIAL ONE (09:33)
[2021-12-02] MEDS ORDERED: HEPARIN for IV BOLUS 10,000 UNIT/10 ML VIAL. ONE (09:33)
[2021-12-02] MEDS ORDERED: fentaNYL PF VIAL 100 MCG/2 ML VIAL IV ONE (09:45)
[2021-12-02] MEDS ORDERED: IODIXANOL 320 MG/ML 100 ML VIAL. IART ONE (09:45)
[2021-12-02] MEDS ORDERED: NITROGLYCERIN 200 MCG/2 ML SYRINGE FOR CATH/VASC LAB. IART ONE (09:45)
[2021-12-02] MEDS ORDERED: VERAPAMIL 5 MG/2 ML VIAL. IART ONE (09:45)
[2021-12-02] MEDS ORDERED: LIDOCAINE 1% PF 2 ML VIAL. INJ ONE (09:45)
[2021-12-02] MEDS ORDERED: MIDAZOLAM HCL/PF 2 MG/2 ML VIAL. IV ONE (09:45)
[2021-12-02] MEDS ORDERED: HEPARIN for IV BOLUS 10,000 UNIT/10 ML VIAL. IART ONE (09:45)
[2021-12-02] MEDS ORDERED: CONTRAST GIVEN. MC PRN (10:00)
[2021-12-02] MEDS ORDERED: LIDOCAINE 1% Multi-Dose 20 ML VIAL. ONE (10:23)
--- NOTE | 2021-12-02 10:27 | NUR ---
SS following for discharge planning. SS reviewed pt chart and discussed with pt RN. Pt is from home and is currently on room air. Cardiology consulted. Pt positive for PCP, Cocaine, and THC. Pt has Medicare and disability and active services through the [facility] and [facility]. Pt has had referrals to [facility] and [facility] outpatient services. Pt has a history of non-compliance. Heart cath today. SS will continue to follow for discharge planning.
[2021-12-02] MEDS ORDERED: LIDOCAINE 1% Multi-Dose 20 ML VIAL. INJ ONE (10:30)
--- NOTE | 2021-12-02 10:58 | PDOC ---
MODERATE SEDATION ASSESSMENT RISKS/ALTERNATIVES Risks/Alternatives Risks and alternatives of this type of sedation and procedure discussed with: RISK/ALTERNATIVES: Patient H & P ON CHART H & P H & P on chart and reviewed for co-morbid conditions and appropriate labs. H&P ON CHART: Yes STATUS PREG STATUS ASSESSED: N/A MEDS/ALLERGIES REVIEWED Meds/Allergies Reviewed Medications and Allergies including time and route of recently administered narcotics and sedatives. MEDS/ALLERGIES REVIEWED: Yes ASA RATING ASA RATING: III AIRWAY ASSESSMENT Airway Assessment Airway patency, oral function limitations, presence of caps, crowns, dentures, partials, and ability to extend neck assessed. AIRWAY ASSESSMENT: Yes MALLAMPATI SCORE MALLAMPATI SCORE: II PRE-SEDATION ASSESSMENT PRE-SEDATION ASSESSMENT: Yes JOANA JUAN MD Dec 02, 2021 10:58
[2021-12-02] MEDS ORDERED: NITROGLYCERIN SUBLINGUAL 0.4 MG BOTTLE OF 25. SL PRN (11:00)
--- NOTE | 2021-12-02 11:11 | CARD ---
MR#: [id number] Date of Study: 12/02/2021 Ordering Physician: JOANA RIOS, Referring Physician: JOANA RIOS Tech: RT Mikhail(R) APPROVED REPORT Technologist: RT Mikhail(R) Nurse: May Logan RN Procedure(s) performed: Left heart catheterization, selective coronary angiography and left ventricul ography MODERATE SEDATION TIME: 41 MINUTES FLUORO TIME:3.8 MIN DOSE: 48.8 GYCM2 CONTRAST: 115CC VISI INDICATION The indication(s) include : non-STEMI . [facility] Clinical Frailty Scale [facility] Clinical Frailty Scale: Moderately Frail Heart Failure Heart Failure: No CASE TECHNIQUE IV conscious sedation was used throughout procedure with appropriate monitoring and was performed in the presence of a registered nurse who was an independent trained observer other than the physician p erforming the procedure. During this case, Fluoroscopy and low osmolar contrast were used for imaging . Specimen(s) Removed: No Estimated Blood loss: 15 cc's. PROCEDURE NARRATIVE After explaining the risk, benefits and alternative options, informed consent was obtained from patie nt. Patient was brought to the cardiac Disintegrator Feeder and her right wrist and right groin were prepped and draped in the usual fashion after confirming a positive modified Alan's test. Attempts to obtain r ight radial arterial access were unsuccessful due to small caliber nature of the vessel. 20 cc of 2% lidocaine was infiltrated into the skin and subcutaneous tissues of the right groin for local anesth esia. Arterial access was obtained in the right common femoral artery and a 6 Beninese sheath was inse rted. 6 Beninese JL4 and 6 Beninese JR4 catheters were used to perform selective angiography of the left and right coronary arteries. 6 Beninese pigtail catheter was used to perform left ventriculography. Patient tolerated the procedure well. Hemostasis was achieved using Angio-Seal. There were no immed iate complications. FINDINGS 1. Hemodynamics: Left ventricular end-diastolic pressure 8 mmHg. No pullback gradient across aortic valve. 2. Left ventriculography: Posterobasal wall hypokinesis with ejection fraction estimated at 50 to 55 %. No significant mitral regurgitation seen. 3. Coronary angiography: a. The left main coronary artery arose from the left sinus of Valsalva, gave rise to the left and to descending and left circumflex arteries and did not show any significant stenosis b. The left anterior descending artery did not show any significant stenosis. c. The left circumflex artery showed 99% in-stent thrombosis in the proximal to mid segment. The fi rst obtuse marginal branch showed 70% stenosis in the proximal segment. Distally the vessel is a sma ll caliber vessel and was already feeling faintly with collaterals. d. The right coronary artery was a large and dominant vessel arising from the right sinus of Valsalv a that showed mild spasm in the proximal segment which resolved completely after intracoronary nitrog lycerin administration. No significant lesions were noted. Conclusion 1. 99% in-stent thrombosis involving the proximal to mid segment of left circumflex artery with smal l caliber vessel distally. There is mild right coronary artery vasospasm probably secondary to patie nt's cocaine use, that resolved completely with intracoronary nitroglycerin administration. 2. Posterobasal wall hypokinesis with ejection fraction estimated at 50 to 55%. Recommendations In lieu of the fact that patient's troponin levels are already trending down, there are no acute EKG changes, patient is presently chest pain-free and due to small caliber vessel distally, we will manag e patient medically especially with her known noncompliant history and polysubstance abuse. Start Ag grastat infusion per protocol. Signed by : Joana Rios, Electronically Approved : 12/02/2021 11:11:06
--- NOTE | 2021-12-02 11:27 | PDOC ---
[facility] PROGRESS NOTE Date of Service DOS: DATE: 12/02/21 TIME: 11:25 Chief Complaint Chief Complaint Assessment/Plan Hypertensive urgency Acute NSTEMI Polysubstance abuse Hyperglycemia uncontrolled History of hypertension History of MD History of diabetes History of depression without SI or HI Admit to hospitalist for further evaluation PAT evaluation EKG showing no acute ST elevations Troponin 5737 Continue aspirin, consider Plavix if intermediate risk will defer this to cardiology Cardiology consulted for predischarge stress testing or left heart cath Continue nitroglycerin as needed for pain Continue beta-ammon if blood pressures allow Continue high intensity statins IV morphine as needed Continue heparin drip Maintain O2 sats between 88 to 95% Trend troponins Repeat EKG in the a.m. Continue telemetry monitoring Monitor for electrolyte abnormalities Avoid NSAIDs History of Present Illness History of Present Illness 46-year-old female who presents to the emergency department for hypertension. Patient was at a mental health follow-up appointment when they checked her blood pressure and reported that was 186/123 and sent her to the emergency department. Patient reports that she does take medications but is unsure of what they are called. She reports that she has been taking them as directed and has not missed any doses. Patient does have a history of hypertension and an MD. Patient denies chest pain, shortness of breath, dizziness, nausea, vomiting, suicidal or homicidal ideation. 2-year 1122 No acute events overnight. Patient seen examined bedside. Patient taken down to the Collision Worker for diagnostic intervention. Patient's chart, labs, images were reviewed and discussed with RN Vitals/I&O Vitals/I&O: Vital Signs Date Time Temp Pulse Resp B/P (MAP) Pulse Ox O2 Delivery O2 Flow Rate FiO2 12/02/21 11:00 98.0 76 18 91/54 (66) 98 Room Air 98.0 12/02/21 10:53 2.0 I & O 12/01/21 12/01/21 12/02/21 15:00 23:00 07:00 Intake Total 800 ml 0 ml Balance 800 ml 0 ml Physical Exam General: Alert, No acute distress Heart: Regular rate Lungs: Clear Abdomen: Soft Extremities: No edema Labs Labs: Laboratory Tests Test 12/01/21 16:05 12/01/21 16:45 12/01/21 16:48 12/01/21 20:40 White Blood Count 10.6 x10^3/uL (4.0-11.0) Red Blood Count 4.53 x10^6/uL (3.50-5.40) Hemoglobin 13.0 g/dL (12.0-15.5) Hematocrit 40.3 % (36.0-47.0) Mean Corpuscular Volume 89 fL (79-100) Mean Corpuscular Hemoglobin 29 pg (25-35) Mean Corpuscular Hemoglobin Concent 32 g/dL (31-37) Red Cell Distribution Width 15.2 % (11.5-14.5) Platelet Count 363 x10^3/uL (140-400) Neutrophils (%) (Auto) 65 % (31-73) Lymphocytes (%) (Auto) 26 % (24-48) Monocytes (%) (Auto) 7 % (0-9) Eosinophils (%) (Auto) 1 % (0-3) Basophils (%) (Auto) 1 % (0-3) Neutrophils # (Auto) 6.9 x10^3/uL (1.8-7.7) Lymphocytes # (Auto) 2.8 x10^3/uL (1.0-4.8) Monocytes # (Auto) 0.7 x10^3/uL (0.0-1.1) Eosinophils # (Auto) 0.1 x10^3/uL (0.0-0.7) Basophils # (Auto) 0.1 x10^3/uL (0.0-0.2) Sodium Level 137 mmol/L (136-145) Potassium Level 4.3 mmol/L (3.5-5.1) Chloride Level 100 mmol/L (98-107) Carbon Dioxide Level 29 mmol/L (21-32) Anion Gap 8 (6-14) Blood Urea Nitrogen 11 mg/dL (7-20) Creatinine 0.8 mg/dL (0.6-1.0) Estimated GFR (Cockcroft-Gault) 93.9 BUN/Creatinine Ratio 14 (6-20) Glucose Level 348 mg/dL (70-99) Calcium Level 8.7 mg/dL (8.5-10.1) Total Bilirubin 0.2 mg/dL (0.2-1.0) Aspartate Amino Transf (AST/SGOT) 5 U/L (15-37) Alanine Aminotransferase (ALT/SGPT) 20 U/L (14-59) Alkaline Phosphatase 167 U/L (46-116) Troponin I High Sensitivity 5737 ng/L (4-50) Total Protein 8.1 g/dL (6.4-8.2) Albumin 3.2 g/dL (3.4-5.0) Albumin/Globulin Ratio 0.7 (1.0-1.7) Urine Collection Type Unknown Urine Color Yellow Urine Clarity Clear Urine pH 7.0 (<5.0-8.0) Urine Specific [place] >=1.030 (1.000-1.030) Urine Protein 100 mg/dL (NEG-TRACE) Urine Glucose (UA) >=1000 mg/dL (NEG) Urine Ketones (Stick) Negative mg/dL (NEG) Urine Blood Negative (NEG) Urine Nitrite Negative (NEG) Urine Bilirubin Negative (NEG) Urine Urobilinogen Dipstick 0.2 mg/dL (0.2 mg/dL) Urine Leukocyte Esterase Negative (NEG) Urine RBC 0 /HPF (0-2) Urine WBC >40 /HPF (0-4) Urine Squamous Epithelial Cells Mod /LPF Urine Bacteria 0 /HPF (0-FEW) Urine Trichomonas Present Urine Opiates Screen Neg (NEG) Urine Methadone Screen Neg (NEG) Urine Barbiturates Neg (NEG) Urine Phencyclidine Screen Pos (NEG) Urine Amphetamine/Methamphetamine Neg (NEG) Urine Benzodiazepines Screen Neg (NEG) Urine Cocaine Screen Pos (NEG) Urine Cannabinoids Screen Pos (NEG) Urine Ethyl Alcohol Neg (NEG) Bedside Urine HCG, Qualitative Hcg negative (Negative) Glucose (Fingerstick) 351 mg/dL (70-99) Test 12/01/21 20:50 12/02/21 00:00 12/02/21 04:15 12/02/21 08:33 Troponin I High Sensitivity 5096 ng/L (4-50) 4886 ng/L (4-50) White Blood Count 9.2 x10^3/uL (4.0-11.0) Red Blood Count 4.39 x10^6/uL (3.50-5.40) Hemoglobin 12.7 g/dL (12.0-15.5) Hematocrit 39.5 % (36.0-47.0) Mean Corpuscular Volume 90 fL (79-100) Mean Corpuscular Hemoglobin 29 pg (25-35) Mean Corpuscular Hemoglobin Concent 32 g/dL (31-37) Red Cell Distribution Width 14.9 % (11.5-14.5) Platelet Count 290 x10^3/uL (140-400) Neutrophils (%) (Auto) 59 % (31-73) Lymphocytes (%) (Auto) 32 % (24-48) Monocytes (%) (Auto) 7 % (0-9) Eosinophils (%) (Auto) 1 % (0-3) Basophils (%) (Auto) 0 % (0-3) Neutrophils # (Auto) 5.4 x10^3/uL (1.8-7.7) Lymphocytes # (Auto) 3.0 x10^3/uL (1.0-4.8) Monocytes # (Auto) 0.7 x10^3/uL (0.0-1.1) Eosinophils # (Auto) 0.1 x10^3/uL (0.0-0.7) Basophils # (Auto) 0.0 x10^3/uL (0.0-0.2) Heparin Anti-Xa Act, Unfractionated < 0.10 IU/mL (0.30-0.70) Sodium Level 137 mmol/L (136-145) Potassium Level 3.9 mmol/L (3.5-5.1) Chloride Level 103 mmol/L (98-107) Carbon Dioxide Level 27 mmol/L (21-32) Anion Gap 7 (6-14) Blood Urea Nitrogen 11 mg/dL (7-20) Creatinine 0.7 mg/dL (0.6-1.0) Estimated GFR (Cockcroft-Gault) 109.5 BUN/Creatinine Ratio 16 (6-20) Glucose Level 284 mg/dL (70-99) Calcium Level 8.0 mg/dL (8.5-10.1) Total Bilirubin 0.3 mg/dL (0.2-1.0) Aspartate Amino Transf (AST/SGOT) 7 U/L (15-37) Alanine Aminotransferase (ALT/SGPT) 20 U/L (14-59) Alkaline Phosphatase 130 U/L (46-116) Total Protein 6.8 g/dL (6.4-8.2) Albumin 2.6 g/dL (3.4-5.0) Albumin/Globulin Ratio 0.6 (1.0-1.7) Glucose (Fingerstick) 253 mg/dL (70-99) Test 12/02/21 08:52 SARS-CoV-2 Antigen (Rapid) Negative (NEGATIVE) Assessment and Plan Assessmemt and Plan Problems Medical Problems: (1) NSTEMI (non-ST elevated myocardial infarction) Status: Acute Comment Review of Relevant I have reviewed the following items sincere (where applicable) has been applied. Medications: Current Medications Medications (Trade) Dose Ordered Sig/Johanna Route PRN Reason Start Time Stop Time Status Last Admin Dose Admin Sodium Chloride 1,000 ml @ 1,000 mls/hr 1X ONCE IV 12/01/21 16:15 12/01/21 17:14 DC 12/01/21 16:32 Heparin Sodium (Porcine) (Heparin Sodium) 4,000 unit 1X ONCE IV 12/01/21 17:15 12/01/21 17:16 DC 12/01/21 17:51 Heparin Sodium/ Dextrose 250 ml @ 8.976 mls/ hr CONT PRN IV PER PROTOCOL 12/01/21 17:15 12/01/21 17:56 Heparin Sodium (Porcine) (Heparin Sodium) 1,900 unit PRN Q6HRS PRN IV FOR UFH LEVEL LESS THAN 0.2 12/01/21 17:21 12/02/21 06:12 Clonidine HCl (Catapres) 0.1 mg DAILY PO 12/01/21 21:00 12/02/21 08:33 Haloperidol (Haldol) 2 mg DAILY PO 12/02/21 09:00 12/02/21 08:33 Hydroxyzine HCl (Atarax) 50 mg PRN DAILY PRN PO ANXIETY / AGITATION 12/01/21 20:15 12/01/21 21:30 Lisinopril (Prinivil) 40 mg DAILY PO 12/01/21 21:00 12/02/21 08:33 Fluticasone Propionate (Flonase) 2 spray DAILY NS 12/02/21 09:00 12/02/21 08:34 Risperidone (RisperDAL) 2 mg QHS PO 12/01/21 21:00 12/01/21 21:31 Hydralazine HCl (Apresoline Inj) 10 mg 1X ONCE IVP 12/02/21 08:30 12/02/21 08:31 DC 12/02/21 08:34 Insulin Glargine (Lantus Syringe) 10 unit BID SQ 12/02/21 09:00 12/02/21 09:18 Heparin Sodium/ Sodium Chloride (HEPARIN for ARTERIAL LINE FLUSH) 1,000 unit 1X ONCE IART 12/02/21 09:45 12/02/21 09:49 DC 12/02/21 09:45 Heparin Sodium/ Sodium Chloride (HEPARIN for ARTERIAL LINE FLUSH) 1,000 unit 1X ONCE IART 12/02/21 09:45 12/02/21 09:49 DC 12/02/21 09:45 Midazolam HCl (Versed) 2 mg 1X ONCE IV 12/02/21 09:45 12/02/21 09:49 DC 12/02/21 10:14 Fentanyl Citrate (Fentanyl 2ml Vial) 100 mcg 1X ONCE IV 12/02/21 09:45 12/02/21 09:49 DC 12/02/21 10:14 Iodixanol (Visipaque 320) 100 ml 1X ONCE IART 12/02/21 09:45 12/02/21 09:49 DC 12/02/21 10:44 Lidocaine HCl (Xylocaine-Mpf 1% 2ml Vial) 2 ml 1X ONCE INJ 12/02/21 09:45 12/02/21 09:49 DC 12/02/21 10:13 Lidocaine HCl (Lidocaine 1% 20ml Vial) 20 ml 1X ONCE INJ 12/02/21 10:30 12/02/21 10:31 DC 12/02/21 10:22 Justifications for Admission Other Justification Altered mental status and elevated troponins CARLEE MACIAS MD Dec 02, 2021 11:27
[2021-12-02] MEDS: TIROFIBAN 5MG -0.9% NS 100 ML IV PRN ×2 (11:48→19:41)
[2021-12-02] MEDS: INSULIN LISPRO 300 UNITS/3 ML VIAL. SQ SCH ×2 (11:48→16:44)
[2021-12-02] MEDS: IV 1/2 NORMAL SALINE 1,000 ML IV SCH (11:49)
[2021-12-02] MEDS: ASPIRIN ENTERIC COATED 81 MG TABLET.DR. PO SCH (15:00)
[2021-12-02] MEDS: risperiDONE 1 MG TABLET. PO SCH (20:59)
[2021-12-02] MEDS ORDERED: ATORVASTATIN CALCIUM 20 MG TABLET PO SCH (21:00)
[2021-12-02] MEDS ORDERED: ATORVASTATIN CALCIUM 40 MG TABLET. PO SCH (21:00)
[2021-12-03 03:42] VITALS: BP 121/57
[2021-12-03] MEDS: IV 1/2 NORMAL SALINE 1,000 ML IV SCH (03:42)
[2021-12-03 07:45] VITALS: BP 132/89
[2021-12-03] MEDS ORDERED: CLOPIDOGREL BISULFATE 75 MG TABLET PO SCH (08:00)
[2021-12-03] MEDS: LISINOPRIL 20 MG TABLET PO SCH (08:57)
[2021-12-03] MEDS: HALOPERIDOL 2 MG TABLET. PO SCH ×2 (08:57→09:00)
[2021-12-03] MEDS: cloNIDine HCL 0.1 MG TABLET PO SCH (08:57)
[2021-12-03] MEDS: ASPIRIN ENTERIC COATED 81 MG TABLET.DR. PO SCH (08:57)
[2021-12-03] MEDS: FLUTICASONE 50MCG/NASAL SPRAY 16GM BOTTLE. NS SCH (08:58)
[2021-12-03] MEDS: INSULIN GLARGINE SYRINGE. SQ SCH (09:00)
[2021-12-03] MEDS: INSULIN LISPRO 300 UNITS/3 ML VIAL. SQ SCH ×3 (09:00→17:45)
--- NOTE | 2021-12-03 09:06 | DISCH ---
DISCHARGE INSTRUCTIONS Condition on Discharge Condition on Discharge: Stable Activity After Discharge Activity Instructions for Disc: Activity as tolerated Exercise Instruction after Dis: Walk 15 min, 3 x per day Driving Instructions after Dis: Do not drive Weight Bearing Status after Di: As tolerated Diet after Discharge Diet after Discharge: Cardiac, Diabetic No Calorie Level Diet Texture: Regular Liquid Texture: No Liquids Checks after Discharge Checks after discharge: Check blood press - daily, Check blood sugar, ac/hs, Check your Temp as needed Follow-Up Follow up with: PCP within 2 weeks of discharge Follow Up With: Cardiology as needed or as scheduled CARLEE MACIAS MD Dec 03, 2021 09:06
[2021-12-03 10:34] VITALS: BP 109/72
[2021-12-03 14:24] VITALS: BP 109/66
--- NOTE | 2021-12-03 18:08 | PDOC ---
CARDIOLOGY PROGRESS NOTE SUBJECTIVE: No acute events overnight. The patient appears to be groggy. OBJECTIVE: Vital Signs/I&O: Vital Signs Date Time Temp Pulse Resp B/P (MAP) Pulse Ox O2 Delivery O2 Flow Rate FiO2 12/03/21 14:24 98.0 74 18 109/66 (80) 98 Room Air 98.0 12/02/21 10:53 2.0 I & O 12/02/21 12/02/21 12/03/21 15:00 23:00 07:00 Intake Total 0 ml 150 ml Balance 0 ml 150 ml Objective: GEN.: No apparent distress. Appears tired and groggy HEENT: Head is normocephalic, atraumatic NECK: Supple. LUNGS: Clear to auscultation. HEART: RRR, S1, S2 present. Peripheral pulses intact ABDOMEN: Soft, nontender. Positive bowel sounds. EXTREMITIES: Without any cyanosis. NEUROLOGIC: Normal speech, normal tone PSYCHIATRIC: flat affect SKIN: No ulcerations CURRENT MEDICATIONS: Current Medications Medications (Trade) Dose Ordered Sig/Johanna Route PRN Reason Start Time Stop Time Status Last Admin Dose Admin Atorvastatin Calcium (Lipitor) 40 mg HS PO 12/02/21 21:00 12/02/21 20:59 Clopidogrel Bisulfate (Plavix) 75 mg DAILYWBKFT PO 12/03/21 08:00 12/03/21 08:57 DIAGNOSTIC TESTING: Labs and cardiac catheterization reviewed Labs: Laboratory Tests Test 12/02/21 20:33 12/03/21 08:09 12/03/21 11:55 12/03/21 17:23 Glucose (Fingerstick) 138 mg/dL (70-99) H 250 mg/dL (70-99) H 140 mg/dL (70-99) H 189 mg/dL (70-99) H ASSESSMENT: 1. Acute NSTEMI: Type II secondary to drug abuse 2. HTN urgency: Continue home medications. Blood pressure well controlled 3. Polysubstance abuse: Discussed need to abstain from her polysubstance abuse. 4. CAD: Cath yesterday did not reveal any significant pathology. 5. Diabetes, II: Treat per IM 6. HLP: Continue statin therapy 7. Depression -- Stable for discharge from a cardiovascular perspective. Continue aspirin, Plavix, atorvastatin. Blood pressures well controlled on lisinopril. Follow-up in the office. Supportive care. Thank you for this consultation Justicifation of Admission Dx: Justifications for Admission: Justification of Admission Dx: Yes Hypertension: Cresendo Worsening of Sym MK WINN MD Dec 03, 2021 18:08
--- NOTE | 2021-12-03 19:12 | NUR ---
Discharge: Teaching verbal and written. Reviewed medications, follow-up, post heart cath precautions, groin site, cardiac diet, DM, ect. Patient verbalized understanding. Angioseal packet given to patient. All belongings with patient. Cab pass provided. Patient assisted off of unit via wheelchair accompanied by PRESTON Solares
--- NOTE | 2021-12-06 16:48 | PDOC3 ---
[facility]-Discharge Summary Date of Admission: Date of Admission: Dec 01, 2021 Date of Discharge: Date of Discharge: Dec 03, 2021 Discharge Diagnosis: Discharge Diagnosis: Hypertensive urgency Acute NSTEMI Polysubstance abuse Hyperglycemia uncontrolled History of hypertension History of MD History of diabetes History of depression without SI or HI Consults: Consults: Per cardiology Procedures: Procedures: FINDINGS 1. Hemodynamics: Left ventricular end-diastolic pressure 8 mmHg. No pullback gradient across aortic valve. 2. Left ventriculography: Posterobasal wall hypokinesis with ejection fraction estimated at 50 to 55%. No significant mitral regurgitation seen. 3. Coronary angiography: a. The left main coronary artery arose from the left sinus of Valsalva, gave rise to the left and to descending and left circumflex arteries and did not show any significant stenosis b. The left anterior descending artery did not show any significant stenosis. c. The left circumflex artery showed 99% in-stent thrombosis in the proximal to mid segment. The first obtuse marginal branch showed 70% stenosis in the proximal segment. Distally the vessel is a small caliber vessel and was already feeling faintly with collaterals. d. The right coronary artery was a large and dominant vessel arising from the right sinus of Valsalva that showed mild spasm in the proximal segment which resolved completely after intracoronary nitroglycerin administration. No significant lesions were noted. Conclusion 1. 99% in-stent thrombosis involving the proximal to mid segment of left circumflex artery with small caliber vessel distally. There is mild right coronary artery vasospasm probably secondary to patient's cocaine use, that resolved completely with intracoronary nitroglycerin administration. 2. Posterobasal wall hypokinesis with ejection fraction estimated at 50 to 55%. Recommendations In lieu of the fact that patient's troponin levels are already trending down, there are no acute EKG changes, patient is presently chest pain-free and due to small caliber vessel distally, we will manage patient medically especially with her known noncompliant history and polysubstance abuse. Start Aggrastat infusion per protocol. Hospital Course: Hospital Course: 46-year-old female who presents to the emergency department for hypertension. Patient was at a mental health follow-up appointment when they checked her blood pressure and reported that was 186/123 and sent her to the emergency department. Patient reports that she does take medications but is unsure of what they are called. She reports that she has been taking them as directed and has not missed any doses. Patient does have a history of hypertension and an MD. Patient denies chest pain, shortness of breath, dizziness, nausea, vomiting, suicidal or homicidal ideation. 2-year 1121 No acute events overnight. Patient seen examined bedside. Patient taken down to the Banquet Prep Cook for diagnostic intervention. Patient's chart, labs, images were reviewed and discussed with RN Patient clinically stable time of discharge. Chest pain-free. Cardiac cath results shown above. Rest of hospital course was uneventful. Disposition: Disposition/Orders: D/C to Home Activity: Activity: Resume previous activity Diet: Diet: Cardiac Medications: Home Meds Active Scripts Metformin Hcl (METFORMIN HCL) 1,000 Mg Tablet, 1000 MG PO BIDWMEALS for DM2 for 30 Days, #60 TAB 5 Refills Prov:KEELEY GREWAL MD 11/27/21 Atorvastatin Calcium (ATORVASTATIN CALCIUM) 20 Mg Tablet, 20 MG PO HS for FOR CHOLESTEROL for 30 Days, #30 TAB 5 Refills Prov:KEELEY GREWAL MD 11/27/21 Carvedilol (CARVEDILOL ) 12.5 Mg Tablet, 12.5 MG PO BIDWMEALS for CARDIAC for 30 Days, #60 TAB 5 Refills Prov:KEELEY GREWAL MD 11/27/21 Haloperidol (HALOPERIDOL) 2 Mg Tablet, 2 MG PO DAILY for Mood disorder for 30 Days, #30 TAB 5 Refills Prov:KEELEY GREWAL MD 11/27/21 Clopidogrel Bisulfate (CLOPIDOGREL) 75 Mg Tablet, 75 MG PO DAILY for TO PREVENT BLOOD CLOTS for 30 Days, #30 TAB 5 Refills Prov:KEELEY GREWAL MD 11/27/21 Lisinopril (LISINOPRIL) 40 Mg Tablet, 40 MG PO DAILY for FOR HYPERTENSION for 30 Days, #30 TAB 5 Refills Prov:KEELEY GREWAL MD 11/27/21 Nebulizer and Compressor (Compressor Nebulizer System) 1 Each Each, EACH MC 1- 2XD PRN for COUGH, #1 2 Refills Use with albuterol nebulizer solution. Prov:KEELEY VELA MD 09/23/21 Albuterol Sulfate (ALBUTEROL SULFATE CONC NEB SOLN) 2.5 Mg/0.5 Ml Vial.neb, 1 VIAL NEB PRN Q4-6HRS PRN for SHORTNESS OF BREATH for 30 Days, #60 VIAL 1 Refill Prov:KEELEY VELA MD 09/23/21 Aspirin (ASPIRIN EC) 81 Mg Tablet.dr, 81 MG PO DAILYWBKFT for antiplatelet for 30 Days, #30 TAB.SR 11 Refills Prov:KEELEY GREWAL MD 05/23/21 Risperidone (RISPERDAL) 2 Mg Tablet, 1 TAB PO QHS for Mood Disorder for 30 Days, #30 TAB 2 Refills Prov:KEELEY GREWAL MD 05/23/21 Reported Medications Lorazepam (ATIVAN) 0.5 Mg Tablet, 0.5 MG PO PRN Q6HRS PRN for ANXIETY / AGITATION, TAB 12/01/21 Acetaminophen (ACETAMINOPHEN) 500 Mg Tablet, 500 MG PO PRN Q6HRS PRN for PAIN, TAB 10/04/21 Hydroxyzine Hcl (HYDROXYZINE HCL) 25 Mg Tablet, 50 MG PO PRN DAILY PRN for ANXIETY / AGITATION, TAB 10/04/21 Albuterol Sulfate (PROAIR HFA INHALER) 8.5 Gm Hfa.aer.ad, 1 PUFF INH PRN Q6HRS PRN for SHORTNESS OF BREATH, EACH 0 Refills 09/21/21 Nitroglycerin (NITROGLYCERIN SubLingual) 0.4 Mg Tab.subl, 0.4 MG SL PRN Q5MIN PRN for CHEST PAIN, ML 09/21/21 Fluticasone Propionate (Flonase Allergy Relief) 9.9 Ml [place].susp, 2 SPRAYS NS DAILY for ALLERGIES, ML 09/21/21 Clonidine Hcl (CLONIDINE HCL) 0.1 Mg Tablet, 0.1 MG PO DAILY for HTN, TAB 09/21/21 Discontinued Scripts Metformin Hcl (METFORMIN HCL) 500 Mg Tablet, 500 MG PO BIDWMEALS for DM2 for 30 Days, #60 TAB 2 Refills Prov:KEELEY GREWAL MD 05/23/21 Scheduled Aspirin (Aspirin Ec), 81 MG PO DAILYWBKFT Atorvastatin Calcium (Atorvastatin Calcium), 20 MG PO HS Carvedilol (Carvedilol ), 12.5 MG PO BIDWMEALS Clonidine Hcl (Clonidine Hcl), 0.1 MG PO DAILY, (Reported) Clopidogrel Bisulfate (Clopidogrel), 75 MG PO DAILY Fluticasone Propionate (Flonase Allergy Relief), 2 SPRAYS NS DAILY, (Reported) Haloperidol (Haloperidol), 2 MG PO DAILY Lisinopril (Lisinopril), 40 MG PO DAILY Metformin Hcl (Metformin Hcl), 1,000 MG PO BIDWMEALS Risperidone (Risperdal), 1 TAB PO QHS Scheduled PRN Acetaminophen (Acetaminophen), 500 MG PO PRN Q6HRS PRN for PAIN, (Reported) Albuterol Sulfate (Proair Hfa Inhaler), 1 PUFF INH PRN Q6HRS PRN for SHORTNESS OF BREATH, (Reported) Albuterol Sulfate (Albuterol Sulfate Conc Neb Soln), 1 VIAL NEB PRN Q4-6HRS PRN for SHORTNESS OF BREATH Hydroxyzine Hcl (Hydroxyzine Hcl), 50 MG PO PRN DAILY PRN for ANXIETY / AGITATION, (Reported) Lorazepam (Ativan), 0.5 MG PO PRN Q6HRS PRN for ANXIETY / AGITATION, (Reported) Nitroglycerin (NITROGLYCERIN SubLingual), 0.4 MG SL PRN Q5MIN PRN for CHEST PAIN, (Reported) Discontinued Medications Metformin Hcl (Metformin Hcl), 500 MG PO BIDWMEALS Durable Medical Equipment Nebulizer and Compressor (Compressor Nebulizer System), EACH MC 1-2XD PRN for COUGH, (DME) Total Time: Total Time: Total time spent was 35 minutes in preparing scripts, discharge planning with SWI and RN and preparing this discharge summary Patient seen and examined on day of discharge. No acute abnormal findings. Justicifation of Admission Dx: Justifications for Admission: Justification of Admission Dx: Yes Hypertension: Cresendo Worsening of Sym CARLEE MACIAS MD Dec 06, 2021 16:48
== END 2021-12-03 19:10 | disposition home or self-care (01) | DRG 917 ==
LOC: ER 15:00 → 6 SOUTH 16:56
PROVIDERS: ADMIT Internal Medicine; ATTEND Internal Medicine
PROC: 4A023N7 Measurement of Cardiac Sampling and Pressure, Left Heart, Percutaneous Approach (ICD-10-PCS; principal; 2021-12-02)
PROC: B211YZZ Fluoroscopy of Multiple Coronary Arteries using Other Contrast (ICD-10-PCS; 2021-12-02)
PROC: B215YZZ Fluoroscopy of Left Heart using Other Contrast (ICD-10-PCS; 2021-12-02)
DX: T40.5X1A Poisoning by cocaine, accidental (unintentional), initial encounter (principal); I21.A1 Myocardial infarction type 2; T82.855A Stenosis of coronary artery stent, initial encounter; I16.0 Hypertensive urgency; E78.5 Hyperlipidemia, unspecified; F14.90 Cocaine use, unspecified, uncomplicated; F17.200 Nicotine dependence, unspecified, uncomplicated; F31.9 Bipolar disorder, unspecified; I10 Essential (primary) hypertension; E11.65 Type 2 diabetes mellitus with hyperglycemia; I25.10 Atherosclerotic heart disease of native coronary artery without angina pectoris; I25.2 Old myocardial infarction; M06.9 Rheumatoid arthritis, unspecified; Z82.49 Family history of ischemic heart disease and other diseases of the circulatory system; M19.90 Unspecified osteoarthritis, unspecified site; F41.9 Anxiety disorder, unspecified; Z98.51 Tubal ligation status; F19.10 Other psychoactive substance abuse, uncomplicated; Z20.822 Contact with and (suspected) exposure to COVID-19
CPT/HCPCS: 93458; 96374; 99285; G0269; 36415; 71045; 80053; 80307; 81001; 81025; 82962; 84484; 85025; 85520; 87086; 87426; 93005; 99152; 99153; C1894; J0360; J1644; J1815; J2250; J3010; J3490; J7030; Q9967; U0003; G0378; J3246

== ENCOUNTER 2022-02-19 20:19 | Inpatient (IN) | payer MEDICARE ==
[~2022-02-19] VITALS: Ht 167.6 cm; Wt 82.5 kg
[~2022-02-19 20:19] MED LIST changes: -EMPA10TA PO; +EMPA10TA3 PO; +LORA0.5T96 PO
[2022-02-19 20:48] LABS: BASO # 0.1 x10^3/uL (0.0-0.2); BASO % 1 % (0-3); EOS # 0.1 x10^3/uL (0.0-0.7); EOS % 1 % (0-3); HEMATOCRIT 37.3 % (36.0-47.0); HEMOGLOBIN 12.5 g/dL (12.0-15.5); LYMPH # 3.1 x10^3/uL (1.0-4.8); LYMPH % 27 % (24-48); MEAN CORPUSCULAR HEMOGLOBIN 30 pg (25-35); MEAN CORPUSCULAR HGB CONC 33 g/dL (31-37); MEAN CORPUSCULAR VOLUME 90 fL (79-100); MONO # 0.9 x10^3/uL (0.0-1.1); MONO % 8 % (0-9); NEUT # 7.1 x10^3/uL (1.8-7.7); NEUT % 62 % (31-73); PLATELET COUNT 267 x10^3/uL (140-400); RED BLOOD COUNT 4.15 x10^6/uL (3.50-5.40); RED CELL DISTRIBUTION WIDTH 13.9 % (11.5-14.5); WHITE BLOOD COUNT 11.3 x10^3/uL (4.0-11.0)
[2022-02-19 20:55] LABS: U PREG PATIENT NEGATIVE (NEG)
[2022-02-19 21:00] LABS: CALCIUM 8.6 mg/dL (8.5-10.1); CREATININE 1.1 mg/dL (0.6-1.0); POTASSIUM 3.9 mmol/L (3.5-5.1)
[2022-02-19] MEDS ORDERED: IV NORMAL SALINE 1000ML BAG 1,000 ML IV ONE (21:00)
[2022-02-19 21:04] LABS: BACTERIA,URINE 0 /HPF (0-FEW); RBC,URINE 0 /HPF (0-2); WBC,URINE 20-40 /HPF (0-4)
[2022-02-19 21:05] LABS: TRICHOMONAS,URINE PRESENT
[2022-02-19 21:05] LABS: ALBUMIN/GLOBULIN RATIO 0.8 (1.0-1.7); MAGNESIUM 1.8 mg/dL (1.8-2.4); TOTAL BILIRUBIN 0.2 mg/dL (0.2-1.0); TOTAL PROTEIN 6.9 g/dL (6.4-8.2)
[2022-02-19] MEDS ORDERED: cefTRIAXone IV Push 1 GM VIAL. IVP ONE (21:30)
[2022-02-19 21:35] LABS: BASE EXCESS ABG 1 mmol/L (-3-3); HCO3 ABG 25 mmol/L (21-28); PCO2 ABG 39 mmHg (35-46); PO2 ABG 78 mmHg (75-108); SAT O2 ABG 96 % (92-99)
[2022-02-19 21:45] LABS: FIO2 ABG 21
[2022-02-19] MEDS ORDERED: METOPROLOL IV PUSH 5 MG/5 ML VIAL. IVP ONE (21:45)
--- NOTE | 2022-02-19 21:47 | PHYS DOC ---
Past Medical History Past Medical History: Diabetes-Type II, Hypertension Additional Past Medical Histor: CARDIAC STENT Past Surgical History: No Surgical History Additional Past Surgical Histo: Stent placement Smoking Status: Current Every Day Smoker Alcohol Use: None Drug Use: Cocaine, Marijuana, Phencyclidine General Adult EDM: Chief Complaint: confusion HPI: HPI: Patient is a 46 year old female who was brought here by EMS from home due to chest pain, headache, acting confused. EMS checked her blood sugar and it was over 450. Patient has history hypertension and diabetic patient also complained of chest pain after she was doing PCP today. Patient has history of cocaine due to chest pain in the past. Patient denies any cough or fever. Patient denies any nausea vomiting Review of Systems: Review of Systems: Constitutional: Denies fever or chills. [] Eyes: Denies change in visual acuity. [] HENT: Denies nasal congestion or sore throat. [] Respiratory: Denies cough or shortness of breath. [] Cardiovascular: positive for chest pain GI: Denies abdominal pain, nausea, vomiting, bloody stools or diarrhea. [] : Denies dysuria. [] Musculoskeletal: Denies back pain or joint pain. [] Integument: Denies rash. [] Neurologic: positive for headache, no focal weakness or sensory changes. [] Endocrine: Denies polyuria or polydipsia. [] Lymphatic: Denies swollen glands. [] Psychiatric: Denies depression or anxiety. [] Heart Score: C/O Chest Pain: Yes HEART Score for Chest Pain: HEART Score for Chest Pain Response (Comments) Value History Moderately Suspicious 1 ECG Nonspecific Repolarizatio 1 Age >45 - < 65 1 Risk Factors 1 or 2 Risk Factors 1 Troponin >3 x Normal Limit 2 Total 6 Risk Factors: Risk Factors: DM, Current or recent (<one month) smoker, HTN, HLP, family history of CAD, obesity. Risk Scores: Score 0 - 3: 2.5% MACE over next 6 weeks - Discharge Home Score 4 - 6: 20.3% MACE over next 6 weeks - Admit for Clinical Observation Score 7 - 10: 72.7% MACE over next 6 weeks - Early Invasive Strategies Current Medications: Current Medications Medications (Trade) Dose Ordered Sig/Johanna Start Time Stop Time Status Last Admin Dose Admin Ceftriaxone Sodium (Rocephin) 1 gm 1X ONCE 02/19/22 21:30 02/19/22 21:31 DC Metoprolol Tartrate (Lopressor Vial) 5 mg 1X ONCE 02/19/22 21:45 02/19/22 21:46 UNV Sodium Chloride 1,000 ml @ 1,000 mls/hr 1X ONCE 02/19/22 21:00 02/19/22 21:59 Allergies: Allergies: Allergies Coded Allergies Type Severity Reaction Last Updated Verified cod liver oil Adverse Reaction Intermediate "STREP THROAT" 02/19/22 Yes Physical Exam: PE: Constitutional: Well developed, well nourished, no acute distress, non-toxic appearance. [] HENT: Normocephalic, atraumatic, bilateral external ears normal, oropharynx [address], no oral exudates, nose normal. [] Eyes: PERRLA, EOMI, conjunctiva normal, no discharge. [] Neck: Normal range of motion, no tenderness, supple, no stridor. [] Cardiovascular:Heart rate regular rhythm, no murmur [] Lungs & Thorax: Bilateral breath sounds clear to auscultation [] Abdomen: Bowel sounds normal, soft, no tenderness, no masses, no pulsatile masses. [] Skin: Warm, dry, no erythema, no rash. [] Back: No tenderness, no CVA tenderness. [] Extremities: No tenderness, no cyanosis, no clubbing, ROM intact, no edema. [] Neurologic: Alert and oriented X 3, normal motor function, normal sensory function, no focal deficits noted. [] Psychologic: Affect normal, judgement normal, mood normal. [] Current Patient Data: Labs: Laboratory Tests Test 02/19/22 20:26 02/19/22 20:40 02/19/22 20:47 02/19/22 21:25 Glucose (Fingerstick) 352 mg/dL (70-99) H White Blood Count 11.3 x10^3/uL (4.0-11.0) H Red Blood Count 4.15 x10^6/uL (3.50-5.40) Hemoglobin 12.5 g/dL (12.0-15.5) Hematocrit 37.3 % (36.0-47.0) Mean Corpuscular Volume 90 fL (79-100) Mean Corpuscular Hemoglobin 30 pg (25-35) Mean Corpuscular Hemoglobin Concent 33 g/dL (31-37) Red Cell Distribution Width 13.9 % (11.5-14.5) Platelet Count 267 x10^3/uL (140-400) Neutrophils (%) (Auto) 62 % (31-73) Lymphocytes (%) (Auto) 27 % (24-48) Monocytes (%) (Auto) 8 % (0-9) Eosinophils (%) (Auto) 1 % (0-3) Basophils (%) (Auto) 1 % (0-3) Neutrophils # (Auto) 7.1 x10^3/uL (1.8-7.7) Lymphocytes # (Auto) 3.1 x10^3/uL (1.0-4.8) Monocytes # (Auto) 0.9 x10^3/uL (0.0-1.1) Eosinophils # (Auto) 0.1 x10^3/uL (0.0-0.7) Basophils # (Auto) 0.1 x10^3/uL (0.0-0.2) Sodium Level 139 mmol/L (136-145) Potassium Level 3.9 mmol/L (3.5-5.1) Chloride Level 102 mmol/L (98-107) Carbon Dioxide Level 27 mmol/L (21-32) Anion Gap 10 (6-14) Blood Urea Nitrogen 15 mg/dL (7-20) Creatinine 1.1 mg/dL (0.6-1.0) H Estimated GFR (Cockcroft-Gault) 65.0 BUN/Creatinine Ratio 14 (6-20) Glucose Level 389 mg/dL (70-99) H Calcium Level 8.6 mg/dL (8.5-10.1) Magnesium Level 1.8 mg/dL (1.8-2.4) Total Bilirubin 0.2 mg/dL (0.2-1.0) Aspartate Amino Transferase (AST) 9 U/L (15-37) L Alanine Aminotransferase (ALT) 13 U/L (14-59) L Alkaline Phosphatase 163 U/L (46-116) H Troponin I High Sensitivity 192 ng/L (4-50) H LJ-Asd-D-Type Natriuretic Peptide 986 pg/mL (0-124) H Total Protein 6.9 g/dL (6.4-8.2) Albumin 3.0 g/dL (3.4-5.0) L Albumin/Globulin Ratio 0.8 (1.0-1.7) L Lipase 104 U/L (73-393) Acetone Level Neg (NEG) Urine Collection Type U cath Urine Color (Auto) Light yellow Urine Turbidity Clear Urine pH (Auto) 6.0 (<5.0-8.0) Urine Specific [place] 1.040 (1.000-1.030) Urine Protein (Auto) 50 mg/dL (Negative) Urine Glucose (Auto)(UA) >=1000 mg/dL (Negative) Urine Ketones (Auto) Negative mg/dL (Negative) Urine Blood (Auto) Negative (Negative) Urine Nitrite Negative (Negative) Urine Bilirubin (Auto) Negative (Negative) Urine Urobilinogen (Auto) Normal mg/dL (Normal) Urine Leukocyte Esterase (Auto) Large (Negative) Urine RBC 0 /HPF (0-2) Urine WBC 20-40 /HPF (0-4) Urine Squamous Epithelial Cells Few /LPF Urine Bacteria 0 /HPF (0-FEW) Urine Trichomonas Present POC Urine HCG, Qualitative Hcg negative (Negative) Urine Test Negative (NEG) O2 Saturation 96 % (92-99) Arterial Blood pH 7.43 (7.35-7.45) Arterial Blood pCO2 at Patient Temp 39 mmHg (35-46) Arterial Blood pO2 at Patient Temp 78 mmHg (75-108) Arterial Blood HCO3 25 mmol/L (21-28) Arterial Blood Base Excess 1 mmol/L (-3-3) FiO2 21 Laboratory Tests 02/19/22 20:40 Laboratory Tests 02/19/22 20:40 Vital Signs: Vital Signs Date Time Temp Pulse Resp B/P (MAP) Pulse Ox O2 Delivery O2 Flow Rate FiO2 02/19/22 20:28 98.4 109 16 158/91 (113) 98 Room Air 98.4 EKG: EKG: EKG was done at 2020, heart rate 104 bpm, sinus tachycardia, no ST segment elevation Radiology/Procedures: Radiology/Procedures: [][facility] [address] [place], [place] [id number] IMAGING REPORT Signed PATIENT: BELKYS VAUGHN ACCOUNT: [id number] : 1975 LOCATION: ER AGE: 46 SEX: F EXAM STATUS: REG ER ORD. PHYSICIAN: PREET FLEMING DO REASON: headache, ams PROCEDURE: CT HEAD WO CONTRAST Exam: CT head INDICATION: Headache TECHNIQUE: Sequential axial images through the head were obtained without the administration of IV contrast. Exposure: One or more of the following in the visualized dose reduction techniques were utilized for this examination: 1. Automated exposure control 2. Adjustment of the MA and/or KV according to patient size 3. Use of iterative of reconstructive technique Comparisons: None FINDINGS: No focal parenchymal lesion or hemorrhage is identified. There is no midline shift or sulcal effacement. No acute vascular territory infarction is identified. Nath-white distinction is preserved. The ventricular system is within normal limits without compression hydrocephalus. The basal cisterns are well maintained. The visualized portions of the paranasal sinuses and mastoid air cells are well- pneumatized. No acute fractures. IMPRESSION: No acute intracranial abnormality. Electronically signed by: Willy Tena MD (02/19/2022 10:31 PM) ROLLYZOILA DICTATED and SIGNED BY: WILLY TENA MD DATE: 02/19/222225 [facility] [address] [place], [place] [id number] IMAGING REPORT Signed PATIENT: BELKYS VAUGHN ACCOUNT: [id number] : 1975 LOCATION: ER AGE: 46 SEX: F EXAM STATUS: REG ER ORD. PHYSICIAN: PREET FLEMING DO REASON: chest pain PROCEDURE: PORTABLE CHEST 1V Exam: Chest one view INDICATION: Chest pain TECHNIQUE: Frontal view of the chest Comparisons: 12/01/2021 FINDINGS: The cardiomediastinal silhouette and pulmonary vessels are within normal limits. The lung and pleural spaces are clear. IMPRESSION: No acute cardiopulmonary process. Electronically signed by: Willy Tena MD (02/19/2022 10:11 PM) ELIZABETH DICTATED and SIGNED BY: WILLY TENA MD DATE: 02/19/222209 Course & Med Decision Making: Course & Med Decision Making Pertinent Labs and Imaging studies reviewed. (See chart for details) Patient is a 46-year-old female who was brought here by EMS due to chest pain, headache, hypertension, high blood sugar, admitted of using PCP today. Patient was tested positive for urine tract infection as well. Her EKG did not show any ST segment elevation. Her troponin is elevated. Patient will be admitted to hospital for further evaluation and treatment Dragon Disclaimer: Dragon Disclaimer: This electronic medical record was generated, in whole or in part, using a voice recognition dictation system. Departure Departure Impression: Primary Impression: Chest pain Additional Impressions: Hyperglycemia UTI (urinary tract infection) Substance abuse Disposition: ADMITTED INPATIENT Admitting Physician: DAE (Dr. Moreno) Condition: IMPROVED Referrals: UNKNOWN PCP NAME (PCP) PREET FLEMING DO February 19, 2022 21:47
--- NOTE | 2022-02-19 22:13 | RAD ---
Exam: Chest one view INDICATION: Chest pain TECHNIQUE: Frontal view of the chest Comparisons: 12/01/2021 FINDINGS: The cardiomediastinal silhouette and pulmonary vessels are within normal limits. The lung and pleural spaces are clear. IMPRESSION: No acute cardiopulmonary process. Electronically signed by: Willy Sanchez MD (02/19/2022 10:11 PM) ELIZABETH
[2022-02-19 22:30] LABS: BARBITURATES NEG (NEG); BENZODIAZEPINES NEG (NEG); CANNABINOIDS POS (NEG); COCAINE NEG (NEG); METHADONE NEG (NEG); OPIATES NEG (NEG); PHENCYCLIDINE POS (NEG)
[2022-02-19 22:31] LABS: AMPHETAMINE/METHAMPHETAMINE NEG (NEG)
--- NOTE | 2022-02-19 22:33 | RAD ---
Exam: CT head INDICATION: Headache TECHNIQUE: Sequential axial images through the head were obtained without the administration of IV co ntrast. Exposure: One or more of the following in the visualized dose reduction techniques were utilized for this examination: 1. Automated exposure control 2. Adjustment of the MA and/or KV according to patient size 3. Use of iterative of reconstructive technique Comparisons: None FINDINGS: No focal parenchymal lesion or hemorrhage is identified. There is no midline shift or sulcal effaceme nt. No acute vascular territory infarction is identified. Nath-white distinction is preserved. The ventricular system is within normal limits without compression hydrocephalus. The basal cisterns are well maintained. The visualized portions of the paranasal sinuses and mastoid air cells are well-pneumatized. No acute fractures. IMPRESSION: No acute intracranial abnormality. Electronically signed by: Willy Sanchez MD (02/19/2022 10:31 PM) ELIZABETH
[2022-02-19] MEDS ORDERED: ONDANSETRON PF 4 MG/2 ML VIAL. IVP PRN (23:00)
[2022-02-19] MEDS ORDERED: ASPIRIN CHEWABLE 81 MG TABLET. PO ONE (23:00)
[2022-02-20 01:15] VITALS: BP 182/108
[2022-02-20] MEDS ORDERED: hydrALAZINE 20 MG/ML VIAL. IVP PRN ×2 (02:00→10:15)
[2022-02-20 02:57] VITALS: BP 171/106
--- NOTE | 2022-02-20 05:52 | EKG ---
[facility] [address] [place] [address] Test Date: 2022-02-19 Test Time: 20:31:37 Pat Name: BELKYS VAUGHN Department: Room: Gender: F [employer]: : 1975 Requested By: PREET FLEMING Order Number: [id number] Reading MD: Measurements Intervals [place] Rate: 104 P: 51 NV: 152 QRS: 5 QRSD: 82 T: 112 QT: 356 QTc: 475 Interpretive Statements SINUS TACHYCARDIA LEFT ATRIAL ABNORMALITY QRS(T) CONTOUR ABNORMALITY CONSISTENT WITH INFERIOR INFARCT PROBABLY OLD T ABNORMALITY IN HIGH LATERAL LEADS ABNORMAL ECG RI6.01 No previous ECG available for comparison
[2022-02-20] MEDS ORDERED: ACETAMINOPHEN 325 MG TABLET. PO PRN (06:45)
[2022-02-20] MEDS ORDERED: LABETALOL 20 MG/4 ML DISP.SYRIN. IVP PRN (06:45)
[2022-02-20 07:00] VITALS: BP 181/108
[2022-02-20] MEDS ORDERED: DEXTROSE 50% 25 GM / 50ML DISP.SYRIN. IV PRN (08:30)
[2022-02-20] MEDS ORDERED: IV DEXTROSE 5% 250 ML BAG. IV PRN (08:30)
[2022-02-20 10:09] VITALS: BP 190/114
[2022-02-20] MEDS ORDERED: NON FORMULARY ITEM (Albuterol Sulfate (Albuterol Sulfate Conc Neb Soln) 1 VIAL) NEB PRN (10:45)
[2022-02-20] MEDS ORDERED: NITROGLYCERIN SUBLINGUAL 0.4 MG BOTTLE OF 25. SL PRN (10:45)
[2022-02-20] MEDS ORDERED: hydrOXYzine 25 MG TABLET PO PRN (10:45)
[2022-02-20] MEDS ORDERED: ALBUTEROL SULFATE 2.5 MG/3 ML NEBU. NEB PRN (11:00)
[2022-02-20] MEDS ORDERED: FLUTICASONE 50MCG/NASAL SPRAY 16GM BOTTLE. NS SCH (11:00)
[2022-02-20] MEDS ORDERED: LISINOPRIL 20 MG TABLET PO SCH (11:00)
[2022-02-20] MEDS ORDERED: CLOPIDOGREL BISULFATE 75 MG TABLET PO SCH (11:00)
--- NOTE | 2022-02-20 11:05 | PDOC1 ---
History and Physical Date of Admission Date of Admission DATE: 02/20/22 TIME: 10:53 Identification/Chief Complaint Chief Complaint Chest pain, AMS Source Source: Chart review, Patient History of Present Illness History of Present Illness Patient is a 46-year-old female with past medical history HTN, substance abuse, who is well-known to our service and presents to the ED with complaints of chest pain. Patient was reportedly very confused on arrival, and states that her chest pain began after she used PCP yesterday. She reports associated headache. Upon EMS arrival her blood sugar was noted to be 450, which improved with bolus of IV normal saline. Her blood pressure in the ED was significantly elevated at 182/108 mmHg. Labs showed WBC 11.3, creatinine 1.1, CBG 389, proBNP 96, high sensitivity troponin 192. Her urine toxicology was positive for PCP and cannabis. CT head and chest x-ray showed no acute process. Patient does admit to a history of cocaine abuse in the past. She denies fever, cough, nausea, or vomiting. She has been admitted for further medical management. Past Medical History Cardiovascular: CAD, HTN Pulmonary: No pertinent hx CENTRAL NERVOUS SYSTEM: Other GI: No pertinent hx Heme/Onc: No pertinent hx Psych: Anxiety, Bipolar Musculoskeletal: Osteoarthritis Rheumatologic: Rheumatoid arthritis Infectious disease: No pertinent hx Renal/: No pertinent hx Endocrine: Diabetes Past Surgical History Past Surgical History: , Tubal Ligation Family History Family History: Hypertension Social History Smoke: 1 pack per day ALCOHOL: none Drugs: Cocaine, Marijuana, Other Current Problem List Problem List Problems Medical Problems: (1) Chest pain Status: Acute (2) Substance abuse Status: Acute Current Medications Current Medications Current Medications Sodium Chloride 1,000 ml @ 1,000 mls/hr 1X ONCE IV Last administered on 02/19/22at 23:03; Start 02/19/22 at 21:00; Stop 02/19/22 at 21:59; Status DC Ceftriaxone Sodium (Rocephin) 1 gm 1X ONCE IVP Last administered on 02/19/22at 23:02; Start 02/19/22 at 21:30; Stop 02/19/22 at 21:31; Status DC Metoprolol Tartrate (Lopressor Vial) 5 mg 1X ONCE IVP ; Start 02/19/22 at 21:45; Stop 02/19/22 at 21:47; Status DC Ondansetron HCl (Zofran) 4 mg PRN Q8HRS PRN IVP NAUSEA/VOMITING Last administered on 02/19/22at 23:02; Start 02/19/22 at 23:00; Stop 02/20/22 at 22:59 Aspirin (Aspirin Chewable) 324 mg 1X ONCE PO Last administered on 02/19/22at 23:02; Start 02/19/22 at 23:00; Stop 02/19/22 at 23:01; Status DC Enoxaparin Sodium (Lovenox 80mg Syringe) 80 mg 1X ONCE SQ Last administered on 02/20/22at 02:12; Start 02/20/22 at 01:00; Stop 02/20/22 at 01:01; Status DC Hydralazine HCl (Apresoline Inj) 10 mg PRN Q4HRS PRN IVP ELEVATED BP, SEE COMMENTS Last administered on 02/20/22at 02:12; Start 02/20/22 at 02:00 Acetaminophen (Tylenol) 650 mg PRN Q6HRS PRN PO MILD PAIN / TEMP > 100.3'F; Start 02/20/22 at 06:45 Olanzapine (ZyPREXA ZYDIS) 5 mg PRN BID PRN PO ANXIETY / AGITATION; Start 02/20/22 at 06:45 Labetalol HCl (Normodyne Iv Push) 20 mg PRN Q2HR PRN IVP HYPERTENSION; Start 02/20/22 at 06:45 Insulin Human Lispro (HumaLOG) 0-7 UNITS TIDWMEALS SQ Last administered on 02/20/22at 08:35; Start 02/20/22 at 12:00 Dextrose (Dextrose 50%-Water Syringe) 12.5 gm PRN Q15MIN PRN IV SEE COMMENTS; Start 02/20/22 at 08:30 Dextrose (Iv Dextrose 5%) 250 ml PRN Q15MIN PRN IV SEE COMMENTS; Start 02/20/22 at 08:30 Insulin Glargine (Lantus Syringe) 10 unit QHS SQ ; Start 02/20/22 at 21:00 Hydralazine HCl (Apresoline Inj) 10 mg PRN Q4HRS PRN IVP ELEVATED BP, SEE COMMENTS Last administered on 02/20/22at 10:21; Start 02/20/22 at 10:15 Aspirin (Ecotrin) 81 mg DAILYWBKFT PO ; Start 02/21/22 at 08:00; Status UNV Atorvastatin Calcium (Lipitor) 20 mg HS PO ; Start 02/20/22 at 21:00; Status UNV Carvedilol (Coreg) 12.5 mg BIDWMEALS PO ; Start 02/20/22 at 17:00; Status UNV Clopidogrel Bisulfate (Plavix) 75 mg DAILY PO ; Start 02/21/22 at 09:00; Status UNV Hydroxyzine HCl (Atarax) 50 mg PRN DAILY PRN PO ANXIETY / AGITATION; Start 02/20/22 at 10:45; Status UNV Lisinopril (Prinivil) 40 mg DAILY PO ; Start 02/21/22 at 09:00; Status UNV Nitroglycerin (Nitrostat) 0.4 mg PRN Q5MIN PRN SL CHEST PAIN; Start 02/20/22 at 10:45; Status UNV Non-Formulary Medication (Albuterol Sulfate (Albuterol Sulfate Conc Neb Soln)) 1 vial PRN Q4-6HRS PRN NEB SHORTNESS OF BREATH; Start 02/20/22 at 10:45; Status UNV Non-Formulary Medication (Fluticasone Propionate (Flonase Allergy Relief)) 2 sprays DAILY NS ; Start 02/21/22 at 09:00; Status UNV Non-Formulary Medication (Risperidone (Risperdal)) 1 tab QHS PO ; Start 02/20/22 at 21:00; Status UNV Amlodipine Besylate (Norvasc) 10 mg DAILY PO ; Start 02/21/22 at 09:00; Status UNV Active Scripts Active Metformin Hcl 1,000 Mg Tablet 1,000 Mg PO BIDWMEALS 30 Days Atorvastatin Calcium 20 Mg Tablet 20 Mg PO HS 30 Days Carvedilol (Carvedilol) 12.5 Mg Tablet 12.5 Mg PO BIDWMEALS 30 Days Clopidogrel (Clopidogrel Bisulfate) 75 Mg Tablet 75 Mg PO DAILY 30 Days Lisinopril 40 Mg Tablet 40 Mg PO DAILY 30 Days Compressor Nebulizer System (Nebulizer and Compressor) 1 Each Each Each MC 1-2XD PRN Use with albuterol nebulizer solution. Albuterol Sulfate Conc Neb Soln (Albuterol Sulfate) 2.5 Mg/0.5 Ml Vial.neb 1 Vial NEB PRN Q4-6HRS PRN 30 Days Aspirin Ec (Aspirin) 81 Mg Tablet.dr 81 Mg PO DAILYWBKFT 30 Days Risperdal (Risperidone) 2 Mg Tablet 1 Tab PO QHS 30 Days Reported Acetaminophen 500 Mg Tablet 500 Mg PO PRN Q6HRS PRN Hydroxyzine Hcl 25 Mg Tablet 50 Mg PO PRN DAILY PRN Proair Hfa Inhaler (Albuterol Sulfate) 8.5 Gm Hfa.aer.ad 1 Puff INH PRN Q6HRS PRN NITROGLYCERIN SubLingual (Nitroglycerin) 0.4 Mg Tab.subl 0.4 Mg SL PRN Q5MIN PRN Flonase Allergy Relief (Fluticasone Propionate) 9.9 Ml [place].susp 2 Sprays NS DAILY Clonidine Hcl 0.1 Mg Tablet 0.1 Mg PO DAILY Allergies Allergies: Coded Allergies: cod liver oil (Verified Adverse Reaction, Intermediate, "STREP THROAT", 02/19/22) ROS Review of System GENERAL: No history of weight change, weakness or fevers. SKIN: No bruising, hair changes or rashes. EYES: No blurred, double or loss of vision. NOSE AND THROAT: No history of nosebleeds, hoarseness or sore throat. HEART: Chest pain. Denies palpitations. LUNGS: Denies cough, hemoptysis, wheezing or shortness of breath. GASTROINTESTINAL: Denies nausea, vomiting, abdominal pain. GENITOURINARY: Denies dysuria, frequency, urgency, hematuria. NEUROLOGIC: Denies history of numbness, tingling, tremor or weakness. PSYCHIATRIC: Denies anxiety, denies depression. ENDOCRINE: No history of heat or cold intolerance, polyuria or polydipsia. EXTREMITIES: Denies muscle weakness, joint pain, pain on walking or stiffness. Physical Exam Physical Exam General: Alert, Oriented X3, Cooperative, No acute distress HEENT: PERRLA, EOMI Lungs: Clear to auscultation, Normal air movement Heart: RRR, no murmurs Cardiovascular: S1, S2 Abdomen: Normal bowel sounds, Soft, No tenderness Extremities: No clubbing, No cyanosis Skin: No rashes, No significant lesion Neuro: Normal speech, Normal tone, Sensation intact Psych/Mental Status: Mental status NL, Mood NL Vitals Vitals Vital Signs Date Time Temp Pulse Resp B/P (MAP) Pulse Ox O2 Delivery O2 Flow Rate FiO2 02/20/22 10:21 87 190/114 02/20/22 10:09 97.7 18 99 Room Air 97.7 Labs Labs Laboratory Tests Test 02/19/22 20:26 02/19/22 20:40 02/19/22 20:47 02/19/22 21:25 Glucose (Fingerstick) 352 mg/dL (70-99) White Blood Count 11.3 x10^3/uL (4.0-11.0) Red Blood Count 4.15 x10^6/uL (3.50-5.40) Hemoglobin 12.5 g/dL (12.0-15.5) Hematocrit 37.3 % (36.0-47.0) Mean Corpuscular Volume 90 fL (79-100) Mean Corpuscular Hemoglobin 30 pg (25-35) Mean Corpuscular Hemoglobin Concent 33 g/dL (31-37) Red Cell Distribution Width 13.9 % (11.5-14.5) Platelet Count 267 x10^3/uL (140-400) Neutrophils (%) (Auto) 62 % (31-73) Lymphocytes (%) (Auto) 27 % (24-48) Monocytes (%) (Auto) 8 % (0-9) Eosinophils (%) (Auto) 1 % (0-3) Basophils (%) (Auto) 1 % (0-3) Neutrophils # (Auto) 7.1 x10^3/uL (1.8-7.7) Lymphocytes # (Auto) 3.1 x10^3/uL (1.0-4.8) Monocytes # (Auto) 0.9 x10^3/uL (0.0-1.1) Eosinophils # (Auto) 0.1 x10^3/uL (0.0-0.7) Basophils # (Auto) 0.1 x10^3/uL (0.0-0.2) Sodium Level 139 mmol/L (136-145) Potassium Level 3.9 mmol/L (3.5-5.1) Chloride Level 102 mmol/L (98-107) Carbon Dioxide Level 27 mmol/L (21-32) Anion Gap 10 (6-14) Blood Urea Nitrogen 15 mg/dL (7-20) Creatinine 1.1 mg/dL (0.6-1.0) Estimated GFR (Cockcroft-Gault) 65.0 BUN/Creatinine Ratio 14 (6-20) Glucose Level 389 mg/dL (70-99) Calcium Level 8.6 mg/dL (8.5-10.1) Magnesium Level 1.8 mg/dL (1.8-2.4) Total Bilirubin 0.2 mg/dL (0.2-1.0) Aspartate Amino Transf (AST/SGOT) 9 U/L (15-37) Alanine Aminotransferase (ALT/SGPT) 13 U/L (14-59) Alkaline Phosphatase 163 U/L (46-116) Troponin I High Sensitivity 192 ng/L (4-50) XI-Cvh-K-Type Natriuretic Peptide 986 pg/mL (0-124) Total Protein 6.9 g/dL (6.4-8.2) Albumin 3.0 g/dL (3.4-5.0) Albumin/Globulin Ratio 0.8 (1.0-1.7) Lipase 104 U/L (73-393) Acetone Level Neg (NEG) Urine Collection Type U cath Urine Color (Auto) Light yellow Urine Turbidity Clear Urine pH (Auto) 6.0 (<5.0-8.0) Urine Specific [place] 1.040 (1.000-1.030) Urine Protein (Auto) 50 mg/dL (Negative) Urine Glucose (Auto)(UA) >=1000 mg/dL (Negative) Urine Ketones (Auto) Negative mg/dL (Negative) Urine Blood (Auto) Negative (Negative) Urine Nitrite Negative (Negative) Urine Bilirubin (Auto) Negative (Negative) Urine Urobilinogen (Auto) Normal mg/dL (Normal) Urine Leukocyte Esterase (Auto) Large (Negative) Urine RBC 0 /HPF (0-2) Urine WBC 20-40 /HPF (0-4) Urine Squamous Epithelial Cells Few /LPF Urine Bacteria 0 /HPF (0-FEW) Urine Trichomonas Present Bedside Urine HCG, Qualitative Hcg negative (Negative) Urine Test Negative (NEG) Urine Opiates Screen Neg (NEG) Urine Methadone Screen Neg (NEG) Urine Barbiturates Neg (NEG) Urine Phencyclidine Screen Pos (NEG) Urine Amphetamine/Methamphetamine Neg (NEG) Urine Benzodiazepines Screen Neg (NEG) Urine Cocaine Screen Neg (NEG) Urine Cannabinoids Screen Pos (NEG) Urine Ethyl Alcohol Neg (NEG) O2 Saturation 96 % (92-99) Arterial Blood pH 7.43 (7.35-7.45) Arterial Blood pCO2 at Patient Temp 39 mmHg (35-46) Arterial Blood pO2 at Patient Temp 78 mmHg (75-108) Arterial Blood HCO3 25 mmol/L (21-28) Arterial Blood Base Excess 1 mmol/L (-3-3) FiO2 21 Test 02/19/22 22:48 02/20/22 00:49 02/20/22 04:00 Glucose (Fingerstick) 281 mg/dL (70-99) Troponin I High Sensitivity 209 ng/L (4-50) 226 ng/L (4-50) Laboratory Tests Test 02/19/22 20:26 02/19/22 20:40 02/19/22 20:47 02/19/22 21:25 Glucose (Fingerstick) 352 mg/dL (70-99) White Blood Count 11.3 x10^3/uL (4.0-11.0) Red Blood Count 4.15 x10^6/uL (3.50-5.40) Hemoglobin 12.5 g/dL (12.0-15.5) Hematocrit 37.3 % (36.0-47.0) Mean Corpuscular Volume 90 fL (79-100) Mean Corpuscular Hemoglobin 30 pg (25-35) Mean Corpuscular Hemoglobin Concent 33 g/dL (31-37) Red Cell Distribution Width 13.9 % (11.5-14.5) Platelet Count 267 x10^3/uL (140-400) Neutrophils (%) (Auto) 62 % (31-73) Lymphocytes (%) (Auto) 27 % (24-48) Monocytes (%) (Auto) 8 % (0-9) Eosinophils (%) (Auto) 1 % (0-3) Basophils (%) (Auto) 1 % (0-3) Neutrophils # (Auto) 7.1 x10^3/uL (1.8-7.7) Lymphocytes # (Auto) 3.1 x10^3/uL (1.0-4.8) Monocytes # (Auto) 0.9 x10^3/uL (0.0-1.1) Eosinophils # (Auto) 0.1 x10^3/uL (0.0-0.7) Basophils # (Auto) 0.1 x10^3/uL (0.0-0.2) Sodium Level 139 mmol/L (136-145) Potassium Level 3.9 mmol/L (3.5-5.1) Chloride Level 102 mmol/L (98-107) Carbon Dioxide Level 27 mmol/L (21-32) Anion Gap 10 (6-14) Blood Urea Nitrogen 15 mg/dL (7-20) Creatinine 1.1 mg/dL (0.6-1.0) Estimated GFR (Cockcroft-Gault) 65.0 BUN/Creatinine Ratio 14 (6-20) Glucose Level 389 mg/dL (70-99) Calcium Level 8.6 mg/dL (8.5-10.1) Magnesium Level 1.8 mg/dL (1.8-2.4) Total Bilirubin 0.2 mg/dL (0.2-1.0) Aspartate Amino Transf (AST/SGOT) 9 U/L (15-37) Alanine Aminotransferase (ALT/SGPT) 13 U/L (14-59) Alkaline Phosphatase 163 U/L (46-116) Troponin I High Sensitivity 192 ng/L (4-50) LT-Hxz-X-Type Natriuretic Peptide 986 pg/mL (0-124) Total Protein 6.9 g/dL (6.4-8.2) Albumin 3.0 g/dL (3.4-5.0) Albumin/Globulin Ratio 0.8 (1.0-1.7) Lipase 104 U/L (73-393) Acetone Level Neg (NEG) Urine Collection Type U cath Urine Color (Auto) Light yellow Urine Turbidity Clear Urine pH (Auto) 6.0 (<5.0-8.0) Urine Specific [place] 1.040 (1.000-1.030) Urine Protein (Auto) 50 mg/dL (Negative) Urine Glucose (Auto)(UA) >=1000 mg/dL (Negative) Urine Ketones (Auto) Negative mg/dL (Negative) Urine Blood (Auto) Negative (Negative) Urine Nitrite Negative (Negative) Urine Bilirubin (Auto) Negative (Negative) Urine Urobilinogen (Auto) Normal mg/dL (Normal) Urine Leukocyte Esterase (Auto) Large (Negative) Urine RBC 0 /HPF (0-2) Urine WBC 20-40 /HPF (0-4) Urine Squamous Epithelial Cells Few /LPF Urine Bacteria 0 /HPF (0-FEW) Urine Trichomonas Present Bedside Urine HCG, Qualitative Hcg negative (Negative) Urine Test Negative (NEG) Urine Opiates Screen Neg (NEG) Urine Methadone Screen Neg (NEG) Urine Barbiturates Neg (NEG) Urine Phencyclidine Screen Pos (NEG) Urine Amphetamine/Methamphetamine Neg (NEG) Urine Benzodiazepines Screen Neg (NEG) Urine Cocaine Screen Neg (NEG) Urine Cannabinoids Screen Pos (NEG) Urine Ethyl Alcohol Neg (NEG) O2 Saturation 96 % (92-99) Arterial Blood pH 7.43 (7.35-7.45) Arterial Blood pCO2 at Patient Temp 39 mmHg (35-46) Arterial Blood pO2 at Patient Temp 78 mmHg (75-108) Arterial Blood HCO3 25 mmol/L (21-28) Arterial Blood Base Excess 1 mmol/L (-3-3) FiO2 21 Test 02/19/22 22:48 02/20/22 00:49 02/20/22 04:00 Glucose (Fingerstick) 281 mg/dL (70-99) Troponin I High Sensitivity 209 ng/L (4-50) 226 ng/L (4-50) Images Images PATIENT: BELKYS VAUGHN ACCOUNT: [id number] : 1975 LOCATION: ER AGE: 46 SEX: F EXAM STATUS: REG ER ORD. PHYSICIAN: PREET FLEMING DO REASON: chest pain PROCEDURE: PORTABLE CHEST 1V Exam: Chest one view INDICATION: Chest pain TECHNIQUE: Frontal view of the chest Comparisons: 12/01/2021 FINDINGS: The cardiomediastinal silhouette and pulmonary vessels are within normal limits. The lung and pleural spaces are clear. IMPRESSION: No acute cardiopulmonary process. VTE Prophylaxis Ordered VTE Prophylaxis Devices: No VTE Pharmacological Prophylaxi: Yes Assessment/Plan Assessment/Plan Chest pain Hypertensive urgency CATARINA due to vasomotor nephropathy PCP intoxication DM2 with hyperglycemia History of cocaine abuse CAD HLD Plan: Repeat troponins 209, 226 IV fluids Suspect demand ischemia secondary to PCP use. No need to consult cardiology at this time. Will add amlodipine to her medication regimen. At the time my evaluation she denies any chest pain, shortness of breath, or nausea. States her chest pain was right-sided and occurred following PCP use. Discussed need for PCP and cocaine cessation. Discussed with our social workers, she is well-known to them and they state that she has every resource that we are able to provide for her. FEN - Cardiac diet PPX - ambulatory FULL CODE Dispo - discharge home Justifications for Admission Other Justification Altered mental status and elevated troponins ALIZA GODOY MD February 20, 2022 11:05
[2022-02-20 11:11] VITALS: BP 190/114
[2022-02-20] MEDS ORDERED: AMLO-187 PO (11:58)
[2022-02-20] MEDS ORDERED: CARVEDILOL 12.5 MG TABLET. PO SCH (12:00)
[2022-02-20] MEDS ORDERED: ASPIRIN ENTERIC COATED 81 MG TABLET.DR. PO SCH (12:00)
[2022-02-20] MEDS ORDERED: INSULIN LISPRO 300 UNITS/3 ML VIAL. SQ SCH (12:00)
--- NOTE | 2022-02-20 12:02 | PDOC3 ---
Discharge Summary Visit Information Date of Admission: February 20, 2022 Date of Discharge: February 20, 2022 Final Diagnosis Problems Medical Problems: (1) Chest pain Status: Acute (2) Substance abuse Status: Acute Brief Hospital Course Allergies Allergies Coded Allergies Type Severity Reaction Last Updated Verified cod liver oil Adverse Reaction Intermediate "STREP THROAT" 02/19/22 Yes Vital Signs Vital Signs Date Time Temp Pulse Resp B/P (MAP) Pulse Ox O2 Delivery O2 Flow Rate FiO2 02/20/22 11:41 96 Room Air 02/20/22 11:11 87 190/114 02/20/22 10:09 97.7 18 97.7 Lab Results Laboratory Tests Test 02/19/22 20:26 02/19/22 20:40 02/19/22 20:47 02/19/22 21:25 Glucose (Fingerstick) 352 mg/dL (70-99) White Blood Count 11.3 x10^3/uL (4.0-11.0) Red Blood Count 4.15 x10^6/uL (3.50-5.40) Hemoglobin 12.5 g/dL (12.0-15.5) Hematocrit 37.3 % (36.0-47.0) Mean Corpuscular Volume 90 fL (79-100) Mean Corpuscular Hemoglobin 30 pg (25-35) Mean Corpuscular Hemoglobin Concent 33 g/dL (31-37) Red Cell Distribution Width 13.9 % (11.5-14.5) Platelet Count 267 x10^3/uL (140-400) Neutrophils (%) (Auto) 62 % (31-73) Lymphocytes (%) (Auto) 27 % (24-48) Monocytes (%) (Auto) 8 % (0-9) Eosinophils (%) (Auto) 1 % (0-3) Basophils (%) (Auto) 1 % (0-3) Neutrophils # (Auto) 7.1 x10^3/uL (1.8-7.7) Lymphocytes # (Auto) 3.1 x10^3/uL (1.0-4.8) Monocytes # (Auto) 0.9 x10^3/uL (0.0-1.1) Eosinophils # (Auto) 0.1 x10^3/uL (0.0-0.7) Basophils # (Auto) 0.1 x10^3/uL (0.0-0.2) Sodium Level 139 mmol/L (136-145) Potassium Level 3.9 mmol/L (3.5-5.1) Chloride Level 102 mmol/L (98-107) Carbon Dioxide Level 27 mmol/L (21-32) Anion Gap 10 (6-14) Blood Urea Nitrogen 15 mg/dL (7-20) Creatinine 1.1 mg/dL (0.6-1.0) Estimated GFR (Cockcroft-Gault) 65.0 BUN/Creatinine Ratio 14 (6-20) Glucose Level 389 mg/dL (70-99) Calcium Level 8.6 mg/dL (8.5-10.1) Magnesium Level 1.8 mg/dL (1.8-2.4) Total Bilirubin 0.2 mg/dL (0.2-1.0) Aspartate Amino Transf (AST/SGOT) 9 U/L (15-37) Alanine Aminotransferase (ALT/SGPT) 13 U/L (14-59) Alkaline Phosphatase 163 U/L (46-116) Troponin I High Sensitivity 192 ng/L (4-50) SS-Orp-U-Type Natriuretic Peptide 986 pg/mL (0-124) Total Protein 6.9 g/dL (6.4-8.2) Albumin 3.0 g/dL (3.4-5.0) Albumin/Globulin Ratio 0.8 (1.0-1.7) Lipase 104 U/L (73-393) Acetone Level Neg (NEG) Urine Collection Type U cath Urine Color (Auto) Light yellow Urine Turbidity Clear Urine pH (Auto) 6.0 (<5.0-8.0) Urine Specific [place] 1.040 (1.000-1.030) Urine Protein (Auto) 50 mg/dL (Negative) Urine Glucose (Auto)(UA) >=1000 mg/dL (Negative) Urine Ketones (Auto) Negative mg/dL (Negative) Urine Blood (Auto) Negative (Negative) Urine Nitrite Negative (Negative) Urine Bilirubin (Auto) Negative (Negative) Urine Urobilinogen (Auto) Normal mg/dL (Normal) Urine Leukocyte Esterase (Auto) Large (Negative) Urine RBC 0 /HPF (0-2) Urine WBC 20-40 /HPF (0-4) Urine Squamous Epithelial Cells Few /LPF Urine Bacteria 0 /HPF (0-FEW) Urine Trichomonas Present Bedside Urine HCG, Qualitative Hcg negative (Negative) Urine Test Negative (NEG) Urine Opiates Screen Neg (NEG) Urine Methadone Screen Neg (NEG) Urine Barbiturates Neg (NEG) Urine Phencyclidine Screen Pos (NEG) Urine Amphetamine/Methamphetamine Neg (NEG) Urine Benzodiazepines Screen Neg (NEG) Urine Cocaine Screen Neg (NEG) Urine Cannabinoids Screen Pos (NEG) Urine Ethyl Alcohol Neg (NEG) O2 Saturation 96 % (92-99) Arterial Blood pH 7.43 (7.35-7.45) Arterial Blood pCO2 at Patient Temp 39 mmHg (35-46) Arterial Blood pO2 at Patient Temp 78 mmHg (75-108) Arterial Blood HCO3 25 mmol/L (21-28) Arterial Blood Base Excess 1 mmol/L (-3-3) FiO2 21 Test 02/19/22 22:48 02/20/22 00:49 02/20/22 04:00 02/20/22 11:20 Glucose (Fingerstick) 281 mg/dL (70-99) Troponin I High Sensitivity 209 ng/L (4-50) 226 ng/L (4-50) 268 ng/L (4-50) Laboratory Tests Test 02/19/22 20:26 02/19/22 20:40 02/19/22 20:47 02/19/22 21:25 Glucose (Fingerstick) 352 mg/dL (70-99) White Blood Count 11.3 x10^3/uL (4.0-11.0) Red Blood Count 4.15 x10^6/uL (3.50-5.40) Hemoglobin 12.5 g/dL (12.0-15.5) Hematocrit 37.3 % (36.0-47.0) Mean Corpuscular Volume 90 fL (79-100) Mean Corpuscular Hemoglobin 30 pg (25-35) Mean Corpuscular Hemoglobin Concent 33 g/dL (31-37) Red Cell Distribution Width 13.9 % (11.5-14.5) Platelet Count 267 x10^3/uL (140-400) Neutrophils (%) (Auto) 62 % (31-73) Lymphocytes (%) (Auto) 27 % (24-48) Monocytes (%) (Auto) 8 % (0-9) Eosinophils (%) (Auto) 1 % (0-3) Basophils (%) (Auto) 1 % (0-3) Neutrophils # (Auto) 7.1 x10^3/uL (1.8-7.7) Lymphocytes # (Auto) 3.1 x10^3/uL (1.0-4.8) Monocytes # (Auto) 0.9 x10^3/uL (0.0-1.1) Eosinophils # (Auto) 0.1 x10^3/uL (0.0-0.7) Basophils # (Auto) 0.1 x10^3/uL (0.0-0.2) Sodium Level 139 mmol/L (136-145) Potassium Level 3.9 mmol/L (3.5-5.1) Chloride Level 102 mmol/L (98-107) Carbon Dioxide Level 27 mmol/L (21-32) Anion Gap 10 (6-14) Blood Urea Nitrogen 15 mg/dL (7-20) Creatinine 1.1 mg/dL (0.6-1.0) Estimated GFR (Cockcroft-Gault) 65.0 BUN/Creatinine Ratio 14 (6-20) Glucose Level 389 mg/dL (70-99) Calcium Level 8.6 mg/dL (8.5-10.1) Magnesium Level 1.8 mg/dL (1.8-2.4) Total Bilirubin 0.2 mg/dL (0.2-1.0) Aspartate Amino Transf (AST/SGOT) 9 U/L (15-37) Alanine Aminotransferase (ALT/SGPT) 13 U/L (14-59) Alkaline Phosphatase 163 U/L (46-116) Troponin I High Sensitivity 192 ng/L (4-50) HN-Uus-A-Type Natriuretic Peptide 986 pg/mL (0-124) Total Protein 6.9 g/dL (6.4-8.2) Albumin 3.0 g/dL (3.4-5.0) Albumin/Globulin Ratio 0.8 (1.0-1.7) Lipase 104 U/L (73-393) Acetone Level Neg (NEG) Urine Collection Type U cath Urine Color (Auto) Light yellow Urine Turbidity Clear Urine pH (Auto) 6.0 (<5.0-8.0) Urine Specific [place] 1.040 (1.000-1.030) Urine Protein (Auto) 50 mg/dL (Negative) Urine Glucose (Auto)(UA) >=1000 mg/dL (Negative) Urine Ketones (Auto) Negative mg/dL (Negative) Urine Blood (Auto) Negative (Negative) Urine Nitrite Negative (Negative) Urine Bilirubin (Auto) Negative (Negative) Urine Urobilinogen (Auto) Normal mg/dL (Normal) Urine Leukocyte Esterase (Auto) Large (Negative) Urine RBC 0 /HPF (0-2) Urine WBC 20-40 /HPF (0-4) Urine Squamous Epithelial Cells Few /LPF Urine Bacteria 0 /HPF (0-FEW) Urine Trichomonas Present Bedside Urine HCG, Qualitative Hcg negative (Negative) Urine Test Negative (NEG) Urine Opiates Screen Neg (NEG) Urine Methadone Screen Neg (NEG) Urine Barbiturates Neg (NEG) Urine Phencyclidine Screen Pos (NEG) Urine Amphetamine/Methamphetamine Neg (NEG) Urine Benzodiazepines Screen Neg (NEG) Urine Cocaine Screen Neg (NEG) Urine Cannabinoids Screen Pos (NEG) Urine Ethyl Alcohol Neg (NEG) O2 Saturation 96 % (92-99) Arterial Blood pH 7.43 (7.35-7.45) Arterial Blood pCO2 at Patient Temp 39 mmHg (35-46) Arterial Blood pO2 at Patient Temp 78 mmHg (75-108) Arterial Blood HCO3 25 mmol/L (21-28) Arterial Blood Base Excess 1 mmol/L (-3-3) FiO2 21 Test 02/19/22 22:48 02/20/22 00:49 02/20/22 04:00 02/20/22 11:20 Glucose (Fingerstick) 281 mg/dL (70-99) Troponin I High Sensitivity 209 ng/L (4-50) 226 ng/L (4-50) 268 ng/L (4-50) Brief Hospital Course Ms. Pagan is a 46 old female who presented with chest pain secondary to PCP use. Troponins were minimally elevated, secondary to demand ischemia. Patient counseled on PCP and cocaine cessation. No further chest pain the day of discha rge. She was stable to discharge home. Discharge Information Condition at Discharge: Improved Disposition/Orders: D/C to Home Scheduled Amlodipine Besylate (Amlodipine Besylate) 10 Mg Tablet, 10 MG PO DAILY for HTN for 30 Days, #30 Ref 5 Prescribed by: ALIZA GODOY MD on 02/20/22 1158 Aspirin (Aspirin Ec) 81 Mg Tablet.dr, 81 MG PO DAILYWBKFT for antiplatelet for 30 Days, #30 Ref 11 Prescribed by: KEELEY GREWAL MD on 05/23/21 1023 Last Action: Continued on 02/20/221046 by ALIZA GODOY MD Atorvastatin Calcium (Atorvastatin Calcium) 20 Mg Tablet, 20 MG PO HS for FOR CHOLESTEROL for 30 Days, #30 Ref 5 Prescribed by: KEELEY GREWAL MD on 11/27/211043 Last Action: Continued on 02/20/221046 by ALIZA GODOY MD Carvedilol (Carvedilol ) 12.5 Mg Tablet, 12.5 MG PO BIDWMEALS for CARDIAC for 30 Days, #60 Ref 5 Prescribed by: KEELEY GREWAL MD on 11/27/211043 Last Action: Continued on 02/20/221046 by ALIZA GODOY MD Clopidogrel Bisulfate (Clopidogrel) 75 Mg Tablet, 75 MG PO DAILY for TO PREVENT BLOOD CLOTS for 30 Days, #30 Ref 5 Prescribed by: KEELEY GREWAL MD on 11/27/211043 Last Action: Continued on 02/20/221046 by ALIZA GODOY MD Fluticasone Propionate (Flonase Allergy Relief) 9.9 Ml [place].susp, 2 SPRAYS NS DAILY for ALLERGIES, (Reported) Entered as Reported by: AMY HORTON on 09/21/212004 Last Action: Converted on 02/20/221046 by ALIZA GODOY MD Lisinopril (Lisinopril) 40 Mg Tablet, 40 MG PO DAILY for FOR HYPERTENSION for 30 Days, #30 Ref 5 Prescribed by: KEELEY GREWAL MD on 11/27/211043 Last Action: Continued on 02/20/221046 by ALIZA GODOY MD Metformin Hcl (Metformin Hcl) 1,000 Mg Tablet, 1,000 MG PO BIDWMEALS for DM2 for 30 Days, #60 Ref 5 Prescribed by: KEELEY GREWAL MD on 11/27/211043 Last Action: Reviewed on 02/20/22128 by HIREN TERAN RN Risperidone (Risperdal) 2 Mg Tablet, 1 TAB PO QHS for Mood Disorder for 30 Days, #30 Ref 2 Prescribed by: KEELEY GREWAL MD on 05/23/21 1023 Last Action: Converted on 02/20/221046 by ALIZA GODOY MD Scheduled PRN Acetaminophen (Acetaminophen) 500 Mg Tablet, 500 MG PO PRN Q6HRS PRN for PAIN, (Reported) Entered as Reported by: Salbador Moise on 10/04/212211 Last Action: Reviewed on 02/20/22128 by HIREN TERAN RN Albuterol Sulfate (Proair Hfa Inhaler) 8.5 Gm Hfa.aer.ad, 1 PUFF INH PRN Q6HRS PRN for SHORTNESS OF BREATH, Ref 0 (Reported) Entered as Reported by: AMY HORTON on 09/21/212004 Last Action: Reviewed on 02/20/22128 by HIREN TERAN RN Albuterol Sulfate (Albuterol Sulfate Conc Neb Soln) 2.5 Mg/0.5 Ml Vial.neb, 1 VIAL NEB PRN Q4-6HRS PRN for SHORTNESS OF BREATH for 30 Days, #60 Ref 1 Prescribed by: KEELEY VELA MD on 09/23/21 1116 Last Action: Converted on 02/20/221046 by ALIZA GODOY MD Hydroxyzine Hcl (Hydroxyzine Hcl) 25 Mg Tablet, 50 MG PO PRN DAILY PRN for ANXIETY / AGITATION, (Reported) Entered as Reported by: Salbador Moise on 10/04/212211 Last Action: Continued on 02/20/221046 by ALIZA GODOY MD Nitroglycerin (NITROGLYCERIN SubLingual) 0.4 Mg Tab.subl, 0.4 MG SL PRN Q5MIN PRN for CHEST PAIN, (Reported) Entered as Reported by: AMY HORTON on 09/21/212004 Last Action: Continued on 02/20/221046 by ALIZA GODOY MD Discontinued Medications Clonidine Hcl (Clonidine Hcl) 0.1 Mg Tablet, 0.1 MG PO DAILY for HTN, (Reported) Entered as Reported by: AMY HORTON on 09/21/212004 Last Action: Reviewed on 02/20/22128 by HIREN TERAN RN Durable Medical Equipment Nebulizer and Compressor (Compressor Nebulizer System) 1 Each Each, EACH MC 1-2XD PRN for COUGH, #1 Ref 2, (DME) Use with albuterol nebulizer solution. Prescribed by: KEELEY VELA MD on 09/23/21 1118 Justicifation of Admission Dx: Justifications for Admission: Justification of Admission Dx: Yes Hypertension: [place] Worsening of Sym ALIZA GODOY MD February 20, 2022 12:01
--- NOTE | 2022-02-20 13:24 | NUR ---
Discharge Note: [facility] Discharge instructions and discharge home medications reviewed with Patient and a copy given. All questions have been answered and understanding verbalized. The following instructions and handouts were given: Follow up and new medications Discontinued lines and drains: Removed IV and campus monitor Patient discharged to home
[2022-02-20] MEDS ORDERED: ATORVASTATIN CALCIUM 20 MG TABLET PO SCH (21:00)
[2022-02-20] MEDS ORDERED: INSULIN GLARGINE SYRINGE. SQ SCH (21:00)
[2022-02-20] MEDS ORDERED: risperiDONE 1 MG TABLET. PO SCH (21:00)
== END 2022-02-20 13:00 | disposition home or self-care (01) | DRG 313 ==
LOC: ER 20:19 → 6 SOUTH 22:46
PROVIDERS: ADMIT Internal Medicine; ATTEND Internal Medicine
DX: R07.89 Other chest pain (principal); N17.0 Acute kidney failure with tubular necrosis; I24.8 Other forms of acute ischemic heart disease; N39.0 Urinary tract infection, site not specified; E11.65 Type 2 diabetes mellitus with hyperglycemia; F16.129 Hallucinogen abuse with intoxication, unspecified; E78.5 Hyperlipidemia, unspecified; F17.210 Nicotine dependence, cigarettes, uncomplicated; F31.9 Bipolar disorder, unspecified; I10 Essential (primary) hypertension; I16.0 Hypertensive urgency; I25.10 Atherosclerotic heart disease of native coronary artery without angina pectoris; M06.9 Rheumatoid arthritis, unspecified; Z79.02 Long term (current) use of antithrombotics/antiplatelets; Z79.84 Long term (current) use of oral hypoglycemic drugs; Z79.899 Other long term (current) drug therapy; Z82.49 Family history of ischemic heart disease and other diseases of the circulatory system; Z95.5 Presence of coronary angioplasty implant and graft; F14.10 Cocaine abuse, uncomplicated; F41.9 Anxiety disorder, unspecified; M19.90 Unspecified osteoarthritis, unspecified site; Z71.51 Drug abuse counseling and surveillance of drug abuser
CPT/HCPCS: 36415; 36600; 70450; 71045; 80053; 80307; 81001; 81025; 82010; 82805; 82962; 83690; 83735; 83880; 84484; 85025; 87086; 93005; 96361; 96372; 96374; 96375; 96376; 99406; J0360; J0696; J1650; J1815; J2405; J7030; 99285-25; G0378